=== PATIENT | male | born 1985 | race Caucasian/White ===

== ENCOUNTER 2021-10-01 23:19 | Observation (INO) | payer BC ==
--- OUTSIDE RECORDS SUMMARY | 2021-10-01 23:24 | XMS REPORT | Continuity of Care Document ---
:1985 Author Organization [facility] t Address [address] [place] [address] Care Team Providers Name Role Phone Addison HIDALGO Primary Care Physician Unavailable JUAN Attending Clinician Unavailable CARMEN Attending Clinician Unavailable CARMEN Attending Clinician Unavailable Vishnu CRUZ Attending Clinician THONY Attending Clinician Unavailable Aquilino SCHWARZ Attending Clinician Unavailable SHARONA SCHWARZ Attending Clinician Unavailable Carmen CRUZ Attending Clinician CARMEN Admitting Clinician Unavailable SHARONA SCHWARZ Admitting Clinician Unavailable Payers Payer Name Policy Type Policy Number Effective Date Expiration Date S mohit BCBSTX PPO AND OUT [id number] 2020 [facility] 00:00:00 BCBS PPO POS EPO [id number] 2014 2020 CHOICE 00:00:00 00:00:00 PPO/EPO - BCBS [id number] COPAY PATIENT [id number] ASSISTANCE PROGRAM Problems Condition Condition Condition Status Onset Resolution Last Treating Co mments Source Name Details Category Date Date Treatment Clinician Date Neck pain, Neck pain, Disease Active [facility] bilateral bilateral 4- [facility]al th 00:00: 00 Other Other Disease Active [facility] headache headache - Health syndrome syndrome 00:00: 00 741.00, Diagnosis Active 2014-12-12 Me jesus 780.4 11-13 07:16:00 l 741.00, 00:00: [place] 780.4 00 Active 11/13/2014 [facility] Malabsorpt Malabsorpt Disease Active [facility] ion ion 1-14 [facility] 00:00: of 00 Medicin e Iron Iron Disease Active [facility] deficiency deficiency 1-14 Co llege anemia anemia 00:00: of 00 Medicin e Perianal Perianal Disease Active 2009-06 [place] [facility] abscess abscess 1-09 [facility] 00:00: of 00 Medicin e Crohn's Crohn's Disease Active [facility] disease disease 8-17 College (HCCode) (HCCode) 00:00: of 00 Medicin e Epigastric Epigastric Disease Active [facility] pain pain 8-17 College 00:00: of 00 Medicin e Osteoporos Osteoporos Disease Active [facility] is is 4-20 College 00:00: of 00 Medicin e Allergies, Adverse Reactions, Alerts Allergy Allergy Status Severity Reaction(s) Onset Inactive Treating Comm ents Source Name Type Date Date Clinician MOLD Allergy Active Low Other [facility] 2-04 00:00: 00 TOMATO Allergy Active Low Other [facility] (SOLANUM 2-04 LYCOPERS 00:00: ICUM) 00 Molds & Allergy Active Other [facility] Smuts to 2-04 reaction( Health substanc 00:00: s): Other e 00 (See Comments) Sneezing, allergic rhinitis Tomato Allergy Active Mild [facility] to 4-17 allergy Health substanc 00:00: e 00 Mold Propensi Active [facility] Spores ty to 4-17 College adverse 00:00: of reaction 00 Medicin s to e substanc e Tomatoes Propensi Active Mild [facility] ty to 4-17 allergy College adverse 00:00: of reaction 00 Medicin s to e food Social History Social Habit Start Date Stop Date Quantity Comments Source Exposure to Not sure [facility] SARS-CoV-2 (event) Alcohol intake 2021-03-25 2021-03-25 Current [facility] Col lege 00:00:00 00:00:00 non-drinker of of Medicin e alcohol (finding) Sex Ass[birth year] At [birth year] [facility] 00:00:00 00:00:00 Smoking Status Start Date Stop Date Source Never smoked tobacco [facility] Tobacco smoking consumption unknown [facility] Medications Ordered Filled Start Stop Current Ordering Indication Dosage Frequency Signature Comments Components Source Medication Medication Date Date Medication? Clinician (SIG) Name Name DULoxetine 2022- Yes [id number] 20mg QD Take 1 [facility] (Cymbalta) 09-26 capsule [facility] [address] 00:00: 04:59 (20 mg capsule 00 :00 total) by mouth 1 (one) time each day. Do not crush or chew. gabapentin 2022- Yes [id number] 300mg Q.5D Take 1 [facility] (Neurontin) 09-26 capsule Heal th 300 MG 00:00: 04:59 (300 mg capsule 00 :00 total) by mouth 2 (two) times a day. Omeprazole Yes [id number] 20mg Take 20 mg [facility] 20 MG TBEC 3-09 by mouth Colle ge 00:00: every of 00 morning. Medicin e metoprolol 2020-06- No 25mg Take 25 mg [facility] (LOPRESSOR) 2-10 12-10 by mouth Col lege 25 MG 14:24: 00:00 two times of tablet 31 :00 daily. Medicin e fludrocorti 2020-06- No .1mg Take 0.1 [facility] sone 2-10 12-10 mg by [facility] ([facility]) 14:24: 00:00 mouth of 0.1 MG 13 :00 daily. Medicin tablet e loperamide 2020-06- No 2mg Take 2 mg [facility] (IMODIUM 2-10 12-10 by mouth 4 [place] [facility] A-D) 2 MG 14:23: 00:00 times of tablet 52 :00 daily as Medicin needed. e hyoscyamine 2020-[id number] [facility] (LEVSIN/SL) 2-10 Tablet Colleg e 0.125 MG SL 00:00: under the o f tablet 00 tongue Medicin every 4 e hours as needed. hyoscyamine 2020-[id number] [facility] (LEVSIN/SL) 2-10 Tablet Colleg e 0.125 MG SL 00:00: under the o f tablet 00 tongue Medicin every 4 e hours as needed. hyoscyamine 2020-[id number] [facility] (LEVSIN/SL) 2-10 Tablet Colleg e 0.125 MG SL 00:00: under the o f tablet 00 tongue Medicin every 4 e hours as needed. hyoscyamine 2020-[id number] [facility] (LEVSIN/SL) 2-10 Tablet Colleg e 0.125 MG SL 00:00: under the o f tablet 00 tongue Medicin every 4 e hours as needed. hyoscyamine 2020-[id number] 1 [facility] (LEVSIN/SL) 2-10 Tablet Colleg e 0.125 MG SL 00:00: under the o f tablet 00 tongue Medicin every 4 e hours as needed. Na 2020-06- No [SUPREP] [facility] Sulfate-K 1-18 12-10 Take as Colleg e Sulfate-Mg 00:00: 00:00 directed. o f Sulf 00 :00 Medicin (SUPREP e BOWEL PREP KIT) 17.5-3.13-1 .6 GM/177ML SOLN methylPREDN 2020-06 Yes [id number] Take 12 mg [facility] ISolone 1-10 po QD College (MEDROL) 4 00:00: of MG tablet 00 Medicin e methylPREDN 2020-06 Yes [id number] Take 12 mg [facility] ISolone 1-10 po QD College (MEDROL) 4 00:00: of MG tablet 00 Medicin e methylPREDN 2020-06 Yes [id number] Take 12 mg [facility] ISolone 1-10 po QD College (MEDROL) 4 00:00: of MG tablet 00 Medicin e methylPREDN 2020-06 Yes [id number] Take 12 mg [facility] ISolone 1-10 po QD College (MEDROL) 4 00:00: of MG tablet 00 Medicin e methylPREDN 2020-06 Yes [id number] Take 12 mg [facility] ISolone 1-10 po QD College (MEDROL) 4 00:00: of MG tablet 00 Medicin e methylPREDN 2020-06- No [id number] Take 12 mg [facility] ISolone 1-10 03-09 po QD [facility] (MEDROL) 4 00:00: 00:00 of MG tablet 00 :00 Medicin e Na Yes Dispense 1 [facility] Sulfate-K 9-22 kit; Take Colle ge Sulfate-Mg 00:00: as of Sulf 00 directed Medicin 17.5-3.13-1 e .6 GM/177ML SOLN Na Yes Dispense 1 [facility] Sulfate-K 9-22 kit; Take Colle [facility] Sulfate-Mg 00:00: as of Sulf 00 directed Medicin 17.5-3.13-1 e .6 GM/177ML SOLN Na Yes Dispense 1 [facility] Sulfate-K 9-22 kit; Take Colle ge Sulfate-Mg 00:00: as of Sulf 00 directed Medicin 17.5-3.13-1 e .6 GM/177ML SOLN Na Yes Dispense 1 [facility] Sulfate-K 9-22 kit; Take Colle ge Sulfate-Mg 00:00: as of Sulf 00 directed Medicin 17.5-3.13-1 e .6 GM/177ML SOLN Cholecalcif Yes 1{tbl} Take 1 Tab [facility] will 7-14 by mouth [facility] (VITAMIN D) 13:41: daily. of 2000 UNIT 57 Medicin TABS e Multiple Yes Take by [place] 7-14 mouth. Colleg e nerals 13:41: of (MULTIVITAM 57 Medicin IN & e MINERAL OR) loperamide Yes 2mg Take 2 mg [facility] (IMODIUM 7-14 by mouth 4 Colle ge A-D) 2 MG 13:41: times of tablet 57 daily as Medicin needed. e gabapentin Yes 300mg Take 300 [facility] (NEURONTIN) 7-14 mg by [place] 300 MG 13:41: mouth 3 of capsule 57 times Medicin daily. e acetaminoph Yes 650mg Take 650 [facility] en 7-14 mg by [place] (TYLENOL) 13:41: mouth of 325 mg 57 every 4 Medicin tablet hours as e needed for Pain. Cholecalcif Yes 1{tbl} Take 1 Tab [facility] will 7-14 by mouth [place] (VITAMIN D) 13:41: daily. of 1999 UNIT 57 Medicin TABS e Multiple Yes Take by [place] [facility] 7-14 mouth. Colleg e nerals 13:41: of (MULTIVITAM 57 Medicin IN & e MINERAL OR) loperamide Yes 2mg Take 2 mg [facility] (IMODIUM 7-14 by mouth 4 Colle ge A-D) 2 MG 13:41: times of tablet 57 daily as Medicin needed. e gabapentin 0 Yes 300mg Take 300 [facility] (NEURONTIN) 7-14 mg by [place] 300 MG 13:41: mouth 3 of capsule 57 times Medicin daily. e acetaminoph Yes 650mg Take 650 [facility] en 7-14 mg by [facility] (TYLENOL) 13:41: mouth of 325 mg 57 every 4 Medicin tablet hours as e needed for Pain. Cholecalcif Yes 1{tbl} Take 1 Tab [facility] will 7-14 by mouth [place] (VITAMIN D) 13:41: daily. of 1999 UNIT 57 Medicin TABS e Cholecalcif Yes 1{tbl} Take 1 Tab [facility] will 7-14 by mouth [place] (VITAMIN D) 13:41: daily. of 1999 UNIT 57 Medicin TABS e Multiple Yes Take by [place] [facility]-Mi 7-14 mouth. [facility] nerals 13:41: of (MULTIVITAM 57 Medicin IN & e MINERAL OR) loperamide Yes 2mg Take 2 mg [facility] (IMODIUM 7-14 by mouth 4 Colle ge A-D) 2 MG 13:41: times of tablet 57 daily as Medicin needed. e gabapentin 0 Yes 300mg Take 300 [facility] (NEURONTIN) 7-14 mg by [place] 300 MG 13:41: mouth 3 of capsule 57 times Medicin daily. e Multiple Yes Take by [place] [facility] 7-14 mouth. Colleg e nerals 13:41: of (MULTIVITAM 57 Medicin IN & e MINERAL OR) acetaminoph 0 Yes 650mg Take 650 [facility] 7-14 mg by [place] (TYLENOL) 13:41: mouth of 325 mg 57 every 4 Medicin tablet hours as e needed for Pain. loperamide 0 Yes 2mg Take 2 mg [facility] (IMODIUM 7-14 by mouth 4 Colle ge A-D) 2 MG 13:41: times of tablet 57 daily as Medicin needed. e gabapentin 0 Yes 300mg Take 300 [facility] (NEURONTIN) 7-14 mg by [place] 300 MG 13:41: mouth 3 of capsule 57 times Medicin daily. e Cholecalcif 0 Yes 1{tbl} Take 1 Tab [facility] will 7-14 by mouth [place] (VITAMIN D) 13:41: daily. of 1999 UNIT 57 Medicin TABS e Multiple 0 Yes Take by [facility] [facility] 7-14 mouth. Colleg e nerals 13:41: of (MULTIVITAM 57 Medicin IN & e MINERAL OR) loperamide 0 Yes 2mg Take 2 mg [facility] (IMODIUM 7-14 by mouth 4 Colle ge A-D) 2 MG 13:41: times of tablet 57 daily as Medicin needed. e gabapentin 0 Yes 300mg Take 300 [facility] (NEURONTIN) 7-14 mg by [place] 300 MG 13:41: mouth 3 of capsule 57 times Medicin daily. e acetaminoph 0 Yes 650mg Take 650 [facility] 7-14 mg by [place] (TYLENOL) 13:41: mouth of 325 mg 57 every 4 Medicin tablet hours as e needed for Pain. acetaminoph 0 Yes 650mg Take 650 [facility] en 7-14 mg by [place] (TYLENOL) 13:41: mouth of 325 mg 57 every 4 Medicin tablet hours as e needed for Pain. Cholecalcif 0 Yes 1{tbl} Take 1 Tab [facility] will 7-14 by mouth [place] (VITAMIN D) 13:41: daily. of 1999 UNIT 57 Medicin TABS e Multiple Yes Take by [facility] 7-14 mouth. Colleg e nerals 13:41: of (MULTIVITAM 57 Medicin IN & e MINERAL OR) loperamide 0 Yes 2mg Take 2 mg [facility] (IMODIUM 7-14 by mouth 4 Colle ge A-D) 2 MG 13:41: times of tablet 57 daily as Medicin needed. e gabapentin 0 Yes 300mg Take 300 [facility] (NEURONTIN) 7-14 mg by [place] 300 MG 13:41: mouth 3 of capsule 57 times Medicin daily. e acetaminoph 2020-0 Yes 650mg Take 650 [facility] 7-14 mg by [place] (TYLENOL) 13:41: mouth of 325 mg 57 every 4 Medicin tablet hours as e needed for Pain. Cholecalcif 2020-0 Yes 1{tbl} Take 1 Tab [facility] will 7-14 by mouth [place] (VITAMIN D) 13:41: daily. of 1999 UNIT 57 Medicin TABS e Multiple 0 Yes Take by [facility] Vitamins-Mi 7-14 mouth. Colleg e nerals 13:41: of (MULTIVITAM 57 Medicin IN & e MINERAL OR) loperamide 0 Yes 2mg Take 2 mg [facility] (IMODIUM 7-14 by mouth 4 [facility] ge A-D) 2 MG 13:41: times of tablet 57 daily as Medicin needed. e gabapentin 0 Yes 300mg Take 300 [facility] (NEURONTIN) 7-14 mg by [place] 300 MG 13:41: mouth 3 of capsule 57 times Medicin daily. e acetaminoph 2020-0 Yes 650mg Take 650 [facility] en 7-14 mg by [place] (TYLENOL) 13:41: mouth of 325 mg 57 every 4 Medicin tablet hours as e needed for Pain. Cholecalcif 2020-0 Yes 1{tbl} Take 1 Tab [facility] will 7-14 by mouth [place] (VITAMIN D) 13:41: daily. of 1999 UNIT 57 Medicin TABS e Multiple Yes Take by [facility] Vitamins-Mi 7-14 mouth. Colleg e nerals 13:41: of (MULTIVITAM 57 Medicin IN & e MINERAL OR) gabapentin 2020-0 Yes 300mg Take 300 [facility] (NEURONTIN) 7-14 mg by [place] 300 MG 13:41: mouth 3 of capsule 57 times Medicin daily. e acetaminoph 2020-0 Yes 650mg Take 650 [facility] en 7-14 mg by [place] (TYLENOL) 13:41: mouth of 325 mg 57 every 4 Medicin tablet hours as e needed for Pain. Cholecalcif 2020-0 Yes 1{tbl} Take 1 Tab [facility] will 7-14 by mouth [place] (VITAMIN D) 13:41: daily. of 1999 UNIT 57 Medicin TABS e Multiple Yes Take by [facility] Vitamins-Mi 7-14 mouth. Colleg e nerals 13:41: of (MULTIVITAM 57 Medicin IN & e MINERAL OR) gabapentin 2020-0 Yes 300mg Take 300 [facility] (NEURONTIN) 7-14 mg by [place] 300 MG 13:41: mouth 3 of capsule 57 times Medicin daily. e acetaminoph 2020-0 Yes 650mg Take 650 [facility] en 7-14 mg by [place] (TYLENOL) 13:41: mouth of 325 mg 57 every 4 Medicin tablet hours as e needed for Pain. Cholecalcif 0 Yes 1{tbl} Take 1 Tab [facility] will 7-14 by mouth [place] (VITAMIN D) 13:41: daily. of 1999 UNIT 57 Medicin TABS e Multiple 0 Yes Take by [facility] Vitamins-Mi 7-14 mouth. Colle e nerals 13:41: of (MULTIVITAM 57 Medicin IN & e MINERAL OR) gabapentin 2020-0 Yes 300mg Take 300 [facility] (NEURONTIN) 7-14 mg by [place] 300 MG 13:41: mouth 3 of capsule 57 times Medicin daily. e acetaminoph 2020-0 Yes 650mg Take 650 [facility] 7-14 mg by [place] (TYLENOL) 13:41: mouth of 325 mg 57 every 4 Medicin tablet hours as e needed for Pain. Cholecalcif 2020-0 Yes 1{tbl} Take 1 Tab [facility] will 7-14 by mouth [place] (VITAMIN D) 13:41: daily. of 1999 UNIT 57 Medicin TABS e Multiple Yes Take by [facility] Vitamins-Ga 7-14 mouth. Colleg e nerals 13:41: of (MULTIVITAM 57 Medicin IN & e MINERAL OR) gabapentin 2020-0 Yes 300mg Take 300 [facility] (NEURONTIN) 7-14 mg by [place] 300 MG 13:41: mouth 3 of capsule 57 times Medicin daily. e acetaminoph 202-0 Yes 650mg Take 650 [facility] en 7-14 mg by [place] (TYLENOL) 13:41: mouth of 325 mg 57 every 4 Medicin tablet hours as e needed for Pain. Cholecalcif 202-0 Yes 1{tbl} Take 1 Tab [facility] will 7-14 by mouth [place] (VITAMIN D) 13:41: daily. of 1999 UNIT 57 Medicin TABS e Multiple Yes Take by [facility] Vitamins-Mi 7-14 mouth. Colleg e nerals 13:41: of (MULTIVITAM 57 Medicin IN & e MINERAL OR) gabapentin Yes 300mg Take 300 [facility] (NEURONTIN) 7-14 mg by [facility] 300 MG 13:41: mouth 3 of capsule 57 times Medicin daily. e acetaminoph Yes 650mg Take 650 [facility] 7-14 mg by [place] (TYLENOL) 13:41: mouth of 325 mg 57 every 4 Medicin tablet hours as e needed for Pain. Cholecalcif Yes 1{tbl} Take 1 Tab [facility] will 7-14 by mouth [place] (VITAMIN D) 13:41: daily. of 1999 UNIT 57 Medicin TABS e Multiple Yes Take by [facility] Vitamins-Mi 7-14 mouth. Colleg e nerals 13:41: of (MULTIVITAM 57 Medicin IN & e MINERAL OR) loperamide Yes 2mg Take 2 mg [facility] (IMODIUM 7-14 by mouth 4 Colle ge A-D) 2 MG 13:41: times of tablet 57 daily as Medicin needed. e gabapentin Yes 300mg Take 300 [facility] (NEURONTIN) 7-14 mg by [place] 300 MG 13:41: mouth 3 of capsule 57 times Medicin daily. e acetaminoph Yes 650mg Take 650 [facility] en 7-14 mg by [place] (TYLENOL) 13:41: mouth of 325 mg 57 every 4 Medicin tablet hours as e needed for Pain. Cholecalcif Yes 1{tbl} Take 1 Tab [facility] will 7-14 by mouth [place] (VITAMIN D) 13:41: daily. of 1999 UNIT 57 Medicin TABS e Multiple Yes Take by [facility] Vitamins-Mi 7-14 mouth. Colleg e nerals 13:41: of (MULTIVITAM 57 Medicin IN & e MINERAL OR) loperamide Yes 2mg Take 2 mg [facility] (IMODIUM 7-14 by mouth 4 Colle ge A-D) 2 MG 13:41: times of tablet 57 daily as Medicin needed. e gabapentin Yes 300mg Take 300 [facility] (NEURONTIN) 7-14 mg by [place] 300 MG 13:41: mouth 3 of capsule 57 times Medicin daily. e acetaminoph Yes 650mg Take 650 [facility] 7-14 mg by [place] (TYLENOL) 13:41: mouth of 325 mg 57 every 4 Medicin tablet hours as e needed for Pain. tramadol Yes TAKE 1 [facility] (ULTRAM) 50 7-05 TABLET BY Col lege MG tablet 00:00: MOUTH of 00 EVERY 6 Medicin HOURS e NEEDED FOR PAIN tramadol Yes TAKE 1 [facility] (ULTRAM) 50 7-05 TABLET BY Col lege MG tablet 00:00: MOUTH of 00 EVERY 6 Medicin HOURS e NEEDED FOR PAIN tramadol Yes TAKE 1 [facility] (ULTRAM) 50 7-05 TABLET BY Col lege MG tablet 00:00: MOUTH of 00 EVERY 6 Medicin HOURS e NEEDED FOR PAIN tramadol Yes TAKE 1 [facility] (ULTRAM) 50 7-05 TABLET BY Col lege MG tablet 00:00: MOUTH of 00 EVERY 6 Medicin HOURS e NEEDED FOR PAIN tramadol Yes TAKE 1 [facility] (ULTRAM) 50 7-05 TABLET BY Col lege MG tablet 00:00: MOUTH of 00 EVERY 6 Medicin HOURS e NEEDED FOR PAIN tramadol Yes TAKE 1 [facility] (ULTRAM) 50 7-05 TABLET BY Col lege MG tablet 00:00: MOUTH of 00 EVERY 6 Medicin HOURS e NEEDED FOR PAIN tramadol Yes TAKE 1 [facility] (ULTRAM) 50 7-05 TABLET BY Col lege MG tablet 00:00: MOUTH of 00 EVERY 6 Medicin HOURS e NEEDED FOR PAIN tramadol Yes TAKE 1 [facility] (ULTRAM) 50 7-05 TABLET BY Col lege MG tablet 00:00: MOUTH of 00 EVERY 6 Medicin HOURS e NEEDED FOR PAIN tramadol Yes TAKE 1 [facility] (ULTRAM) 50 7-05 TABLET BY Col lege MG tablet 00:00: MOUTH of 00 EVERY 6 Medicin HOURS e NEEDED FOR PAIN tramadol 2020-0 2020- No TAKE 1 [facility] (ULTRAM) 50 7-05 12-10 TABLET BY Co llege MG tablet 00:00: 00:00 MOUTH of 00 :00 EVERY 6 Medicin HOURS e NEEDED FOR PAIN ondansetron 2020-0 Yes [id number] 4mg Take 1 [facility] (ZOFRAN 6-10 Tablet by [facility] ODT) 4 mg 00:00: mouth of disintegrat 00 every 8 Medic in ing tablet hours as e needed for Nausea. ondansetron 2020-0 Yes [id number] 4mg Take 1 [facility] (ZOFRAN 6-10 Tablet by [place] ODT) 4 mg 00:00: mouth of disintegrat 00 every 8 Medic in ing tablet hours as e needed for Nausea. ondansetron 2020-0 Yes [id number] 4mg Take 1 [facility] (ZOFRAN 6-10 Tablet by [facility] ODT) 4 mg 00:00: mouth of disintegrat 00 every 8 Medic in ing tablet hours as e needed for Nausea. ondansetron 2020-0 Yes [id number] 4mg Take 1 [facility] (ZOFRAN 6-10 Tablet by [place] ODT) 4 mg 00:00: mouth of disintegrat 00 every 8 Medic in ing tablet hours as e needed for Nausea. ondansetron 2020-0 Yes [id number] 4mg Take 1 [facility] (ZOFRAN 6-10 Tablet by [place] ODT) 4 mg 00:00: mouth of disintegrat 00 every 8 Medic in ing tablet hours as e needed for Nausea. ondansetron 2020-0 Yes [id number] 4mg Take 1 [facility] (ZOFRAN 6-10 Tablet by [facility] ODT) 4 mg 00:00: mouth of disintegrat 00 every 8 Medic in ing tablet hours as e needed for Nausea. ondansetron 2020-0 Yes [id number] 4mg Take 1 [facility] (ZOFRAN 6-10 Tablet by [facility] ODT) 4 mg 00:00: mouth of disintegrat 00 every 8 Medic in ing tablet hours as e needed for Nausea. ondansetron 2020-0 Yes [id number] 4mg Take 1 [facility] (ZOFRAN 6-10 Tablet by [facility] ODT) 4 mg 00:00: mouth of disintegrat 00 every 8 Medic in ing tablet hours as e needed for Nausea. ondansetron 0 Yes [id number] 4mg Take 1 [facility] (ZOFRAN 6-10 Tablet by [facility] ODT) 4 mg 00:00: mouth of disintegrat 00 every 8 Medic in ing tablet hours as e needed for Nausea. ondansetron 0 Yes [id number] 4mg Take 1 [facility] (ZOFRAN 6-10 Tablet by [facility] ODT) 4 mg 00:00: mouth of disintegrat 00 every 8 Medic in ing tablet hours as e needed for Nausea. ondansetron Yes [id number] 4mg Take 1 [facility] (ZOFRAN 6-10 Tablet by [facility] ODT) 4 mg 00:00: mouth of disintegrat 00 every 8 Medic in ing tablet hours as e needed for Nausea. ondansetron Yes [id number] 4mg Take 1 [facility] (ZOFRAN 6-10 Tablet by [facility] ODT) 4 mg 00:00: mouth of disintegrat 00 every 8 Medic in ing tablet hours as e needed for Nausea. ondansetron Yes [id number] 4mg Take 1 [facility] (ZOFRAN 6-10 Tablet by [facility] ODT) 4 mg 00:00: mouth of disintegrat 00 every 8 Medic in ing tablet hours as e needed for Nausea. ondansetron 2021- No [id number] 4mg Take 1 [facility] (ZOFRAN 6-10 03-09 Tablet by [facility] ODT) 4 mg 00:00: 00:00 mouth of disintegrat 00 :00 every 8 Medic in ing tablet hours as e needed for Nausea. loperamide Yes 2mg Take 2 mg [facility] (IMODIUM 11-14 by mouth 4 [facility] ge A-D) 2 MG 08:40: times of tablet 56 daily as Medicin needed. e metoprolol Yes 25mg Take 25 mg [facility] (LOPRESSOR) 6-09 by mouth [place] [facility] 25 MG 08:40: two times of tablet 56 daily. Medicin e fludrocorti 0 Yes .1mg Take 0.1 [facility] sone 6-09 mg by [place] (FLORINEF) 08:40: mouth of 0.1 MG 56 daily. Medicin tablet e metoprolol 2021-0 Yes 25mg Take 25 mg [facility] (LOPRESSOR) 6-09 by mouth [place] [facility] 25 MG 08:40: two times of tablet 56 daily. Medicin e fludrocorti 2021-0 Yes .1mg Take 0.1 [facility] sone 6-09 mg by [place] ([facility]) 08:40: mouth of 0.1 MG 56 daily. Medicin tablet e metoprolol 2021-0 Yes 25mg Take 25 mg [facility] (LOPRESSOR) 6-09 by mouth [place] [facility] 25 MG 08:40: two times of tablet 56 daily. Medicin e fludrocorti 2021-0 Yes .1mg Take 0.1 [facility] sone 6-09 mg by [place] ([facility]) 08:40: mouth of 0.1 MG 56 daily. Medicin tablet e metoprolol 2021-0 Yes 25mg Take 25 mg [facility] (LOPRESSOR) 6-09 by mouth [place] [facility] 25 MG 08:40: two times of tablet 56 daily. Medicin e fludrocorti 2021-0 Yes .1mg Take 0.1 [facility] sone 6-09 mg by [place] ([facility]) 08:40: mouth of 0.1 MG 56 daily. Medicin tablet e metoprolol 2021-0 Yes 25mg Take 25 mg [facility] (LOPRESSOR) 6-09 by mouth [place] [facility] 25 MG 08:40: two times of tablet 56 daily. Medicin e metoprolol 2021-0 Yes 25mg Take 25 mg [facility] (LOPRESSOR) 6-09 by mouth [place] [facility] 25 MG 08:40: two times of tablet 56 daily. Medicin e fludrocorti 2021-0 Yes .1mg Take 0.1 [facility] sone 6-09 mg by [place] ([facility]) 08:40: mouth of 0.1 MG 56 daily. Medicin tablet e fludrocorti 2021-0 Yes .1mg Take 0.1 [facility] sone 6-09 mg by [place] ([facility]) 08:40: mouth of 0.1 MG 56 daily. Medicin tablet e metoprolol 2021-0 Yes 25mg Take 25 mg [facility] (LOPRESSOR) 6-09 by mouth [place] [facility] 25 MG 08:40: two times of tablet 56 daily. Medicin e fludrocorti 2020-0 Yes .1mg Take 0.1 [facility] sone 6-09 mg by [place] ([facility]) 08:40: mouth of 0.1 MG 56 daily. Medicin tablet e metoprolol 2020-0 Yes 25mg Take 25 mg [facility] (LOPRESSOR) 6-09 by mouth [place] [facility] 25 MG 08:40: two times of tablet 56 daily. Medicin e fludrocorti 2021-0 Yes .1mg Take 0.1 [facility] sone 6-09 mg by [place] ([facility]) 08:40: mouth of 0.1 MG 56 daily. Medicin tablet e metoprolol 2020-0 Yes 25mg Take 25 mg [facility] (LOPRESSOR) 6-09 by mouth [place] [facility] 25 MG 08:40: two times of tablet 56 daily. Medicin e fludrocorti 2020-0 Yes .1mg Take 0.1 [facility] sone 6-09 mg by [place] ([facility]) 08:40: mouth of 0.1 MG 56 daily. Medicin tablet e metoprolol 2020-0 Yes 25mg Take 25 mg [facility] (LOPRESSOR) 6-09 by mouth [place] [facility] 25 MG 08:40: two times of tablet 56 daily. Medicin e fludrocorti 2020-0 Yes .1mg Take 0.1 [facility] sone 6-09 mg by [place] ([facility]) 08:40: mouth of 0.1 MG 56 daily. Medicin tablet e Cholecalcif 2020-0 Yes 1{tbl} Take 1 Tab [facility] will 6-09 by mouth [place] (VITAMIN D) 08:36: daily. of 2000 UNIT 54 Medicin TABS e Multiple 2020-0 Yes Take by [facility] 6-09 mouth. Colleg e nerals 08:36: of (MULTIVITAM 54 Medicin IN & e MINERAL OR) gabapentin 2020-0 Yes 300mg Take 300 [facility] (NEURONTIN) 6-09 mg by [facility] 300 MG 08:36: mouth 3 of capsule 54 times Medicin daily. e acetaminoph 2020-0 Yes 650mg Take 650 [facility] 6-09 mg by [facility] (TYLENOL) 08:36: mouth of 325 mg 54 every 4 Medicin tablet hours as e needed for Pain. Na 0 Yes [id number] [SUPREP] [facility] Sulfate-K 6-09 Take as College Sulfate-Mg 00:00: directed. of Sulf 00 Medicin (SUPREP e BOWEL PREP KIT) 17.5-3.13-1 .6 GM/177ML SOLN Na 2020-0 Yes [id number] [SUPREP] [facility] Sulfate-K 6-09 Take as [facility] Sulfate-Mg 00:00: directed. of Sulf 00 Medicin (SUPREP e BOWEL PREP KIT) 17.5-3.13-1 .6 GM/177ML SOLN Na 2020-0 Yes [id number] [SUPREP] [facility] Sulfate-K 6-09 Take as [facility] Sulfate-Mg 00:00: directed. of Sulf 00 Medicin (SUPREP e BOWEL PREP KIT) 17.5-3.13-1 .6 GM/177ML SOLN Na 2020-0 Yes [id number] [SUPREP] [facility] Sulfate-K 6-09 Take as [facility] Sulfate-Mg 00:00: directed. of Sulf 00 Medicin (SUPREP e BOWEL PREP KIT) 17.5-3.13-1 .6 GM/177ML SOLN Na 2020-0 Yes [id number] [SUPREP] [facility] Sulfate-K 6-09 Take as [facility] Sulfate-Mg 00:00: directed. of Sulf 00 Medicin (SUPREP e BOWEL PREP KIT) 17.5-3.13-1 .6 GM/177ML SOLN Na 2020-0 Yes [id number] [SUPREP] [facility] Sulfate-K 6-09 Take as [facility] Sulfate-Mg 00:00: directed. of Sulf 00 Medicin (SUPREP e BOWEL PREP KIT) 17.5-3.13-1 .6 GM/177ML SOLN Na 2020-0 Yes [id number] [SUPREP] [facility] Sulfate-K 6-09 Take as [facility] Sulfate-Mg 00:00: directed. of Sulf 00 Medicin (SUPREP e BOWEL PREP KIT) 17.5-3.13-1 .6 GM/177ML SOLN Na 2020-0 Yes [id number] [SUPREP] [facility] Sulfate-K 6-09 Take as [facility] Sulfate-Mg 00:00: directed. of Sulf 00 Medicin (SUPREP e BOWEL PREP KIT) 17.5-3.13-1 .6 GM/177ML SOLN Na Yes [id number] [SUPREP] [facility] Sulfate-K 11-14 Take as College Sulfate-Mg 00:00: directed. of Sulf 00 Medicin (SUPREP e BOWEL PREP KIT) 17.5-3.13-1 .6 GM/177ML SOLN Ustekinumab Yes [id number] INJECT 1 [facility] (STELARA) 3-17 [employer] [employer] 90 MG/ML 00:00: (90 MG) of injection 00 UNDER THE Medic in SKIN e (SUBCUTANE OUS INJECTION) EVERY 28 DAYS Ustekinumab Yes [id number] INJECT 1 [facility] (STELARA) 3-17 [employer] [employer] 90 MG/ML 00:00: (90 MG) of injection 00 UNDER THE Medic in SKIN e (SUBCUTANE OUS INJECTION) EVERY 28 DAYS Ustekinumab Yes [id number] INJECT 1 [facility] (STELARA) 3-17 [employer] [employer] 90 MG/ML 00:00: (90 MG) of injection 00 UNDER THE Medic in SKIN e (SUBCUTANE OUS INJECTION) EVERY 28 DAYS Ustekinumab Yes [id number] INJECT 1 [facility] (STELARA) 3-17 [employer] [employer] 90 MG/ML 00:00: (90 MG) of injection 00 UNDER THE Medic in SKIN e (SUBCUTANE OUS INJECTION) EVERY 28 DAYS Ustekinumab Yes [id number] INJECT 1 [facility] (STELARA) 3-17 [employer] [employer] 90 MG/ML 00:00: (90 MG) of injection 00 UNDER THE Medic in SKIN e (SUBCUTANE OUS INJECTION) EVERY 28 DAYS Ustekinumab Yes [id number] INJECT 1 [facility] (STELARA) 3-17 [employer] [employer] 90 MG/ML 00:00: (90 MG) of injection 00 UNDER THE Medic in SKIN e (SUBCUTANE OUS INJECTION) EVERY 28 DAYS Ustekinumab Yes [id number] INJECT 1 [facility] (STELARA) 3-17 [employer] [employer] 90 MG/ML 00:00: (90 MG) of injection 00 UNDER THE Medic in SKIN e (SUBCUTANE OUS INJECTION) EVERY 28 DAYS Ustekinumab Yes [id number] INJECT 1 [facility] (STELARA) 3-17 [employer] [employer] 90 MG/ML 00:00: (90 MG) of injection 00 UNDER THE Medic in SKIN e (SUBCUTANE OUS INJECTION) EVERY 28 DAYS Ustekinumab 0 Yes [id number] INJECT 1 [facility] (STELARA) 3-17 [employer] [employer] 90 MG/ML 00:00: (90 MG) of injection 00 UNDER THE Medic in SKIN e (SUBCUTANE OUS INJECTION) EVERY 28 DAYS Ustekinumab 0 Yes [id number] INJECT 1 [facility] (STELARA) 3-17 [employer] [employer] 90 MG/ML 00:00: (90 MG) of injection 00 UNDER THE Medic in SKIN e (SUBCUTANE OUS INJECTION) EVERY 28 DAYS Ustekinumab 0 2020- No [id number] INJECT 1 [facility] (STELARA) 3-17 12-10 [employer] [employer] 90 MG/ML 00:00: 00:00 (90 MG) of injection 00 :00 UNDER THE Medic in SKIN e (SUBCUTANE OUS INJECTION) EVERY 28 DAYS tramadol 2019-1 Yes TAKE 1 [facility] (ULTRAM) 50 2-29 TABLET BY Col lege MG tablet 00:00: MOUTH of 00 EVERY 6 Medicin HOURS e NEEDED FOR PAIN cholestyram 2020-0 Yes [id number] MIX AND [facility] ine 1-13 DRINK 1 [place] ([facility]) 00:00: PACKET BY of 4 g packet 00 MOUTH Medicin DAILY e cholestyram 2020-0 Yes [id number] MIX AND [facility] ine 1-13 DRINK 1 [place] [facility] 00:00: PACKET BY of 4 g packet 00 MOUTH Medicin DAILY e cholestyram 2020-0 Yes [id number] MIX AND [facility] ine 1-13 DRINK 1 [place] ([facility]) 00:00: PACKET BY of 4 g packet 00 MOUTH Medicin DAILY e cholestyram 2020-0 Yes [id number] MIX AND [facility] in[facility] 1-13 DRINK 1 [place] ([facility]) 00:00: PACKET BY of 4 g packet 00 MOUTH Medicin DAILY e cholestyram 2020-0 Yes [id number] MIX AND [facility] ine 1-13 DRINK 1 [place] ([facility]) 00:00: PACKET BY of 4 g packet 00 MOUTH Medicin DAILY e cholestyram 2020-0 Yes [id number] MIX AND [facility] in[facility] 1-13 DRINK 1 [place] ([facility]) 00:00: PACKET BY of 4 g packet 00 MOUTH Medicin DAILY e cholestyram 2020-0 Yes [id number] MIX AND [facility] ine 1-13 DRINK 1 [place] ([facility]) 00:00: PACKET BY of 4 g packet 00 MOUTH Medicin DAILY e cholestyram 2020-0 Yes [id number] MIX AND [facility] ine 1-13 DRINK 1 [place] ([facility]) 00:00: PACKET BY of 4 g packet 00 MOUTH Medicin DAILY e cholestyram 2020-0 Yes [id number] MIX AND [facility] in[facility] 1-13 DRINK 1 [place] ([facility]) 00:00: PACKET BY of 4 g packet 00 MOUTH Medicin DAILY e cholestyram 2020-0 Yes [id number] MIX AND [facility] in[facility] 1-13 DRINK 1 [place] ([facility]) 00:00: PACKET BY of 4 g packet 00 MOUTH Medicin DAILY e cholestyram 2020-0 Yes [id number] MIX AND [facility] in[facility] 1-13 DRINK 1 [place] ([facility]) 00:00: PACKET BY of 4 g packet 00 MOUTH Medicin DAILY e cholestyram 2020-0 Yes [id number] MIX AND [facility] ine 1-13 DRINK 1 [place] ([facility]) 00:00: PACKET BY of 4 g packet 00 MOUTH Medicin DAILY e cholestyram 2020-0 Yes [id number] MIX AND [facility] in[facility] 1-13 DRINK 1 [place] ([facility]) 00:00: PACKET BY of 4 g packet 00 MOUTH Medicin DAILY e cholestyram 2020-0 Yes [id number] MIX AND [facility] ine 1-13 DRINK 1 [place] ([facility]) 00:00: PACKET BY of 4 g packet 00 MOUTH Medicin DAILY e cholestyram 2020-0 2022- No [id number] MIX AND [facility] in[facility] 1-13 03-09 DRINK 1 [place] ([facility]) 00:00: 00:00 PACKET BY o f 4 g packet 00 :00 MOUTH Medicin DAILY e Sod 2019-0 Yes [PREPOPIK] [facility] Picosulfate 6-05 Take as Colle ge -Mag Ox-Cit 00:00: directed of Acd 00 Medicin (PREPOPIK) e 10-3.5-12 MG-GM-GM PACK Sod 2018-0 Yes [PREPOPIK] [facility] Picosulfate 6-05 Take as Colle ge -Mag Ox-Cit 00:00: directed of Acd 00 Medicin (PREPOPIK) e 10-3.5-12 MG-GM-GM PACK Sod Yes [PREPOPIK] [facility] Picosulfate 6-05 Take as Colle ge -Mag Ox-Cit 00:00: directed of Acd 00 Medicin (PREPOPIK) e 10-3.5-12 MG-GM-GM PACK Sod Yes [PREPOPIK] [facility] Picosulfate 6-05 Take as Colle ge -Mag Ox-Cit 00:00: directed of Acd 00 Medicin (PREPOPIK) e 10-3.5-12 MG-GM-GM PACK Sod Yes [PREPOPIK] [facility] Picosulfate 6-05 Take as Colle ge -Mag Ox-Cit 00:00: directed of Acd 00 Medicin (PREPOPIK) e 10-3.5-12 MG-GM-GM PACK Sod Yes [PREPOPIK] [facility] Picosulfate 6-05 Take as Colle ge -Mag Ox-Cit 00:00: directed of Acd 00 Medicin (PREPOPIK) e 10-3.5-12 MG-GM-GM PACK Sod Yes [PREPOPIK] [facility] Picosulfate 6-05 Take as Colle ge -Mag Ox-Cit 00:00: directed of Acd 00 Medicin (PREPOPIK) e 10-3.5-12 MG-GM-GM PACK Sod Yes [PREPOPIK] [facility] Picosulfate 6-05 Take as Colle ge -Mag Ox-Cit 00:00: directed of Acd 00 Medicin (PREPOPIK) e 10-3.5-12 MG-GM-GM PACK Sod Yes [PREPOPIK] [facility] Picosulfate 6-05 Take as Colle ge -Mag Ox-Cit 00:00: directed of Acd 00 Medicin (PREPOPIK) e 10-3.5-12 MG-GM-GM PACK midodrine 0 Yes TK 1/2 T [facility] (PROAMATINE 5-20 PO BID [facility] ) 5 MG 00:00: of tablet 00 Medicin e midodrine 2018-0 Yes TK 1/2 T [facility] (PROAMATINE 5-20 [facility] BID [facility] ) 5 MG 00:00: of tablet 00 Medicin e midodrine 2019-0 Yes TK 1/2 T [facility] (PROAMATINE 5-20 PO BID [facility] e ) 5 MG 00:00: of tablet 00 Medicin e midodrine 2019-0 Yes TK 1/2 T [facility] (PROAMATINE 5-20 PO BID [facility] ) 5 MG 00:00: of tablet 00 Medicin e midodrine 2019-0 Yes TK 1/2 T [facility] (PROAMATINE 5-20 PO BID [facility] e ) 5 MG 00:00: of tablet 00 Medicin e midodrine 2019-0 Yes TK 1/2 T [facility] (PROAMATINE 5-20 PO BID [facility] e ) 5 MG 00:00: of tablet 00 Medicin e midodrine 2019-0 Yes TK 1/2 T [facility] (PROAMATINE 5-20 PO BID [facility] ) 5 MG 00:00: of tablet 00 Medicin e midodrine 2019-0 Yes TK 1/2 T [facility] (PROAMATINE 5-20 PO BID [facility] ) 5 MG 00:00: of tablet 00 Medicin e midodrine 2019-0 Yes TK 1/2 T [facility] (PROAMATINE 5-20 PO BID [facility] ) 5 MG 00:00: of tablet 00 Medicin e midodrine 2019-0 Yes TK 1/2 T [facility] (PROAMATINE 5-20 PO BID [facility] e ) 5 MG 00:00: of tablet 00 Medicin e midodrine 2019-0 2021- No TK 1/2 T [place] [facility] (PROAMATINE 5-20 12-10 PO BID Colle ge ) 5 MG 00:00: 00:00 of tablet 00 :00 Medicin e folic acid [id number] Yes 1mg Take 1 Tab [facility] (FOLVITE) 1 5-31 by mouth [place] [facility] MG tablet 00:00: daily. of 00 Medicin e folic acid 2017- Yes 1mg Take 1 [facility] (FOLVITE) 1 5-31 by mouth [place] [facility] MG tablet 00:00: daily. of 00 Medicin e folic acid 2017- Yes 1mg Take 1 [facility] (FOLVITE) 1 5-31 by mouth [place] [facility] MG tablet 00:00: daily. of 00 Medicin e folic acid 2017-0 Yes 1mg Take 1 [facility] (FOLVITE) 1 5-31 by mouth [place] [facility] MG tablet 00:00: daily. of 00 Medicin e folic acid 2017-0 Yes 1mg Take 1 [facility] (FOLVITE) 1 5-31 by mouth [place] [facility] MG tablet 00:00: daily. of 00 Medicin e folic acid 2017-0 Yes 1mg Take 1 [facility] (FOLVITE) 1 5-31 by mouth [place] [facility] MG tablet 00:00: daily. of 00 Medicin e folic acid 2017-0 Yes 1mg Take 1 [facility] (FOLVITE) 1 5-31 by mouth [place] [facility] MG tablet 00:00: daily. of 00 Medicin e folic acid 2017-0 Yes 1mg Take 1 [facility] (FOLVITE) 1 5-31 by mouth [place] [facility] MG tablet 00:00: daily. of 00 Medicin e folic acid 2017-0 Yes 1mg Take 1 [facility] (FOLVITE) 1 5-31 by mouth [place] [facility] MG tablet 00:00: daily. of Medicin e folic acid 0 Yes 1mg Take 1 [facility] (FOLVITE) 1 5-31 by mouth [facility] MG tablet 00:00: daily. of Medicin e folic acid 2017-0 2021- No 1mg Take 1 Tab [facility] (FOLVITE) 1 5-31 12-10 by mouth [facility] MG tablet 00:00: 00:00 daily. of 00 :00 Medicin e ibandronate 2017-0 Yes [id number] 150mg Take 1 Tab [facility] (BONIVA) 1-06 by mouth [facility] 150 MG 00:00: every 30 of tablet 00 days. Medicin e ibandronate 2017-0 Yes [id number] 150mg Take 1 Tab [facility] (BONIVA) 1-06 by mouth [facility] 150 MG 00:00: every 30 of tablet 00 days. Medicin e ibandronate 2017-0 Yes [id number] 150mg Take 1 Tab [facility] (BONIVA) 1-06 by mouth [facility] 150 MG 00:00: every 30 of tablet 00 days. Medicin e ibandronate 2017-0 Yes [id number] 150mg Take 1 Tab [facility] (BONIVA) 1-06 by mouth [facility] 150 MG 00:00: every 30 of tablet 00 days. Medicin e ibandronate Yes [id number] 150mg Take 1 Tab [facility] ([facility]ONIVA) 1-06 by mouth [facility] 150 MG 00:00: every 30 of tablet 00 days. Medicin e ibandronate 2016- Yes [id number] 150mg Take 1 Tab [facility] (BONIVA) 1-06 by mouth [facility] 150 MG 00:00: every 30 of tablet 00 days. Medicin e ibandronate 2016- Yes [id number] 150mg Take 1 Tab [facility] (BONIVA) 1-06 by mouth [facility] 150 MG 00:00: every 30 of tablet 00 days. Medicin e ibandronate 2016- Yes [id number] 150mg Take 1 Tab [facility] (BONIVA) 1-06 by mouth [place] 150 MG 00:00: every 30 of tablet 00 days. Medicin e ibandronate 2016- Yes [id number] 150mg Take 1 Tab [facility] (BONIVA) 1-06 by mouth [facility] 150 MG 00:00: every 30 of tablet 00 days. Medicin e ibandronate Yes [id number] 150mg Take 1 Tab [facility] (BONIVA) 1-06 by mouth [facility] 150 MG 00:00: every 30 of tablet 00 days. Medicin e ibandronate 2016-2020- No [id number] 150mg Take 1 Tab [facility] (BONIVA) 1-06 12-10 by mouth Colleg e 150 MG 00:00: 00:00 every 30 of tablet 00 :00 days. Medicin e ondansetron 2014- Yes [id number] 4mg Take 1 Tab [facility] (ZOFRAN 1-13 by mouth [place] ODT) 4 mg 00:00: every 8 of disintegrat 00 hours as Medi richelle ing tablet needed for e Nausea. Immunizations Ordered Immunization Filled Immunization Date Status Commen ts Source Name Name Influenza Quad-PF 2021-04-05 Completed [facility] 00:00:00 of Medicine Influenza Quad-PF 2021-04-05 Completed [facility] 00:00:00 of Medicine Influenza Quad-PF 2021-04-05 Completed [facility] 00:00:00 of Medicine Influenza Quad-PF 2021-04-05 Completed [facility] 00:00:00 of Medicine Influenza Quad-PF 2021-04-05 Completed [facility] 00:00:00 of Medicine Influenza Quad-PF 2021-04-05 Completed [facility] 00:00:00 of Medicine Pfizer SARS-CoV-2 2021-03-22 Completed [facility] Vaccination 00:00:00 of Medicine Pfizer SARS-CoV-2 2021-03-22 Completed [facility] Vaccination 00:00:00 of Medicine Pfizer SARS-CoV-2 2021-03-22 Completed [facility] Vaccination 00:00:00 of Medicine Pfizer SARS-CoV-2 2021-03-22 Completed [facility] Vaccination 00:00:00 of Medicine Pfizer SARS-CoV-2 2021-03-22 Completed [facility] Vaccination 00:00:00 of Medicine Pfizer SARS-CoV-2 2021-03-22 Completed [facility] Vaccination 00:00:00 of Medicine Pfizer SARS-CoV-2 2021-03-22 Completed [facility] Vaccination 00:00:00 of Medicine Pfizer SARS-CoV-2 2021-03-22 Completed [facility] Vaccination 00:00:00 of Medicine PPD Test 2020-10-04 Completed [facility] 00:00:00 of Medicine PPD Test 2020-10-04 Completed [facility] 00:00:00 of Medicine PPD Test 2020-10-04 Completed [facility] 00:00:00 of Medicine PPD Test 2020-10-04 Completed [facility] 00:00:00 of Medicine PPD Test 2020-10-04 Completed [facility] 00:00:00 of Medicine PPD Test 2020-10-04 Completed [facility] 00:00:00 of Medicine PPD Test 2020-10-04 Completed [facility] 00:00:00 of Medicine PPD Test 2020-10-04 Completed [facility] 00:00:00 of Medicine PPD Test 2020-10-04 Completed [facility] 00:00:00 of Medicine PPD Test 2020-10-04 Completed [facility] 00:00:00 of Medicine PPD Test 2020-10-04 Completed [facility] 00:00:00 of Medicine PPD Test 2020-10-04 Completed [facility] 00:00:00 of Medicine PPD Test 2020-10-04 Completed [facility] 00:00:00 of Medicine PPD Test 2020-10-04 Completed [facility] 00:00:00 of Medicine PPD Test 2020-10-04 Completed [facility] 00:00:00 of Medicine Influenza Quad-PF 2019-05-20 Completed [facility] 00:00:00 of Medicine Influenza Quad-PF 2019-05-20 Completed [facility] 00:00:00 of Medicine Influenza Quad-PF 2019-05-20 Completed [facility] 00:00:00 of Medicine Influenza Quad-PF 2019-05-20 Completed [facility] 00:00:00 of Medicine Influenza Quad-PF 2019-05-20 Completed [facility] 00:00:00 of Medicine Influenza Quad-PF 2019-05-20 Completed [facility] 00:00:00 of Medicine Influenza Quad-PF 2019-05-20 Completed [facility] 00:00:00 of Medicine Influenza Quad-PF 2019-05-20 Completed [facility] 00:00:00 of Medicine Influenza Quad-PF 2019-05-20 Completed [facility] 00:00:00 of Medicine Influenza Quad-PF 2019-05-20 Completed [facility] 00:00:00 of Medicine Influenza Quad-PF 2019-05-20 Completed [facility] 00:00:00 of Medicine Influenza Quad-PF 2019-05-20 Completed [facility] 00:00:00 of Medicine Influenza Quad-PF 2019-05-20 Completed [facility] 00:00:00 of Medicine Influenza Quad-PF 2019-05-20 Completed [facility] 00:00:00 of Medicine Influenza Quad-PF 2019-05-20 Completed [facility] 00:00:00 of Medicine PPD Test 2018-09-22 Completed [facility] 00:00:00 of Medicine PPD Test 2018-09-22 Completed [facility] 00:00:00 of Medicine PPD Test 2018-09-22 Completed [facility] 00:00:00 of Medicine PPD Test 2018-09-22 Completed [facility] 00:00:00 of Medicine PPD Test 2018-09-22 Completed [facility] 00:00:00 of Medicine PPD Test 2018-09-22 Completed [facility] 00:00:00 of Medicine PPD Test 2018-09-22 Completed [facility] 00:00:00 of Medicine PPD Test 2018-09-22 Completed [facility] 00:00:00 of Medicine PPD Test 2018-09-22 Completed [facility] 00:00:00 of Medicine PPD Test 2018-09-22 Completed [facility] 00:00:00 of Medicine PPD Test 2018-09-22 Completed [facility] 00:00:00 of Medicine PPD Test 2018-09-22 Completed [facility] 00:00:00 of Medicine PPD Test 2018-09-22 Completed [facility] 00:00:00 of Medicine PPD Test 2018-09-22 Completed [facility] 00:00:00 of Medicine PPD Test 2018-09-22 Completed [facility] 00:00:00 of Medicine Influenza Quad-PF 2017-07-14 Completed [facility] 00:00:00 of Medicine Influenza Quad-PF 2017-07-14 Completed [facility] 00:00:00 of Medicine Influenza Quad-PF 2017-07-14 Completed [facility] 00:00:00 of Medicine Influenza Quad-PF 2017-07-14 Completed [facility] 00:00:00 of Medicine Influenza Quad-PF 2017-07-14 Completed [facility] 00:00:00 of Medicine Influenza Quad-PF 2017-07-14 Completed [facility] 00:00:00 of Medicine Influenza Quad-PF 2017-07-14 Completed [facility] 00:00:00 of Medicine Influenza Quad-PF 2017-07-14 Completed [facility] 00:00:00 of Medicine Influenza Quad-PF 2017-07-14 Completed [facility] 00:00:00 of Medicine Influenza Quad-PF 2017-07-14 Completed [facility] 00:00:00 of Medicine Influenza Quad-PF 2017-07-14 Completed [facility] 00:00:00 of Medicine Influenza Quad-PF 2017-07-14 Completed [facility] 00:00:00 of Medicine Influenza Quad-PF 2017-07-14 Completed [facility] 00:00:00 of Medicine Influenza Quad-PF 2017-07-14 Completed [facility] 00:00:00 of Medicine Influenza Quad-PF 2017-07-14 Completed [facility] 00:00:00 of Medicine Tetanus 2015-01-30 Completed [facility] 00:00:00 of Medicine Tetanus 2015-01-30 Completed [facility] 00:00:00 of Medicine Tetanus 2015-01-30 Completed [facility] 00:00:00 of Medicine Tetanus 2015-01-30 Completed [facility] 00:00:00 of Medicine Tetanus 2015-01-30 Completed [facility] 00:00:00 of Medicine Tetanus 2015-01-30 Completed [facility] 00:00:00 of Medicine Tetanus 2015-01-30 Completed [facility] 00:00:00 of Medicine Tetanus 2015-01-30 Completed [facility] 00:00:00 of Medicine Tetanus 2015-01-30 Completed [facility] 00:00:00 of Medicine Tetanus 2015-01-30 Completed [facility] 00:00:00 of Medicine Tetanus 2015-01-30 Completed [facility] 00:00:00 of Medicine Tetanus 2015-01-30 Completed [facility] 00:00:00 of Medicine Tetanus 2015-01-30 Completed [facility] 00:00:00 of Medicine Tetanus 2015-01-30 Completed [facility] 00:00:00 of Medicine Tetanus 2015-01-30 Completed [facility] 00:00:00 of Medicine Hep A/Hep B 2011-02-05 Completed [facility] 00:00:00 of Medicine Hep A/Hep B 2011-02-05 Completed [facility] 00:00:00 of Medicine Hep A/Hep B 2011-02-05 Completed [facility] 00:00:00 of Medicine Hep A/Hep B 2011-02-05 Completed [facility] 00:00:00 of Medicine Hep A/Hep B 2011-02-05 Completed [facility] 00:00:00 of Medicine Hep A/Hep B 2011-02-05 Completed [facility] 00:00:00 of Medicine Hep A/Hep B 2011-02-05 Completed [facility] 00:00:00 of Medicine Hep A/Hep B 2011-02-05 Completed [facility] 00:00:00 of Medicine Hep A/Hep B 2011-02-05 Completed [facility] 00:00:00 of Medicine Hep A/Hep B 2011-02-05 Completed [facility] 00:00:00 of Medicine Hep A/Hep B 2011-02-05 Completed [facility] 00:00:00 of Medicine Hep A/Hep B 2011-02-05 Completed [facility] 00:00:00 of Medicine Hep A/Hep B 2011-02-05 Completed [facility] 00:00:00 of Medicine Hep A/Hep B 2011-02-05 Completed [facility] 00:00:00 of Medicine Hep A/Hep B 2011-02-05 Completed [facility] 00:00:00 of Medicine Pneumococcal 2010-11-05 Completed [facility] Polysaccharide 00:00:00 of Medicin e Pneumococcal 2010-11-05 Completed [facility] Polysaccharide 00:00:00 of Medicin e Pneumococcal 2010-11-05 Completed [facility] ge Polysaccharide 00:00:00 of Medicin e Pneumococcal 2010-11-05 Completed [facility] Polysaccharide 00:00:00 of Medicin e Pneumococcal 2010-11-05 Completed [facility]le ge Polysaccharide 00:00:00 of Medicin e Pneumococcal 2010-11-05 Completed [facility] Polysaccharide 00:00:00 of Medicin e Pneumococcal 2010-11-05 Completed [facility] Polysaccharide 00:00:00 of Medicin e Pneumococcal 2010-11-05 Completed [facility] Polysaccharide 00:00:00 of Medicin e Pneumococcal 2010-11-05 Completed [facility] Polysaccharide 00:00:00 of Medicin e Pneumococcal 2010-11-05 Completed [facility] Polysaccharide 00:00:00 of Medicin e Pneumococcal 2010-11-05 Completed [facility] Polysaccharide 00:00:00 of Medicin e Pneumococcal 2010-11-05 Completed [facility]le ge Polysaccharide 00:00:00 of Medicin e Pneumococcal 2010-11-05 Completed [facility] Polysaccharide 00:00:00 of Medicin e Pneumococcal 2010-11-05 Completed [facility] Polysaccharide 00:00:00 of Medicin e Pneumococcal 2010-11-05 Completed [facility]le [facility] Polysaccharide 00:00:00 of Medicin e Vital Signs Vital Name Observation Time Observation Value Comments Source HEIGHT 2021-03-01 07:00:00 185.4 cm WEIGHT 2021-03-01 07:00:00 68.085 kg HEIGHT 2021-02-28 09:45:00 185.4 cm WEIGHT 2021-02-28 09:45:00 71.668 kg Systolic blood 2021-09-26 14:16:00 119 mm[Hg[facility] Diastolic blood 2021-09-26 14:16:00 77 mm[Hg[facility] Heart rate 2021-09-26 14:16:00 131 [facility] 2021-09-26 14:16:00 [facility]94 [facility] height 2021-09-26 14:16:00 [facility] 2021-09-26 14:16:00 [facility] BMI 2021-09-26 14:16:00 20.74 kg/m2 [facility] Oxygen saturation in 2021-09-26 14:16:00 100 /min [facility] Arterial blood by Pulse oximetry HEIGHT 2021-05-06 09:00:00 185.4 cm WEIGHT 2021-05-06 09:00:00 68.04 kg Systolic blood 2021-02-12 14:52:00 115 mm[Hg] [facility] Medicine Diastolic blood 2021-02-12 14:52:00 77 mm[Hg] [facility] Medicine Heart rate 2021-02-12 14:52:00 108 /min [facility] Respiratory rate 2021-02-12 14:52:00 14 /min [facility] Body height 2021-02-12 14:52:00 185.4 cm [facility] Body weight 2021-02-12 14:52:00 71.668 kg [facility] BMI 2021-02-12 14:52:00 20.85 kg/m2 [facility] Systolic blood 2020-11-14 13:35:00 110 mm[Hg] [facility] Medicine Diastolic blood 2020-11-14 13:35:00 76 mm[Hg] [facility] Medicine Heart rate 2020-11-14 13:35:00 109 /min [facility] Body temperature 2020-11-14 13:35:00 36.61 [facility] Body height 2020-11-14 13:35:00 185.4 cm [facility] Body weight 2020-11-14 13:35:00 72.122 kg [facility] BMI 2020-11-14 13:35:00 20.98 kg/m2 [facility] Weight 2014-12-12 12:25:00 [facility] Calculated 2014-12-12 12:25:00 Camren Christiansen Height 2014-12-12 12:25:00 185.42 cm [facility] Procedures Procedure Date / Time Performed Performing Clinician Lanny e TITOG RADIOLOGIC EXAM 2021-02-13 00:00:00 Provider, Historical [facility] of CHEST 2 VIEWS Medicine Plan of Care Planned Activity Planned Date Details Comments Source Future Scheduled 2021-08-14 [facility] 13:40:17 virus screening of Medicine (procedure) [code = 516479133] Future Scheduled 2021-08-14 TETANUS SHOT (ADULT) [place] [facility] Test 13:40:17 [code = TETANUS SHOT of Medi cine (ADULT)] Future Scheduled 2021-07-15 [facility] 13:50:38 virus screening of Medicine (procedure) [code = 577488840] Future Scheduled 2021-07-15 TETANUS SHOT (ADULT) [employer] Test 13:50:38 [code = TETANUS SHOT of Medi cine (ADULT)] Future Scheduled 2021-06-05 [facility] 12:11:12 virus screening of Medicine (procedure) [code = 814677270] Future Scheduled 2021-06-05 TETANUS SHOT (ADULT) [employer] Test 12:11:12 [code = TETANUS SHOT of Medi cine (ADULT)] Future Scheduled 2021-05-22 Human immunodeficiency [facility] Test 09:55:01 virus screening of Medicine (procedure) [code = 229990586] Future Scheduled 2021-05-22 TETANUS SHOT (ADULT) [facility] Test 09:55:01 [code = TETANUS SHOT of Medi cine (ADULT)] Future Scheduled 2021-05-17 Human immunodeficiency [facility] Test 12:55:55 virus screening of Medicine (procedure) [code = 711719135] Future Scheduled 2021-05-17 TETANUS SHOT (ADULT) [facility] Test 12:55:55 [code = TETANUS SHOT of Medi cine (ADULT)] Future Scheduled 2021-04-19 Human immunodeficiency [facility] Test 10:02:06 virus screening of Medicine (procedure) [code = 250967387] Future Scheduled 2021-04-19 TETANUS SHOT (ADULT) [facility] [employer] Test 10:02:06 [code = TETANUS SHOT of Medi cine (ADULT)] Future Scheduled 2021-04-05 Human immunodeficiency [facility] Test 13:20:07 virus screening of Medicine (procedure) [code = 167876790] Future Scheduled 2021-04-05 FLU VACCINE > 6 MONTHS [facility] [employer] Test 13:20:07 [code = FLU VACCINE > 6 of M edicine MONTHS] Future Scheduled 2021-04-05 TETANUS SHOT (ADULT) [facility] Test 13:20:07 [code = TETANUS SHOT of Medi cine (ADULT)] Future Scheduled 2021-03-22 Human immunodeficiency B [facility] Test 14:25:40 virus screening of Medicine (procedure) [code = 116825675] Future Scheduled 2021-03-22 FLU VACCINE > 6 MONTHS [facility] Test 14:25:40 [code = FLU VACCINE > 6 of M edicine MONTHS] Future Scheduled 2021-03-22 TETANUS SHOT (ADULT) [facility] Test 14:25:40 [code = TETANUS SHOT of Medi cine (ADULT)] Future Scheduled 2021-03-07 Human immunodeficiency [facility] Test 13:34:05 virus screening of Medicine (procedure) [code = 673168033] Future Scheduled 2021-03-07 FLU VACCINE > 6 MONTHS B [facility] Test 13:34:05 [code = FLU VACCINE > 6 of M edicine MONTHS] Future Scheduled 2021-03-07 TETANUS SHOT (ADULT) [facility] Test 13:34:05 [code = TETANUS SHOT of Medi cine (ADULT)] Future Scheduled 2021-03-07 Human immunodeficiency [facility] Test 13:34:05 virus screening of Medicine (procedure) [code = 250659516] Future Scheduled 2021-03-07 FLU VACCINE > 6 MONTHS B [facility] Test 13:34:05 [code = FLU VACCINE > 6 of M edicine MONTHS] Future Scheduled 2021-03-07 TETANUS SHOT (ADULT) [facility] Test 13:34:05 [code = TETANUS SHOT of Medi cine (ADULT)] Future Scheduled 2021-03-07 Human immunodeficiency B [facility] Test 13:34:05 virus screening of Medicine (procedure) [code = 233488829] Future Scheduled 2021-03-07 FLU VACCINE > 6 MONTHS B [facility] Test 13:34:05 [code = FLU VACCINE > 6 of M edicine MONTHS] Future Scheduled 2021-03-07 TETANUS SHOT (ADULT) [facility] Test 13:34:05 [code = TETANUS SHOT of Medi cine (ADULT)] Future Scheduled 2021-03-07 Human immunodeficiency B [facility] Test 13:34:05 virus screening of Medicine (procedure) [code = 869335348] Future Scheduled 2021-03-07 FLU VACCINE > 6 MONTHS B [facility] Test 13:34:05 [code = FLU VACCINE > 6 of M edicine MONTHS] Future Scheduled 2021-03-07 TETANUS SHOT (ADULT) [facility] Test 13:34:05 [code = TETANUS SHOT of Medi cine (ADULT)] Future Scheduled 2021-03-07 Human immunodeficiency B [facility] Test 10:58:16 virus screening of Medicine (procedure) [code = 762786889] Future Scheduled 2021-03-07 FLU VACCINE > 6 MONTHS [facility] 10:58:16 [code = FLU VACCINE > 6 of M edicine MONTHS] Future Scheduled 2021-03-07 TETANUS SHOT (ADULT) [facility] [employer] Test 10:58:16 [code = TETANUS SHOT of Medi cine (ADULT)] Future Scheduled 2021-03-07 Human immunodeficiency B [facility] Test 10:58:16 virus screening of Medicine (procedure) [code = 267790720] Future Scheduled 2021-03-07 FLU VACCINE > [address] [facility] [employer] Test 10:58:16 [code = FLU VACCINE > 6 of M edicine MONTHS] Future Scheduled 2021-03-07 TETANUS SHOT (ADULT) [facility] Test 10:58:16 [code = TETANUS SHOT of Medi cine (ADULT)] Future Scheduled 2021-02-12 XR CHEST PA AND LATERAL 1 Occurrences [facility] Test 10:46:27 [code = 15095-2] starting of Medicine 02/12/2021 until 02/12/2022 Future Scheduled 2021-02-12 XR CHEST PA AND LATERAL 1 Occurrences [facility] Test 10:46:27 [code = 86827-3] starting of Medicine 02/12/2021 until 02/12/2022 Future Scheduled 2020-11-14 CBC W/O DIFF W PLT Ordered: [facility] Test 09:16:48 [code = 6690-2] 11/14/2020 of Medicine Future Scheduled 2020-11-14 COMPREHENSIVE METABOLIC Ordered: [facility] Test 09:16:48 PANEL [code = 52899-9] 11/14/2020 of Me dicine Future Scheduled 2020-11-14 SEDIMENTATION RATE Ordered: [facility] Test 09:16:48 MODIFIED JANESSA 11/14/2020 of Medic ine [code = 4537-7] Future Scheduled 2020-11-14 C-REACTIVE PROTEIN Ordered: [facility] Test 09:16:48 [code = 1988-5] 11/14/2020 of Medicine Future Scheduled 2020-11-14 VITAMIN B12 [code = Ordered: [facility] or [facility] Test 09:16:48 2132-9] 11/14/2020 of Medicine Future Scheduled 2020-11-14 VITAMIN D 25 HYDROXY Ordered: [facility] [employer] Test 09:16:48 [code = 1989-3] 11/14/2020 of Medicine Future Scheduled 2020-11-14 ZINC [code = 5763-8] Ordered: [facility] [employer] Test 09:16:48 11/14/2020 of Medicine Future Scheduled 2020-11-14 FERRITIN [code = Ordered: [facility] [employer] Test 09:16:48 82228-2] 11/14/2020 of Medicine Future Scheduled 2020-11-14 FOLATE RBC [code = Ordered: [facility] Test 09:16:48 2283-0] 11/14/2020 of Medicine Future Scheduled 2020-11-14 CT ABDOMEN PELVIS W 1 Occurrences [facility] Test 09:16:16 CONTRAST [code = starting of Medicine 78826-5] 11/14/2020 until 11/14/2021 Future Scheduled 2020-11-14 COLONOSCOPY W MAC GI 1 Occurrences [employer] Test 09:16:16 DEPT [code = 43455] starting of Medic ine 11/14/2020 until 05/17/2021 Future Scheduled 2020-11-14 Human immunodeficiency B [facility] Test 08:35:33 virus screening of Medicine (procedure) [code = 960773658] Future Scheduled 2020-11-14 FLU VACCINE > [address] [facility] [employer] Test 08:35:33 [code = FLU VACCINE > 6 of M edicine MONTHS] Future Scheduled 2020-11-14 TETANUS SHOT (ADULT) [facility] Test 08:35:33 [code = TETANUS SHOT of Medi cine (ADULT)] Encounters Start End Encounter Admission Attending Care Care Encounter Source Date/Time Date/Time Type Type Clinicians Facility Department ID 2021-09-26 Outpatient [facility] [id number] [place] 08:56:26 CANDELARIA [id number] [facility] 2021-09-20 [facility] [id number] [place] 13:51:51 CANDELARIA [id number] [facility] 2021-09-19 [facility] [id number] [place] 09:33:27 CANDELARIA [id number] Health 2021-03-17 Outpatient CARMEN, SLEPérez Surgery [id number] [facility] 13:26:[address] 2021-09-27 2021-09-27 Outpatient MITALI MORALES Christi [id number] [facility] 10:50:00 13:03:[address] [facility] 2021-09-26 2021-09-26 Office MARYELLEN Wood 6410 1.2.840.114 [id number] [place] 09:30:00 09:56:27 Visit Candelaria KAPLAN 350.1.13.58 Health 9.2.7.2.686 [id number] 2021-08-14 2021-08-14 Office MITALI MORALES 1.2.840.114 [id number] [facility] 14:24:17 16:55:[address] AMBULATOR 350.1.13.21 College Y 0.2.7.2.686 of [id number] Medi richelle 325 e 2021-07-22 2021-07-22 Telephone MARYELLEN Mares 6410 1.2.840.114 [id number] [place] 00:00:00 00:00:[address] 350.1.13.58 Health 9.2.7.2.686 [id number] 2021-06-19 2021-06-19 Office MITALI MORALES 1.2.840.114 [id number] [facility] 12:53:41 15:00:[address] AMBULATOR 350.1.13.21 College Y 0.2.7.2.686 of [id number] Medi richelle 325 e 2021-06-05 2021-06-12 Office MITALI BHANDARI 1.2.840.114 [id number] [facility] 12:49:39 21:09:08 Visit SHAWN AMBULATOR 350.1.13.21 College Y 0.2.7.2.686 of [id number] Medi richelle 325 e 2021-05-22 2021-05-22 Office MITALI MORALES 1.2.840.114 [id number] [facility] 13:17:36 15:17:01 [address] AMBULATOR 350.1.13.21 College Y 0.2.7.2.686 of [id number] Medi richelle 325 e 2021-05-17 2021-05-17 Office MITALI MORALES 1.2.840.114 [id number] [facility] 12:53:37 14:34:32 [address] AMBULATOR 350.1.13.21 College Y 0.2.7.2.686 of [id number] Medi richelle 325 e 2021-05-06 2021-05-08 Outpatient CHONG [facility] [id number] [facility] 10:26:01 09:03:17 SUNE[facility] [employer] [facility] 2021-05-06 2021-05-06 Outpatient [facility] [id number] [facility] 08:27:00 23:59:00 [facility] [employer] [facility]in [facility] 2021-05-06 2021-05-06 Outpatient [facility] Surgery [id number] [facility] 08:27:00 11:06:00 SUNEAL 2021-04-19 2021-04-19 Office MORALES MIRIAMChristi 1.2.840.114 [id number] [facility] 13:22:19 16:02:[address] AMBULATOR 350.1.13.21 College Y 0.2.7.2.686 of [id number] Medi richelle 325 e 2021-04-05 2021-04-05 Office MORALESMITALI 1.2.840.114 [id number] [facility] 13:20:27 15:20:[address] AMBULATOR 350.1.13.21 College Y 0.2.7.2.686 of [id number] Medi richelle 325 e 2021-03-22 2021-03-22 Office MORALESMITALI 1.2.840.114 [id number] [facility] 13:08:43 17:15:[address] AMBULATOR 350.1.13.21 College Y 0.2.7.2.686 of [id number] Medi richelle 325 e 2021-03-22 2021-03-22 [facility] [id number] [facility] 14:21:38 16:22:10 [facility] Medicin e 2021-03-07 2021-03-07 Office MIRIAM MORALES 1.2.840.114 [id number] [facility] 11:45:10 14:53:[address] AMBULATOR 350.1.13.21 College Y 0.2.7.2.686 of [id number] Medi richelle 325 e 2021-03-01 2021-03-06 Outpatient CARMEN [facility] [id number] [facility] 16:45:31 12:10:[address] [facility] [employer] 2021-02-28 2021-02-28 [facility] [id number] 00:00:00 00:00:00 2021-02-28 2021-02-28 [facility] [id number] [facility] 00:00:00 00:00:00 2021-02-28 2021-02-28 Outpatient [facility] [id number] SLE 00:00:00 00:00:00 2021-02-18 2021-02-18 Outpatient CARMEN [facility] [id number] [facility] 09:31:35 13:59:[address] [facility] [employer] 2021-02-13 2021-02-13 Office Carmen [facility] 1.2.840.114 [id number] [facility] 08:39:36 14:23:31 Visit Manreet AMBULATOR 350.1.13.21 College Y 0.2.7.2.686 of [id number] Medi richelle 325 e 2021-02-12 2021-02-12 Office Carmen [facility] 1.2.840.114 [id number] [facility] 09:38:06 15:44:28 Visit Manreet AMBULATOR 350.1.13.21 College Y 0.2.7.2.686 of [id number] Medi richelle 325 e 2021-02-12 2021-02-12 Outpatient CARMEN [facility] [id number] [facility] 00:00:00 00:00:[address] 2020-12-19 2020-12-19 Outpatient MITALI MORALES [facility] [id number] [facility] 13:13:11 16:14:[address] [facility] [employer] 2020-12-13 2020-12-13 Outpatient MITALI MORALES [facility] [id number] [facility] 12:27:03 12:27:[address] [facility] [employer] 2020-11-30 2020-11-30 Outpatient TINO MORALES, [facility] [id number] [facility] 00:00:00 00:00:[address] 2020-11-14 2020-11-14 Office MITALI Morales 1.2.840.114 [id number] [facility] 08:18:58 08:48:58 Visit Manreet AMBULATOR 350.1.13.21 College Y 0.2.7.2.686 of [id number] [facility] richelle 325 e 2014-12-12 2014-12-13 Outpatient [facility] [id number] [facility] 12:16:00 04:59:[address] Results Test Description Test Time Test Comments Results Result Comments Source SARS-COV2/RT-PCR ([facility]) 2021-03-01 04:27:03 Test Item Value Reference Range Interpretation Comme nts SARS-COV2/RT-PCR (test code = 1577741) Negative Negative Negative result for this test determines that SARS-CoV-2 RNA was not present in the specimen above the Limit of Detection (LOD). However, Negative results do not preclude SARS-CoV-2 infection and should not be used as the sole basis for treatment or patient management decisions. Negative results must be combined with clinical observations, patient history, and epidemiological information. A false negative result may occur if a specimen is improperly collected, transported, or handled. A false negative result should be considered if patient's recent exposures or clinical presentation indicate that COVID-19 (SARS-CoV-2) is likely and diagnostic tests for other causes of illness are negative. Re-testing should be considered in cases of suspected false negatives.The limit of detection for this assay is 100 copies/mL.This SARS-CoV-2 test is a real-time RT_PCR test intended for the qualitative detection of nucleic acid from SARS-CoV-2 in a nasopharyngeal swab specimen collected from individuals suspected of COVID-19 by their healthcare provider.This test has not been Food and Drug Administration (FDA) cleared or approved. This is a modified version of an approved Emergency Use Authorization (EUA) and is in the process of review by the FDA. Once authorized by the FDA, the issued EUA will be e ffective until the declaration that circumstances exist justifying the authorization of the emergency use of in vitro diagnostic tests for detection and/or diagnosis of COVID-19 is terminated under Section 564(b)(2) of the Act or the EUA is revoked under Section 564(g) of the Act.Testing was performedusing the Fisher SARS-CoV-2 assay.Fact Sheet for Healthcare Providers:https://www.molecular.STinser/lopez/RT SARS-CoV-2 HCP Fact Sheet 51- 519682.pdfFact Sheet for Healthcare Patients:https://www.Academica.STinser/lopez/RT SARS-CoV-2 Patient Fact Sheet EN 51-653140R1.pdfRAD, CHEST, 2 [id number] 12:47:00Reason for Exam:->Clinical [facility] 1985 Sex: MFINAL REPORT EXAMINATION: PA and lateral views of the chest. COMPARIS ON: None CLINICAL HISTORY: Clinical trial participant DISCUSSION: Lines/tubes: None. Lungs: The lungs are well inflated and clear. No pneumonia or pulmonary edema. Pleura: No pleural effusion or pneumothorax. Heart and mediastinum: The cardiomediastinal silhouette is normal. Bones and soft tis sues: No acute bony abnormalities. IMPRESSION: No acute cardiopulmonary abnormalities. Signed: Marcelo Simeon [facility] Verified Date/Time: 02/12/2021 12:47:33 Reading Location: [facility] Reading Room [address] [place] [address] CT, ABDOMEN 2020-12-03 12:32:00Unlisted Reason for Exam - Click Yes and Enter Reason Below- >YesUnlisted Reason for Exam->k50.919Will this procedure require oral contrast?->Yes[facility] : 1985 Sex: MFINAL REPORT TECHNIQUE: CT of the abdomen and pelvis WITH intravenous contrast and WITHOUT oral contrast. Dose modulation, iterative reconstruction, and/or weight-based adjustment of the mA/kV was utilized to reduce the radiation dose to as low as reasonably achievable. INDICATION: Unlisted Reason for Examk50.919. COMPARISON: CT from 06/22/2015. FINDINGS: LOWER THORAX: U nremarkable. HEPATOBILIARY: Calcifications in the liver are unchanged and most consistent with calcified granulomas which measure up to 1.6 cm. Gallbladder is unremarkable. No biliary ductal dilatation.SPLEEN: No splenomegaly. Calcified granulomas measure up to 0.7 cm. PANCREAS: No focal masses or ductal dilatation. ADRENALS: No adrenal nodules.KIDNEYS/URETERS: No hydronephrosis, stones, or masses. Two right renal hypodensities measure up to 0.8 cm and are too small to further characterize. A left lower pole renal hypodensity measures 0.8 cm and is too small to further characterize. No routine follow-up imaging is recommended.PELVIC ORGANS/BLADDER: Unremarkable. PERITONEUM/RETROPERITONEUM: No freeair or fluid.LYMPH NODES: No lymphadenopathy.VESSELS: Unremarkable. GI TRACT: There is a short segment area of wall thickening and narrowing in the transverse colon which measures approximately 1.1 cm in length on coronal image 26. There is multifocal thickening of the small bowel with vascular engorgement, mucosal hyperenhancement, and an adjacent enlarged lymph nodes as follows:*An area of narrowing and wall thickening of the neoterminal ileum measures 5.4 cm in length on axial image 67. This areais mildly narrowed with some minimal proximal dilation.*An area of ileal thickening immediately proximal to this region measures 10.4 cm in length on axial images 62 through 66. This area is narrowed with some proximal dilation.*And areas of ileal wall thickening on coronal image 34 measures 10.6 cm in length on coronal image 34.*Ileal wall thickening proximal to the previously mentioned area measures 11.1 cm in length on coronal image 31.*There is mild distal jejunal/proximal ileal wall thickening which measures at least 35 cm in length. BONES AND SOFT TISSUES: Mild S-shaped curvature of the partially visualized spine. IMPRESSION: 1.There is multifocal acute small bowel inflammation which has increased in length compared to the prior examination. Some of these areas are narrowed with minimal proximal dilation, likely due to underlying fibrosis no studies. 2.There is a questionable area of narrowing in the transverse colon. This could be due to a focal contraction but is concerning for inflammation from Crohn's disease in the transverse colon. If a recent colonoscopy has not been performed, one should be considered to exclude a mass. Signed: Armand Christina MDReport Verified Date/Time: 12/03/2020 12:32:44 Reading Location: [facility] C013X Ortho Consult Reading Room TISSUE [id number] 14:29:00Surgical Pathology Report Case: [id number] Authorizing Provider: Bakari Morales MD Collected: 05/09/2019 0840 Ordering Location: [facility] Received: 05/09/2019 1230 SERVICES Pathologist: Sherine Calderon MD Specimens: A) - Biopsy, Terminal Ileum, Terminal ileum B) -Colon Biopsy, Random A. SMALL BOWEL, TERMINAL ILEUM, BIOPSIES: - CHRONIC ACTIVE ILEITISB. COLON, RANDOM BIOPSIES: - CHRONIC INACTIVE COLITIS, FOCAL Signing Pathologist Direct Phone Line: [phone] signed by Sherine Calderon MD on 05/10/2019 at 2:29 [id number] q0Hgjsa's disease with complication, unspecified gastr ointestinal tract location, osteopenia, unspecified location.A. Received in formalin labeled with the patient's name, accession number and "terminal ileum" are three camarillo-pink tissue fragments measuringup to 0.3 cm in greatest dimension, which are filtered and submitted in toto in A1.Part B. Received in formalin labeled with the patient's name, accession number and "random colon" are multiple camarillo-pink tissue fragment measuring up to 0.2 cm in greatest dimension, which are filtered and submitted in toto in B1. PA/ew A-B. No CMV, dysplasia or malignancy is identified.
[2021-10-01] MEDS ORDERED: ASPIRIN 81 MG CHEWABLE TABLET ONE (23:47)
[2021-10-01] MEDS ORDERED: NA CHLORIDE 0.9% 2,000 ML ONE (23:47)
[2021-10-02 00:21] LABS: Absolute Lymphocytes (CBC) 0.8 K/uL (0.7-4.9); RBC Red Blood Cell Count 5.31 M/uL (4.33-5.43)
[2021-10-02 00:22] LABS: Protime INR 1.16
[2021-10-02 00:36] LABS: ALT/SGPT 28 U/L (12-78); AST/SGOT 24 U/L (15-37); Albumin 3.3 g/dL (3.4-5.0); Alkaline Phosphatase 83 U/L (45-117); BUN Blood Urea Nitrogen 12 mg/dL (7-18); Bicarbonate 26 mmol/L (21-32); Bilirubin Direct 0.2 mg/dL (0-0.2); Bilirubin Total 0.8 mg/dL (0.2-1.0); Glucose Level 117 mg/dL (74-106); Lipase 269 U/L (73-393); Magnesium 2.1 mg/dL (1.8-2.4); NT PRO-BNP 15 pg/mL (<125); Potassium 3.2 mmol/L (3.5-5.1); Protein, Total 7.3 g/dL (6.4-8.2); Sodium Level 139 mmol/L (136-145)
[2021-10-02 00:38] LABS: Troponin High Sensitivity < 3.0 pg/mL (<58.9)
--- NOTE | 2021-10-02 01:14 | EDPHYS ---
Physician Documentation [facility] Name: David Mclaughlin Age: 35 yrs Sex: Male : 1985 Arrival Date: 10/01/2021 Time: 23:22 Bed 20 Private MD: Yen He C ED Physician Gasper Zapata HPI: 10/02 01:07 This 35 yrs old Male presents to ER via Ambulatory with complaints of Chest bhavesh Pain. 01:07 The patient or guardian reports chest pain that is located primarily in the anterior bhavesh chest wall, left. The pain radiates to the left arm. Associated signs and symptoms: Pertinent positives: abdominal pain, diarrhea. The chest pain is described as a pressure. Duration: The patient or guardian reports multiple episodes, that wax and wane. Modifying factors: The symptoms are alleviated by nothing. the symptoms are aggravated by nothing. Severity of pain: At its worst the pain was mild in the emergency department the pain has improved moderately. The patient has experienced similar episodes in the past, a few times. Historical: - Allergies: 10/01 23:37 No Known Allergies; lp1 - Home Meds: 23:37 gabapentin oral [Active]; lp1 - PMHx: 23:37 Crohn's disease; Chiari Malformation; POTS; lp1 - PSHx: 23:37 Posterior fossa decompression; Bowel resection; lp1 - Immunization history:: Adult Immunizations up to date. - Social history:: Smoking status: Patient denies any tobacco usage or history of. - Family history:: not pertinent. ROS: 10/02 01:07 Constitutional: Negative for fever, chills, and weight loss, Eyes: Negative for injury, bhavesh pain, redness, and discharge, ENT: Negative for injury, pain, and discharge, Neck: Negative for injury, pain, and swelling, Respiratory: Negative for shortness of breath, cough, wheezing, and pleuritic chest pain, Back: Negative for injury and pain, : Negative for injury, bleeding, discharge, and swelling, MS/Extremity: Negative for injury and deformity, Skin: Negative for injury, rash, and discoloration, Neuro: Negative for headache, weakness, numbness, tingling, and seizure, Psych: Negative for depression, anxiety, suicide ideation, homicidal ideation, and hallucinations, Allergy/Immunology: Negative for hives, rash, and allergies, Endocrine: Negative for neck swelling, polydipsia, polyuria, polyphagia, and marked weight changes, Hematologic/Lymphatic: Negative for swollen nodes, abnormal bleeding, and unusual bruising. Cardiovascular: Positive for chest pain, of the chest. Abdomen/GI: Positive for abdominal pain, diarrhea. Exam: :07 Constitutional: This is a well developed, well nourished patient who is awake, alert, bhavesh and in no acute distress. Head/Face: Normocephalic, atraumatic. Eyes: Pupils equal round and reactive to light, extra-ocular motions intact. Lids and lashes normal. Conjunctiva and sclera are non-icteric and not injected. Cornea within normal limits. Periorbital areas with no swelling, redness, or edema. ENT: Nares patent. No nasal discharge, no septal abnormalities noted. Tympanic membranes are normal and external auditory canals are clear. Oropharynx with no redness, swelling, or masses, exudates, or evidence of obstruction, uvula midline. Mucous membranes moist. Neck: Trachea midline, no thyromegaly or masses palpated, and no cervical lymphadenopathy. Supple, full range of motion without nuchal rigidity, or vertebral point tenderness. No Meningismus. Chest/axilla: Normal chest wall appearance and motion. Nontender with no deformity. No lesions are appreciated. Respiratory: Lungs have equal breath sounds bilaterally, clear to auscultation and percussion. No rales, rhonchi or wheezes noted. No increased work of breathing, no retractions or nasal flaring. Abdomen/GI: Soft, non-tender, with normal bowel sounds. No distension or tympany. No guarding or rebound. No evidence of tenderness throughout. Back: No spinal tenderness. No costovertebral tenderness. Full range of motion. Male : Normal genitalia with no discharge or lesions. Skin: Warm, dry with normal turgor. Normal color with no rashes, no lesions, and no evidence of cellulitis. MS/ Extremity: Pulses equal, no cyanosis. Neurovascular intact. Full, normal range of motion. Neuro: Awake and alert, GCS 15, oriented to person, place, time, and situation. Cranial nerves II-XII grossly intact. Motor strength 5/5 in all extremities. Sensory grossly intact. Cerebellar exam normal. Normal gait. Psych: Awake, alert, with orientation to person, place and time. Behavior, mood, and affect are within normal limits. 01:07 Cardiovascular: Rate: tachycardic, Rhythm: regular, Pulses: Pulses are 4+ in bilateral radial, brachial, femoral, popliteal, posterior tibial and and dorsalis pedis arteries.. Heart sounds: normal, Edema: is not appreciated, JVD: is not appreciated. 01:07 ECG was reviewed by the Attending Physician. Vital Signs: 10/01 23:35 BP 131 / 103; Pulse 123; Resp 18; Temp 98.8(O); Pulse Ox 100% on R/A; Weight 72.57 kg lp1 (R); Height 6 ft. 1 in. (185.42 cm); Pain 6/10; 10/02 00:10 BP 116 / 77; Pulse 92; Resp 16; Pulse Ox 100% on R/A; lg3 02:15 BP 112 / 67; Pulse 89; Resp 15; Pulse Ox 100% on R/A; lg3 10/01 23:35 Body Mass Index 21.11 (72.57 kg, 185.42 cm) lp1 MDM: 10/01 23:37 Patient medically screened. bhavesh 10/02 01:10 Differential diagnosis: abnormal EKG, acute myocardial infarction, acute pericarditis, bhavehs Cholelithiasis costochondritis, esophagitis, gastritis, hiatal hernia, pancreatitis, pleurisy, pneumonia, stable angina, unstable angina. HEART Score: History: Moderately Suspicious (1), ECG: Non specific repolarization disturbance / LBTB / PM (1), Age: < or = 45 years (0), Risk Factors: 1 or 2 risk factors (1), [+ Family HX] Troponin: < or = 1 x Normal Limit (0), Total Score = 2. The patient's deep vein thrombosis risk score was calculated as follows: Total Score: 0. This patient was found to be at low risk for a deep vein thrombosis by using the Well's assessment criteria. The patient's pulmonary embolism risk score was calculated as follows: the patients heart rate is greater than 100 beats per minute (1.5 Pts) Total Score: 0-2 points. This patient was found to be at low risk for a pulmonary embolism by using the Well's assessment criteria. LÁZARO Risk Score: TOTAL SCORE = 0. Data reviewed: vital signs, nurses notes, lab test result(s), EKG, radiologic studies, plain films. Data interpreted: front desk monitor: rate is 123 beats/min, rhythm is regular, Pulse oximetry: on room air is 100 %. Test interpretation: by ED physician or midlevel provider: ECG, plain radiologic studies. Counseling: I had a detailed discussion with the patient and/or guardian regarding: the historical points, exam findings, and any diagnostic results supporting the discharge/admit diagnosis, the presence of at least one elevated blood pressure reading (>120/80) during this emergency department visit, lab results, radiology results, the need for further work-up and treatment in the hospital. 10/01 23:39 Order name: Basic Metabolic Panel; Complete Time: 00:52 [facility] 10/01 23:39 Order name: CBC with Diff; Complete Time: 00:52 10/01 23:39 Order name: LFT's; Complete Time: 00:52 10/01 23:39 Order name: Magnesium; Complete Time: 00:52 10/01 23:39 Order name: NT PRO-BNP; Complete Time: 00:52 10/01 23:39 Order name: PT-INR; Complete Time: 00:52 10/01 23:39 Order name: Troponin HS; Complete Time: 00:52 [facility] 10/01 23:39 Order name: XRAY Chest (1 view) [facility] 10/01 23:39 Order name: Lipase; Complete Time: 00:52 bhavesh 10/01 23:39 Order name: SARS-COV-2 RT PCR (Document "Date of Onset" if Symptomatic) [facility] 10/01 23:39 Order name: UDS [facility] 10/02 02:07 Order name: Urine Dipstick-Ancillary [facility] 10/01 23:39 Order name: EKG; Complete Time: 23:40 10/01 23:39 Order name: Cardiac monitoring; Complete Time: 23:51 [facility] 10/01 23:39 Order name: EKG - Nurse/Tech; Complete Time: 23:41 [facility] 10/01 23:39 Order name: IV Saline Lock; Complete Time: 23:51 10/01 23:39 Order name: Labs collected and sent; Complete Time: 23:51 [facility] 10/01 23:39 Order name: O2 Per Protocol; Complete Time: 23:41 10/01 23:39 Order name: O2 Sat Monitoring; Complete Time: 23:41 [facility] 10/01 23:39 Order name: Urine Dipstick-Ancillary (obtain specimen); Complete Time: 02:07 [facility] 10/02 01:19 Order name: CONS Physician Consult EDMS 10/02 01:41 Order name: Bladder Scanner: AFTER 2ND LITER , GET PVR , IF GREATER THAN 100 , CATH; [facility] Complete Time: 02:07 EC:07 Rate is 117 beats/min. Rhythm is regular. QRS [place] is Normal. [place] interval is normal. bhavesh QRS interval is normal. QT interval is normal. No Q waves. T waves are Normal. No ST changes noted. Clinical impression: Sinus tachycardia and No evidence of ischemia. Interpreted by me. Reviewed by me. Administered Medications: 10/01 23:50 Drug: NS 0.9% 1000 ml Route: IV; Rate: 1 bolus; Site: right forearm; [facility] 10/02 01:52 Follow up: IV Status: Completed infusion; IV Intake: 1000ml [facility] 10/01 23:50 Drug: NS 0.9% 1000 ml Route: IV; Rate: 1 bolus; Site: right forearm; 3 10/02 03:05 Follow up: IV Status: Completed infusion; IV Intake: 1000ml [facility] 10/01 23:50 Drug: Aspirin Chewable Tablet 162 mg Route: PO; lg3 23:50 Follow up: Response: No adverse reaction [facility] 10/02 01:37 Drug: Potassium Effervescent Tablet 50 mEq Route: PO; lg3 01:37 Follow up: Response: No adverse reaction lg3 01:38 Drug: Lopressor (metoprolol TARTRATE) 50 mg Route: PO; lg3 01:38 Follow up: Response: No adverse reaction 3 02:54 Drug: NS 0.9% with KCl 20 mEq/L 1000 ml Route: IV; Rate: 125 ml/hr; Site: right wrist; lg3 03:05 Follow up: IV Status: Infusion continued upon admission lg3 Disposition Summary: 10/02/21 01:13 Hospitalization Ordered Hospitalization Status: Observation bhavesh Provider: Yen He cha Location: Telemetry/MedSurg (observation) bhavesh Condition: Fair bhavesh Problem: new bhavesh Symptoms: have improved bhavesh Bed/Room Type: Standard [facility] Room Assignment: 201(10/02/21 01:37) Diagnosis - Chest pain, unspecified bhavesh - Tachycardia, unspecified - POTS hbavesh - Crohn's disease, unspecified, without complications - HISTORY bhavesh Forms: - Medication Reconciliation Form bhavesh - SBAR form bhavesh Signatures: Dispatcher [employer] Evangelina Ayala RN RN Gasper Geller MD MD cha Pena, Laura, RN RN lp1 Radha Nascimento RN RN lg3 Corrections: (The following items were deleted from the chart) 01:37 01:13 bhavesh donald
--- NOTE | 2021-10-02 01:14 | ER ---
Nurse's Notes [facility] Name: David Mclaughlin Age: 35 yrs Sex: Male : 1985 Arrival Date: 10/01/2021 Time: 23:22 Bed 20 Private MD: Yen He C Diagnosis: Chest pain, unspecified;Tachycardia, unspecified-POTS;Crohn's disease, unspecified, without complications-HISTORY Presentation: 10/01 23:35 Chief complaint: Patient states: Chest pain that began about 2.5 hr ago, reported as lp1 left sided chest tightness with dizziness, shortness of breath; Currently in clinical trial for treatment for Crohn's. Coronavirus screen: At this time, the client does not indicate any symptoms associated with coronavirus-19. Ebola Screen: No symptoms or risks identified at this time. Initial Sepsis Screen: Does the patient meet any 2 criteria? No. Patient's initial sepsis screen is negative. Does the patient have a suspected source of infection? No. Patient's initial sepsis screen is negative. Risk Assessment: Do you want to hurt yourself or someone else? Patient reports no desire to harm self or others. Onset of symptoms was October 01, 2021. 23:35 Method Of Arrival: Ambulatory lp1 23:35 Acuity: REJI 3 lp1 Historical: - Allergies: 23:37 No Known Allergies; lp1 - Home Meds: 23:37 gabapentin oral [Active]; lp1 - PMHx: 23:37 Crohn's disease; Chiari Malformation; POTS; lp1 - PSHx: 23:37 Posterior fossa decompression; Bowel resection; lp1 - Immunization history:: Adult Immunizations up to date. - Social history:: Smoking status: Patient denies any tobacco usage or history of. - Family history:: not pertinent. Screenin/27 00:02 Abuse screen: Denies threats or abuse. Denies injuries from another. Nutritional lg3 screening: No deficits noted. Tuberculosis screening: No symptoms or risk factors identified. Fall Risk None identified. Assessment: 00:02 General: Appears in no apparent distress. comfortable, Behavior is calm, cooperative. lg3 Pain: Complains of pain in left chest Pain does not radiate. Pain began 2 hours ago. Neuro: No deficits noted. Level of Consciousness is awake, alert, obeys commands, Oriented to person, place, time, situation. Cardiovascular: Reports chest pain, lightheadedness, shortness of breath, Capillary refill < 3 seconds Clubbing of nail beds is absent JVD is absent Patient's skin is warm and dry. Rhythm is sinus tachycardia. Respiratory: No deficits noted. Airway is patent Trachea midline Respiratory effort is even, unlabored, Respiratory pattern is regular, symmetrical. GI: No deficits noted. No signs and/or symptoms were reported involving the gastrointestinal system. : No deficits noted. No signs and/or symptoms were reported regarding the genitourinary system. EENT: No deficits noted. No signs and/or symptoms were reported regarding the EENT system. Derm: No deficits noted. No signs and/or symptoms reported regarding the dermatologic system. Skin is intact, is healthy with good turgor, Skin is dry, Skin is pink, warm \\T\\ dry. Musculoskeletal: No deficits noted. No signs and/or symptoms reported regarding the musculoskeletal system. Circulation, motion, and sensation intact. Range of motion: intact in all extremities. 02:17 Reassessment: Patient appears in no apparent distress at this time. No changes from lg3 previously documented assessment. Patient and/or family updated on plan of care and expected duration. Pain level reassessed. Patient is alert, oriented x 3, equal unlabored respirations, skin warm/dry/pink. Patient states feeling better. Patient states symptoms have improved. 02:22 General: attempted to call report. nurse not available. . lg3 Vital Signs: 10/01 23:35 BP 131 / 103; Pulse 123; Resp 18; Temp 98.8(O); Pulse Ox 100% on R/A; Weight 72.57 kg lp1 (R); Height 6 ft. 1 in. (185.42 cm); Pain 6/10; 10/02 00:10 BP 116 / 77; Pulse 92; Resp 16; Pulse Ox 100% on R/A; lg3 02:15 BP 112 / 67; Pulse 89; Resp 15; Pulse Ox 100% on R/A; lg3 10/01 23:35 Body Mass Index 21.11 (72.57 kg, 185.42 cm) lp1 ED Course: 10/01 23:22 Patient arrived in ED. mr 23:22 Yen He MD is Private Physician. mr 23:30 Radha Nascimento, JOVANI is Primary Nurse. lg3 23:37 Triage completed. lp1 23:37 Gasper Zapata MD is Attending Physician. bhavesh 23:39 Patient has correct armband on for positive identification. Placed in gown. Cardiac lp1 monitor on. Pulse ox on. NIBP on. 23:50 Inserted saline lock: 20 gauge in right forearm, using aseptic technique. Blood oe collected. 23:51 Basic Metabolic Panel Sent. lg3 23:51 CBC with Diff Sent. lg3 23:51 LFT's Sent. lg3 23:51 Magnesium Sent. lg3 23:51 NT PRO-BNP Sent. lg3 23:51 PT-INR Sent. lg3 23:51 Troponin HS Sent. lg3 10/02 00:01 Lipase Sent. lg3 00:02 XRAY Chest (1 view) In Process Unspecified. EDMS 00:02 Patient maintains SpO2 saturation greater than 95% on room air. lg3 01:12 Yen He MD is Hospitalizing Provider. bhavesh 01:38 SARS-COV-2 RT PCR (Document "Date of Onset" if Symptomatic) Sent. lg3 02:07 UDS Sent. mw2 02:22 No provider procedures requiring assistance completed. Patient admitted, IV remains in lg3 place. intact, No redness/swelling at site. 02:23 Arm band placed on left wrist. lg3 Administered Medications: 10/01 23:50 Drug: NS 0.9% 1000 ml Route: IV; Rate: 1 bolus; Site: right forearm; lg3 10/02 01:52 Follow up: IV Status: Completed infusion; IV Intake: 1000ml 3 10/01 23:50 Drug: NS 0.9% 1000 ml Route: IV; Rate: 1 bolus; Site: right forearm; lg3 10/02 03:05 Follow up: IV Status: Completed infusion; IV Intake: 1000ml lg3 10/01 23:50 Drug: Aspirin Chewable Tablet 162 mg Route: PO; lg3 23:50 Follow up: Response: No adverse reaction lg3 10/02 01:37 Drug: Potassium Effervescent Tablet 50 mEq Route: PO; lg3 01:37 Follow up: Response: No adverse reaction lg3 01:38 Drug: Lopressor (metoprolol TARTRATE) 50 mg Route: PO; lg3 01:38 Follow up: Response: No adverse reaction lg3 02:54 Drug: NS 0.9% with KCl 20 mEq/L 1000 ml Route: IV; Rate: 125 ml/hr; Site: right wrist; lg3 03:05 Follow up: IV Status: Infusion continued upon admission lg3 Intake: 01:52 IV: 1000ml; Total: 1000ml. lg3 03:05 IV: 1000ml; Total: 2000ml. lg3 Outcome: 01:13 Decision to Hospitalize by Provider. bhavesh 02:23 Admitted to Med/surg accompanied by tech, via wheelchair, room 201, Report called to [address] 02:23 Condition: stable 02:23 Instructed on the need for admit. 03:10 Patient left the ED. 3 Signatures: Dispatcher [employer] EDGasper Parekh MD MD cha Rivera, Pratibha Hannah, RN RN lp1 Cecil Joseph MyKena mw2 Radha Nascimento, RN RN lg3
[2021-10-02] MEDS ORDERED: METOPROLOL TAR 50 MG TAB ONE (01:18)
[2021-10-02] MEDS ORDERED: POTASSIUM 25 MEQ EFFERV TAB ONE (01:18)
[2021-10-02] MEDS ORDERED: NS KCL 20MEQ 1,000 ML IV ONE (01:33)
[2021-10-02] MEDS ORDERED: NS KCL 20MEQ 20 MEQ/1,000 ML BAG IV SCH (02:00)
[2021-10-02 02:07] LABS: Urine Blood Negative (Negative); Urine Glucose Negative (Negative); Urine Protein Negative (Negative); Urine Specific Gravity 1.015 (1.005-1.030)
[2021-10-02 02:26] LABS: Barbiturates NEGATIVE (NEGATIVE); Benzodiazepines NEGATIVE (NEGATIVE); Cocaine NEGATIVE (NEGATIVE); METHAMPHETAM NEGATIVE (NEGATIVE); Methadone NEGATIVE (NEGATIVE); Opiates NEGATIVE (NEGATIVE); Phencyclidine NEGATIVE (NEGATIVE); THC Cannibis NEGATIVE (NEGATIVE)
[2021-10-02] MEDS ORDERED: ACETAMINOPHEN 325 MG TABLET PO PRN (03:10)
[2021-10-02] MEDS ORDERED: MORPHINE 4 MG/ML SYR IV PRN (03:10)
[2021-10-02] MEDS ORDERED: ONDANSETRON 4 MG/2 ML VIAL IV PRN (03:10)
[2021-10-02 03:22] VITALS: BMI 20.8
[2021-10-02] MEDS: SUCRALFATE 1 GM TABLET PO SCH ×2 (07:55→11:13)
[2021-10-02] MEDS: NS KCL 20MEQ 20 MEQ/1,000 ML BAG IV SCH ×2 (07:55→14:10)
[2021-10-02 08:18] LABS: BUN Blood Urea Nitrogen 7 mg/dL (7-18); Bicarbonate 22 mmol/L (21-32); Glucose Level 94 mg/dL (74-106); Magnesium 2.2 mg/dL (1.8-2.4); Sodium Level 139 mmol/L (136-145)
[2021-10-02 08:39] VITALS: O2SAT 97
[2021-10-02] MEDS ORDERED: CIPROFLOXACIN HCL 500 MG TAB PO SCH (09:00)
[2021-10-02] MEDS ORDERED: GABAPENTIN 300 MG CAP PO SCH (09:00)
[2021-10-02] MEDS ORDERED: ASPIRIN EC 81 MG TAB PO SCH (09:00)
[2021-10-02] MEDS ORDERED: FAMOTIDINE 20 MG/2 ML VIAL IV SCH (09:00)
[2021-10-02] MEDS ORDERED: metroNIDAZOLE 500 MG TABLET PO SCH (09:00)
[2021-10-02] MEDS ORDERED: METOPROLOL TAR 50 MG TAB PO SCH (09:00)
[2021-10-02 12:12] VITALS: BP 101/63; TEMP 97.6
[2021-10-02] MEDS ORDERED: ENSURE HIGH PROTEIN 237 ML CAN PO SCH (14:00)
--- NOTE | 2021-10-02 15:21 | RAD REPORT ---
EXAM DESCRIPTION: RAD - Chest Single View - 10/02/2021 12:00 am CLINICAL HISTORY: 5 years Male, CHEST PAIN COMPARISON: None FINDINGS: No focal lung consolidation. No pleural effusion. No pneumothorax. Cardiomediastinal silhouette is within normal limits. No acute osseous abnormality. IMPRESSION: No acute cardiopulmonary disease. Electronically signed by: Royer Degroot DO 10/02/2021 12:52 AM CDT Due to temporary technical issues with the PACS/Fluency reporting system, reports are being signed by the in house radiologists without review as a courtesy to insure prompt reporting. The interpreting radiologist is fully responsible for the content of the report.
--- NOTE | 2021-10-03 00:24 | CON ---
Date of Consultation: 10/02/2021 Reason For Consultation: Chest pain. History Of Present Illness: Mr. Mclaughlin is a 35-year-old male without any significant past cardiac hist ory. 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 He came in with chest pain, diffuse, anterior without any nausea, vomiting, diaphoresis, PND , orthopnea, pedal edema, palpitations, or syncope. Pain was nonexertional and has improved. He has ruled out for an SD already. Allergies: NONE. Past Medical History: As stated above. Review of Systems: Negative. Social History: Negative. Family History: Negative. Medications: Include Neurontin and Carafate. Physical Examination: Vital Signs: Stable, afebrile. HEENT: Negative. Neck: Supple with no bruit. Chest: Clear. Cardiac: Exam revealed a regular rhythm and rate. No murmurs, gallops, or rubs. Abdomen: Benign. Extremities: Revealed no clubbing, cyanosis, or edema. Data Reviewed: Diagnostic data normal. Impression And Plan: Atypical chest pain, most likely gastroesophageal in nature or intestinal. The patient has Crohn disease, which is autoimmune. Certainly could have issues with pericarditis, alth ough the EKG does not show it. Nevertheless, I feel comfortable with him going home and I will make an arrangement for him to have an outpatient echocardiogram and an MPI. Case was discussed with Dr. He. BULL/VIKTOR Voice ID: [id number] Report ID: [id number]
--- NOTE | 2021-10-03 04:01 | SS ---
Date of Admission: 10/02/2021 Date of Discharge: 10/02/2021 Chief Complaint: Chest pain. History Of Present Illness: This is a 35-year-old male patient, he was feeling fine and in his normal usual state of health until yesterday late evening while he was sitting, all of a sudden he had pain in the left precordial region associated with some pain in left arm, left shoulder. With this, he came into the emergency room. After he was evaluated, he was admitted to the hospital. His pain lasted for about 2 hours and then subsided. This morning when I saw him, he was asymptomatic. Denies any palpitations. Allergies: NO KNOWN ALLERGIES. Medications: List reviewed. Review of Systems: Cardiovascular: As mentioned above, all the systems reviewed and negative. Past Medical History: Significant for orthostatic hypotension, Crohn's disease, anxiety, depression. Past Surgical History: Negative. Family History: Father has history of SVT. Social History: Negative for smoking or alcohol use. Immunization History: Patient's first COVID-19 vaccine was August 19, 2020; second vaccine was September 10, 2020. Physical Examination: Vital Signs: This morning, temperature 98, pulse 84, respiratory rate 16, blood pressure 108/74, oxygen saturation 100% on room air, height 6 feet 1 inch, weight 158 pounds. General: Awake, alert, oriented, not in distress. HEENT: Head atraumatic, normocephalic. Conjunctivae nonerythematous. Sclerae white. Mouth, no thrush or edema noted. Ears/Nose, no mass, lesion, discharge noted. Neck: Supple. No JVD, lymph nodes, bruit, thyromegaly noted. Lungs: Bilateral good equal air entry. Clear to auscultation. No rhonchi. No rales. Heart: Normal heart sounds, no murmur or gallop. Abdomen: Soft, bowel sounds normal. No guarding, rigidity, tenderness, mass, hepatosplenomegaly, distention, or bruit noted. Extremities: No leg edema. No calf tenderness. Skin: No rash, ulcer, cellulitis. Lymphatics: No lymph node enlargement in neck, supraclavicular, infraclavicular region. Neuro: No focal neurological deficit. Chest: Unremarkable. External Genitalia: Deferred. Rectal: Deferred. Laboratory Data: EKG unremarkable. Chest x-ray was reported as no acute cardiopulmonary changes. White count 9.8, hemoglobin 13.9, platelets 435. Sodium 139, potassium 3.2, chloride 105, bicarb 26, BUN 12, creatinine 0.97, glucose 117. Liver function tests unremarkable. Cardiac enzymes, normal troponin x2. COVID-19 test negative. Urinalysis negative. Urine toxicology screen negative. Hospital Course: After the patient was evaluated in the ER, he was admitted to the hospital. NV was ruled out. Cardiology consultation was requested from Dr. Cross and details were discussed with Dr. Cross after he evaluated the patient and he has released patient to go home from his point of view and he will arrange for outpatient workup and medically he is stable for discharge. Discharge Medications And Instructions: 1. Continue all prior home medications. 2. Follow up at my office. Final Diagnoses: 1. Chest pain. 2. Crohn disease. 3. Orthostatic hypotension. 4. Hypokalemia. 5. Anxiety. 6. Depression. EVIN/MODL Voice ID: [id number] Report ID: [id number] MTDD
== END 2021-10-02 15:32 | disposition home or self-care (01) ==
LOC: ER 23:19 → ERHOLD 10-02 01:15 → 2ND 10-02 02:50
PROVIDERS: ADMIT Internal Medicine; ATTEND Internal Medicine
DX: R07.89 Other chest pain (principal); K50.90 Crohn's disease, unspecified, without complications; I95.1 Orthostatic hypotension; E87.6 Hypokalemia; F41.9 Anxiety disorder, unspecified; F32.A Depression, unspecified; I82.0 Budd-Chiari syndrome; R00.0 Tachycardia, unspecified; I49.8 Other specified cardiac arrhythmias; Z20.822 Contact with and (suspected) exposure to COVID-19
CPT/HCPCS: 96361; 93005; 85025; 80048 ×2; 36415; 83735 ×2; 85610; 80076; 81003; 84484 ×2; 83690; 83880; 80307; 71045; 96360; 99285; U0003; J7030; J3490; J3480 ×2; G0378 ×2

== ENCOUNTER 2021-11-03 14:40 | Emergency (ER) | payer BC ==
--- OUTSIDE RECORDS SUMMARY | 2021-11-03 14:45 | XMS REPORT | Continuity of Care Document ---
:1985 Author Organization [facility] t Address [address] [place] [address] Care Team Providers Name Role Phone Addison [...] Date S mohit BCBSTX PPO AND OUT [id number] 2020 [facility] 00:00:00 BC[employer] PPO POS EPO [id number] 2014 2020 CHOICE 00:00:00 00:00:00 PPO/EPO - BCBS [id number] COPAY PATIENT [id number] ASSISTANCE PROGRAM Problems Condition Condition Condition Status Onset Resolution Last Treating Co mments Source Name Details Category Date Date Treatment Clinician Date Neck pain, Neck pain, Disease Active [facility] bilateral bilateral 09-26 [facility] 00:00: 00 Other Other Disease Active [facility] headache headache - Health syndrome syndrome 00:00: 00 741.00, Diagnosis Active 2014-12-12 Me lee 780.4 11-13 07:16:00 l 741.00, 00:00: Giuseppe 780.4 00 Active 11/13/2014 [facility] Malabsorpt Malabsorpt Disease Active [facility] ion ion 1-14 College 00:00: of 00 Medicin e Iron Iron Disease Active [facility] deficiency deficiency 1-14 Co llege anemia anemia 00:00: of 00 Medicin e Perianal Perianal Disease Active 2009-06 [facility] abscess abscess 1-09 College 00:00: of 00 Medicin e Crohn's Crohn's Disease Active [facility] disease disease 8-17 College (HCCode) (HCCode) 00:00: of 00 Medicin e Epigastric Epigastric Disease Active [facility] pain pain 8-17 College 00:00: of 00 Medicin e Osteoporos Osteoporos Disease Active [facility] is is 4-20 College 00:00: of 00 Medicin e Allergies, Adverse Reactions, Alerts Allergy Allergy Status Severity Reaction(s) Onset Inactive Treating Comm ents Source Name Type Date Date Clinician Molds & Allergy Active Other [facility] Smuts to 2-04 reaction( Health substanc 00:00: s): Other e 00 (See Comments) Sneezing, allergic rhinitis MOLD Allergy Active Low Other [facility] 2-04 00:00: 00 TOMATO Allergy Active Low Other [facility] (SOLANUM 2-04 LYCOPERS 00:00: ICUM) 00 Tomato Allergy Active Mild [facility] to 4-17 allergy Health substanc 00:00: e 00 Mold Propensi Active [facility] Spores ty to 4-17 College adverse 00:00: of reaction 00 Medicin s to e substanc e Tomatoes Propensi Active Mild [facility] ty to 4-17 allergy College adverse 00:00: of reaction 00 Medicin s to e food Social History Social Habit Start Date Stop Date Quantity Comments Source Alcohol intake 2021-09-27 2021-09-27 Current [facility] Col lege 00:00:00 00:00:00 non-drinker of of Medicin e alcohol (finding) Exposure to 2021-09-16 2021-09-26 Not sure [facility] Colleg e SARS-CoV-2 00:00:00 12:12:00 of Medicine (event) Sex [facility]igned At [birth year] [facility] 00:00:00 00:00:00 Smoking Status Start Date Stop Date Source Never smoked tobacco [facility] ege of Medicine Tobacco smoking consumption unknown [facility] Medications Ordered Filled Start Stop Current Ordering Indication Dosage Frequency Signature Comments Components Source Medication Medication Date Date Medication? Clinician (SIG) Name Name CarrollN 2021- Yes [id number] Take 8 [facility] ISolone 5-10 07-06 Tablets by Rossy rodas (MEDROL) 4 00:00: 04:59 mouth of MG tablet 00 :00 daily for Medic in 7 days, e THEN 7 Tablets daily for 7 days, THEN 6 Tablets daily for 7 days, THEN 5 Tablets daily for 7 days, THEN 4 Tablets daily for 7 days, THEN 3 Tablets daily for 7 days, THEN 2 Tablets daily for 7 days, THEN 1 Tablet daily for 7 days. predniSONE Yes [id number] 40mg Take 4 [facility] (DELTASONE) 5-06 Tablets by Co llege 10 MG 00:00: mouth of tablet 00 daily. Medicin Taper e prednisone by 5 mg each week Cholecalcif Yes 1{tbl} Take 1 Tab [facility] will 4-22 by mouth [place] (VITAMIN D) 11:32: daily. of 1999 UNIT 18 Medicin TABS e Multiple Yes Take by [facility] Vitamins-Mi 4-22 mouth. [facility] nerals 11:32: of (MULTIVITAM 18 Medicin IN & e MINERAL OR) gabapentin Yes 300mg Take 300 [facility] (NEURONTIN) 4-22 mg by [place] 300 MG 11:32: mouth 3 of capsule 18 times Medicin daily. e acetaminoph Yes 650mg Take 650 [facility] en 4-22 mg by [place] (TYLENOL) 11:32: mouth of 325 mg 18 every 4 Medicin tablet hours as e needed for Pain. Cholecalcif Yes 1{tbl} Take 1 Tab [facility] will 4-22 by mouth [place] (VITAMIN D) 11:32: daily. of 1999 UNIT 18 Medicin TABS e Multiple Yes Take by [facility] Vitamins-Mi 4-22 mouth. [facility] nerals 11:32: of (MULTIVITAM 18 Medicin IN & e MINERAL OR) gabapentin 2022-0 Yes 300mg Take 300 [facility] (NEURONTIN) 4-22 mg by [place] 300 MG 11:32: mouth 3 of capsule 18 times Medicin daily. e acetaminoph Yes 650mg Take 650 [facility] en 4-22 mg by [place] (TYLENOL) 11:32: mouth of 325 mg 18 every 4 Medicin tablet hours as e needed for Pain. ciprofloxac Yes [id number] 500mg Take 1 [facility] in (CIPRO) 4-22 Tablet by [place] e[facility] 500 MG 00:00: mouth two of tablet 00 times Medicin daily. 1 e tablet by mouth twice a day metronidazo 0 Yes [id number] 500mg Take 1 [facility] le (FLAGYL) 4-22 Tablet by Col lege 500 MG 00:00: mouth two of tablet 00 times Medicin daily. 1 e tablet by mouth twice a day ciprofloxac 0 Yes [id number] 500mg Take 1 [facility] in (CIPRO) 4-22 Tablet by [place] e[facility] 500 MG 00:00: mouth two of tablet 00 times Medicin daily. 1 e tablet by mouth twice a day metronidazo 0 Yes [id number] 500mg Take 1 [facility] le (FLAGYL) 4-22 Tablet by Col lege 500 MG 00:00: mouth two of tablet 00 times Medicin daily. 1 e tablet by mouth twice a day DULoxetine 2022- Yes [id number] 20mg QD Take 1 [facility] (Cymbalta) 09-26 capsule Healt [facility] [address] 00:00: 04:59 (20 mg capsule 00 :00 total) by mouth 1 (one) time each day. Do not crush or chew. gabapentin 2022- Yes [id number] 300mg Q.5D Take 1 [facility] (Neurontin) 09-26- capsule Heal th 300 MG 00:00: 04:59 (300 mg capsule 00 :00 total) by mouth 2 (two) times a day. sucralfate 0 Yes 1g TAKE 1 [facility] (CARAFATE) 4-19 TABLET BY [place] e[facility] 1 g tablet 00:00: MOUTH FOUR o f 00 TIMES Medicin DAILY e sucralfate 0 Yes 1g TAKE 1 [facility] (CARAFATE) 4-19 TABLET BY [place] e[facility] 1 g tablet 00:00: MOUTH FOUR o f 00 TIMES Medicin DAILY e sucralfate 2021- No 1g Take 10 mL [facility] (CARAFATE) 09-09- by mouth [place] e[facility] 1 GM/10ML 00:00: 00:00 four times o f suspension 00 :00 daily. Medicin e Omeprazole Yes [id number] 20mg Take 20 mg [facility] 20 MG TBEC 3-09 by mouth Colle ge 00:00: every of 00 morning. Medicin e Omeprazole Yes [id number] 20mg Take 20 mg [facility] 20 MG TBEC 3-09 by mouth Colle ge 00:00: every of 00 morning. Medicin e Omeprazole Yes [id number] 20mg Take 20 mg [facility] 20 MG TBEC 3-09 by mouth Colle ge 00:00: every of 00 morning. Medicin e metoprolol 2020-06- No 25mg Take 25 mg [facility] (LOPRESSOR) 2-10 12-10 by mouth Col lege 25 MG 14:24: 00:00 two times of tablet 31 :00 daily. Medicin e fludrocorti 2020-06- No .1mg Take 0.1 [facility] sone 2-10 12-10 mg by [place] ([facility]) 14:24: 00:00 mouth of 0.1 MG 13 :00 daily. Medicin tablet e loperamide 2020-06- No 2mg Take 2 mg [facility] (IMODIUM 2-10 12-10 by mouth 4 [place] [facility] A-D) 2 MG 14:23: 00:00 times of tablet 52 :00 daily as Medicin needed. e hyoscyamine 2020-[id number] 1 [facility] (LEVSIN/SL) 2-10 Tablet Colleg e 0.125 MG SL 00:00: under the o f tablet 00 tongue Medicin every 4 e hours as needed. hyoscyamine 2020-[id number] 1 [facility] (LEVSIN/SL) 2-10 Tablet Colleg e 0.125 MG SL 00:00: under the o f tablet 00 tongue Medicin every 4 e hours as needed. hyoscyamine 2020-[id number] [facility] (LEVSIN/SL) 2-10 Tablet Colleg e 0.125 MG SL 00:00: under the o f tablet 00 tongue Medicin every 4 e hours as needed. hyoscyamine 2020-[id number] [facility] (LEVSIN/SL) 2-10 Tablet Colleg e 0.125 MG SL 00:00: under the o f tablet 00 tongue Medicin every 4 e hours as needed. hyoscyamine 2020-[id number] [facility] (LEVSIN/SL) 2-10 Tablet Colleg e 0.125 MG SL 00:00: under the o f tablet 00 tongue Medicin every 4 e hours as needed. hyoscyamine 2020-[id number] [facility] (LEVSIN/SL) 2-10 Tablet Colleg e 0.125 MG SL 00:00: under the o f tablet 00 tongue Medicin every 4 e hours as needed. hyoscyamine 2020-[id number] [facility] (LEVSIN/SL) 2-10 Tablet Colleg e 0.125 MG SL 00:00: under the o f tablet 00 tongue Medicin every 4 e hours as needed. Na 2020-06- No [SUPREP] [facility] Sulfate-K 1-18 12-10 Take as Colleg e Sulfate-Mg 00:00: 00:00 directed. o f Sulf 00 :00 Medicin (SUPREP e BOWEL PREP KIT) 17.5-3.13-1 .6 GM/177ML SOLN methylPREDN 2020-06 Yes [id number] Take 12 mg [facility] ISolone 1-10 po QD College (MEDROL) 4 00:00: of MG tablet 00 Medicin e methylPREDN 2020-06 Yes [id number] Take 12 mg [facility] ISolone 1-10 po QD College (MEDROL) 4 00:00: of MG tablet 00 Medicin e methylPREDN 2020-06 Yes [id number] Take 12 mg [facility] ISolone 1-10 po QD College (MEDROL) 4 00:00: of MG tablet 00 Medicin e methylPREDN 2020-06 Yes [id number] Take 12 mg [facility] ISolone 1-10 po QD College (MEDROL) 4 00:00: of MG tablet 00 Medicin e methylPREDN 2020-06 Yes [id number] Take 12 mg [facility] ISolone 1-10 po QD [place] (MEDROL) 4 00:00: of MG tablet 00 Medicin e methylPREDN 2020-06- No [id number] Take 12 mg [facility] ISolone 1-10 03-09 po QD [place] (MEDROL) 4 00:00: 00:00 of MG tablet [...] SOLN Cholecalcif Yes 1{tbl} Take 1 Tab [facility] will 7-14 by mouth [place] (VITAMIN D) 13:41: daily. of 2000 UNIT 57 Medicin TABS e Multiple Yes Take by [facility] r Vitamins-Mi 7-14 mouth. Colle e nerals 13:41: of (MULTIVITAM 57 Medicin IN & e MINERAL OR) loperamide Yes 2mg Take 2 mg [facility] (IMODIUM 7-14 by mouth 4 Colle ge A-D) 2 MG 13:41: times of tablet 57 daily as Medicin needed. e gabapentin Yes 300mg Take 300 [facility] (NEURONTIN) 7-14 mg by [place] 300 MG 13:41: mouth 3 of capsule 57 times Medicin daily. e acetaminoph Yes 650mg Take 650 [facility] en 7-14 mg by [place] (TYLENOL) 13:41: mouth of 325 mg 57 every 4 Medicin tablet hours as e needed for Pain. Cholecalcif 0 Yes 1{tbl} Take 1 Tab [facility] will 7-14 by mouth [place] (VITAMIN D) 13:41: daily. of 1999 UNIT 57 Medicin TABS e Multiple 0 Yes Take by [facility] Vitamins-Mi 7-14 mouth. Colleg e nerals 13:41: of (MULTIVITAM 57 Medicin IN & e MINERAL OR) loperamide 0 Yes 2mg Take 2 mg [facility] (IMODIUM 7-14 by mouth 4 Colle ge A-D) 2 MG 13:41: times of tablet 57 daily as Medicin needed. e gabapentin Yes 300mg Take 300 [facility] (NEURONTIN) 7-14 mg by [place] 300 MG 13:41: mouth 3 of capsule 57 times Medicin daily. e acetaminoph Yes 650mg Take 650 [facility] en 7-14 mg by [place] (TYLENOL) 13:41: mouth of 325 mg 57 every 4 Medicin tablet hours as e needed for Pain. Cholecalcif 0 Yes 1{tbl} Take 1 Tab [facility] will 7-14 by mouth [place] (VITAMIN D) 13:41: daily. of 1999 UNIT 57 Medicin TABS e Cholecalcif 0 Yes 1{tbl} Take 1 Tab [facility] will 7-14 by mouth [place] (VITAMIN D) 13:41: daily. of 1999 UNIT 57 Medicin TABS e Multiple Yes Take by [facility] Vitamins-Mi 7-14 mouth. Colleg e nerals 13:41: of (MULTIVITAM 57 Medicin IN & e MINERAL OR) loperamide 0 Yes 2mg Take 2 mg [facility] (IMODIUM 7-14 by mouth 4 Colle ge A-D) 2 MG 13:41: times of tablet 57 daily as Medicin needed. e gabapentin 0 Yes 300mg Take 300 [facility] (NEURONTIN) 7-14 mg by [place] 300 MG 13:41: mouth 3 of capsule 57 times Medicin daily. e Multiple Yes Take by [facility] Vitamins-Mi 7-14 mouth. Colleg e nerals 13:41: of (MULTIVITAM 57 Medicin IN & e MINERAL OR) acetaminoph 0 Yes 650mg Take 650 [facility] en 7-14 mg by [place] (TYLENOL) 13:41: mouth of 325 mg 57 every 4 Medicin tablet hours as e needed for Pain. loperamide 0 Yes 2mg Take 2 mg [facility] (IMODIUM 7-14 by mouth 4 Colle ge A-D) 2 MG 13:41: times of tablet 57 daily as Medicin needed. e gabapentin 2020-0 Yes 300mg Take 300 [facility] (NEURONTIN) 7-14 mg by [place] 300 MG 13:41: mouth 3 of capsule 57 times Medicin daily. e Cholecalcif 0 Yes 1{tbl} Take 1 Tab [facility] will 7-14 by mouth [place] (VITAMIN D) 13:41: daily. of 1999 UNIT 57 Medicin TABS e Multiple Yes Take by [facility] Vitamins-Mi 7-14 mouth. [facility] nerals 13:41: of (MULTIVITAM 57 Medicin IN & e MINERAL OR) loperamide 0 Yes 2mg Take 2 mg [facility] (IMODIUM 7-14 by mouth 4 Colle ge A-D) 2 MG 13:41: times of tablet 57 daily as Medicin needed. e gabapentin 0 Yes 300mg Take 300 [facility] (NEURONTIN) 7-14 mg by [place] 300 MG 13:41: mouth 3 of capsule 57 times Medicin daily. e acetaminoph 0 Yes 650mg Take 650 [facility] en 7-14 mg by [place] (TYLENOL) 13:41: mouth of 325 mg 57 every 4 Medicin tablet hours as e needed for Pain. acetaminoph 0 Yes 650mg Take 650 [facility] en 7-14 mg by [place] (TYLENOL) 13:41: mouth of 325 mg 57 every 4 Medicin tablet hours as e needed for Pain. Cholecalcif 0 Yes 1{tbl} Take 1 Tab [facility] will 7-14 by mouth [place] (VITAMIN D) 13:41: daily. of 1999 UNIT 57 Medicin TABS e Multiple Yes Take by [facility] Vitamins-Mi 7-14 mouth. [facility] e nerals 13:41: of (MULTIVITAM 57 Medicin IN & e MINERAL OR) loperamide 2020-0 Yes 2mg Take 2 mg [facility] (IMODIUM 7-14 by mouth 4 Colle ge A-D) 2 MG 13:41: times of tablet 57 daily as Medicin needed. e gabapentin 2020-0 Yes 300mg Take 300 [facility] (NEURONTIN) 7-14 mg by [place] 300 MG 13:41: mouth 3 of capsule 57 times Medicin daily. e acetaminoph 0 Yes 650mg Take 650 [facility] en 7-14 mg by [place] (TYLENOL) 13:41: mouth of 325 mg 57 every 4 Medicin tablet hours as e needed for Pain. Cholecalcif 0 Yes 1{tbl} Take 1 Tab [facility] will 7-14 by mouth [place] (VITAMIN D) 13:41: daily. of 1999 UNIT 57 Medicin TABS e Multiple 0 Yes Take by [facility] Vitamins-Mi 7-14 mouth. Colle e nerals 13:41: of (MULTIVITAM 57 Medicin IN & e MINERAL OR) loperamide 0 Yes 2mg Take 2 mg [facility] (IMODIUM 7-14 by mouth 4 Colle ge A-D) 2 MG 13:41: times of tablet 57 daily as Medicin needed. e gabapentin 0 Yes 300mg Take 300 [facility] (NEURONTIN) 7-14 mg by [place] 300 MG 13:41: mouth 3 of capsule 57 times Medicin daily. e acetaminoph 0 Yes 650mg Take 650 [facility] en 7-14 mg by [place] (TYLENOL) 13:41: mouth of 325 mg 57 every 4 Medicin tablet hours as e needed for Pain. Cholecalcif 2020-0 Yes 1{tbl} Take 1 Tab [facility] will 7-14 by mouth [place] (VITAMIN D) 13:41: daily. of 1999 UNIT 57 Medicin TABS e Multiple Yes Take by [facility] Vitamins-Mi 7-14 mouth. Colleg e nerals 13:41: of (MULTIVITAM 57 Medicin IN & e MINERAL OR) gabapentin 2020-0 Yes 300mg Take 300 [facility] (NEURONTIN) 7-14 mg by [place] 300 MG 13:41: mouth 3 of capsule 57 times Medicin daily. e acetaminoph 2021-0 Yes 650mg Take 650 [facility] en 7-14 mg by [place] (TYLENOL) 13:41: mouth of 325 mg 57 every 4 Medicin tablet hours as e needed for Pain. Cholecalcif 0 Yes 1{tbl} Take 1 Tab [facility] will 7-14 by mouth [place] (VITAMIN D) 13:41: daily. of 1999 UNIT 57 Medicin TABS e Multiple Yes Take by [facility] Vitamins-Mi 7-14 mouth. Colleg e nerals 13:41: of (MULTIVITAM 57 Medicin IN & e MINERAL OR) gabapentin 0 Yes 300mg Take 300 [facility] (NEURONTIN) 7-14 mg by [place] 300 MG 13:41: mouth 3 of capsule 57 times Medicin daily. e acetaminoph Yes 650mg Take 650 [facility] en 7-14 mg by [place] (TYLENOL) 13:41: mouth of 325 mg 57 every 4 Medicin tablet hours as e needed for Pain. Cholecalcif Yes 1{tbl} Take 1 Tab [facility] will 7-14 by mouth [place] (VITAMIN D) 13:41: daily. of 1999 UNIT 57 Medicin TABS e Multiple Yes Take by [facility] Vitamins-Mi 7-14 mouth. Colleg e nerals 13:41: of (MULTIVITAM 57 Medicin IN & e MINERAL OR) gabapentin 0 Yes 300mg Take 300 [facility] (NEURONTIN) 7-14 mg by [place] 300 MG 13:41: mouth 3 of capsule 57 times Medicin daily. e acetaminoph 0 Yes 650mg Take 650 [facility] en 7-14 mg by [place] (TYLENOL) 13:41: mouth of 325 mg 57 every 4 Medicin tablet hours as e needed for Pain. Cholecalcif 0 Yes 1{tbl} Take 1 Tab [facility] will 7-14 by mouth [place] (VITAMIN D) 13:41: daily. of 1999 UNIT 57 Medicin TABS e Multiple Yes Take by [facility] Vitamins-Mi 7-14 mouth. Colleg e nerals 13:41: of (MULTIVITAM 57 Medicin IN & e MINERAL OR) gabapentin 0 Yes 300mg Take 300 [facility] (NEURONTIN) 7-14 mg by [place] 300 MG 13:41: mouth 3 of capsule 57 times Medicin daily. e acetaminoph 0 Yes 650mg Take 650 [facility] en 7-14 mg by [place] (TYLENOL) 13:41: mouth of 325 mg 57 every 4 Medicin tablet hours as e needed for Pain. Cholecalcif 0 Yes 1{tbl} Take 1 Tab [facility] will 7-14 by mouth [place] (VITAMIN D) 13:41: daily. of 1999 UNIT 57 Medicin TABS e Multiple Yes Take by [facility] Vitamins-Mi 7-14 mouth. Colle e nerals 13:41: of (MULTIVITAM 57 Medicin IN & e MINERAL OR) gabapentin 0 Yes 300mg Take 300 [facility] (NEURONTIN) 7-14 mg by [place] 300 MG 13:41: mouth 3 of capsule 57 times Medicin daily. e acetaminoph 0 Yes 650mg Take 650 [facility] en 7-14 mg by [place] (TYLENOL) 13:41: mouth of 325 mg 57 every 4 Medicin tablet hours as e needed for Pain. Cholecalcif 0 Yes 1{tbl} Take 1 Tab [facility] will 7-14 by mouth [place] (VITAMIN D) 13:41: daily. of 1999 UNIT 57 Medicin TABS e Multiple Yes Take by [facility] Vitamins-Mi 7-14 mouth. [facility] e nerals 13:41: of (MULTIVITAM 57 Medicin IN & e MINERAL OR) loperamide Yes 2mg Take 2 mg [facility] (IMODIUM 7-14 by mouth 4 [facility] ge A-D) 2 MG 13:41: times of tablet 57 daily as Medicin needed. e gabapentin 0 Yes 300mg Take 300 [facility] (NEURONTIN) 7-14 mg by [place] 300 MG 13:41: mouth 3 of capsule 57 times Medicin daily. e acetaminoph 2020-0 Yes 650mg Take 650 [facility] en 7-14 mg by [place] (TYLENOL) 13:41: mouth of 325 mg 57 every 4 Medicin tablet hours as e needed for Pain. Cholecalcif 0 Yes 1{tbl} Take 1 Tab [facility] will 7-14 by mouth [place] (VITAMIN D) 13:41: daily. of 1999 UNIT [...] 300 [facility] (NEURONTIN) 7-14 mg by [place] 300 MG 13:41: mouth 3 of capsule 57 times Medicin daily. e acetaminoph Yes 650mg Take 650 [facility] en 7-14 mg by [place] (TYLENOL) 13:41: mouth of 325 mg 57 every 4 Medicin tablet hours as e needed for Pain. tramadol Yes TAKE 1 [facility] (ULTRAM) 50 7-05 TABLET BY Col lege MG tablet 00:00: MOUTH of 00 EVERY 6 Medicin HOURS e NEEDED FOR PAIN tramadol Yes TAKE 1 [facility] (ULTRAM) 50 7-05 TABLET BY Col lege MG tablet 00:00: MOUTH of 00 EVERY 6 Medicin HOURS e NEEDED FOR PAIN tramadol Yes TAKE 1 [facility] (ULTRAM) 50 7-05 TABLET BY Col lege MG tablet 00:00: MOUTH of 00 EVERY 6 Medicin HOURS e NEEDED FOR PAIN tramadol Yes TAKE 1 [facility] (ULTRAM) 50 7-05 TABLET BY Col lege MG tablet 00:00: MOUTH of 00 EVERY 6 Medicin HOURS e NEEDED FOR PAIN tramadol Yes TAKE 1 [facility] (ULTRAM) 50 7-05 TABLET BY Col lege MG tablet 00:00: MOUTH of 00 EVERY 6 Medicin HOURS e NEEDED FOR PAIN tramadol Yes TAKE 1 [facility] (ULTRAM) 50 7-05 TABLET BY Col lege MG tablet 00:00: MOUTH of 00 EVERY 6 Medicin HOURS e NEEDED FOR PAIN tramadol Yes TAKE 1 [facility] (ULTRAM) 50 7-05 TABLET BY Col lege [...] Medicin HOURS e NEEDED FOR PAIN tramadol 0 2020- No TAKE 1 [facility] (ULTRAM) 50 7-05 12-10 TABLET BY Co llege MG tablet 00:00: 00:00 MOUTH of 00 :00 EVERY 6 Medicin HOURS e NEEDED FOR PAIN ondansetron Yes [id number] 4mg Take 1 [facility] (ZOFRAN 6-10 Tablet by [place] ODT) 4 mg 00:00: mouth of disintegrat 00 every 8 Medic in ing tablet hours as e needed for Nausea. ondansetron Yes [id number] 4mg Take 1 [facility] (ZOFRAN 6-10 Tablet by [place] ODT) 4 mg 00:00: mouth of disintegrat 00 every 8 Medic in ing tablet hours as e needed for Nausea. ondansetron Yes [id number] 4mg Take 1 [facility] (ZOFRAN 6-10 Tablet by [place] ODT) 4 mg 00:00: mouth of disintegrat 00 every 8 Medic in ing tablet hours as e needed for Nausea. ondansetron Yes [id number] 4mg Take 1 [facility] (ZOFRAN 6-10 Tablet by [place] ODT) 4 mg 00:00: mouth of disintegrat 00 every 8 Medic in ing tablet hours as e needed for Nausea. ondansetron 0 Yes [id number] 4mg Take 1 [facility] (ZOFRAN 6-10 Tablet by [place] ODT) 4 mg 00:00: mouth of disintegrat 00 every 8 Medic in ing tablet hours as e needed for Nausea. ondansetron 0 Yes [id number] 4mg Take 1 [facility] (ZOFRAN 6-10 Tablet by [place] ODT) 4 mg 00:00: mouth of disintegrat 00 every 8 Medic in ing tablet hours as e needed for Nausea. ondansetron Yes [id number] 4mg Take 1 [facility] (ZOFRAN 6-10 Tablet by [place] ODT) 4 mg 00:00: mouth of disintegrat 00 every 8 Medic in ing tablet hours as e needed for Nausea. ondansetron 0 Yes [id number] 4mg Take 1 [facility] (ZOFRAN 6-10 Tablet by [place] ODT) 4 mg 00:00: mouth of disintegrat 00 every 8 Medic in ing tablet hours as e needed for Nausea. ondansetron 2020-0 Yes [id number] 4mg Take 1 [facility] (ZOFRAN 6-10 Tablet by [place] ODT) 4 mg 00:00: mouth of disintegrat 00 every 8 Medic in ing tablet hours as e needed for Nausea. ondansetron 0 Yes [id number] 4mg Take 1 [facility] (ZOFRAN 6-10 Tablet by [place] ODT) 4 mg 00:00: mouth of disintegrat 00 every 8 Medic in ing tablet hours as e needed for Nausea. ondansetron 0 Yes [id number] 4mg Take 1 [facility] (ZOFRAN 6-10 Tablet by [place] ODT) 4 mg 00:00: mouth of disintegrat 00 every 8 Medic in ing tablet hours as e needed for Nausea. ondansetron 0 Yes [id number] 4mg Take 1 [facility] (ZOFRAN 6-10 Tablet by [place] ODT) 4 mg 00:00: mouth of disintegrat 00 every 8 Medic in ing tablet hours as e needed for Nausea. ondansetron 0 Yes [id number] 4mg Take 1 [facility] (ZOFRAN 6-10 Tablet by [place] ODT) 4 mg 00:00: mouth of disintegrat 00 every 8 Medic in ing tablet hours as e needed for Nausea. ondansetron 0 2021- No [id number] 4mg Take 1 [facility] (ZOFRAN 6-10 03-09 [facility] mg 00:00: 00:00 mouth of disintegrat 00 :00 every 8 Medic in ing tablet hours as e needed for Nausea. loperamide 0 Yes 2mg Take 2 mg [facility] (IMODIUM 11-14 by mouth 4 Colle ge A-D) 2 MG 08:40: times of tablet 56 daily as Medicin needed. e metoprolol 0 Yes 25mg Take 25 mg [facility] (LOPRESSOR) - by mouth [place] [facility] 25 MG 08:40: two times of tablet 56 daily. Medicin e fludrocorti 2021-0 Yes .1mg Take 0.1 [facility] sone 6-09 mg by [place] ([facility]) 08:40: mouth of 0.1 MG 56 daily. Medicin tablet e metoprolol 2021-0 Yes 25mg Take 25 mg [facility] (LOPRESSOR) 6-09 by mouth [place] [facility] 25 MG 08:40: two times of tablet 56 daily. Medicin e fludrocorti 2021-0 Yes .1mg Take 0.1 [facility] sone 6-09 mg by [place] ([facility]) 08:40: mouth of 0.1 MG 56 daily. Medicin tablet e metoprolol 2021-0 Yes 25mg Take 25 mg [facility] (LOPRESSOR) 6-09 by mouth [facility] 25 MG 08:40: two times of tablet 56 daily. Medicin e fludrocorti 2021-0 Yes .1mg Take 0.1 [facility] sone 6-09 mg by [place] ([facility]) 08:40: mouth of 0.1 MG 56 daily. Medicin tablet e metoprolol 2021-0 Yes 25mg Take 25 mg [facility] (LOPRESSOR) 6-09 by mouth [facility] 25 MG 08:40: two times of tablet 56 daily. Medicin e fludrocorti 2021-0 Yes .1mg Take 0.1 [facility] sone 6-09 mg by [place] ([facility]) 08:40: mouth of 0.1 MG 56 daily. [...] 0.1 [facility] sone 6-09 mg by [place] ([facility]) 08:40: mouth of 0.1 MG 56 daily. Medicin tablet e fludrocorti 2021-0 Yes .1mg Take 0.1 [facility] sone 6-09 mg by [facility] ([facility]) 08:40: mouth of 0.1 MG 56 daily. Medicin tablet e metoprolol 1-0 Yes 25mg Take 25 mg [facility] (LOPRESSOR) 6-09 by mouth [facility] 25 MG 08:40: two times of tablet 56 daily. Medicin e fludrocorti 2021-0 Yes .1mg Take 0.1 [facility] sone 6-09 mg by [place] ([facility]) 08:40: mouth of 0.1 MG 56 daily. Medicin tablet e metoprolol 1-0 Yes 25mg Take 25 mg [facility] (LOPRESSOR) 6-09 by mouth [facility] 25 MG 08:40: two times of tablet 56 daily. Medicin e fludrocorti 2021-0 Yes .1mg Take 0.1 [facility] sone 6-09 mg by [place] ([facility]) 08:40: mouth of 0.1 MG 56 daily. Medicin tablet e metoprolol 2020-0 Yes 25mg Take 25 mg [facility] (LOPRESSOR) 6-09 by mouth [facility] 25 MG 08:40: two times of tablet 56 daily. Medicin e fludrocorti 1-0 Yes .1mg Take 0.1 [facility] sone 6-09 mg by [place] ([facility]) 08:40: mouth of 0.1 MG 56 daily. Medicin tablet e metoprolol 2020-0 Yes 25mg Take 25 mg [facility] (LOPRESSOR) 6-09 by mouth [facility] 25 MG 08:40: two times of tablet 56 daily. Medicin e fludrocorti 1-0 Yes .1mg Take 0.1 [facility] y[facility] sone 6-09 mg by [place] ([facility]) 08:40: mouth of 0.1 MG 56 daily. Medicin tablet e Cholecalcif 2020-0 Yes 1{tbl} Take 1 Tab [facility] [place] will 6-09 by mouth [place] (VITAMIN D) 08:36: daily. of 2000 [address] Medicin TABS e Multiple 2020-0 Yes Take by [facility] 6-09 mouth. [facility] 08:36: of (MULTIVITAM 54 Medicin IN & e MINERAL OR) gabapentin 2020-0 Yes 300mg Take 300 [facility] (NEURONTIN) 6-09 mg by [place] 300 MG 08:36: mouth 3 of capsule 54 times Medicin daily. e acetaminoph Yes 650mg Take 650 [facility] en 6-09 mg by [place] (TYLENOL) 08:36: mouth of 325 mg 54 every 4 Medicin tablet hours as e needed for Pain. Na Yes [id number] [SUPREP] [facility] S[facility]ate-K 6-09 Take as College Sulfate-Mg 00:00: directed. of Sulf 00 Medicin (SUPREP e BOWEL PREP KIT) 17.5-3.13-1 .6 GM/177ML SOLN Na 0 Yes [id number] [SUPREP] [facility] Sulfate-K 6-09 Take as College Sulfate-Mg 00:00: directed. of Sulf 00 Medicin (SUPREP e BOWEL PREP KIT) 17.5-3.13-1 .6 GM/177ML SOLN Na Yes [id number] [SUPREP] [facility] Sulfate-K 6-09 Take as College Sulfate-Mg 00:00: directed. of Sulf 00 Medicin (SUPREP e BOWEL PREP KIT) 17.5-3.13-1 .6 GM/177ML SOLN Na Yes [id number] [SUPREP] [facility] Sulfate-K 6-09 Take as College Sulfate-Mg 00:00: directed. of Sulf 00 Medicin (SUPREP e BOWEL PREP KIT) 17.5-3.13-1 .6 GM/177ML SOLN Na 2020-0 Yes [id number] [SUPREP] [facility] Sulfate-K 6-09 Take as College Sulfate-Mg 00:00: directed. of Sulf 00 Medicin (SUPREP e BOWEL PREP KIT) 17.5-3.13-1 .6 GM/177ML SOLN Na 2020- Yes [id number] [SUPREP] [facility] Sulfate-K 6-09 Take as College Sulfate-Mg 00:00: directed. of Sulf 00 Medicin (SUPREP e BOWEL PREP KIT) 17.5-3.13-1 .6 GM/177ML SOLN Na 2020-0 Yes [id number] [SUPREP] [facility] Sulfate-K 6-09 Take as College Sulfate-Mg 00:00: directed. of Sulf 00 Medicin (SUPREP e BOWEL PREP KIT) 17.5-3.13-1 .6 GM/177ML SOLN Na Yes [id number] [SUPREP] [facility] Sulfate-K 6-09 Take as College Sulfate-Mg 00:00: directed. of Sulf 00 Medicin (SUPREP e BOWEL PREP KIT) 17.5-3.13-1 .6 GM/177ML SOLN Na Yes [id number] [SUPREP] [facility] Sulfate-K 6-09 Take as College Sulfate-Mg 00:00: directed. of Sulf 00 Medicin (SUPREP e BOWEL PREP KIT) 17.5-3.13-1 .6 GM/177ML SOLN Ustekinumab Yes [id number] INJECT 1 [facility] (STELARA) 3-17 [facility] 90 MG/ML 00:00: (90 MG) of injection 00 UNDER THE Medic in SKIN e (SUBCUTANE OUS INJECTION) EVERY 28 DAYS Ustekinumab Yes [id number] INJECT 1 [facility] (STELARA) 3-17 [facility] 90 MG/ML 00:00: (90 MG) of injection 00 UNDER THE Medic in SKIN e (SUBCUTANE OUS INJECTION) EVERY 28 DAYS Ustekinumab Yes [id number] INJECT 1 [facility] (STELARA) 3-17 [facility] [employer] 90 MG/ML 00:00: (90 MG) of injection 00 UNDER THE Medic in SKIN e (SUBCUTANE OUS INJECTION) EVERY 28 DAYS Ustekinumab Yes [id number] INJECT 1 [facility] [place] (STELARA) 3-17 [facility] 90 MG/ML 00:00: (90 MG) of injection 00 UNDER THE Medic in SKIN e (SUBCUTANE OUS INJECTION) EVERY 28 DAYS Ustekinumab Yes [id number] INJECT 1 [facility] (STELARA) 3-17 [facility] 90 MG/ML 00:00: (90 MG) of injection 00 UNDER THE Medic in SKIN e (SUBCUTANE OUS INJECTION) EVERY 28 DAYS Ustekinumab Yes [id number] INJECT 1 [facility] [place] (STELARA) 3-17 [facility] 90 MG/ML 00:00: (90 MG) of injection 00 UNDER THE Medic in SKIN e (SUBCUTANE OUS INJECTION) EVERY 28 DAYS Ustekinumab Yes [id number] INJECT 1 [facility] [place] (STELARA) 3-17 [facility] 90 MG/ML 00:00: (90 MG) of injection 00 UNDER THE Medic in SKIN e (SUBCUTANE OUS INJECTION) EVERY 28 DAYS Ustekinumab 0 Yes [id number] INJECT 1 [facility] (STELARA) 3-17 [facility] 90 MG/ML 00:00: (90 MG) of injection 00 UNDER THE Medic in SKIN e (SUBCUTANE OUS INJECTION) EVERY 28 DAYS Ustekinumab Yes [id number] INJECT 1 [facility] (STELARA) 3-17 [facility] 90 MG/ML 00:00: (90 MG) of injection 00 UNDER THE Medic in SKIN e (SUBCUTANE OUS INJECTION) EVERY 28 DAYS Ustekinumab Yes [id number] INJECT 1 [facility] (STELARA) 3-17 [facility] 90 MG/ML 00:00: (90 MG) of injection 00 UNDER THE Medic in SKIN e (SUBCUTANE OUS INJECTION) EVERY 28 DAYS Ustekinumab 2020- No [id number] INJECT 1 [facility] [place] (STELARA) 3-17 12-10 [facility] 90 MG/ML 00:00: 00:00 (90 MG) of injection 00 :00 UNDER THE Medic in SKIN e (SUBCUTANE OUS INJECTION) EVERY 28 DAYS tramadol 2019-1 Yes TAKE 1 [facility] (ULTRAM) 50 2-29 TABLET BY Col lege MG tablet 00:00: MOUTH of 00 EVERY 6 Medicin HOURS e NEEDED FOR PAIN cholestyram 2020-0 Yes [id number] MIX AND [facility] [place] ine 1-13 DRINK 1 [place] (QUESTRAN) 00:00: PACKET BY of 4 g packet 00 MOUTH Medicin DAILY e cholestyram 2020-0 Yes [id number] MIX AND [facility] [place] ine 1-13 DRINK 1 [place] (QUESTRAN) 00:00: PACKET BY of 4 g packet 00 MOUTH Medicin DAILY e cholestyram 2020-0 Yes [id number] MIX AND [facility] 1-13 DRINK 1 [place] (QUESTRAN) 00:00: PACKET BY of 4 g packet 00 MOUTH Medicin DAILY e cholestyram 2020-0 Yes [id number] MIX AND [facility] [place] ine 1-13 DRINK 1 [place] (QUESTRAN) 00:00: PACKET BY of 4 g packet 00 MOUTH Medicin DAILY e cholestyram 2020-0 Yes [id number] MIX AND [facility] 1-13 DRINK 1 [place] ([facility] 00:00: PACKET BY of 4 g packet 00 MOUTH Medicin DAILY e cholestyram 2020-0 Yes [id number] MIX AND [facility] 1-13 DRINK 1 [place] ([facility]) 00:00: PACKET BY of 4 g packet 00 MOUTH Medicin DAILY e cholestyram 2020-0 Yes [id number] MIX AND [facility] 1-13 DRINK 1 [place] ([facility]) 00:00: PACKET BY of 4 g packet 00 MOUTH Medicin DAILY e cholestyram 2020-0 Yes [id number] MIX AND [facility] [place] ine 1-13 DRINK 1 [place] ([facility]) 00:00: PACKET BY of 4 g packet 00 MOUTH Medicin DAILY e cholestyram 2020-0 Yes [id number] MIX AND [facility] 1-13 DRINK 1 [place] ([facility]) 00:00: PACKET BY of 4 g packet 00 MOUTH Medicin DAILY e cholestyram 2020-0 Yes [id number] MIX AND [facility] 1-13 DRINK 1 [place] ([facility]) 00:00: PACKET BY of 4 g packet 00 MOUTH Medicin DAILY e cholestyram 2020-0 Yes [id number] MIX AND [facility] 1-13 DRINK 1 [place] ([facility]) 00:00: PACKET BY of 4 g packet 00 MOUTH Medicin DAILY e cholestyram 2020-0 Yes [id number] MIX AND [facility] 1-13 DRINK 1 [place] ([facility]) 00:00: PACKET BY of 4 g packet 00 MOUTH Medicin DAILY e cholestyram 2020-0 Yes [id number] MIX AND [facility] [place] ine 1-13 DRINK 1 [place] ([facility]) 00:00: PACKET BY of 4 g packet 00 MOUTH Medicin DAILY e cholestyram 2020-0 Yes [id number] MIX AND [facility] 1-13 DRINK 1 [place] ([facility]) 00:00: PACKET BY of 4 g packet 00 MOUTH Medicin DAILY e cholestyram 2020-0 2022- No [id number] MIX AND [facility] [place] ine 1-13 03-09 DRINK 1 [place] ([facility]) 00:00: 00:00 PACKET BY o f 4 g packet 00 :00 MOUTH Medicin DAILY e Sod 2019-0 Yes [PREPOPIK] [facility] [place] Picosulfate 6-05 Take as Colle ge -Mag Ox-Cit 00:00: directed of Acd 00 Medicin (PREPOPIK) e 10-3.5-12 MG-GM-GM PACK Sod [id number] Yes [PREPOPIK] [facility] Picosulfate 6-05 Take as Colle ge -Mag Ox-Cit 00:00: directed of Acd 00 Medicin (PREPOPIK) e 10-3.5-12 MG-GM-GM PACK Sod [id number] Yes [PREPOPIK] [facility] Picosulfate 6-05 Take as Colle ge -Mag Ox-Cit 00:00: directed of Acd 00 Medicin (PREPOPIK) e 10-3.5-12 MG-GM-GM PACK Sod 0 Yes [PREPOPIK] [facility] [place] Picosulfate 6-05 Take as Colle ge -Mag Ox-Cit 00:00: directed of Acd 00 Medicin (PREPOPIK) e 10-3.5-12 MG-GM-GM PACK Sod Yes [PREPOPIK] [facility] [place] Picosulfate 6-05 Take as Colle ge -Mag Ox-Cit 00:00: directed of Acd 00 Medicin (PREPOPIK) e 10-3.5-12 MG-GM-GM PACK Sod Yes [PREPOPIK] [facility] Picosulfate 6-05 Take as Colle ge -Mag Ox-Cit 00:00: directed of Acd 00 Medicin (PREPOPIK) e 10-3.5-12 MG-GM-GM PACK Sod 2019 Yes [PREPOPIK] [facility] Picosulfate 6-05 Take as Colle ge -Mag Ox-Cit 00:00: directed of Acd 00 Medicin (PREPOPIK) e 10-3.5-12 MG-GM-GM PACK Sod Yes [PREPOPIK] [facility] [place] Picosulfate 6-05 Take as Colle ge -Mag Ox-Cit 00:00: directed of Acd 00 Medicin (PREPOPIK) e 10-3.5-12 MG-GM-GM PACK Sod [id number] Yes [PREPOPIK] [facility] Picosulfate 6-05 Take as [...] midodrine 2019-0 2021- No TK 1/2 T [facility] mickey (PROAMATINE 5-20 12-10 PO BID Colle ge ) 5 MG 00:00: 00:00 of tablet 00 :00 Medicin e folic acid Yes 1mg Take 1 Tab [facility] (FOLVITE) 1 5-31 by mouth [place] [facility] MG tablet 00:00: daily. of 00 Medicin e folic acid Yes 1mg Take 1 Tab [facility] (FOLVITE) 1 5-31 by mouth [place] [facility] MG tablet 00:00: daily. of 00 Medicin e folic acid Yes 1mg Take 1 Tab [facility] (FOLVITE) 1 5-31 by mouth [place] [facility] MG tablet 00:00: daily. of 00 Medicin e folic acid Yes 1mg Take 1 Tab [facility] (FOLVITE) 1 5-31 by mouth [place] [facility] MG tablet 00:00: daily. of 00 Medicin e folic acid Yes 1mg Take 1 Tab [facility] (FOLVITE) 1 5-31 by mouth [place] [facility] MG tablet 00:00: daily. of 00 Medicin e folic acid Yes 1mg Take 1 Tab [facility] (FOLVITE) 1 5-31 by mouth [place] [facility] MG tablet 00:00: daily. of 00 Medicin e folic acid Yes 1mg Take 1 Tab [facility] (FOLVITE) 1 5-31 by mouth [place] [facility] MG tablet 00:00: daily. of Medicin e folic acid Yes 1mg Take 1 Tab [facility] (FOLVITE) 1 5-31 by mouth [place] [facility] MG tablet 00:00: daily. of 00 Medicin e folic acid Yes 1mg Take 1 Tab [facility] (FOLVITE) 1 5-31 by mouth [place] [facility] MG tablet 00:00: daily. of 00 Medicin e folic acid Yes 1mg Take 1 Tab [facility] (FOLVITE) 1 5-31 by mouth [place] [facility] MG tablet 00:00: daily. of Medicin e folic acid 2021- No 1mg Take 1 Tab [facility] [place] (FOLVITE) 1 5-31 12-10 by mouth [facility] MG tablet 00:00: 00:00 daily. of 00 :00 Medicin e ibandronate 2017- Yes [id number] 150mg Take 1 Tab [facility] [place] (BONIVA) 1-06 by mouth College 150 MG 00:00: every 30 of tablet 00 days. Medicin e ibandronate 2017-0 Yes [id number] 150mg Take 1 Tab [facility] (BONIVA) 1-06 by mouth [facility] 150 MG 00:00: every 30 of tablet 00 days. Medicin e ibandronate 2017-0 Yes [id number] 150mg Take 1 Tab [facility] (BONIVA) 1-06 by mouth [facility] 150 MG 00:00: every 30 of tablet 00 days. Medicin e ibandronate 2017- Yes [id number] 150mg Take 1 Tab [facility] (BONIVA) 1-06 by mouth [facility] 150 MG 00:00: every 30 of tablet 00 days. Medicin e ibandronate 2016- Yes [id number] 150mg Take 1 Tab [facility] [place] (BONIVA) 1-06 by mouth [facility] 150 MG 00:00: every 30 of tablet 00 days. Medicin e ibandronate 2016- Yes [id number] 150mg Take 1 Tab [facility] [place] (BONIVA) 1-06 by mouth College 150 MG 00:00: every 30 of tablet 00 days. Medicin e ibandronate 2016- Yes [id number] 150mg Take 1 Tab [facility] [place] (BONIVA) 1-06 by mouth College 150 MG 00:00: every 30 of tablet 00 days. Medicin e ibandronate 2016- Yes [id number] 150mg Take 1 Tab [facility] (BONIVA) 1-06 by mouth [place] 150 MG 00:00: every 30 of tablet 00 days. Medicin e ibandronate 2016- Yes [id number] 150mg Take 1 Tab [facility] (BONIVA) 1-06 by mouth College 150 MG 00:00: every 30 of tablet 00 days. Medicin e ibandronate 2016- Yes [id number] 150mg Take 1 Tab [facility] (BONIVA) 1-06 by mouth [facility] 150 MG 00:00: every 30 of tablet 00 days. Medicin e ibandronate 2016-2020- No [id number] 150mg Take 1 Tab [facility] (BONIVA) 1-06 12-10 by mouth Colleg e 150 MG 00:00: 00:00 every 30 of tablet 00 :00 days. Medicin e ondansetron 2014- Yes [id number] 4mg Take 1 Tab [facility] (ZOFRAN 1-13 by mouth [place] ODT) 4 mg 00:00: every 8 of disintegrat 00 hours as Medi richelle ing tablet needed for e Nausea. Immunizations Ordered Immunization Filled Immunization Date Status Commen ts Source Name Name Influenza Quad-PF 2021-04-05 Completed [facility] 00:00:00 of Medicine Influenza Quad-PF 2021-04-05 Completed [facility] 00:00:00 of Medicine Influenza Quad-PF 2021-04-05 Completed [facility] 00:00:00 of Medicine Influenza Quad-PF 2021-04-05 Completed [facility] 00:00:00 of Medicine Influenza Quad-PF 2021-04-05 Completed [facility] 00:00:00 of Medicine Influenza Quad-PF 2021-04-05 Completed [facility] 00:00:00 of Medicine Influenza Quad-PF 2021-04-05 Completed [facility] 00:00:00 of Medicine Influenza Quad-PF 2021-04-05 Completed [facility] 00:00:00 of Medicine Pfizer SARS-CoV-2 2021-03-22 Completed [facility] Vaccination 00:00:00 of Medicine Pfizer SARS-CoV-2 2021-03-22 Completed [facility] Vaccination 00:00:00 of Medicine Pfizer SARS-CoV-2 2021-03-22 Completed [facility] Vaccination 00:00:00 of Medicine Pfizer SARS-CoV-2 2021-03-22 Completed [facility] Vaccination 00:00:00 of Medicine Pfizer SARS-CoV-2 2021-03-22 Completed [facility] Vaccination 00:00:00 of Medicine Pfizer SARS-CoV-2 2021-03-22 Completed [facility] Vaccination 00:00:00 of Medicine Pfizer SARS-CoV-2 2021-03-22 Completed [facility] Vaccination 00:00:00 of Medicine Pfizer SARS-CoV-2 2021-03-22 Completed [facility] Vaccination 00:00:00 of Medicine Pfizer SARS-CoV-2 2021-03-22 Completed [facility] Vaccination 00:00:00 of Medicine Pfizer SARS-CoV-2 2021-03-22 Completed [facility] Vaccination 00:00:00 of Medicine PPD Test 2020-10-04 Completed [facility] 00:00:00 of Medicine PPD Test 2020-10-04 Completed [facility] 00:00:00 of Medicine PPD Test 2020-10-04 Completed [facility] 00:00:00 of Medicine PPD Test 2020-10-04 Completed [facility] 00:00:00 of Medicine PPD Test 2020-10-04 Completed [facility] 00:00:00 of Medicine PPD Test 2020-10-04 Completed [facility] 00:00:00 of Medicine PPD Test 2020-10-04 Completed [facility] 00:00:00 of Medicine PPD Test 2020-10-04 Completed [facility] 00:00:00 of Medicine PPD Test 2020-10-04 Completed [facility] 00:00:00 of Medicine PPD Test 2020-10-04 Completed [facility] 00:00:00 of Medicine PPD Test 2020-10-04 Completed [facility] 00:00:00 of Medicine PPD Test 2020-10-04 Completed [facility] 00:00:00 of Medicine PPD Test 2020-10-04 Completed [facility] 00:00:00 of Medicine PPD Test 2020-10-04 Completed [facility] 00:00:00 of Medicine PPD Test 2020-10-04 Completed [facility] 00:00:00 of Medicine PPD Test 2020-10-04 Completed [facility] 00:00:00 of Medicine PPD Test 2020-10-04 Completed [facility] 00:00:00 of Medicine Influenza Quad-PF 2019-05-20 Completed [facility] 00:00:00 of Medicine Influenza Quad-PF 2019-05-20 Completed [facility] 00:00:00 of Medicine Influenza Quad-PF 2019-05-20 Completed [facility] 00:00:00 of Medicine Influenza Quad-PF 2019-05-20 Completed [facility] 00:00:00 of Medicine Influenza Quad-PF 2019-05-20 Completed [facility] 00:00:00 of Medicine Influenza Quad-PF 2019-05-20 Completed [facility] 00:00:00 of Medicine Influenza Quad-PF 2019-05-20 Completed [facility] 00:00:00 of Medicine Influenza Quad-PF 2019-05-20 Completed [facility] 00:00:00 of Medicine Influenza Quad-PF 2019-05-20 Completed [facility] 00:00:00 of Medicine Influenza Quad-PF 2019-05-20 Completed [facility] 00:00:00 of Medicine Influenza Quad-PF 2019-05-20 Completed [facility] 00:00:00 of Medicine Influenza Quad-PF 2019-05-20 Completed [facility] 00:00:00 of Medicine Influenza Quad-PF 2019-05-20 Completed [facility] 00:00:00 of Medicine Influenza Quad-PF 2019-05-20 Completed [facility] 00:00:00 of Medicine Influenza Quad-PF 2019-05-20 Completed [facility] 00:00:00 of Medicine Influenza Quad-PF 2019-05-20 Completed [facility] 00:00:00 of Medicine Influenza Quad-PF 2019-05-20 Completed [facility] 00:00:00 of Medicine PPD Test 2018-09-22 Completed [facility] 00:00:00 of Medicine PPD Test 2018-09-22 Completed [facility] 00:00:00 of Medicine PPD Test 2018-09-22 Completed [facility] 00:00:00 of Medicine PPD Test 2018-09-22 Completed [facility] 00:00:00 of Medicine PPD Test 2018-09-22 Completed [facility] 00:00:00 of Medicine PPD Test 2018-09-22 Completed [facility] 00:00:00 of Medicine PPD Test 2018-09-22 Completed [facility] 00:00:00 of Medicine PPD Test 2018-09-22 Completed [facility] 00:00:00 of Medicine PPD Test 2018-09-22 Completed [facility] 00:00:00 of Medicine PPD Test 2018-09-22 Completed [facility] 00:00:00 of Medicine PPD Test 2018-09-22 Completed [facility] 00:00:00 of Medicine PPD Test 2018-09-22 Completed [facility] 00:00:00 of Medicine PPD Test 2018-09-22 Completed [facility] 00:00:00 of Medicine PPD Test 2018-09-22 Completed [facility] 00:00:00 of Medicine PPD Test 2018-09-22 Completed [facility] 00:00:00 of Medicine PPD Test 2018-09-22 Completed [facility] 00:00:00 of Medicine PPD Test 2018-09-22 Completed [facility] 00:00:00 of Medicine Influenza Quad-PF 2017-07-14 Completed [facility] 00:00:00 of Medicine Influenza Quad-PF 2017-07-14 Completed [facility] 00:00:00 of Medicine Influenza Quad-PF 2017-07-14 Completed [facility] 00:00:00 of Medicine Influenza Quad-PF 2017-07-14 Completed [facility] 00:00:00 of Medicine Influenza Quad-PF 2017-07-14 Completed [facility] 00:00:00 of Medicine Influenza Quad-PF 2017-07-14 Completed [facility] 00:00:00 of Medicine Influenza Quad-PF 2017-07-14 Completed [facility] 00:00:00 of Medicine Influenza Quad-PF 2017-07-14 Completed [facility] 00:00:00 of Medicine Influenza Quad-PF 2017-07-14 Completed [facility] 00:00:00 of Medicine Influenza Quad-PF 2017-07-14 Completed [facility] 00:00:00 of Medicine Influenza Quad-PF 2017-07-14 Completed [facility] 00:00:00 of Medicine Influenza Quad-PF 2017-07-14 Completed [facility] 00:00:00 of Medicine Influenza Quad-PF 2017-07-14 Completed [facility] 00:00:00 of Medicine Influenza Quad-PF 2017-07-14 Completed [facility] 00:00:00 of Medicine Influenza Quad-PF 2017-07-14 Completed [facility] 00:00:00 of Medicine Influenza Quad-PF 2017-07-14 Completed [facility] 00:00:00 of Medicine Influenza Quad-PF 2017-07-14 Completed [facility] 00:00:00 of Medicine Tetanus 2015-01-30 Completed [facility] 00:00:00 of Medicine Tetanus 2015-01-30 Completed [facility] 00:00:00 of Medicine Tetanus 2015-01-30 Completed [facility] 00:00:00 of Medicine Tetanus 2015-01-30 Completed [facility] 00:00:00 of Medicine Tetanus 2015-01-30 Completed [facility] 00:00:00 of Medicine Tetanus 2015-01-30 Completed [facility] 00:00:00 of Medicine Tetanus 2015-01-30 Completed [facility] 00:00:00 of Medicine Tetanus 2015-01-30 Completed [facility] 00:00:00 of Medicine Tetanus 2015-01-30 Completed [facility] 00:00:00 of Medicine Tetanus 2015-01-30 Completed [facility] 00:00:00 of Medicine Tetanus 2015-01-30 Completed [facility] 00:00:00 of Medicine Tetanus 2015-01-30 Completed [facility] 00:00:00 of Medicine Tetanus 2015-01-30 Completed [facility] 00:00:00 of Medicine Tetanus 2015-01-30 Completed [facility] 00:00:00 of Medicine Tetanus 2015-01-30 Completed [facility] 00:00:00 of Medicine Tetanus 2015-01-30 Completed [facility] 00:00:00 of Medicine Tetanus 2015-01-30 Completed [facility] 00:00:00 of Medicine Hep A/Hep B 2011-02-05 Completed [facility] [place] [employer] 00:00:00 of Medicine Hep A/Hep B 2011-02-05 Completed [facility] 00:00:00 of Medicine Hep A/Hep B 2011-02-05 Completed [facility] [place] [facility] 00:00:00 of Medicine Hep A/Hep [...] of Medicine Hep A/Hep B 2011-02-05 Completed [facility] [place] [facility] 00:00:00 of Medicine Hep A/Hep B 2011-02-05 Completed [facility] 00:00:00 of Medicine Hep A/Hep B 2011-02-05 Completed [facility] 00:00:00 of Medicine Hep A/Hep B 2011-02-05 Completed [facility] [place] [facility] 00:00:00 of Medicine Hep A/Hep B 2011-02-05 Completed [facility] [place] [facility] 00:00:00 of Medicine Hep A/Hep B 2011-02-05 Completed [facility] [place] [facility] 00:00:00 of Medicine Hep A/Hep B 2011-02-05 Completed [facility] [place] [facility] 00:00:00 of Medicine Pneumococcal 2010-11-05 Completed [facility] [place] [facility] Polysaccharide 00:00:00 of Medicin e Pneumococcal 2010-11-05 Completed [facility] Polysaccharide 00:00:00 of Medicin e Pneumococcal 2010-11-05 Completed [facility] Polysaccharide 00:00:00 of Medicin e Pneumococcal 2010-11-05 Completed [facility] [place] [facility] Polysaccharide 00:00:00 of Medicin e Pneumococcal 2010-11-05 Completed [facility] Polysaccharide 00:00:00 of Medicin e Pneumococcal 2010-11-05 Completed [facility] [place] [facility] Polysaccharide 00:00:00 of Medicin e Pneumococcal 2010-11-05 Completed [facility] [place] [facility] Polysaccharide 00:00:00 of Medicin e Pneumococcal 2010-11-05 Completed [facility] [place] [facility] Polysaccharide 00:00:00 of Medicin e Pneumococcal 2010-11-05 Completed [facility] [place] [facility] Polysaccharide 00:00:00 of Medicin e Pneumococcal 2010-11-05 Completed [facility] [place] [facility] Polysaccharide 00:00:00 of Medicin e Pneumococcal 2010-11-05 Completed [facility] Polysaccharide 00:00:00 of Medicin e Pneumococcal 2010-11-05 Completed [facility] [place] [facility] Polysaccharide 00:00:00 of Medicin e Pneumococcal 2010-11-05 Completed [facility] [place] [facility] Polysaccharide 00:00:00 of Medicin e Pneumococcal 2010-11-05 Completed [facility] [place] [facility] Polysaccharide 00:00:00 of Medicin e Pneumococcal 2010-11-05 Completed [facility] [place] [facility] Polysaccharide 00:00:00 of Medicin e Pneumococcal 2010-11-05 Completed [facility] [place] [facility] Polysaccharide 00:00:00 of Medicin e Pneumococcal 2010-11-05 Completed [facility] [place] [facility] Polysaccharide 00:00:00 of Medicin e Vital Signs Vital Name Observation Time Observation Value Comments Source HEIGHT 2021-03-01 07:00:00 185.4 cm WEIGHT 2021-03-01 07:00:00 68.085 kg HEIGHT 2021-02-28 09:45:00 185.4 cm WEIGHT 2021-02-28 09:45:00 71.668 kg Systolic blood 2021-09-27 16:30:00 126 mm[Hg] [facility] of pressure Medicine Diastolic blood 2021-09-27 16:30:00 80 mm[Hg] [facility] Medicine Heart rate 2021-09-27 16:30:00 105 /min [facility] Body temperature 2021-09-27 16:30:00 36.28 [facility] Respiratory rate 2021-09-27 16:30:00 14 /min [facility] Body height 2021-09-27 16:30:00 185.4 cm [facility] Body weight 2021-09-27 16:30:00 71.124 kg [facility] BMI 2021-09-27 16:30:00 20.69 kg/m2 [facility] Systolic blood 2021-09-26 14:16:00 119 mm[facility]Hg[facility] Diastolic blood 2021-09-26 14:16:00 77 mm[facility]Hg[facility] Heart rate 2021-09-26 14:16:00 131 [facility] temperature 2021-09-26 14:16:00 36.94 [facility] height 2021-09-26 14:16:00 [facility] weight 2021-09-26 14:16:00 [facility] 2021-09-26 14:16:00 20.74 kg/m2 [facility] Oxygen saturation in 2021-09-26 14:16:00 100 /min [facility] Arterial blood by Pulse oximetry HEIGHT 2021-05-06 09:00:00 185.4 cm WEIGHT 2021-05-06 09:00:00 68.04 kg Systolic blood 2021-02-12 14:52:00 115 mm[Hg] [facility] Medicine Diastolic blood 2021-02-12 14:52:00 77 mm[Hg] [facility] Medicine Heart rate 2021-02-12 14:52:00 108 /min [facility] Respiratory rate 2021-02-12 14:52:00 14 /min [facility] Body height 2021-02-12 14:52:00 185.4 cm [facility] Body weight 2021-02-12 14:52:00 71.668 kg [facility] BMI 2021-02-12 14:52:00 20.85 kg/m2 [facility] Systolic blood 2020-11-14 13:35:00 110 mm[Hg] [facility] Medicine Diastolic blood 2020-11-14 13:35:00 76 mm[Hg] [facility] Medicine Heart rate 2020-11-14 13:35:00 109 /min [facility] Body temperature 2020-11-14 13:35:00 36.61 [facility] Body height 2020-11-14 13:35:00 185.4 cm [facility] Body weight 2020-11-14 13:35:00 72.122 kg [facility] BMI 2020-11-14 13:35:00 20.98 kg/m2 [facility] Weight 2014-12-12 12:25:00 [facility] BMI Calculated 2014-12-12 12:25:00 Carmen Batresann Height 2014-12-12 12:25:00 185.42 cm [facility] Procedures Procedure Date / Time Performed Performing Clinician Sourc e CHG RADIOLOGIC EXAM 2021-02-13 00:00:00 Provider, Historical [facility] CHEST 2 VIEWS Medicine Plan of Care Planned Activity Planned Date Details Comments Source Future Scheduled 2021-10-23 CT ABD/PELVIS 1 Occurrences [facility] [place] [facility] [employer] Test 14:55:11 ENTEROGRAPHY W [code = starting of Me dicine 44802-5] 10/23/2021 until 10/23/2022 Future Scheduled 2021-10-23 Human immunodeficiency B [facility] Test 13:38:41 virus screening of Medicine (procedure) [code = 580690636] Future Scheduled 2021-10-23 FLU VACCINE > 6 MONTHS B [facility] Test 13:38:41 [code = FLU VACCINE > 6 of M edicine MONTHS] Future Scheduled 2021-10-23 TETANUS SHOT (ADULT) [facility] Test 13:38:41 [code = TETANUS SHOT of Medi cine (ADULT)] Future Scheduled 2021-10-17 Human immunodeficiency B [facility] Test 08:51:26 virus screening of Medicine (procedure) [code = 030211002] Future Scheduled 2021-10-17 FLU VACCINE > 6 MONTHS B [facility] Test 08:51:26 [code = FLU VACCINE > 6 of M edicine MONTHS] Future Scheduled 2021-10-17 TETANUS SHOT (ADULT) [facility] Test 08:51:26 [code = TETANUS SHOT of Medi cine (ADULT)] Future Scheduled 2021-08-14 Human immunodeficiency B [facility] Test 13:40:17 virus screening of Medicine (procedure) [code = 161968616] Future Scheduled 2021-08-14 TETANUS SHOT (ADULT) [facility] Test 13:40:17 [code = TETANUS SHOT of Medi cine (ADULT)] Future Scheduled 2021-07-15 Human immunodeficiency B [facility] Test 13:50:38 virus screening of Medicine (procedure) [code = 979307618] Future Scheduled 2021-07-15 TETANUS SHOT (ADULT) [facility] Test 13:50:38 [code = TETANUS SHOT of Medi cine (ADULT)] Future Scheduled 2021-06-05 [facility] 12:11:12 virus screening of Medicine (procedure) [code = 332550355] Future Scheduled 2021-06-05 TETANUS SHOT (ADULT) [facility] Test 12:11:12 [code = TETANUS SHOT of Medi cine (ADULT)] Future Scheduled 2021-05-22 [facility] 09:55:01 virus screening of Medicine (procedure) [code = 905261761] Future Scheduled 2021-05-22 TETANUS SHOT (ADULT) [facility] Test 09:55:01 [code = TETANUS SHOT of Medi cine (ADULT)] Future [facility]uled 2021-05-17 [facility] screening of Medicine (procedure) [code = 888583671] Future Scheduled 2021-05-17 TETANUS SHOT (ADULT) [facility] Test 12:55:55 [code = TETANUS SHOT of Medi cine (ADULT)] Future Scheduled 2021-04-19 [facility] 10[facility]06 virus screening of Medicine (procedure) [code = 431729748] Future Scheduled 2021-04-19 TETANUS SHOT (ADULT) [facility] Test 10:02:06 [code = TETANUS SHOT of Medi cine (ADULT)] Future Scheduled 2021-04-05 Human immunodeficiency B [facility] Test 13:20:07 virus screening of Medicine (procedure) [code = 471457556] Future Scheduled 2021-04-05 FLU VACCINE > 6 MONTHS B [facility] Test 13:20:07 [code = FLU VACCINE > 6 of M edicine MONTHS] Future Scheduled 2021-04-05 TETANUS SHOT (ADULT) [facility] Test 13:20:07 [code = TETANUS SHOT of Medi cine (ADULT)] Future Scheduled 2021-03-22 Human immunodeficiency B [facility] Test 14:25:40 virus screening of Medicine (procedure) [code = 919400266] Future Scheduled 2021-03-22 FLU VACCINE > 6 MONTHS B [facility] Test 14:25:40 [code = FLU VACCINE > 6 of M edicine MONTHS] Future Scheduled 2021-03-22 TETANUS SHOT (ADULT) [facility] Test 14:25:40 [code = TETANUS SHOT of Medi cine (ADULT)] Future Scheduled 2021-03-07 Human immunodeficiency B [facility] Test 13:34:05 virus screening of Medicine (procedure) [code = 785143779] Future Scheduled 2021-03-07 FLU VACCINE > 6 MONTHS B [facility] Test 13:34:05 [code = FLU VACCINE > 6 of M edicine MONTHS] Future Scheduled 2021-03-07 TETANUS SHOT (ADULT) [facility] Test 13:34:05 [code = TETANUS SHOT of Medi cine (ADULT)] Future Scheduled 2021-03-07 Human immunodeficiency B [facility] Test 13:34:05 virus screening of Medicine (procedure) [code = 090380778] Future Scheduled 2021-03-07 FLU VACCINE > 6 MONTHS B [facility] Test 13:34:05 [code = FLU VACCINE > 6 of M edicine MONTHS] Future Scheduled 2021-03-07 TETANUS SHOT (ADULT) [facility] Test 13:34:05 [code = TETANUS SHOT of Medi cine (ADULT)] Future Scheduled 2021-03-07 Human immunodeficiency B [facility] Test 13:34:05 virus screening of Medicine (procedure) [code = 628686864] Future Scheduled 2021-03-07 FLU VACCINE > 6 MONTHS B [facility] Test 13:34:05 [code = FLU VACCINE > 6 of M edicine MONTHS] Future Scheduled 2021-03-07 TETANUS SHOT (ADULT) [facility] Test 13:34:05 [code = TETANUS SHOT of Medi cine (ADULT)] Future Scheduled 2021-03-07 Human immunodeficiency B [facility] Test 13:34:05 virus screening of Medicine (procedure) [code = 587702686] Future Scheduled 2021-03-07 FLU VACCINE > 6 MONTHS B [facility] Test 13:34:05 [code = FLU VACCINE > 6 of M edicine MONTHS] Future Scheduled 2021-03-07 TETANUS SHOT (ADULT) [facility] Test 13:34:05 [code = TETANUS SHOT of Medi cine (ADULT)] Future Scheduled 2021-03-07 Human immunodeficiency B [facility] Test 10:58:16 virus screening of Medicine (procedure) [code = 779723420] Future Scheduled 2021-03-07 FLU VACCINE > 6 MONTHS B [facility] Test 10:58:16 [code = FLU VACCINE > 6 of M edicine MONTHS] Future Scheduled 2021-03-07 TETANUS SHOT (ADULT) [facility] Test 10:58:16 [code = TETANUS SHOT of Medi cine (ADULT)] Future Scheduled 2021-03-07 Human immunodeficiency B [facility] Test 10:58:16 virus screening of Medicine (procedure) [code = 740015279] Future Scheduled 2021-03-07 FLU VACCINE > 6 MONTHS B [facility] Test 10:58:16 [code = FLU VACCINE > 6 of M edicine MONTHS] Future Scheduled 2021-03-07 TETANUS SHOT (ADULT) [facility] Test 10:58:16 [code = TETANUS SHOT of Medi cine (ADULT)] Future Scheduled 2021-02-12 XR CHEST PA AND LATERAL 1 Occurrences [facility] Test 10:46:27 [code = 00616-2] starting of Medicine 02/12/2021 until 02/12/2022 Future Scheduled 2021-02-12 XR CHEST PA AND LATERAL 1 Occurrences [facility] Test 10:46:27 [code = 26192-5] starting of Medicine 02/12/2021 until 02/12/2022 Future Scheduled 2020-11-14 CBC W/O DIFF W PLT Ordered: [facility] Test 09:16:48 [code = 6690-2] 11/14/2020 of Medicine Future Scheduled 2020-11-14 COMPREHENSIVE METABOLIC Ordered: [facility] Test 09:16:48 PANEL [code = 65678-7] 11/14/2020 of Me dicine Future Scheduled 2020-11-14 SEDIMENTATION RATE Ordered: [facility] Test 09:16:48 LEW RIDDLE 11/14/2020 of Medic ine [code = 4537-7] Future Scheduled 2020-11-14 C-REACTIVE PROTEIN Ordered: [facility] Test 09:16:48 [code = 1988-5] 11/14/2020 of Medicine Future Scheduled 2020-11-14 VITAMIN B12 [code = Ordered: [facility] Test 09:16:48 2132-9] 11/14/2020 of Medicine Future Scheduled 2020-11-14 VITAMIN D 25 HYDROXY Ordered: [facility] [employer] Test 09:16:48 [code = 1989-3] 11/14/2020 of Medicine Future Scheduled 2020-11-14 ZINC [code = 5763-8] Ordered: [facility] [employer] Test 09:16:48 11/14/2020 of Medicine Future Scheduled 2020-11-14 FERRITIN [code = Ordered: [facility] [place] [facility] Test 09:16:48 83685-8] 11/14/2020 of Medicine Future Scheduled 2020-11-14 FOLATE RBC [code = Ordered: [facility] Test 09:16:48 2283-0] 11/14/2020 of Medicine Future Scheduled 2020-11-14 CT ABDOMEN PELVIS W 1 Occurrences [facility] Test 09:16:16 CONTRAST [code = starting of Medicine 39751-7] 11/14/2020 until 11/14/2021 Future Scheduled 2020-11-14 COLONOSCOPY W MAC GI 1 Occurrences [facility] [employer] Test 09:16:16 DEPT [code = 73909] starting of Medic ine 11/14/2020 until 05/17/2021 Future Scheduled 2020-11-14 Human immunodeficiency B [facility] Test 08:35:33 virus screening of Medicine (procedure) [code = 324172854] Future Scheduled 2020-11-14 FLU VACCINE > 6 MONTHS B [facility] Test 08:35:33 [code = FLU VACCINE > 6 of M edicine MONTHS] Future Scheduled 2020-11-14 TETANUS SHOT (ADULT) [facility] Test 08:35:33 [code = TETANUS SHOT of Medi cine (ADULT)] Encounters Start End Encounter Admission Attending Care Care Encounter Source Date/Time Date/Time Type Type Clinicians Facility Department ID 2021-09-26 Outpatient [facility] [id number] [place] 08:56:26 CANDELARIA [id number] [facility] 2021-09-20 Outpatient [facility] [id number] [place] 13:51:51 CANDELARIA [id number] [facility] 2021-09-19 Outpatient [facility] [id number] [place] 09:33:27 CANDELARIA [id number] [facility] 2021-03-17 Outpatient CARMEN [facility] Surgery [id number] SLE 13:26:07 [facility] 2021-11-01 2021-11-01 Outpatient EL CARMEN [facility] [id number] [facility] 08:53:57 23:59:00 [facility] 2021-10-23 2021-10-23 Office MITALI MORALES 1.2.840.[id number] [place] [address] 14:06:05 16:07:33 Visit [facility] 350.1.13.21 College Y 0.2.7.2.686 of [id number] Medi richelle 325 e 2021-09-27 2021-09-27 Office MITALI MORALES 1.2.840.114 [id number] [facility] [place] 10:50:00 13:03:46 Visit [facility] 350.1.13.21 College Y 0.2.7.2.686 of [id number] Medi richelle 325 e 2021-09-26 2021-09-26 Office MARYELLEN Wood 6410 1.2.840.114 [id number] [place] 09:30:00 09:56:[address] 350.1.13.58 Health 9.2.7.2.686 [id number] 2021-08-14 2021-08-14 Office MITALI MOARLES 1.2.840.114 [id number] [facility] [place] 14:24:17 16:55:28 Visit [facility] 350.1.13.21 College Y 0.2.7.2.686 of [id number] Medi richelle 325 e 2021-07-22 2021-07-22 Telephone MARYELLEN Mares 6410 1.2.840.114 13 [id number] [place] 00:00:00 00:00:[address] 350.1.13.58 Health 9.2.7.2.686 [id number] 2021-06-19 2021-06-19 Office MITALI MORALES 1.2.840.114 [id number] [facility] [place] 12:53:41 15:00:56 Visit [facility] AM[facility] 350.1.13.21 College Y 0.2.7.2.686 of [id number] Medi richelle 325 e 2021-06-05 2021-06-12 Office MITALI BHANDARI 1.2.840.114 [id number] [facility] [place] 12:49:39 21:09:08 Visit SHAWN AMBULATOR 350.1.13.21 College Y 0.2.7.2.686 of [id number] Medi richelle 325 e 2021-05-22 2021-05-22 Office MITALI MORALES 1.2.840.114 [id number] [facility] [place] 13:17:36 15:17:01 Visit [facility] 350.1.13.21 College Y 0.2.7.2.686 of [id number] Medi richelle 325 e 2021-05-17 2021-05-17 Office MORALES MIRIAMChristi 1.2.840.114 [id number] [facility] [place] 12:53:37 14:34:32 Visit [facility] 350.1.13.21 College Y 0.2.7.2.686 of [id number] Medi richelle 325 e 2021-05-06 2021-05-08 Outpatient [facility] [id number] [facility] [place] 10:26:01 09:03:17 SUNE[facility] e of Medicin e 2021-05-06 2021-05-06 Outpatient [facility] [id number] [facility] [place] 08:27:00 23:59:00 Colleg e [facility] Medicin e 2021-05-06 2021-05-[address] [facility] [id number] [facility] 08:27:00 11:06:00 SUNEAL 2021-04-19 2021-04-19 Office MITALI MORALES 1.2.840.114 [id number] [facility] [place] 13:22:19 16:02:41 Visit [facility] 350.1.13.21 College Y 0.2.7.2.686 of [id number] Medi richelle 325 e 2021-04-05 2021-04-05 Office MORALES MIRIAMChristi 1.2.840.114 [id number] [facility] [place] 13:20:27 15:20:49 Visit [facility] 350.1.13.21 College Y 0.2.7.2.686 of [id number] Medi richelle 325 e 2021-03-22 2021-03-22 Office MORALES MIRIAMChristi 1.2.840.114 [id number] [facility] [place] 13:08:43 17:15:13 Visit [facility] 350.1.13.21 College Y 0.2.7.2.686 of [id number] Medi richelle 325 e 2021-03-22 2021-03-22 Outpatient [facility] [id number] [facility] [place] 14:21:38 16:22:10 Colleg [facility]in e 2021-03-07 2021-03-07 Office MORALESMIRIAM BENAVIDES 1.2.840.114 [id number] [facility] [place] 11:45:10 14:53:45 Visit [facility] 350.1.13.21 College Y 0.2.7.2.686 of [id number] Medi richelle 325 e 2021-03-01 2021-03-06 Outpatient CARMEN [facility] [id number] [facility] [place] 16:45:31 12:10:24 [facility] [employer] 2021-02-28 2021-02-28 Outpatient EL [facility] [id number] [facility] 00:00:00 00:00:00 2021-02-28 2021-02-28 Outpatient SLE [facility] [id number] [facility] 00:00:00 00:00:00 2021-02-28 2021-02-28 Outpatient EL [facility] [id number] [facility] 00:00:00 00:00:00 2021-02-18 2021-02-18 Outpatient CARMEN [facility] [id number] [facility] [place] 09:31:35 13:59:15 [facility] [employer] 2021-02-13 2021-02-13 Office Carmen [facility] 1.2.840.114 [id number] [facility] [place] 08:39:36 14:23:31 Visit Manreet AMBULATOR 350.1.13.21 College Y 0.2.7.2.686 of [id number] Medi richelle 325 e 2021-02-12 2021-02-12 Office Morales [facility] 1.2.840.114 [id number] [facility] [place] 09:38:06 15:44:28 Visit Manreet AMBULATOR 350.1.13.21 College Y 0.2.7.2.686 of [id number] Medi richelle 325 e 2021-02-12 2021-02-12 Outpatient CARMEN [facility] [id number] [facility] 00:00:00 00:00:[address] 2020-12-19 2020-12-19 Outpatient MITALI MORALES [facility] [id number] [facility] [place] 13:13:11 16:14:01 [address] [employer] 2020-12-13 2020-12-13 Outpatient MITALI MORALES [facility] [id number] [facility] [place] 12:27:03 12:27:03 [address] [employer] e 2020-11-30 2020-11-30 Outpatient CARMEN, SLE SLE [id number] [facility] 00:00:00 00:00:[address] 2020-11-14 2020-11-14 Office MITALI Morales 1.2.840.114 [id number] [facility] [place] 08:18:58 08:48:58 Visit Manreet AMBULATOR 350.1.13.21 College Y 0.2.7.2.[id number] 2014-12-12 2014-12-13 Outpatient [facility] [id number] [facility] 12:16:00 04:59:00 [facility] 02 [facility] Results Test Description Test Time Test Comments Results Result Comments Source SARS-COV2/RT-PCR ([facility]) 2021-03-01 04:27:03 Test Item Value Reference Range Interpretation Comme nts SARS-COV2/RT-PCR (test code = 0494677) Negative Negative Negative result for this test [...] the Fisher SARS-CoV-2 assay.Fact Sheet for Healthcare Providers:https://www.Facio.Vocalytics/lopez/RT SARS-CoV-2 HCP Fact Sheet 51- 778869.pdfFact Sheet for Healthcare Patients:https://www.Facio.Vocalytics/lopez/RT SARS-CoV-2 Patient Fact Sheet EN 51-481096B1.pdfRAD, CHEST, 2 [id number] 12:47:00Reason for Exam:->[facility] 1985 Sex: MFINAL REPORT [...] No acute cardiopulmonary abnormalities. Signed: Marcelo Simeon MDReport Verified Date/Time: 02/12/2021 12:47:33 Reading Location: [facility] Reading Room [address] [place] [address] CT, ABDOMEN 2020-12-03 12:32:00Unlisted Reason for Exam - Click Yes and Enter Reason Below- >YesUnlisted Reason for Exam->k50.919Will this procedure require oral contrast?->[facility] : 1985 Sex: MFINAL REPORT [...] MDReport Verified Date/Time: 12/03/2020 12:32:44 Reading Location: [facility] B1 C013X [facility] Consult Reading Room TISSUE [id number] 14:29:00Surgical Pathology Report Case: [id number] Authorizing Provider: Bakari Morales MD Collected: 05/09/2019 0840 Ordering Location: [facility] ENDOSCOPY Received: 05/09/2019 1230 SERVICES Pathologist: Sherine Calderon MD Specimens: A) - Biopsy, Terminal Ileum, Terminal ileum B) -Colon Biopsy, Random A. SMALL BOWEL, TERMINAL ILEUM, BIOPSIES: - CHRONIC ACTIVE ILEITISB. COLON, RANDOM BIOPSIES: - CHRONIC INACTIVE COLITIS, FOCAL Signing Pathologist Direct Phone Line: [phone] signed by Sherine Calderon MD on 05/10/2019 at 2:29 PMNZ/[id number] d2Nbjzt's disease with complication, unspecified gastr ointestinal tract [...]
[2021-11-03] MEDS ORDERED: NA CHLORIDE 0.9% 1,000 ML ONE (15:22)
[2021-11-03] MEDS ORDERED: ONDANSETRON 4 MG/2 ML VIAL ONE (15:22)
[2021-11-03] MEDS ORDERED: FAMOTIDINE 20 MG/2 ML VIAL IV ONE (15:22)
[2021-11-03 15:27] LABS: Absolute Lymphocytes (CBC) 0.3 K/uL (0.7-4.9); Hematocrit 41.2 % (39.6-49.0); Lymphocytes % 1.9 % (15.3-44.8); MPV 7.4 fL (7.6-11.3); RBC Red Blood Cell Count 5.52 M/uL (4.33-5.43)
[2021-11-03 15:37] LABS: Albumin 3.3 g/dL (3.4-5.0); Bilirubin Total 1.1 mg/dL (0.2-1.0); Potassium 3.8 mmol/L (3.5-5.1); Protein, Total 7.4 g/dL (6.4-8.2)
--- NOTE | 2021-11-03 16:23 | RAD REPORT ---
EXAM DESCRIPTION: CTAbdomen Pelvis W Contrast - 11/03/2021 4:12 pm CLINICAL HISTORY: Abdominal pain. Abdominal pain, acute, nonlocalized COMPARISON: <Comparisons> TECHNIQUE: Biphasic CT imaging of the abdomen and pelvis was performed with 100 ml non-ionic IV cont rast. All CT scans are performed using dose optimization technique as appropriate and may include automated exposure control or mA/KV adjustment according to patient size. FINDINGS: The lung bases are clear.The stomach is significantly distended. Calcifications are present the liver. No aggressive liver lesion or biliary dilatation. The spleen, p ancreas, adrenal glands kidneys are within normal limits. Multiple significantly dilated small bowel loops are present in the upper abdomen particularly in the left upper quadrant. Mild mesenteric fluid is seen. Postsurgical changes are present in the right l ower quadrant. Thickening and inflammation is seen involving several of the distal small bowel loops with trace pelvic free fluid. No free air is seen. No suspicious bony findings. IMPRESSION: Moderately severe mechanical small bowel obstruction.
[2021-11-03] MEDS ORDERED: FENTANYL CITR 100 MCG/2 ML ONE (16:43)
[2021-11-03 16:49] LABS: Urine Glucose Negative (Negative); Urine Specific Gravity 1.015 (1.005-1.030)
[2021-11-03 16:50] LABS: Urine Blood Negative (Negative); Urine Protein Negative (Negative); Urine pH 8.5 (5.0-7.0)
--- NOTE | 2021-11-03 16:52 | ER ---
Nurse's Notes [facility] Name: David Mclaughlin Age: 35 yrs Sex: Male : 1985 Arrival Date: 11/03/2021 Time: 14:46 Bed 20 Private MD: Diagnosis: Crohn's disease of both small and large intestine with intestinal obstruction Presentation: 11/03 15:00 Chief complaint: EMS states: PT WITH HX OF CROHNS STARTED HAVING NAUSEA AND ABD PAIN [facility] [employer]. Coronavirus screen: Vaccine status: Patient reports receiving the 2nd dose of the covid vaccine. Ebola Screen: Patient negative for fever greater than or equal to 101.5 degrees Fahrenheit, and additional compatible Ebola Virus Disease symptoms Patient denies exposure to infectious person. Patient denies travel to an Ebola-affected area in the 21 days before illness onset. Initial Sepsis Screen: Does the patient meet any 2 criteria? No. Patient's initial sepsis screen is negative. Does the patient have a suspected source of infection? No. Patient's initial sepsis screen is negative. Risk Assessment: Do you want to hurt yourself or someone else? Patient reports no desire to harm self or others. 15:00 Method Of Arrival: EMS: [facility] 15:00 Acuity: REJI 3 [facility] 15:00 Onset of symptoms was November 03, 2021. [facility] Triage Assessment: 15:00 General: Appears uncomfortable, slender, malnourished, Behavior is calm, cooperative. [facility] 15:00 Pain: Complains of pain in diaphragm Pain currently is 4 out of 10 on a pain scale. [facility] Quality of pain is described as aching, crampy, Pain began 4 hours ago. Is continuous, Aggravated by eating, drinking, Noted to be quiet/stoic, Also complains of nausea. GI: Abdomen is flat, Bowel sounds present X 4 quads. Abd is soft Abdomen is tender to palpation in epigastric area Reports nausea. Historical: - Allergies: 15:25 No Known Allergies; [facility] - Home Meds: 15:25 gabapentin Oral [Active]; [facility] - PMHx: 15:25 chiari malformation; Crohn's Disease; POTS; [facility] - PSHx: 15:25 bowel resection; Posterior fossa decompression; [facility] - Immunization history:: Adult Immunizations up to date. - Social history:: Smoking status: Patient denies any tobacco usage or history of. Screenin:10 Abuse screen: Denies threats or abuse. Nutritional screening: Had unintentional weight 6 loss of 10 pounds or more. Tuberculosis screening: No symptoms or risk factors identified. Fall Risk Assessment: 15:27 General: SEE TRIAGE NOTE. . jh6 16:30 Reassessment: Patient and/or family updated on plan of care and expected duration. Pain jh6 level reassessed. Patient is alert, oriented x 3, equal unlabored respirations, skin warm/dry/pink. Patient states feeling better. 16:30 Pain: Complains of pain in abdomen diffusely Pain currently is 3 out of 10 on a pain jh6 scale. Quality of pain is described as aching, crampy. 17:30 Reassessment: Patient and/or family updated on plan of care and expected duration. Pain jh6 level reassessed. Patient states feeling better. 17:45 Reassessment: Patient and/or family updated on plan of care and expected duration. Pain jh6 level reassessed. REPORTING THAT NAUSEA IS WORSE PROVIDER ADVISED. 18:28 General: SPOKE WITH CARMELA HAHN AT [facility] FOR [facility]POR[facility]. [facility] Vital Signs: 15:00 BP 105 / 65; Pulse 93; Resp 17; Temp 97.7(O); Pulse Ox 100% on R/A; Weight 67.59 kg; jh6 Height 6 ft. 1 in. (185.42 cm); Pain 3/10; 16:00 BP 108 / 72; Pulse 78; Resp 17; Pulse Ox 100% ; jh6 18:00 BP 111 / 66; Pulse 80; Resp 17; Pulse Ox 100% ; Pain 3/10; jh6 15:00 Body Mass Index 19.66 (67.59 kg, 185.42 cm) [facility] ED Course: 14:46 Patient arrived in ED. eb 14:46 Gasper Mendez PA is PHCP. cp 14:47 Bob Deal MD is Attending Physician. cp 15:00 Patient placed in the treatment room, on a stretcher, on awake overnight monitor, on pulse 6 oximetry. 15:00 Placed in gown. Bed in low position. Call light in reach. Side rails up X 1. Adult w/ 6 patient. 15:08 Divina Peterson, RN is Primary Nurse. [facility] 15:21 Inserted saline lock: 20 gauge in left forearm, using aseptic technique. dh3 15:25 Triage completed. 6 16:14 CT Abd/Pelvis - IV Contrast Only In Process Unspecified. EDMS 16:36 initiated a transfer with Olivia from the [facility] at the request of eb the patient and his family. 16:[address] Hobson the hospitalist nutrition instructor with [facility] with Gasper Zambrano for eb patient transfer consultation. 17:15 patient's father says that patient's GI Doctor Dr. Burnette is wanting us to transfer the eb patient to the [facility]/ He says Dr. Burnette is going to call the transfer center to see what they could do/. 17:27 administrative approval given by Olivia Guillermo/ patient has been accepted to [facility] [id number]/ Dr. Yadi Hobson has accepted the patient in transfer/ report to be called to [phone]. 17:35 informed patient and family that administrative approval has been given / informed them eb that the transfer center says they have not received any phone calls from Dr. Burnette/ that they will not have a bed anytime soon in the [facility], they have had to deny several transplant patients because they are at saturation./ patient and family agree to the transfer and hopefully once a bed opens in the [facility] they will send him there. Administered Medications: 15:20 Drug: NS 0.9% 1000 ml Route: IV; Rate: 1 bolus; Site: left antecubital; [facility] 15:21 Drug: Pepcid (famotidine) 20 mg Route: IVP; Site: left antecubital; [facility] 15:21 Drug: Zofran (Ondansetron) 4 mg Route: IVP; Site: left antecubital; [facility] 16:59 CANCELLED (Physician Discretion): NS 0.9% 1000 ml IV at 1 bolus Per protocol; 1000 mL cp bolus 17:03 Drug: fentaNYL (PF) 25 mcg Route: IVP; Site: left antecubital; [facility] 18:00 Drug: Phenergan (promethazine) 12.5 mg Route: IVP; Site: left forearm; [facility] 18:00 Drug: NS 0.9% (30 ml/kg) 30 ml/kg Route: IV; Rate: bolus; Site: left forearm; [facility] 18:00 Drug: metroNIDAZOLE 500 mg Volume: 100 ml; Route: IVPB; Infused Over: 30 mins; Site: [facility] left forearm; 18:40 Follow up: Response: No adverse reaction; IV Status: Completed infusion [facility] 18:40 Drug: Ciprofloxacin 400 mg Volume: 200 ml; Route: IVPB; Infused Over: 60 mins; Site: [facility] left antecubital; Outcome: 16:51 ER care complete, transfer ordered by . dalia 18:27 Transferred by ground EMS to other acute care facility: [facility]. [facility] 18:27 Condition: stable 18:27 Instructed on the need for transfer. 18:41 Patient left the ED. [facility] Signatures: Dispatcher [employer] EDMS Gasper Mendez PA PA cp Herrera, Deanna 3 Lucinda Menjivar Jennifer, RN RN 6 Corrections: (The following items were deleted from the chart) 17:08 16:36 initiated a transfer with Olivia from the [facility] shabbir shea
--- NOTE | 2021-11-03 16:52 | EDPHYS ---
Physician Documentation [facility] Name: David Mclaughlin Age: 35 yrs Sex: Male : 1985 Arrival Date: 11/03/2021 Time: 14:46 Bed 20 Private MD: ED Physician Bob Deal HPI: 11/03 15:10 This 35 yrs old Male presents to ER via EMS with unknown complaint. cp 15:10 The patient presents with abdominal pain mid abdomen. cp 15:10 Onset: The symptoms/episode began/occurred this morning. The symptoms do not radiate. cp Associated signs and symptoms: Pertinent positives: nausea and vomiting. The symptoms are described as constant. Severity of pain: in the emergency department the pain is unchanged despite home interventions. Historical: - Allergies: 15:25 No Known Allergies; [facility] - Home Meds: 15:25 gabapentin Oral [Active]; [facility] - PMHx: 15:25 chiari malformation; Crohn's Disease; POTS; [facility] - PSHx: 15:25 bowel resection; Posterior fossa decompression; [facility] - Immunization history:: Adult Immunizations up to date. - Social history:: Smoking status: Patient denies any tobacco usage or history of. ROS: 15:15 Constitutional: Negative for body aches, chills, fever, poor PO intake. cp 15:15 Eyes: Negative for injury, pain, redness, and discharge. cp 15:15 Cardiovascular: Negative for chest pain, edema, palpitations. 15:15 Respiratory: Negative for cough, shortness of breath, wheezing. 15:15 Abdomen/GI: Positive for abdominal pain, nausea, vomiting, Negative for diarrhea, constipation, hematemesis, black/tarry stool, rectal bleeding. 15:15 Back: Negative for pain at rest, pain with movement. 15:15 : Negative for urinary symptoms. cp 15:15 Neuro: Negative for altered mental status, headache, weakness. cp 15:15 All other systems are negative. Exam: 15:20 Constitutional: The patient appears in no acute distress, alert, awake, cp non-diaphoretic, non-toxic, well developed, well nourished, uncomfortable. 15:20 Head/Face: Normocephalic, atraumatic. cp 15:20 Eyes: Periorbital structures: appear normal, Conjunctiva: normal, no exudate, no injection, Sclera: no appreciated abnormality, Lids and lashes: appear normal, bilaterally. 15:20 ENT: External ear(s): are unremarkable, Nose: is normal, Mouth: Lips: moist, Oral mucosa: moist, Posterior pharynx: Airway: no evidence of obstruction, patent. 15:20 Chest/axilla: Inspection: normal, Palpation: is normal, no crepitus, no tenderness. 15:20 Cardiovascular: Rate: normal, Rhythm: regular. 15:20 Respiratory: the patient does not display signs of respiratory distress, Respirations: normal, no use of accessory muscles, no retractions, labored breathing, is not present, Breath sounds: are clear throughout, no decreased breath sounds, no stridor, no wheezing. 15:20 Abdomen/GI: Inspection: abdomen appears normal, Bowel sounds: active, all quadrants, Palpation: soft, in all quadrants, moderate abdominal tenderness, in the umbilical area, rebound tenderness, is not appreciated, voluntary guarding, is elicited in the umbilical area. 15:20 Back: pain, is absent, ROM is normal. 15:20 Skin: cellulitis, is not appreciated, no rash present. 15:20 Neuro: Orientation: to person, place \\T\\ time. Mentation: is normal, Motor: moves all fours, strength is normal. Vital Signs: 15:00 BP 105 / 65; Pulse 93; Resp 17; Temp 97.7(O); Pulse Ox 100% on R/A; Weight 67.59 kg; [facility] Height 6 ft. 1 in. (185.42 cm); Pain 3/10; 16:00 BP 108 / 72; Pulse 78; Resp 17; Pulse Ox 100% ; 6 18:00 BP 111 / 66; Pulse 80; Resp 17; Pulse Ox 100% ; Pain 3/10; 6 15:00 Body Mass Index 19.66 (67.59 kg, 185.42 cm) [facility] MDM: 14:59 Patient medically screened. cp 15:30 Differential diagnosis: appendicitis, bowel obstruction, cholecystitis, Cholelithiasis, cp diverticulitis, pancreatitis, Ureterolithiasis, urinary tract infection. 16:30 Data reviewed: vital signs, nurses notes, lab test result(s), radiologic studies, CT cp scan. 11/03 15:07 Order name: CBC with Diff; Complete Time: 16:05 11/03 16:05 Interpretation: Normal except: WBC 15.8; RBC 5.52; HGB 13.3; MCV 74.5; MCH 24.0; MPV cp 7.4; PIEDAD% 88.5; LYM% 1.9; NEUT A 14.0; LYMA 0.3; MNA 1.5. 11/03 15:07 Order name: CMP; Complete Time: 16:05 11/03 16:40 Interpretation: Normal except: NA 135; GLUC 115; ALT 106; BILIT 1.1; ALB 3.3; GLOB 4.1; cp A/G 0.8. 11/03 15:07 Order name: Lipase; Complete Time: 16:05 11/03 15:07 Order name: Urine Microscopic Only 11/03 16:35 Order name: SARS-COV-2 RT PCR (Document "Date of Onset" if Symptomatic) eb 11/03 16:50 Order name: Urine Dipstick-Ancillary; Complete Time: 16:56 EDMS 11/03 15:07 Order name: CT Abd/Pelvis - IV Contrast Only; Complete Time: 16:25 11/03 16:25 Interpretation: Report reviewed. 11/03 17:01 Order name: Blood Culture Adult (2) 11/03 17:01 Order name: Lactate 11/03 17:01 Order name: Procalcitonin 11/03 15:07 Order name: IV Saline Lock; Complete Time: 15:21 11/03 15:07 Order name: Labs collected and sent; Complete Time: 15:21 11/03 16:26 Order name: NPO 11/03 16:41 Order name: NG Tube cp Administered Medications: 15:20 Drug: NS 0.9% 1000 ml Route: IV; Rate: 1 bolus; Site: left antecubital; 6 15:21 Drug: Pepcid (famotidine) 20 mg Route: IVP; Site: left antecubital; jh6 15:21 Drug: Zofran (Ondansetron) 4 mg Route: IVP; Site: left antecubital; jh6 16:59 CANCELLED (Physician Discretion): NS 0.9% 1000 ml IV at 1 bolus Per protocol; 1000 mL cp bolus 17:03 Drug: fentaNYL (PF) 25 mcg Route: IVP; Site: left antecubital; [facility] 18:00 Drug: Phenergan (promethazine) 12.5 mg Route: IVP; Site: left forearm; [facility] 18:00 Drug: NS 0.9% (30 ml/kg) 30 ml/kg Route: IV; Rate: bolus; Site: left forearm; [facility] 18:00 Drug: metroNIDAZOLE 500 mg Volume: 100 ml; Route: IVPB; Infused Over: 30 mins; Site: [facility] left forearm; 18:40 Follow up: Response: No adverse reaction; IV Status: Completed infusion [facility] 18:40 Drug: Ciprofloxacin 400 mg Volume: 200 ml; Route: IVPB; Infused Over: 60 mins; Site: [facility] left antecubital; Disposition Summary: 11/03/21 16:51 Transfer Ordered Reason: Higher level of care cp Condition: Stable cp Problem: new cp Symptoms: have improved cp Transfer Location: Other Acute Care Facility(11/03/21 17:39) eb [facility] Diagnosis - Crohn's disease of both small and large intestine with intestinal obstruction cp Forms: - Medication Reconciliation Form cp - SBAR form cp Signatures: Dispatcher [employer] EDMS Gasper Mendez PA PA cp Botello, Elizabeth eb Hastedt, Jennifer RN RN 6 Corrections: (The following items were deleted from the chart) 16:59 16:59 NS 0.9% 1000 ml IV at 1 bolus Per protocol; 1000 mL bolus ordered. cp cp 17:21 16:51 Doctor cp cp 17:39 16:51 [facility] cp eb 17:39 17:21 DR Joce gómez eb 17:40 17:39 DR Hobson eb eb 18:41 17[facility]
[2021-11-03 17:17] LABS: Urine Amorphous Sediment 3+ /HPF (NONE SEEN); Urine Bacteria NONE SEEN /HPF (NONE SEEN); Urine RBC NONE SEEN /HPF (NONE SEEN)
[2021-11-03] MEDS ORDERED: NA CHLORIDE 0.9% 2,000 ML ONE (17:57)
[2021-11-03] MEDS ORDERED: PROMETHAZINE INJ 25 MG/ML AMP ONE (17:57)
[2021-11-03] MEDS ORDERED: METRONIDAZOLE 500mg IVPB 500 MG/100 ML BAG IV ONE (17:57)
[2021-11-03] MEDS ORDERED: Ciprofloxacin 200mg IV 200 MG/100 ML IV.SOLN. IV ONE (17:58)
[2021-11-03 18:56] VITALS: TEMP 97.7; O2SAT 100
[2021-11-03 18:59] VITALS: BP 111/66
== END 2021-11-03 18:41 ==
LOC: ER 14:40
DX: K50.812 Crohn's disease of both small and large intestine with intestinal obstruction (principal); Z20.822 Contact with and (suspected) exposure to COVID-19
CPT/HCPCS: 87040 ×2; 85025; 36415; 87205; 83605; 83690; 80053; 84145; 74177; 99285; U0003; Q9967; J2550; J3010; J0744; J7030 ×2; J3490 ×2; J2405; 81003; 81015

== ENCOUNTER 2021-11-11 00:23 | Emergency (ER) | payer BC ==
--- OUTSIDE RECORDS SUMMARY | 2021-11-11 00:32 | XMS REPORT | Continuity of Care Document ---
:1985 Author Organization [facility] t Address [address] [place] [address] Care Team Providers Name Role Phone Addison HIDALGO Primary Care Physician Unavailable JUAN Attending Clinician Unavailable CARMEN Attending Clinician Unavailable KARTHIKEYAN DAMON Attending Clinician Unavailable CINDA Attending Clinician Unavailable CARMEN Attending Clinician Unavailable Vishnu CRUZ Attending Clinician THONY Attending Clinician Unavailable Aquilino SCHWARZ Attending Clinician Unavailable SHARONA SCHWARZ Attending Clinician Unavailable Carmen CRUZ Attending Clinician CARMEN Admitting Clinician Unavailable SELINA MOSS Admitting Clinician Unavailable SHARONA SCHWARZ Admitting Clinician Unavailable Payers Payer Name Policy Type Policy Number Effective Date Expiration Date S mohit BCBSTX PPO AND OUT [id number] 2020 [facility] 00:00:00 BCBS PPO POS EPO [id number] 2014 2020 CHOICE 00:00:00 00:00:00 PPO/EPO - BCBS [id number] COPAY PATIENT [id number] ASSISTANCE PROGRAM Problems Condition Condition Condition Status Onset Resolution Last Treating Co mments Source Name Details Category Date Date Treatment Clinician Date Neck pain, Neck pain, Disease Active [facility] T bilateral bilateral 4-21 [facility]al th 00:00: 00 Other Other Disease Active [facility] headache headache 09-26 Health syndrome syndrome 00:00: 00 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, Diagnosis Active 2014-12-12 Me jesus 780.4 11-13 07:16:00 l 741.00, 00:00: Giuseppe 780.4 00 Active 11/13/2014 [facility] Malabsorpt Malabsorpt Disease Active [facility] ion ion 1-14 College 00:00: of 00 Medicin e Iron Iron Disease Active [facility] deficiency deficiency 1-14 Co llege anemia anemia 00:00: of 00 Medicin e Perianal Perianal Disease Active 2009-06 [place] [facility] abscess abscess 1-09 College 00:00: of 00 Medicin e Crohn's Crohn's Disease Active [facility] disease disease 817 College (HCCode) (HCCode) 00:00: of 00 Medicin e Epigastric Epigastric Disease Active [facility] pain pain 817 College 00:00: of 00 Medicin e Osteoporos Osteoporos Disease Active [facility] is is -20 College 00:00: of 00 Medicin e Allergies, Adverse Reactions, Alerts Allergy Allergy Status Severity Reaction(s) Onset Inactive Treating Comm ents Source Name Type Date Date Clinician Molds & Allergy Active Other [facility] Smuts to 2-04 reaction( Health substanc 00:00: s): Other e 00 (See Comments) Sneezing, allergic rhinitis MOLD Allergy Active Low Other [facility] 2-04 00:00: 00 TOMATO Allergy Active Low Other [facility] (SOLANUM 2-04 LYCOPERS 00:00: ICUM) 00 Mold Propensi Active [facility] Spores ty to 4-17 College adverse 00:00: of reaction 00 Medicin s to e substanc e Tomatoes Propensi Active Mild [facility] ty to 4-17 allergy College adverse 00:00: of reaction 00 Medicin s to e food Tomato Allergy Active Mild [facility] to 4-17 allergy Health substanc 00:00: e 00 Social History Social Habit Start Date Stop Date Quantity Comments Source Alcohol intake 2021-09-27 2021-09-27 Current [facility] Col lege 00:00:00 00:00:00 non-drinker of of Medicin e alcohol (finding) Exposure to 2021-09-16 2021-09-26 Not sure [facility] storey SARS-CoV-2 00:00:00 12:12:00 of Medicine (event) Sex Ass[birth year] [facility] 00:00:00 00:00:00 Smoking Status Start Date Stop Date Source Never smoked tobacco [facility] ege of Medicine Tobacco smoking consumption unknown [facility] Medications Ordered Filled Start Stop Current Ordering Indication Dosage Frequency Signature Comments Components Source Medication Medication Date Date Medication? Clinician (SIG) Name Name methylPREDN 2021- Yes [id number] Take 8 [facility] ISolone 5-10 07-06 Tablets by Rossy rodas [...] Tablet daily for 7 days. predniSONE Yes [id number] 40mg Take 4 [facility] (DELTASONE) 5-06 Tablets by Co llege 10 MG 00:00: mouth of tablet 00 daily. Medicin Taper e prednisone by 5 mg each week Cholecalcif Yes 1{tbl} Take 1 Tab [facility] will 4-22 by mouth [facility] (VITAMIN D) 11:32: daily. of 2000 UNIT 18 Medicin TABS e Multiple Yes Take by Penny velazquez Vitamins-Mi 4-22 mouth. Yin storey nerals 11:32: of (MULTIVITAM 18 Medicin IN & e MINERAL OR) gabapentin Yes 300mg Take 300 [facility] (NEURONTIN) 4-22 mg by [place] 300 MG 11:32: mouth 3 of capsule 18 times Medicin daily. e acetaminoph Yes 650mg Take 650 [facility] en 4-22 mg by [facility] (TYLENOL) 11:32: mouth of 325 mg 18 every 4 Medicin tablet hours as e needed for Pain. Cholecalcif Yes 1{tbl} Take 1 Tab [facility] will 4-22 by mouth [facility] (VITAMIN D) 11:32: daily. of 2000 UNIT 18 Medicin TABS e Multiple Yes Take by [place] [facility] Vit[facility]-Mi 4-22 mouth. Colleg e nerals 11:32: of (MULTIVITAM 18 Medicin IN & e MINERAL OR) gabapentin Yes 300mg Take 300 [facility] (NEURONTIN) 4-22 mg by [place] 300 MG 11:32: mouth 3 of capsule 18 times Medicin daily. e acetaminoph Yes 650mg Take 650 [facility] en 4-22 mg by [place] (TYLENOL) 11:32: mouth of 325 mg 18 every 4 Medicin tablet hours as e needed for Pain. ciprofloxac Yes [id number] 500mg Take 1 [facility] in (CIPRO) 4-22 Tablet by [place] ege 500 MG 00:00: mouth two of tablet 00 times Medicin daily. 1 e tablet by mouth twice a day metronidazo Yes [id number] 500mg Take 1 [facility] le (FLAGYL) 4-22 Tablet by Col lege 500 MG 00:00: mouth two of tablet 00 times Medicin daily. 1 e tablet by mouth twice a day ciprofloxac Yes [id number] 500mg Take 1 [facility] in (CIPRO) 4-22 Tablet by [place] e[facility] 500 MG 00:00: mouth two of tablet 00 times Medicin daily. 1 e tablet by mouth twice a day metronidazo Yes [id number] 500mg Take 1 [facility] le (FLAGYL) 4-22 Tablet by Col lege 500 MG 00:00: mouth two of tablet 00 times Medicin daily. 1 e tablet by mouth twice a day DULoxetine 0 2022- Yes [id number] 20mg QD Take 1 [facility] (Cymbalta) 09-26-22 capsule Healt [facility] [address] 00:00: 04:59 (20 mg capsule 00 :00 total) by mouth 1 (one) time each day. Do not crush or chew. gabapentin 0 2022- Yes [id number] 300mg Q.5D Take 1 [facility] (Neurontin) 09-26-22 capsule Heal th 300 MG 00:00: 04:59 (300 mg capsule 00 :00 total) by mouth 2 (two) times a day. sucralfate Yes 1g TAKE 1 [facility] (CARAFATE) 4-19 TABLET BY [place] e[facility] 1 g tablet 00:00: MOUTH FOUR o f 00 TIMES Medicin DAILY e sucralfate Yes 1g TAKE 1 [facility] (CARAFATE) 4-19 TABLET BY [place] e[facility] 1 g tablet 00:00: MOUTH FOUR o f 00 TIMES Medicin DAILY e sucralfate 2021- No 1g Take 10 mL [facility] (CARAFATE) -09 09-22 by mouth [place] e[facility] 1 GM/10ML 00:00: 00:00 four times o f suspension 00 :00 daily. Medicin e Omeprazole Yes [id number] 20mg Take 20 mg [facility] 20 MG TBEC 3-09 by mouth Colle ge 00:00: every of 00 morning. Medicin e Omeprazole Yes [id number] 20mg Take 20 mg [facility] 20 MG TBEC 3-09 by mouth Colle ge 00:00: every of 00 morning. Medicin e Omeprazole Yes [id number] 20mg Take 20 mg [facility] 20 MG TBEC 3-09 by mouth Colle ge 00:00: every of 00 morning. Medicin e metoprolol 2020-06- No 25mg Take 25 mg [facility] (LOPRESSOR) 2-10 12-10 by mouth Col lege 25 MG 14:24: 00:00 two times of tablet 31 :00 daily. Medicin e fludrocorti 2020-06- No .1mg Take 0.1 [facility] sone 2-10 12-10 mg by [facility] ([facility]) 14:24: 00:00 mouth of 0.1 MG 13 :00 daily. Medicin tablet e loperamide 2020-06- No 2mg Take 2 mg [facility] (IMODIUM 2-10 12-10 by mouth 4 [place] e[facility] A-D) 2 MG 14:23: 00:00 times of tablet 52 :00 daily as Medicin needed. e hyoscyamine 2020-[id number] 1 [facility] (LEVSIN/SL) 2-10 Tablet Colleg e 0.125 MG SL 00:00: under the o f tablet 00 tongue Medicin every 4 e hours as needed. hyoscyamine 2020-[id number] 1 [facility] (LEVSIN/SL) 2-10 Tablet Colleg e 0.125 MG SL 00:00: under the o f tablet 00 tongue Medicin every 4 e hours as needed. hyoscyamine 2020-[id number] [facility] (LEVSIN/SL) 2-10 Tablet Colleg e 0.125 MG SL 00:00: under the o f tablet 00 tongue Medicin every 4 e hours as needed. hyoscyamine 2020-[id number] [facility] (LEVSIN/SL) 2-10 Tablet Colleg e 0.125 MG SL 00:00: under the o f tablet 00 tongue Medicin every 4 e hours as needed. hyoscyamine 2020-[id number] [facility] (LEVSIN/SL) 2-10 Tablet Colleg e 0.125 MG SL 00:00: under the o f tablet 00 tongue Medicin every 4 e hours as needed. hyoscyamine 2020-[id number] [facility] (LEVSIN/SL) 2-10 Tablet Colleg e 0.125 MG SL 00:00: under the o f tablet 00 tongue Medicin every 4 e hours as needed. hyoscyamine 2020-[id number] 1 [facility] (LEVSIN/SL) 2-10 Tablet Colleg e 0.125 MG SL 00:00: under the o f tablet 00 tongue Medicin every 4 e hours as needed. Na 2020-06- No [SUPREP] [facility] Sulfate-K 1-18 12-10 Take as Colleg e Sulfate-Mg 00:00: 00:00 directed. o f Sulf 00 :00 Medicin (SUPREP e BOWEL PREP KIT) 17.5-3.13-1 .6 GM/177ML SOLN methylPREDN 2020-06 Yes [id number] Take 12 mg [facility] ISolone 1-10 po QD College (MEDROL) 4 00:00: of MG tablet 00 Medicin e methylPREDN 2020-06 Yes [id number] Take 12 mg [facility] ISolone 1-10 po QD College (MEDROL) 4 00:00: of MG tablet 00 Medicin e methylPREDN 2020-06 Yes [id number] Take 12 mg [facility] ISolone 1-10 po QD [facility] (MEDROL) 4 00:00: of MG tablet 00 Medicin e methylPREDN 2020-06 Yes [id number] Take 12 mg [facility] ISolone 1-10 po QD [facility] (MEDROL) 4 00:00: of MG tablet 00 Medicin e methylPREDN 2020-06 Yes [id number] Take 12 mg [facility] ISolone 1-10 po QD [facility] (MEDROL) 4 00:00: of MG tablet 00 Medicin e methylPREDN 2020-06- No [id number] Take 12 mg [facility] ISolone 1-10 03-09 po QD [facility] (MEDROL) 4 00:00: 00:00 of MG tablet 00 :00 Medicin e Na Yes Dispense 1 [facility] Sulfate-K 9-22 kit; Take Colle ge Sulfate-Mg 00:00: as of Sulf 00 directed Medicin 17.5-3.13-1 e .6 GM/177ML SOLN Na Yes Dispense 1 [facility] Sulfate-K 9-22 kit; Take Colle ge Sulfate-Mg 00:00: as of Sulf 00 directed Medicin 17.5-3.13-1 e .6 GM/177ML SOLN Na Yes Dispense 1 [facility] Sulfate-K 9-22 kit; Take Colle ge Sulfate-Mg 00:00: as of Sulf 00 directed Medicin 17.5-3.13-1 e .6 GM/177ML SOLN Na Yes Dispense 1 [facility] Sulfate-K 9-22 kit; Take Colle ge Sulfate-Mg 00:00: as of Sulf 00 directed Medicin 17.5-3.13-1 e .6 GM/177ML SOLN Cholecalcif Yes 1{tbl} Take 1 Tab [facility] will 7-14 by mouth [facility] (VITAMIN D) 13:41: daily. of 2000 UNIT [...] 300 [facility] (NEURONTIN) 7-14 mg by [place] 300 MG 13:41: mouth 3 of capsule 57 times Medicin daily. e acetaminoph 2020-0 Yes 650mg Take 650 [facility] en 7-14 mg by [place] (TYLENOL) 13:41: mouth of 325 mg 57 every 4 Medicin tablet hours as e needed for Pain. Cholecalcif 0 Yes 1{tbl} Take 1 Tab [facility] will 7-14 by mouth [facility] (VITAMIN D) 13:41: daily. of 1999 UNIT 57 Medicin TABS e Multiple Yes Take by [place] Vitamins-Mi 7-14 mouth. Colleg e nerals 13:41: of (MULTIVITAM 57 Medicin IN & e MINERAL OR) loperamide Yes 2mg Take 2 mg [facility] (IMODIUM 7-14 by mouth 4 Colle ge A-D) 2 MG 13:41: times of tablet 57 daily as Medicin needed. e gabapentin 0 Yes 300mg Take 300 [facility] (NEURONTIN) 7-14 mg by [place] 300 MG 13:41: mouth 3 of capsule 57 times Medicin daily. e acetaminoph 0 Yes 650mg Take 650 [facility] en 7-14 mg by [place] (TYLENOL) 13:41: mouth of 325 mg 57 every 4 Medicin tablet hours as e needed for Pain. Cholecalcif 0 Yes 1{tbl} Take 1 Tab [facility] will 7-14 by mouth [facility] (VITAMIN D) 13:41: daily. of 1999 UNIT 57 Medicin TABS e Cholecalcif 0 Yes 1{tbl} Take 1 Tab [facility] will 7-14 by mouth [facility] (VITAMIN D) 13:41: daily. of 1999 UNIT 57 Medicin TABS e Multiple Yes Take by [facility] Vitamins-Mi 7-14 mouth. Colleg e nerals 13:41: of (MULTIVITAM 57 Medicin IN & e MINERAL OR) loperamide 0 Yes 2mg Take 2 mg [facility] (IMODIUM 7-14 by mouth 4 Colle ge A-D) 2 MG 13:41: times of tablet 57 daily as Medicin needed. e gabapentin 2021-0 Yes 300mg Take 300 [facility] (NEURONTIN) 7-14 mg by [place] 300 MG 13:41: mouth 3 of capsule 57 times Medicin daily. e Multiple 0 Yes Take by [facility] Vitamins-Mi 7-14 mouth. [facility]lechristos e nerals 13:41: of (MULTIVITAM 57 Medicin IN & e MINERAL OR) acetaminoph 0 Yes 650mg Take 650 [facility] en 7-14 mg by [place] (TYLENOL) 13:41: mouth of 325 mg 57 every 4 Medicin tablet hours as e needed for Pain. loperamide 0 Yes 2mg Take 2 mg [facility] (IMODIUM 7-14 by mouth 4 Colle ge A-D) 2 MG 13:41: times of tablet 57 daily as Medicin needed. e gabapentin 0 Yes 300mg Take 300 [facility] (NEURONTIN) 7-14 mg by [place] 300 MG 13:41: mouth 3 of capsule 57 times Medicin daily. e Cholecalcif Yes 1{tbl} Take 1 Tab [facility] will 7-14 by mouth [facility] (VITAMIN D) 13:41: daily. of 2000 UNIT 57 Medicin TABS e Multiple Yes Take by [facility] Vitamins-Mi 7-14 mouth. Yin e nerals 13:41: of (MULTIVITAM 57 Medicin IN & e MINERAL OR) loperamide Yes 2mg Take 2 mg [facility] (IMODIUM 7-14 by mouth 4 Colle ge A-D) 2 MG 13:41: times of tablet 57 daily as Medicin needed. e gabapentin 0 Yes 300mg Take 300 [facility] (NEURONTIN) 7-14 mg by [place] 300 MG 13:41: mouth 3 of capsule 57 times Medicin daily. e acetaminoph 0 Yes 650mg Take 650 [facility] en 7-14 mg by [place] (TYLENOL) 13:41: mouth of 325 mg 57 every 4 Medicin tablet hours as e needed for Pain. acetaminoph 2020-0 Yes 650mg Take 650 [facility] en 7-14 mg by [place] (TYLENOL) 13:41: mouth of 325 mg 57 every 4 Medicin tablet hours as e needed for Pain. Cholecalcif 2020-0 Yes 1{tbl} Take 1 Tab [facility] will 7-14 by mouth [facility] (VITAMIN D) 13:41: daily. of 1999 UNIT 57 Medicin TABS e Multiple Yes Take by [facility] Vitamins-Mi 7-14 mouth. Colleg e nerals 13:41: of (MULTIVITAM 57 Medicin IN & e MINERAL OR) loperamide Yes 2mg Take 2 mg [facility] (IMODIUM 7-14 by mouth 4 Colle ge A-D) 2 MG 13:41: times of tablet 57 daily as Medicin needed. e gabapentin 0 Yes 300mg Take 300 [facility] (NEURONTIN) 7-14 mg by [place] 300 MG 13:41: mouth 3 of capsule 57 times Medicin daily. e acetaminoph Yes 650mg Take 650 [facility] en 7-14 mg by [facility] (TYLENOL) 13:41: mouth of 325 mg 57 every 4 Medicin tablet hours as e needed for Pain. Cholecalcif Yes 1{tbl} Take 1 Tab [facility] will 7-14 by mouth [facility] (VITAMIN D) 13:41: daily. of 1999 UNIT 57 Medicin TABS e Multiple Yes Take by [facility] Vitamins-Mi 7-14 mouth. Colleg e nerals 13:41: of (MULTIVITAM 57 Medicin IN & e MINERAL OR) loperamide Yes 2mg Take 2 mg [facility] (IMODIUM 7-14 by mouth 4 Colle ge A-D) 2 MG 13:41: times of tablet 57 daily as Medicin needed. e gabapentin 0 Yes 300mg Take 300 [facility] (NEURONTIN) 7-14 mg by [place] 300 MG 13:41: mouth 3 of capsule 57 times Medicin daily. e acetaminoph 0 Yes 650mg Take 650 [facility] en 7-14 mg by [place] (TYLENOL) 13:41: mouth of 325 mg 57 every 4 Medicin tablet hours as e needed for Pain. Cholecalcif 0 Yes 1{tbl} Take 1 Tab [facility] will 7-14 by mouth [facility] (VITAMIN D) 13:41: daily. of 1999 UNIT 57 Medicin TABS e Multiple Yes Take by [facility] Vitamins-Mi 7-14 mouth. Colleg e nerals 13:41: of (MULTIVITAM 57 Medicin IN & e MINERAL OR) gabapentin 2020-0 Yes 300mg Take 300 [facility] (NEURONTIN) 7-14 mg by College 300 MG 13:41: mouth 3 of capsule 57 times Medicin daily. e acetaminoph 2020-0 Yes 650mg Take 650 [facility] en 7-14 mg by [place] (TYLENOL) 13:41: mouth of 325 mg 57 every 4 Medicin tablet hours as e needed for Pain. Cholecalcif 2020-0 Yes 1{tbl} Take 1 Tab [facility] will 7-14 by mouth [facility] (VITAMIN D) 13:41: daily. of 1999 UNIT 57 Medicin TABS e Multiple Yes Take by [facility] Vitamins-Mi 7-14 mouth. [facility]lechristos e nerals 13:41: of (MULTIVITAM 57 Medicin IN & e MINERAL OR) gabapentin 0 Yes 300mg Take 300 [facility] (NEURONTIN) 7-14 mg by [place] 300 MG 13:41: mouth 3 of capsule 57 times Medicin daily. e acetaminoph 2020-0 Yes 650mg Take 650 [facility] en 7-14 mg by [place] (TYLENOL) 13:41: mouth of 325 mg 57 every 4 Medicin tablet hours as e needed for Pain. Cholecalcif 2020-0 Yes 1{tbl} Take 1 Tab [facility] will 7-14 by mouth [facility] (VITAMIN D) 13:41: daily. of 1999 UNIT 57 Medicin TABS e Multiple Yes Take by [facility] Vitamins-Mi 7-14 mouth. [facility]lechristos e nerals 13:41: of (MULTIVITAM 57 Medicin IN & e MINERAL OR) gabapentin 2020-0 Yes 300mg Take 300 [facility] (NEURONTIN) 7-14 mg by [place] 300 MG 13:41: mouth 3 of capsule 57 times Medicin daily. e acetaminoph 202-0 Yes 650mg Take 650 [facility] en 7-14 mg by [facility] (TYLENOL) 13:41: mouth of 325 mg 57 every 4 Medicin tablet hours as e needed for Pain. Cholecalcif 2020-0 Yes 1{tbl} Take 1 Tab [facility] will 7-14 by mouth [facility] (VITAMIN D) 13:41: daily. of 1999 UNIT 57 Medicin TABS e Multiple 2021-0 Yes Take by [facility] Vitamins-Nc 7-14 mouth. Colleg e nerals 13:41: of (MULTIVITAM 57 Medicin IN & e MINERAL OR) gabapentin 0 Yes 300mg Take 300 [facility] (NEURONTIN) 7-14 mg by [place] 300 MG 13:41: mouth 3 of capsule 57 times Medicin daily. e acetaminoph 0 Yes 650mg Take 650 [facility] en 7-14 mg by [place] (TYLENOL) 13:41: mouth of 325 mg 57 every 4 Medicin tablet hours as e needed for Pain. Cholecalcif 0 Yes 1{tbl} Take 1 Tab [facility] will 7-14 by mouth [facility] (VITAMIN D) 13:41: daily. of 1999 UNIT 57 Medicin TABS e Multiple Yes Take by [facility] Vitamins-Nc 7-14 mouth. Colle e nerals 13:41: of (MULTIVITAM 57 Medicin IN & e MINERAL OR) gabapentin 0 Yes 300mg Take 300 [facility] (NEURONTIN) 7-14 mg by [place] 300 MG 13:41: mouth 3 of capsule 57 times Medicin daily. e acetaminoph 0 Yes 650mg Take 650 [facility] en 7-14 mg by [place] (TYLENOL) 13:41: mouth of 325 mg 57 every 4 Medicin tablet hours as e needed for Pain. Cholecalcif 0 Yes 1{tbl} Take 1 Tab [facility] will 7-14 by mouth [facility] (VITAMIN D) 13:41: daily. of 1999 UNIT 57 Medicin TABS e Multiple Yes Take by [facility]. [facility] e nerals 13:41: of (MULTIVITAM 57 Medicin IN & e MINERAL OR) loperamide 0 Yes 2mg Take 2 mg [facility] (IMODIUM 7-14 by mouth 4 [facility] ge A-D) 2 MG 13:41: times of tablet 57 daily as Medicin needed. e gabapentin 0 Yes 300mg Take 300 [facility] (NEURONTIN) 7-14 mg by [place] 300 MG 13:41: mouth 3 of capsule 57 times Medicin daily. e acetaminoph 0 Yes 650mg Take 650 [facility] en 7-14 mg by [facility] (TYLENOL) 13:41: mouth of 325 mg 57 every 4 Medicin tablet hours as e needed for Pain. Cholecalcif Yes 1{tbl} Take 1 Tab [facility] will 7-14 by mouth [facility] (VITAMIN D) 13:41: daily. of 2000 UNIT 57 Medicin TABS e Multiple Yes Take by [facility]-Mi 7-14 mouth. Colleg e nerals 13:41: of (MULTIVITAM 57 Medicin IN & e MINERAL OR) loperamide Yes 2mg Take 2 mg [facility] (IMODIUM 7-14 by mouth 4 Colle ge A-D) 2 MG 13:41: times of tablet 57 daily as Medicin needed. e gabapentin Yes 300mg Take 300 [facility] (NEURONTIN) 7-14 mg by [facility] 300 MG 13:41: mouth 3 of capsule 57 times Medicin daily. e acetaminoph Yes 650mg Take 650 [facility] en 7-14 mg by [facility] (TYLENOL) 13:41: mouth of 325 mg 57 every 4 Medicin tablet hours as e needed for Pain. tramadol Yes TAKE 1 [facility] (ULTRAM) 50 7-05 TABLET BY Col lege MG tablet 00:00: MOUTH of 00 EVERY 6 Medicin HOURS e NEEDED FOR PAIN tramadol Yes TAKE 1 [facility] (ULTRAM) 50 7-05 TABLET BY Col lege MG tablet 00:00: MOUTH of 00 EVERY 6 Medicin HOURS e NEEDED FOR PAIN tramadol Yes TAKE 1 [facility] (ULTRAM) 50 7-05 TABLET BY Col lege MG tablet 00:00: MOUTH of 00 EVERY 6 Medicin HOURS e NEEDED FOR PAIN tramadol Yes TAKE 1 [facility] (ULTRAM) 50 7-05 TABLET BY Col lege MG tablet 00:00: MOUTH of 00 EVERY 6 Medicin HOURS e NEEDED FOR PAIN tramadol Yes TAKE 1 [facility] (ULTRAM) 50 7-05 TABLET BY Col lege MG tablet 00:00: MOUTH of 00 EVERY 6 Medicin HOURS e NEEDED FOR PAIN tramadol Yes TAKE 1 [facility] (ULTRAM) 50 7-05 TABLET BY Col lege MG tablet 00:00: MOUTH of 00 EVERY 6 Medicin HOURS e NEEDED FOR PAIN tramadol Yes TAKE 1 [facility] (ULTRAM) 50 7-05 TABLET BY Col lege MG tablet 00:00: MOUTH of 00 EVERY 6 Medicin HOURS e NEEDED FOR PAIN tramadol Yes TAKE 1 [facility] (ULTRAM) 50 7-05 TABLET BY Col lege MG tablet 00:00: MOUTH of 00 EVERY 6 Medicin HOURS e NEEDED FOR PAIN tramadol 0 Yes TAKE 1 [facility] (ULTRAM) 50 7-05 TABLET BY Col lege MG tablet 00:00: MOUTH of 00 EVERY 6 Medicin HOURS e NEEDED FOR PAIN tramadol 0 2020- No TAKE 1 [facility] (ULTRAM) 50 7-05 12-10 TABLET BY Co llege MG tablet 00:00: 00:00 MOUTH of 00 :00 EVERY 6 Medicin HOURS e NEEDED FOR PAIN ondansetron Yes [id number] 4mg Take 1 [facility] (ZOFRAN 6-10 Tablet by [facility] ODT) 4 mg 00:00: mouth of disintegrat 00 every 8 Medic in ing tablet hours as e needed for Nausea. ondansetron Yes [id number] 4mg Take 1 [facility] (ZOFRAN 6-10 Tablet by [facility] ODT) 4 mg 00:00: mouth of disintegrat 00 every 8 Medic in ing tablet hours as e needed for Nausea. ondansetron Yes [id number] 4mg Take 1 [facility] (ZOFRAN 6-10 Tablet by [facility] ODT) 4 mg 00:00: mouth of disintegrat 00 every 8 Medic in ing tablet hours as e needed for Nausea. ondansetron Yes [id number] 4mg Take 1 [facility] (ZOFRAN 6-10 Tablet by [facility] ODT) 4 mg 00:00: mouth of disintegrat 00 every 8 Medic in ing tablet hours as e needed for Nausea. ondansetron Yes [id number] 4mg Take 1 [facility] (ZOFRAN 6-10 Tablet by [facility] ODT) 4 mg 00:00: mouth of disintegrat 00 every 8 Medic in ing tablet hours as e needed for Nausea. ondansetron Yes [id number] 4mg Take 1 [facility] (ZOFRAN 6-10 Tablet by [facility] ODT) 4 mg 00:00: mouth of disintegrat 00 every 8 Medic in ing tablet hours as e needed for Nausea. ondansetron 2020-0 Yes [id number] 4mg Take 1 [facility] (ZOFRAN 6-10 Tablet by [facility] ODT) 4 mg 00:00: mouth of disintegrat 00 every 8 Medic in ing tablet hours as e needed for Nausea. ondansetron 2020-0 Yes [id number] 4mg Take 1 [facility] (ZOFRAN 6-10 Tablet by [facility] ODT) 4 mg 00:00: mouth of disintegrat 00 every 8 Medic in ing tablet hours as e needed for Nausea. ondansetron 2020-0 Yes [id number] 4mg Take 1 [facility] (ZOFRAN 6-10 Tablet by [facility] ODT) 4 mg 00:00: mouth of disintegrat 00 every 8 Medic in ing tablet hours as e needed for Nausea. ondansetron 0 Yes [id number] 4mg Take 1 [facility] (ZOFRAN 6-10 Tablet by [facility] ODT) 4 mg 00:00: mouth of disintegrat 00 every 8 Medic in ing tablet hours as e needed for Nausea. ondansetron 0 Yes [id number] 4mg Take 1 [facility] (ZOFRAN 6-10 Tablet by [facility] ODT) 4 mg 00:00: mouth of disintegrat 00 every 8 Medic in ing tablet hours as e needed for Nausea. ondansetron 0 Yes [id number] 4mg Take 1 [facility] (ZOFRAN 6-10 Tablet by [facility] ODT) 4 mg 00:00: mouth of disintegrat 00 every 8 Medic in ing tablet hours as e needed for Nausea. ondansetron 2020-0 Yes [id number] 4mg Take 1 [facility] (ZOFRAN 6-10 Tablet by [facility] ODT) 4 mg 00:00: mouth of disintegrat 00 every 8 Medic in ing tablet hours as e needed for Nausea. ondansetron 2020-0 2- No [id number] 4mg Take 1 [facility] (ZOFRAN 6-10 03-09 Tablet by [facility] ODT) 4 mg 00:00: 00:00 mouth of disintegrat 00 :00 every 8 Medic in ing tablet hours as e needed for Nausea. loperamide 0 Yes 2mg Take 2 mg [facility] (IMODIUM 6-09 by mouth 4 Colle ge A-D) 2 MG 08:40: times of tablet 56 daily as Medicin needed. e metoprolol 2021-0 Yes 25mg Take 25 mg [facility] (LOPRESSOR) 6-09 by mouth [place] [facility] 25 MG 08:40: two times of tablet 56 daily. Medicin e fludrocorti 2021-0 Yes .1mg Take 0.1 [facility] sone 6-09 mg by [facility] ([facility]) 08:40: mouth of 0.1 MG 56 daily. Medicin tablet e metoprolol 2021-0 Yes 25mg Take 25 mg [facility] (LOPRESSOR) 6-09 by mouth [facility] 25 MG 08:40: two times of tablet 56 daily. Medicin e fludrocorti 2021-0 Yes .1mg Take 0.1 [facility] 6-09 mg by [facility] ([facility]) 08:40: mouth of 0.1 MG 56 daily. Medicin tablet e metoprolol 2021-0 Yes 25mg Take 25 mg [facility] (LOPRESSOR) 6-09 by mouth [facility] 25 MG 08:40: two times of tablet 56 daily. Medicin e fludrocorti 2021-0 Yes .1mg Take 0.1 [facility] 6-09 mg by [facility] ([facility]) 08:40: mouth of 0.1 MG 56 daily. Medicin tablet e metoprolol 2021-0 Yes 25mg Take 25 mg [facility] (LOPRESSOR) 6-09 by mouth [facility] 25 MG 08:40: two times of tablet 56 daily. Medicin e fludrocorti 2021-0 Yes .1mg Take 0.1 [facility] sone 6-09 mg by [facility] ([facility]) 08:40: mouth of 0.1 MG 56 daily. [...] 0.1 [facility] sone 6-09 mg by [facility] ([facility]) 08:40: mouth of 0.1 MG 56 daily. Medicin tablet e fludrocorti 2021-0 Yes .1mg Take 0.1 [facility] sone 6-09 mg by [facility] ([facility]) 08:40: mouth of 0.1 MG 56 daily. Medicin tablet e metoprolol 2021-0 Yes 25mg Take 25 mg [facility] (LOPRESSOR) 6-09 by mouth [place] [facility] 25 MG 08:40: two times of tablet 56 daily. Medicin e fludrocorti 2021-0 Yes .1mg Take 0.1 [facility] sone 6-09 mg by [facility] ([facility]) 08:40: mouth of 0.1 MG 56 daily. Medicin tablet e metoprolol 2021-0 Yes 25mg Take 25 mg [facility] (LOPRESSOR) 6-09 by mouth [place] [facility] 25 MG 08:40: two times of tablet 56 daily. Medicin e fludrocorti 2021-0 Yes .1mg Take 0.1 [facility] sone 6-09 mg by [facility] ([facility]) 08:40: mouth of 0.1 MG 56 daily. Medicin tablet e metoprolol 2021-0 Yes 25mg Take 25 mg [facility] (LOPRESSOR) 6-09 by mouth [place] [facility] 25 MG 08:40: two times of tablet 56 daily. Medicin e fludrocorti 2021-0 Yes .1mg Take 0.1 [facility] sone 6-09 mg by [facility] ([facility]) 08:40: mouth of 0.1 MG 56 daily. Medicin tablet e metoprolol 2021-0 Yes 25mg Take 25 mg [facility] (LOPRESSOR) 6-09 by mouth [place] [facility] 25 MG 08:40: two times of tablet 56 daily. Medicin e fludrocorti 2021-0 Yes .1mg Take 0.1 [facility] sone 6-09 mg by [facility] ([facility]) 08:40: mouth of 0.1 MG 56 daily. Medicin tablet e Cholecalcif 2021-0 Yes 1{tbl} Take 1 Tab [facility] will 6-09 by mouth [facility] (VITAMIN D) 08:36: daily. of 2000 [address] 54 Medicin TABS e Multiple Yes Take by [facility] 6-09 mouth[facility] 08:36: of (MULTIVITAM 54 Medicin IN & e MINERAL OR) gabapentin Yes 300mg Take 300 [facility] (NEURONTIN) 6-09 mg by [facility] 300 MG 08:36: mouth 3 of capsule 54 times Medicin daily. e acetaminoph Yes 650mg Take 650 [facility] en 6-09 mg by [place] (TYLENOL) 08:36: mouth of 325 mg 54 every 4 Medicin tablet hours as e needed for Pain. Na Yes [id number] [SUPREP] [facility] Sulfate-[facility] 6-09 Take as College Sulfate-Mg 00:00: directed. of Sulf 00 Medicin (SUPREP e BOWEL PREP KIT) 17.5-3.13-1 .6 GM/177ML SOLN Na Yes [id number] [SUPREP] [facility] Sulfate-K 6-09 Take as [facility] Sulfate-Mg 00:00: directed. of Sulf 00 Medicin (SUPREP e BOWEL PREP KIT) 17.5-3.13-1 .6 GM/177ML SOLN Na Yes [id number] [SUPREP] [facility] Sulfate-K 6-09 Take as [facility] Sulfate-Mg 00:00: directed. of Sulf 00 Medicin (SUPREP e BOWEL PREP KIT) 17.5-3.13-1 .6 GM/177ML SOLN Na Yes [id number] [SUPREP] [facility] Sulfate-K 6-09 Take as [facility] Sulfate-Mg 00:00: directed. of Sulf 00 Medicin (SUPREP e BOWEL PREP KIT) 17.5-3.13-1 .6 GM/177ML SOLN Na Yes [id number] [SUPREP] [facility] Sulfate-K 6-09 Take as [facility] Sulfate-Mg 00:00: directed. of Sulf 00 Medicin (SUPREP e BOWEL PREP KIT) 17.5-3.13-1 .6 GM/177ML SOLN Na Yes [id number] [SUPREP] [facility] Sulfate-K 6-09 Take as [facility] Sulfate-Mg 00:00: directed. of Sulf 00 Medicin (SUPREP e BOWEL PREP KIT) 17.5-3.13-1 .6 GM/177ML SOLN Na Yes [id number] [SUPREP] [facility] Sulfate-K 6-09 Take as [facility] Sulfate-Mg 00:00: directed. of Sulf 00 Medicin (SUPREP e BOWEL PREP KIT) 17.5-3.13-1 .6 GM/177ML SOLN Na 0 Yes [id number] [SUPREP] [facility] Sulfate-K 6-09 Take as [facility] Sulfate-Mg 00:00: directed. of Sulf 00 Medicin (SUPREP e BOWEL PREP KIT) 17.5-3.13-1 .6 GM/177ML SOLN Na Yes [id number] [SUPREP] [facility] Sulfate-K 6-09 Take as [facility] Sulfate-Mg 00:00: directed. of Sulf 00 Medicin (SUPREP e BOWEL PREP KIT) 17.5-3.13-1 .6 GM/177ML SOLN Ustekinumab 0 Yes [id number] INJECT 1 [facility] (STELARA) 3-17 [facility] [employer] 90 MG/ML 00:00: (90 MG) of injection 00 UNDER THE Medic in SKIN e (SUBCUTANE OUS INJECTION) EVERY 28 DAYS Ustekinumab 0 Yes [id number] INJECT 1 [facility] (STELARA) 3-17 [employer] [employer] 90 MG/ML 00:00: (90 MG) of injection 00 UNDER THE Medic in SKIN e (SUBCUTANE OUS INJECTION) EVERY 28 DAYS Ustekinumab 0 Yes [id number] INJECT 1 [facility] (STELARA) 3-17 [facility] [employer] 90 MG/ML 00:00: (90 MG) of injection 00 UNDER THE Medic in SKIN e (SUBCUTANE OUS INJECTION) EVERY 28 DAYS Ustekinumab 0 Yes [id number] INJECT 1 [facility] (STELARA) 3-17 [facility] [employer] 90 MG/ML 00:00: (90 MG) of injection 00 UNDER THE Medic in SKIN e (SUBCUTANE OUS INJECTION) EVERY 28 DAYS Ustekinumab 0 Yes [id number] INJECT 1 [facility] (STELARA) 3-17 [facility] [employer] 90 MG/ML 00:00: (90 MG) of injection 00 UNDER THE Medic in SKIN e (SUBCUTANE OUS INJECTION) EVERY 28 DAYS Ustekinumab 2021-0 Yes [id number] INJECT 1 [facility] (STELARA) 3-17 [facility] [employer] 90 MG/ML 00:00: (90 MG) of injection 00 UNDER THE Medic in SKIN e (SUBCUTANE OUS INJECTION) EVERY 28 DAYS Ustekinumab Yes [id number] INJECT 1 [facility] (STELARA) 3-17 [facility] [employer] 90 MG/ML 00:00: (90 MG) of injection 00 UNDER THE Medic in SKIN e (SUBCUTANE OUS INJECTION) EVERY 28 DAYS Ustekinumab Yes [id number] INJECT 1 [facility] (STELARA) 3-17 [facility] [employer] 90 MG/ML 00:00: (90 MG) of injection 00 UNDER THE Medic in SKIN e (SUBCUTANE OUS INJECTION) EVERY 28 DAYS Ustekinumab Yes [id number] INJECT 1 [facility] (STELARA) 3-17 [employer] [employer] 90 MG/ML 00:00: (90 MG) of injection 00 UNDER THE Medic in SKIN e (SUBCUTANE OUS INJECTION) EVERY 28 DAYS Ustekinumab Yes [id number] INJECT 1 [facility] (STELARA) 3-17 [facility] [employer] 90 MG/ML 00:00: (90 MG) of injection 00 UNDER THE Medic in SKIN e (SUBCUTANE OUS INJECTION) EVERY 28 DAYS Ustekinumab 2020- No [id number] INJECT 1 [facility] (STELARA) 3-17 12-10 [facility] 90 MG/ML 00:00: 00:00 (90 MG) of injection 00 :00 UNDER THE Medic in SKIN e (SUBCUTANE OUS INJECTION) EVERY 28 DAYS tramadol 2019- Yes TAKE 1 [facility] (ULTRAM) 50 2-29 TABLET BY Col lege MG tablet 00:00: MOUTH of 00 EVERY 6 Medicin HOURS e NEEDED FOR PAIN cholestyram 2019-0 Yes [id number] MIX AND [facility] ine 1-13 DRINK 1 [facility] (QUESTRAN) 00:00: PACKET BY of 4 g packet 00 MOUTH Medicin DAILY e cholestyram 2020-0 Yes [id number] MIX AND [facility] ine 1-13 DRINK 1 [facility] (QUESTRAN) 00:00: PACKET BY of 4 g packet 00 MOUTH Medicin DAILY e cholestyram 2019-0 Yes [id number] MIX AND [facility] 1-13 DRINK 1 [facility] (QUESTRAN) 00:00: PACKET BY of 4 g packet 00 MOUTH Medicin DAILY e cholestyram 2020-0 Yes [id number] MIX AND [facility] ine 1-13 DRINK 1 [facility] (QUESTRAN) 00:00: PACKET BY of 4 g packet 00 MOUTH Medicin DAILY e cholestyram 2020-0 Yes [id number] MIX AND [facility] in[facility] 1-13 DRINK 1 [facility] (QUESTRAN) 00:00: PACKET BY of 4 g packet 00 MOUTH Medicin DAILY e cholestyram 2020-0 Yes [id number] MIX AND [facility] 1-13 DRINK 1 [facility] (QUE[facility]) 00:00: PACKET BY of 4 g packet 00 MOUTH Medicin DAILY e cholestyram 2020-0 Yes [id number] MIX AND [facility] 1-13 DRINK 1 [facility] ([facility]) 00:00: PACKET BY of 4 g packet 00 MOUTH Medicin DAILY e cholestyram 2020-0 Yes [id number] MIX AND [facility] ine 1-13 DRINK 1 [facility] ([facility]) 00:00: PACKET BY of 4 g packet 00 MOUTH Medicin DAILY e cholestyram 2020-0 Yes [id number] MIX AND [facility] ine 1-13 DRINK 1 [facility] (QUESTRAN) 00:00: PACKET BY of 4 g packet 00 MOUTH Medicin DAILY e cholestyram 2020-0 Yes [id number] MIX AND [facility] ine 1-13 DRINK 1 [facility] 00:00: PACKET BY of 4 g packet 00 MOUTH Medicin DAILY e cholestyram 2020-0 Yes [id number] MIX AND [facility] 1-13 DRINK 1 [facility] (QUESTRAN) 00:00: PACKET BY of 4 g packet 00 MOUTH Medicin DAILY e cholestyram 2020-0 Yes [id number] MIX AND [facility] 1-13 DRINK 1 [facility] (QUESTRAN) 00:00: PACKET BY of 4 g packet 00 MOUTH Medicin DAILY e cholestyram 2020-0 Yes [id number] MIX AND [facility] 1-13 DRINK 1 [facility] (QUESTRAN) 00:00: PACKET BY of 4 g packet 00 MOUTH Medicin DAILY e cholestyram 2020-0 Yes [id number] MIX AND [facility] in[facility] 1-13 DRINK 1 [facility] (QUESTRAN) 00:00: PACKET BY of 4 g packet 00 MOUTH Medicin DAILY e cholestyram 2020-0 2022- No [id number] MIX AND [facility] ine 1-13 03-09 DRINK 1 Manuel[facility] ([facility]) 00:00: 00:00 PACKET BY o f 4 g packet 00 :00 MOUTH Medicin DAILY e Sod 2019-0 Yes [PREPOPIK] [facility] Picosulfate 6-05 Take as Colle ge -Mag Ox-Cit 00:00: directed of Acd 00 Medicin (PREPOPIK) e 10-3.5-12 MG-GM-GM PACK Sod 2019-0 Yes [PREPOPIK] [facility] Picosulfate 6-05 Take as Colle ge -Mag Ox-Cit 00:00: directed of Acd 00 Medicin (PREPOPIK) e 10-3.5-12 MG-GM-GM PACK Sod 2019-0 Yes [PREPOPIK] [facility] Picosulfate 6-05 Take as Colle ge -Mag Ox-Cit 00:00: directed of Acd 00 Medicin (PREPOPIK) e 10-3.5-12 MG-GM-GM PACK Sod 2019-0 Yes [PREPOPIK] [facility] Picosulfate 6-05 Take as Colle ge -Mag Ox-Cit 00:00: directed of Acd 00 Medicin (PREPOPIK) e 10-3.5-12 MG-GM-GM PACK Sod 2019-0 Yes [PREPOPIK] [facility] Picosulfate 6-05 Take as Colle ge -Mag Ox-Cit 00:00: directed of Acd 00 Medicin (PREPOPIK) e 10-3.5-12 MG-GM-GM PACK Sod 2019-0 Yes [PREPOPIK] [facility] Picosulfate 6-05 Take as Colle ge -Mag Ox-Cit 00:00: directed of Acd 00 Medicin (PREPOPIK) e 10-3.5-12 MG-GM-GM PACK Sod 2019-0 Yes [PREPOPIK] [facility] Picosulfate 6-05 Take as Colle ge -Mag Ox-Cit 00:00: directed of Acd 00 Medicin (PREPOPIK) e 10-3.5-12 MG-GM-GM PACK Sod 2019-0 Yes [PREPOPIK] [facility] Picosulfate 6-05 Take as Colle ge -Mag Ox-Cit 00:00: directed of Acd 00 Medicin (PREPOPIK) e 10-3.5-12 MG-GM-GM PACK Sod 2019-0 Yes [PREPOPIK] [facility] Picosulfate 6-05 Take as Colle ge -Mag Ox-Cit 00:00: directed of Acd 00 Medicin (PREPOPIK) e 10-3.5-12 MG-GM-GM PACK midodrine Yes TK 1/2 T [facility] (PROAMATINE 5-20 PO BID [facility] ) 5 MG 00:00: of tablet 00 Medicin e midodrine Yes TK 1/2 T [facility] (PROAMATINE 5-20 [facility] BID [facility] ) 5 MG 00:00: of tablet 00 Medicin e midodrine Yes TK 1/2 T [facility] (PROAMATINE 5-20 [facility] BID [facility] ) 5 MG 00:00: of tablet 00 Medicin e midodrine Yes TK 1/2 T [facility] (PROAMATINE 5-[facility] BID [facility] ) 5 MG 00:00: of tablet 00 Medicin e midodrine Yes TK 1/2 T [facility] (PROAMATINE 5-[facility] BID [facility] ) 5 MG 00:00: of tablet 00 Medicin e midodrine Yes TK 1/2 T [facility] (PROAMATINE 5-[facility] BID [facility] ) 5 MG 00:00: of tablet 00 Medicin e midodrine 0 Yes TK 1/2 T [facility] (PROAMATINE 5-[facility] BID [facility] ) 5 MG 00:00: of tablet 00 Medicin e midodrine Yes TK 1/2 T [facility] ([facility]AMATINE 5-[facility] BID [facility] ) 5 MG 00:00: of tablet 00 Medicin e midodrine Yes TK 1/2 T [facility] (PROAMATINE 5-[facility] BID [facility] ) 5 MG 00:00: of tablet 00 Medicin e midodrine Yes TK 1/2 T [facility] (PROAMATINE 5-[facility] BID [facility] ) 5 MG 00:00: of tablet 00 Medicin e midodrine 2020- No TK 1/2 T [place] [facility] (PROAMATINE 5-20 12-10 PO BID Colle ge ) 5 MG 00:00: 00:00 of tablet 00 :00 Medicin e folic acid 2017-0 Yes 1mg Take 1 Tab [facility] (FOLVITE) 1 5-31 by mouth [place] [facility] MG tablet 00:00: daily. of 00 Medicin e folic acid 2017 Yes 1mg Take 1 Tab [facility] [...] daily. of 00 Medicin e folic acid 0 Yes 1mg Take 1 Tab [facility] (FOLVITE) 1 5-31 by mouth [facility] [facility] MG tablet 00:00: daily. of 00 Medicin e folic acid [id number] 2021- No 1mg Take 1 Tab [facility] (FOLVITE) 1 5-31 12-10 by mouth [facility] MG tablet 00:00: 00:00 daily. of 00 :00 Medicin e ibandronate 2017-0 Yes [id number] 150mg Take 1 Tab [facility] (BONIVA) 1-06 by mouth College 150 MG 00:00: every 30 of tablet 00 days. Medicin e ibandronate 2017-0 Yes [id number] 150mg Take 1 Tab [facility] (BONIVA) 1-06 by mouth [facility] 150 MG 00:00: every 30 of tablet 00 days. Medicin e ibandronate 2017-0 Yes [id number] 150mg Take 1 Tab [facility] (BONIVA) 1-06 by mouth [facility] 150 MG 00:00: every 30 of tablet 00 days. Medicin e ibandronate 2017-0 Yes [id number] 150mg Take 1 Tab [facility] (BONIVA) 1-06 by mouth [facility] 150 MG 00:00: every 30 of tablet 00 days. Medicin e ibandronate 2016-0 Yes [id number] 150mg Take 1 Tab [facility] (BONIVA) 1-06 by mouth [facility] 150 MG 00:00: every 30 of tablet 00 days. Medicin e ibandronate 2016-0 Yes [id number] 150mg Take 1 Tab [facility] (BONIVA) 1-06 by mouth [facility] 150 MG 00:00: every 30 of tablet 00 days. Medicin e ibandronate 2016-0 Yes [id number] 150mg Take 1 Tab [facility] (BONIVA) 1-06 by mouth [facility] 150 MG 00:00: every 30 of tablet 00 days. Medicin e ibandronate 2016-0 Yes [id number] 150mg Take 1 Tab [facility] (BONIVA) 1-06 by mouth [facility] 150 MG 00:00: every 30 of tablet 00 days. Medicin e ibandronate 2016-0 Yes [id number] 150mg Take 1 Tab [facility] (BONIVA) 1-06 by mouth [facility] 150 MG 00:00: every 30 of tablet 00 days. Medicin e ibandronate 2017-0 Yes [id number] 150mg Take 1 Tab [facility] (BONIVA) 1-06 by mouth [facility] 150 MG 00:00: every 30 of tablet 00 days. Medicin e ibandronate 2017-0 2020- No [id number] 150mg Take 1 Tab [facility] (BONIVA) 1-06 12-10 by mouth Colleg e 150 MG 00:00: 00:00 every 30 of tablet 00 :00 days. Medicin e ondansetron 2015- Yes [id number] 4mg Take 1 Tab [facility] (ZOFRAN 1-13 by mouth [facility] ODT) 4 mg 00:00: every 8 of disintegrat 00 hours as Medi richelle ing tablet needed for e Nausea. Immunizations Ordered Immunization Filled Immunization Date Status Commen ts Source Name Name Influenza Quad-PF 2021-04-05 Completed [facility] 00:00:00 of Medicine Influenza Quad-PF 2021-04-05 Completed [facility] 00:00:00 of Medicine Influenza Quad-PF 2021-04-05 Completed [facility] 00:00:00 of Medicine Influenza Quad-PF 2021-04-05 Completed [facility] 00:00:00 of Medicine Influenza Quad-PF 2021-04-05 Completed [facility] 00:00:00 of Medicine Influenza Quad-PF 2021-04-05 Completed [facility] 00:00:00 of Medicine Influenza Quad-PF 2021-04-05 Completed [facility] 00:00:00 of Medicine Influenza Quad-PF 2021-04-05 Completed [facility] 00:00:00 of Medicine Pfizer SARS-CoV-2 2021-03-22 Completed [facility] Vaccination 00:00:00 of Medicine Pfizer SARS-CoV-2 2021-03-22 Completed [facility] Vaccination 00:00:00 of Medicine Pfizer SARS-CoV-2 2021-03-22 Completed [facility] Vaccination 00:00:00 of Medicine Pfizer SARS-CoV-2 2021-03-22 Completed [facility] Vaccination 00:00:00 of Medicine Pfizer SARS-CoV-2 2021-03-22 Completed [facility] Vaccination 00:00:00 of Medicine Pfizer SARS-CoV-2 2021-03-22 Completed [facility] Vaccination 00:00:00 of Medicine Pfizer SARS-CoV-2 2021-03-22 Completed [facility] Vaccination 00:00:00 of Medicine Pfizer SARS-CoV-2 2021-03-22 Completed [facility] Vaccination 00:00:00 of Medicine Pfizer SARS-CoV-2 2021-03-22 Completed [facility] Vaccination 00:00:00 of Medicine Pfizer SARS-CoV-2 2021-03-22 Completed [facility] Vaccination 00:00:00 of Medicine PPD Test 2020-10-04 Completed [facility] 00:00:00 of Medicine PPD Test 2020-10-04 Completed [facility] 00:00:00 of Medicine PPD Test 2020-10-04 Completed [facility] 00:00:00 of Medicine PPD Test 2020-10-04 Completed [facility] 00:00:00 of Medicine PPD Test 2020-10-04 Completed [facility] 00:00:00 of Medicine PPD Test 2020-10-04 Completed [facility] 00:00:00 of Medicine PPD Test 2020-10-04 Completed [facility] 00:00:00 of Medicine PPD Test 2020-10-04 Completed [facility] 00:00:00 of Medicine PPD Test 2020-10-04 Completed [facility] 00:00:00 of Medicine PPD Test 2020-10-04 Completed [facility] 00:00:00 of Medicine PPD Test 2020-10-04 Completed [facility] 00:00:00 of Medicine PPD Test 2020-10-04 Completed [facility] 00:00:00 of Medicine PPD Test 2020-10-04 Completed [facility] 00:00:00 of Medicine PPD Test 2020-10-04 Completed [facility] 00:00:00 of Medicine PPD Test 2020-10-04 Completed [facility] 00:00:00 of Medicine PPD Test 2020-10-04 Completed [facility] 00:00:00 of Medicine PPD Test 2020-10-04 Completed [facility] 00:00:00 of Medicine Influenza Quad-PF 2019-05-20 Completed [facility] 00:00:00 of Medicine Influenza Quad-PF 2019-05-20 Completed [facility] 00:00:00 of Medicine Influenza Quad-PF 2019-05-20 Completed [facility] 00:00:00 of Medicine Influenza Quad-PF 2019-05-20 Completed [facility] 00:00:00 of Medicine Influenza Quad-PF 2019-05-20 Completed [facility] 00:00:00 of Medicine Influenza Quad-PF 2019-05-20 Completed [facility] 00:00:00 of Medicine Influenza Quad-PF 2019-05-20 Completed [facility] 00:00:00 of Medicine Influenza Quad-PF 2019-05-20 Completed [facility] 00:00:00 of Medicine Influenza Quad-PF 2019-05-20 Completed [facility] 00:00:00 of Medicine Influenza Quad-PF 2019-05-20 Completed [facility] 00:00:00 of Medicine Influenza Quad-PF 2019-05-20 Completed [facility] 00:00:00 of Medicine Influenza Quad-PF 2019-05-20 Completed [facility] 00:00:00 of Medicine Influenza Quad-PF 2019-05-20 Completed [facility] 00:00:00 of Medicine Influenza Quad-PF 2019-05-20 Completed [facility] 00:00:00 of Medicine Influenza Quad-PF 2019-05-20 Completed [facility] 00:00:00 of Medicine Influenza Quad-PF 2019-05-20 Completed [facility] 00:00:00 of Medicine Influenza Quad-PF 2019-05-20 Completed [facility] 00:00:00 of Medicine PPD Test 2018-09-22 Completed [facility] 00:00:00 of Medicine PPD Test 2018-09-22 Completed [facility] 00:00:00 of Medicine PPD Test 2018-09-22 Completed [facility] 00:00:00 of Medicine PPD Test 2018-09-22 Completed [facility] 00:00:00 of Medicine PPD Test 2018-09-22 Completed [facility] 00:00:00 of Medicine PPD Test 2018-09-22 Completed [facility] 00:00:00 of Medicine PPD Test 2018-09-22 Completed [facility] 00:00:00 of Medicine PPD Test 2018-09-22 Completed [facility] 00:00:00 of Medicine PPD Test 2018-09-22 Completed [facility] 00:00:00 of Medicine PPD Test 2018-09-22 Completed [facility] 00:00:00 of Medicine PPD Test 2018-09-22 Completed [facility] 00:00:00 of Medicine PPD Test 2018-09-22 Completed [facility] 00:00:00 of Medicine PPD Test 2018-09-22 Completed [facility] 00:00:00 of Medicine PPD Test 2018-09-22 Completed [facility] 00:00:00 of Medicine PPD Test 2018-09-22 Completed [facility] 00:00:00 of Medicine PPD Test 2018-09-22 Completed [facility] 00:00:00 of Medicine PPD Test 2018-09-22 Completed [facility] 00:00:00 of Medicine Influenza Quad-PF 2017-07-14 Completed [facility] 00:00:00 of Medicine Influenza Quad-PF 2017-07-14 Completed [facility] 00:00:00 of Medicine Influenza Quad-PF 2017-07-14 Completed [facility] 00:00:00 of Medicine Influenza Quad-PF 2017-07-14 Completed [facility] 00:00:00 of Medicine Influenza Quad-PF 2017-07-14 Completed [facility] 00:00:00 of Medicine Influenza Quad-PF 2017-07-14 Completed [facility] 00:00:00 of Medicine Influenza Quad-PF 2017-07-14 Completed [facility] 00:00:00 of Medicine Influenza Quad-PF 2017-07-14 Completed [facility] 00:00:00 of Medicine Influenza Quad-PF 2017-07-14 Completed [facility] 00:00:00 of Medicine Influenza Quad-PF 2017-07-14 Completed [facility] 00:00:00 of Medicine Influenza Quad-PF 2017-07-14 Completed [facility] 00:00:00 of Medicine Influenza Quad-PF 2017-07-14 Completed [facility] 00:00:00 of Medicine Influenza Quad-PF 2017-07-14 Completed [facility] 00:00:00 of Medicine Influenza Quad-PF 2017-07-14 Completed [facility] 00:00:00 of Medicine Influenza Quad-PF 2017-07-14 Completed [facility] 00:00:00 of Medicine Influenza Quad-PF 2017-07-14 Completed [facility] 00:00:00 of Medicine Influenza Quad-PF 2017-07-14 Completed [facility] 00:00:00 of Medicine Tetanus 2015-01-30 Completed [facility] 00:00:00 of Medicine Tetanus 2015-01-30 Completed [facility] 00:00:00 of Medicine Tetanus 2015-01-30 Completed [facility] 00:00:00 of Medicine Tetanus 2015-01-30 Completed [facility] 00:00:00 of Medicine Tetanus 2015-01-30 Completed [facility] 00:00:00 of Medicine Tetanus 2015-01-30 Completed [facility] 00:00:00 of Medicine Tetanus 2015-01-30 Completed [facility] 00:00:00 of Medicine Tetanus 2015-01-30 Completed [facility] 00:00:00 of Medicine Tetanus 2015-01-30 Completed [facility] 00:00:00 of Medicine Tetanus 2015-01-30 Completed [facility] 00:00:00 of Medicine Tetanus 2015-01-30 Completed [facility] 00:00:00 of Medicine Tetanus 2015-01-30 Completed [facility] 00:00:00 of Medicine Tetanus 2015-01-30 Completed [facility] 00:00:00 of Medicine Tetanus 2015-01-30 Completed [facility] 00:00:00 of Medicine Tetanus 2015-01-30 Completed [facility] 00:00:00 of Medicine Tetanus 2015-01-30 Completed [facility] 00:00:00 of Medicine Tetanus 2015-01-30 Completed [facility] 00:00:00 of Medicine Hep A/Hep B 2011-02-05 Completed [facility] 00:00:00 of Medicine Hep A/Hep B 2011-02-05 Completed [facility] 00:00:00 of Medicine Hep A/Hep B 2011-02-05 Completed [facility] 00:00:00 of Medicine Hep A/Hep B 2011-02-05 Completed [facility] 00:00:00 of Medicine Hep A/Hep B 2011-02-05 Completed [facility] 00:00:00 of Medicine Hep A/Hep B 2011-02-05 Completed [facility] 00:00:00 of Medicine Hep A/Hep B 2011-02-05 Completed [facility] 00:00:00 of Medicine Hep A/Hep B 2011-02-05 Completed [facility] 00:00:00 of Medicine Hep A/Hep B 2011-02-05 Completed [facility] 00:00:00 of Medicine Hep A/Hep B 2011-02-05 Completed [facility] 00:00:00 of Medicine Hep A/Hep B 2011-02-05 Completed [facility] 00:00:00 of Medicine Hep A/Hep B 2011-02-05 Completed [facility] 00:00:00 of Medicine Hep A/Hep B 2011-02-05 Completed [facility] 00:00:00 of Medicine Hep A/Hep B 2011-02-05 Completed [facility] 00:00:00 of Medicine Hep A/Hep B 2011-02-05 Completed [facility] 00:00:00 of Medicine Hep A/Hep B 2011-02-05 Completed [facility] 00:00:00 of Medicine Hep A/Hep B 2011-02-05 Completed [facility] 00:00:00 of Medicine Pneumococcal 2010-11-05 Completed [facility] Polysaccharide 00:00:00 of Medicin e Pneumococcal 2010-11-05 Completed [facility] Polysaccharide 00:00:00 of Medicin e Pneumococcal 2010-11-05 Completed [facility] ge Polysaccharide 00:00:00 of Medicin e Pneumococcal 2010-11-05 Completed [facility] Polysaccharide 00:00:00 of Medicin e Pneumococcal 2010-11-05 Completed [facility] Polysaccharide 00:00:00 of Medicin e Pneumococcal 2010-11-05 Completed [facility] ge Polysaccharide 00:00:00 of Medicin e Pneumococcal 2010-11-05 Completed [facility] Polysaccharide 00:00:00 of Medicin e Pneumococcal 2010-11-05 Completed [facility] ge Polysaccharide 00:00:00 of Medicin e Pneumococcal 2010-11-05 Completed [facility] Polysaccharide 00:00:00 of Medicin e Pneumococcal 2010-11-05 Completed [facility] Polysaccharide 00:00:00 of Medicin e Pneumococcal 2010-11-05 Completed [facility] ge Polysaccharide 00:00:00 of Medicin e [...] 00:00:00 of Medicin e Pneumococcal 2010-11-05 Completed [facility] Colle ge Polysaccharide 00:00:00 of Medicin e Vital Signs Vital Name Observation Time Observation Value Comments Source HEIGHT 2021-03-01 07:00:00 185.4 cm WEIGHT 2021-03-01 07:00:00 68.085 kg HEIGHT 2021-02-28 09:45:00 185.4 cm WEIGHT 2021-02-28 09:45:00 71.668 kg HEIGHT 2021-11-03 21:00:00 185.4 cm WEIGHT 2021-11-03 21:00:00 67.586 kg HEIGHT 2021-11-03 21:00:00 185.4 cm WEIGHT 2021-11-03 21:00:00 67.586 kg Systolic blood 2021-09-27 16:30:00 126 mm[Hg] [facility] pressure Medicine Diastolic blood 2021-09-27 16:30:00 80 mm[Hg] [facility] Medicine Heart rate 2021-09-27 16:30:00 105 /min [facility] Body temperature 2021-09-27 16:30:00 36.28 Kimberly [facility] Respiratory rate 2021-09-27 16:30:00 14 /min [facility] Body height 2021-09-27 16:30:00 185.4 cm [facility] Body weight 2021-09-27 16:30:00 71.124 kg [facility] BMI 2021-09-27 16:30:00 20.69 kg/m2 [facility] Systolic blood 2021-09-26 14:16:00 119 mm[facility]Hg[facility] Diastolic blood 2021-09-26 14:16:00 77 mm[facility]Hg[facility] Heart rate 2021-09-26 14:16:00 131 [facility] Body temperature 2021-09-26 14:16:00 36.94 [facility] Body height 2021-09-26 14:16:00 [facility] Body weight 2021-09-26 14:16:00 [facility]305 [facility] BMI 2021-09-26 14:16:00 20[facility]74 [facility] 2021-09-26 14:16:00 100 /min [facility] Arterial blood by Pulse oximetry HEIGHT 2021-05-06 09:00:00 185.4 cm WEIGHT 2021-05-06 09:00:00 68.04 kg Systolic blood 2021-02-12 14:52:00 115 mm[Hg] [facility] Medicine Diastolic blood 2021-02-12 14:52:00 77 mm[Hg] [facility] Medicine Heart rate 2021-02-12 14:52:00 108 /min [facility] Respiratory rate 2021-02-12 14:52:00 14 /min [facility] Body height 2021-02-12 14:52:00 185.4 cm [facility] Body weight 2021-02-12 14:52:00 71.668 kg [facility] BMI 2021-02-12 14:52:00 20.85 kg/m2 [facility] Systolic blood 2020-11-14 13:35:00 110 mm[Hg] [facility] pressure Medicine Diastolic blood 2020-11-14 13:35:00 76 mm[Hg] [facility] Medicine Heart rate 2020-11-14 13:35:00 109 /min [facility] Body temperature 2020-11-14 13:35:00 36.61 Kimberly [facility] Body height 2020-11-14 13:35:00 185.4 cm [facility] Body weight 2020-11-14 13:35:00 72.122 kg [facility] BMI 2020-11-14 13:35:00 20.98 kg/m2 [facility] Weight 2014-12-12 12:25:00 [facility] BMI Calculated 2014-12-12 12:25:00 Carmen del rio Giuseppe Height 2014-12-12 12:25:00 185.42 cm [facility] Procedures Procedure Date / Time Performed Performing Clinician [facility] e CHG RADIOLOGIC EXAM 2021-02-13 00:00:00 Provider, Historical [facility] CHEST 2 VIEWS Medicine Plan of Care Planned Activity Planned Date Details Comments Source Future Scheduled 2021-10-23 CT ABD/PELVIS 1 Occurrences [facility] Test 14:55:11 ENTEROGRAPHY W [code = starting of Nv dicine 93987-8] 10/23/2021 until 10/23/2022 Future Scheduled 2021-10-23 Human immunodeficiency B [facility] Test 13:38:41 virus screening of Medicine (procedure) [code = 146626649] Future Scheduled 2021-10-23 FLU VACCINE > 6 MONTHS B [facility] Test 13:38:41 [code = FLU VACCINE > 6 of M edicine MONTHS] Future Scheduled 2021-10-23 TETANUS SHOT (ADULT) [facility] Test 13:38:41 [code = TETANUS SHOT of Medi cine (ADULT)] Future Scheduled 2021-10-17 Human immunodeficiency B [facility] Test 08:51:26 virus screening of Medicine (procedure) [code = 983749558] Future Scheduled 2021-10-17 FLU VACCINE > 6 MONTHS B [facility] Test 08:51:26 [code = FLU VACCINE > 6 of M edicine MONTHS] Future Scheduled 2021-10-17 TETANUS SHOT (ADULT) [facility] Test 08:51:26 [code = TETANUS SHOT of Medi cine (ADULT)] Future Scheduled 2021-08-14 Human immunodeficiency B [facility] Test 13:40:17 virus screening of Medicine (procedure) [code = 526318231] Future Scheduled 2021-08-14 TETANUS SHOT (ADULT) [facility] Test 13:40:17 [code = TETANUS SHOT of Medi cine (ADULT)] Future Scheduled 2021-07-15 Human immunodeficiency B [facility] Test 13:50:38 virus screening of Medicine (procedure) [code = 793475071] Future Scheduled 2021-07-15 TETANUS SHOT (ADULT) [facility] Test 13:50:38 [code = TETANUS SHOT of Medi cine (ADULT)] Future Scheduled 2021-06-05 Human immunodeficiency B [facility] Test 12:11:12 virus screening of Medicine (procedure) [code = 979013252] Future Scheduled 2021-06-05 TETANUS SHOT (ADULT) [facility] Test 12:11:12 [code = TETANUS SHOT of Medi cine (ADULT)] Future Scheduled 2021-05-22 Human immunodeficiency B [facility] Test 09:55:01 virus screening of Medicine (procedure) [code = 215207237] Future Scheduled 2021-05-22 TETANUS SHOT (ADULT) [facility] Test 09:55:01 [code = TETANUS SHOT of Medi cine (ADULT)] Future Scheduled 2021-05-17 Human immunodeficiency B [facility] Test 12:55:55 virus screening of Medicine (procedure) [code = 469524141] Future Scheduled 2021-05-17 TETANUS SHOT (ADULT) [facility] Test 12:55:55 [code = TETANUS SHOT of Medi cine (ADULT)] Future Scheduled 2021-04-19 Human immunodeficiency B [facility] Test 10:02:06 virus screening of Medicine (procedure) [code = 464216891] Future Scheduled 2021-04-19 TETANUS SHOT (ADULT) [facility] Test 10:02:06 [code = TETANUS SHOT of Medi cine (ADULT)] Future Scheduled 2021-04-05 Human immunodeficiency B [facility] Test 13:20:07 virus screening of Medicine (procedure) [code = 222928865] Future Scheduled 2021-04-05 FLU VACCINE > 6 MONTHS B [facility] Test 13:20:07 [code = FLU VACCINE > 6 of M edicine MONTHS] Future Scheduled 2021-04-05 TETANUS SHOT (ADULT) [facility] Test 13:20:07 [code = TETANUS SHOT of Medi cine (ADULT)] Future Scheduled 2021-03-22 [facility] 14:25:40 virus screening of Medicine (procedure) [code = 863100720] Future Scheduled 2021-03-22 FLU VACCINE > 6 MONTHS B [facility] Test 14:25:40 [code = FLU VACCINE > 6 of M edicine MONTHS] Future Scheduled 2021-03-22 TETANUS SHOT (ADULT) [facility] Test 14:25:40 [code = TETANUS SHOT of Medi cine (ADULT)] Future Scheduled 2021-03-07 Human immunodeficiency B [facility] Test 13:34:05 virus screening of Medicine (procedure) [code = 050965247] Future Scheduled 2021-03-07 FLU VACCINE > 6 MONTHS B [facility] Test 13:34:05 [code = FLU VACCINE > 6 of M edicine MONTHS] Future Scheduled 2021-03-07 TETANUS SHOT (ADULT) [facility] Test 13:34:05 [code = TETANUS SHOT of Medi cine (ADULT)] Future Scheduled 2021-03-07 Human immunodeficiency B [facility] Test 13:34:05 virus screening of Medicine (procedure) [code = 356148755] Future Scheduled 2021-03-07 FLU VACCINE > 6 MONTHS B [facility] Test 13:34:05 [code = FLU VACCINE > 6 of M edicine MONTHS] Future Scheduled 2021-03-07 TETANUS SHOT (ADULT) [facility] Test 13:34:05 [code = TETANUS SHOT of Medi cine (ADULT)] Future Scheduled 2021-03-07 Human immunodeficiency B [facility] Test 13:34:05 virus screening of Medicine (procedure) [code = 358396881] Future Scheduled 2021-03-07 FLU VACCINE > 6 MONTHS B [facility] Test 13:34:05 [code = FLU VACCINE > 6 of M edicine MONTHS] Future Scheduled 2021-03-07 TETANUS SHOT (ADULT) [facility] Test 13:34:05 [code = TETANUS SHOT of Medi cine (ADULT)] Future Scheduled 2021-03-07 Human immunodeficiency B [facility] Test 13:34:05 virus screening of Medicine (procedure) [code = 030335486] Future Scheduled 2021-03-07 FLU VACCINE > 6 MONTHS [facility] Test 13:34:05 [code = FLU VACCINE > 6 of M edicine MONTHS] Future Scheduled 2021-03-07 TETANUS SHOT (ADULT) [facility] Test 13:34:05 [code = TETANUS SHOT of Medi cine (ADULT)] Future Scheduled 2021-03-07 Human immunodeficiency B [facility] Test 10:58:16 virus screening of Medicine (procedure) [code = 839683922] Future Scheduled 2021-03-07 FLU VACCINE > 6 MONTHS B [facility] Test 10:58:16 [code = FLU VACCINE > 6 of M edicine MONTHS] Future Scheduled 2021-03-07 TETANUS SHOT (ADULT) [facility] Test 10:58:16 [code = TETANUS SHOT of Medi cine (ADULT)] Future Scheduled 2021-03-07 Human immunodeficiency B [facility] Test 10:58:16 virus screening of Medicine (procedure) [code = 926775274] Future Scheduled 2021-03-07 FLU VACCINE > 6 MONTHS B [facility] Test 10:58:16 [code = FLU VACCINE > 6 of M edicine MONTHS] Future Scheduled 2021-03-07 TETANUS SHOT (ADULT) [facility] Test 10:58:16 [code = TETANUS SHOT of Medi cine (ADULT)] Future Scheduled 2021-02-12 XR CHEST PA AND LATERAL 1 Occurrences [facility] Test 10:46:27 [code = 93210-6] starting of Medicine 02/12/2021 until 02/12/2022 Future Scheduled 2021-02-12 XR CHEST PA AND LATERAL 1 Occurrences [facility] Test 10:46:27 [code = 78907-4] starting of Medicine 02/12/2021 until 02/12/2022 Future Scheduled 2020-11-14 CBC W/O DIFF W PLT Ordered: [facility] Test 09:16:48 [code = 6690-2] 11/14/2020 of Medicine Future Scheduled 2020-11-14 COMPREHENSIVE METABOLIC Ordered: [facility] Test 09:16:48 PANEL [code = 28429-1] 11/14/2020 of Me dicine Future Scheduled 2020-11-14 SEDIMENTATION RATE Ordered: [facility] Test 09:16:48 LEW RIDDLE 11/14/2020 of Medic ine [code = 4537-7] Future Scheduled 2020-11-14 C-REACTIVE PROTEIN Ordered: [employer] Test 09:16:48 [code = 1988-5] 11/14/2020 of Medicine Future Scheduled 2020-11-14 VITAMIN B12 [code = Ordered: [employer] Test 09:16:48 2-9] 11/14/2020 of Medicine Future Scheduled 2020-11-14 VITAMIN D 25 HYDROXY Ordered: [place] [facility] [employer] Test 09:16:48 [code = 1989-3] 11/14/2020 of Medicine Future Scheduled 2020-11-14 ZINC [code = 5763-8] Ordered: [employer] [facility] [employer] Test 09:16:48 11/14/2020 of Medicine Future Scheduled 2020-11-14 FERRITIN [code = Ordered: [facility] [employer] Test 09:16:48 69439-1] 11/14/2020 of Medicine Future Scheduled 2020-11-14 FOLATE RBC [code = Ordered: [employer] Test 09:16:48 2283-0] 11/14/2020 of Medicine Future Scheduled 2020-11-14 CT ABDOMEN PELVIS W 1 Occurrences [employer] [facility] [employer] Test 09:16:16 CONTRAST [code = starting of Medicine 85174-5] 11/14/2020 until 11/14/2021 Future Scheduled 2020-11-14 COLONOSCOPY W MAC GI 1 Occurrences [employer] [employer] Test 09:16:16 DEPT [code = 41530] starting of Medic ine 11/14/2020 until 05/17/2021 Future Scheduled 2020-11-14 Human immunodeficiency B [facility] Test 08:35:33 virus screening of Medicine (procedure) [code = 834768376] Future Scheduled 2020-11-14 FLU VACCINE > 6 MONTHS B [facility] Test 08:35:33 [code = FLU VACCINE > 6 of M edicine MONTHS] Future Scheduled 2020-11-14 TETANUS SHOT (ADULT) [facility] Test 08:35:33 [code = TETANUS SHOT of Medi cine (ADULT)] Encounters Start End Encounter Admission Attending Care Care Encounter Source Date/Time Date/Time Type Type Clinicians Facility Department ID 2021-09-26 Outpatient [facility] [id number] [place] 08:56:26 CANDELARIA [id number] [facility] 2021-09-20 Outpatient [facility] [id number] [place] 13:51:51 CANDELARIA [id number] [facility] 2021-09-19 Outpatient JUAN [facility] ER [id number] [place] 09:33:27 CANDELARIA [id number] [facility] 2021-03-17 Outpatient CARMEN [facility] Surgery [id number] SLE 13:26:07 [facility] 2021-11-03 2021-11-07 [id number] [facility] 20:00:00 11:10:00 [facility] 2021-11-01 2021-11-01 Outpatient TINO MORALES [facility] [id number] [facility] 08:53:57 23:59:00 [facility] 2021-10-23 2021-10-23 Office MITALI MORALES [id number] [place] [address] 14:06:05 16:07:33 Visit [facility] 350.1.13.21 College Y 0.2.7.2.686 of [id number] Medi richelle 325 e 2021-09-27 2021-09-27 Office MITALI MORLAES 1.2.840.[id number] [place] [address] 10:50:00 13:03:46 [address] [facility] 350.1.13.21 College Y 0.2.7.2.686 of [id number] Medi richelle 325 e 2021-09-26 2021-09-26 Office MARYELLEN Wood 6410 1.2.840.114 [id number] [place] 09:30:00 09:56:[address] 350.1.13.58 Health 9.2.7.2.686 [id number] 2021-08-14 2021-08-14 Office MITALI MORALES 1.2.840.114 [id number] [facility] 14:24:17 16:55:28 Visit [facility] 350.1.13.21 College Y 0.2.7.2.686 of [id number] Medi richelle 325 e 2021-07-22 2021-07-22 Telephone MARYELLEN Mares 6410 1.2.840.114 13 [id number] [place] 00:00:00 00:00:[address] 350.1.13.58 Health 9.2.7.2.686 [id number] 2021-06-19 2021-06-19 Office MIRIAM MORALES 1.2.840.114 [id number] [facility] 12:53:41 15:00:56 Visit [facility] AMB[facility]ATOR 350.1.13.21 College Y 0.2.7.2.686 of [id number] Medi richelle 325 e 2021-06-05 2021-06-12 Office MIRIAM BHANDARI 1.2.840.114 [id number] [facility] 12:49:39 21:09:08 Visit SHAWN AMBULATOR 350.1.13.21 College Y 0.2.7.2.686 of [id number] Medi richelle 325 e 2021-05-22 2021-05-22 Office MIRIAM MORALES 1.2.840.114 [id number] [facility] 13:17:36 15:17:01 Visit [facility] 350.1.13.21 College Y 0.2.7.2.686 of [id number] Medi richelle 325 e 2021-05-17 2021-05-17 Office MIRIAM MORALES 1.2.840.114 [id number] [facility] 12:53:37 14:34:32 Visit [facility] 350.1.13.21 College Y 0.2.7.2.686 of [id number] Medi richelle 325 e 2021-05-06 2021-05-08 Outpatient MITALI SCHWARZ [facility] [id number] [facility] 10:26:01 09:03:17 [facility] [employer] [facility] 2021-05-06 2021-05-06 Outpatient [facility] [id number] [facility] 08:27:00 23:59:00 [facility] 2021-05-06 2021-05-06 Outpatient CHONG [facility] Surgery [id number] [facility] 08:27:00 11:06:00 SUNEAL 2021-04-19 2021-04-19 Office MIRIAM MORALES 1.2.840.114 [id number] [facility] 13:22:19 16:02:41 Visit [facility] AMB[facility]ATOR 350.1.13.21 College Y 0.2.7.2.686 of [id number] Medi richelle 325 e 2021-04-05 2021-04-05 Office MITALI MORALES 1.2.840.114 [id number] [facility] 13:20:27 15:20:49 Visit [facility] AMB[facility]ATOR 350.1.13.21 College Y 0.2.7.2.686 of [id number] Medi richelle 325 e 2021-03-22 2021-03-22 Office MITALI MORALES 1.2.840.114 [id number] [facility] 13:08:43 17:15:13 Visit [facility] AMB[facility]ATOR 350.1.13.21 College Y 0.2.7.2.686 of [id number] Medi richelle 325 e 2021-03-22 2021-03-22 Outpatient [facility] [id number] [facility] 14:21:38 16:22:10 [facility] 2021-03-07 2021-03-07 Office MIRIAM MORALES 1.2.840.114 [id number] [facility] 11:45:10 14:53:45 Visit [facility] AMB[facility]ATOR 350.1.13.21 College Y 0.2.7.2.686 of [id number] Medi ric[facility]le 325 e 2021-03-01 2021-03-06 [id number] [facility] 16:45:31 12:10:24 [facility] [facility] [employer] [facility] 2021-02-28 2021-02-28 Outpatient EL [facility] [id number] SLE 00:00:00 00:00:00 2021-02-28 2021-02-28 Outpatient SLE SLE [id number] [facility] 00:00:00 00:00:00 2021-02-28 2021-02-28 Outpatient EL [facility] [id number] [facility] 00:00:00 00:00:00 2021-02-18 2021-02-18 [facility] [id number] [facility] 09:31:35 13:59:15 [facility] [facility] [employer] [facility] 2021-02-132021-02-13 Office MIRIAM Morales 1.2.840.114 [id number] [facility] 08:39:36 14:23:31 Visit [facility]reet AMBULATOR 350.1.13.21 College Y 0.2.7.2.686 of [id number] [facility] richelle 325 e 2021-02-12 2021-02-12 Office MITALI Morales 1.2.840.114 [id number] [facility] 09:38:06 15:44:28 Visit Manreet AMBULATOR 350.1.13.21 College Y 0.2.7.2.686 of [id number] [facility] richelle 325 e 2021-02-12 2021-02-12 Outpatient CARMEN [facility] [id number] [facility] 00:00:00 00:00:00 [facility] 2020-12-19 2020-12-19 Outpatient CARMEN [facility] [id number] [facility] 13:13:11 16:14:[address] [facility] [facility] [employer] 2020-12-13 2020-12-13 [facility] [id number] [facility] 12:27:03 12:27:[address] [facility] [employer] 2020-11-30 2020-11-30 Outpatient CARMEN [facility] [id number] [facility] 00:00:00 00:00:00 [facility] 2020-11-14 2020-11-14 Office MIRIAM Morales 1.2.840.114 [id number] [facility] 08:18:58 08:48:58 Visit [facility]reet AMBULATOR 350.1.13.21 College Y 0.2.7.2.686 of [id number] [facility] richelle 325 e 2014-12-12 2014-12-13 Outpatient [facility] [id number] [facility] 12:16:00 04:59:[address] Results Test Description Test Time Test Comments Results Result Comments Source POCT-GLUCOSE METER 2021-11-07 08:56:25 Test Item Value Reference Range Interpretation Comme nts POC-GLUCOSE METER (CHERYLE) 141 mg/dL 70-110 H : TESTED AT [address] (test code = 1538) PKWSILVIO Triana [facility] [address]: Payroll Auditor/Techni nicky ID = [id number] for Gasper Jaramillo [id number] 08:00:19 Test Item Value Reference Range Interpretation Comments MAGNESIUM (BEAKER) (test code = 2.2 mg/dL 1.5-3.0 627) Payroll Auditor ID - DSENSONOperator ID - DSENSONOperator ID - DSENSONOperator ID - DSENSONBASIC METABOLIC [id number] 05:58:58 Test Item Value Reference Range Interpretation Comments SODIUM (BEAKER) 140 meq/L 135-148 (test code = 381) POTASSIUM (BEAKER) 3.6 meq/L 3.6-5.5 (test code = 379) CHLORIDE (BEAKER) 108 meq/L 98-106 H (test code = 382) CO2 (BEAKER) (test 23 meq/L 20-29 code = 355) BLOOD UREA NITROGEN 17 mg/dL 10-26 (BEAKER) (test code = 354) CREATININE (BEAKER) 0.66 mg/dL 0.50-1.20 (test code = 358) GLUCOSE RANDOM 123 mg/dL 70-110 H (BEAKER) (test code = 652) CALCIUM (BEAKER) 8.2 mg/dL 8.5-10.5 L (test code = 697) EGFR (BEAKER) (test 137 mL/min/1.73 ESTIM ATED GFR IS code = 1092) sq m NOT ACCURATE CREATININE CLEARANCE IN PREDICTING GLOMERULAR FILTRATION RATE . ESTIMATED GFR I S NOT APPLICABLE FOR DIALYSIS PATIEN TS. Payroll Auditor ID - [id number] ID - [id number] ID - [id number] ID - [id number] ID - [id number] ID - BPEH02Nrsrqnsq ID - ZOXA84Gglvezyx ID - [id number] ID - [id number] ID - [id number] ID - XSTO09Ncnlkyek ID - [id number] W/PLT COUNT & AUTO [id number] 05:38:44 Test Item Value Reference Range Interpretation Comments WHITE BLOOD CELL COUNT (BEAKER) 22.9 K/ L 4.0-10.0 H (test code = 775) RED BLOOD CELL COUNT (BEAKER) 4.61 M/ L 4.20-5.80 (test code = 761) HEMOGLOBIN (BEAKER) (test code = 11.6 GM/DL 13.0-16.8 L 410) HEMATOCRIT (BEAKER) (test code = 34.9 % 36.0-50.0 L 411) MEAN CORPUSCULAR VOLUME (BEAKER) 75.7 fL 82.0-99.0 L (test code = 753) MEAN CORPUSCULAR HEMOGLOBIN 25.2 pg 27.0-33.0 L (BEAKER) (test code = 751) MEAN CORPUSCULAR HEMOGLOBIN CONC 33.2 GM/DL 32.0-36.0 (BEAKER) (test code = 752) RED CELL DISTRIBUTION WIDTH 14.0 % 12.0-15.0 (BEAKER) (test code = 412) PLATELET COUNT (BEAKER) (test 407 K/CU MM 150-430 code = 756) MEAN PLATELET VOLUME (BEAKER) 9.6 fL 6.0-11.5 (test code = 754) NUCLEATED RED BLOOD CELLS 0 /100 WBC 0-0 (BEAKER) (test code = 413) NEUTROPHILS RELATIVE PERCENT 94 % (BEAKER) (test code = 429) LYMPHOCYTES RELATIVE PERCENT 1 % (BEAKER) (test code = 430) MONOCYTES RELATIVE PERCENT 4 % (BEAKER) (test code = 431) EOSINOPHILS RELATIVE PERCENT 0 % (BEAKER) (test code = 432) BASOPHILS RELATIVE PERCENT 0 % (BEAKER) (test code = 437) NEUTROPHILS ABSOLUTE COUNT 21.57 K/ L 1.80-8.00 H (BEAKER) (test code = 670) LYMPHOCYTES ABSOLUTE COUNT 0.32 K/ L 1.48-4.50 L (BEAKER) (test code = 414) MONOCYTES ABSOLUTE COUNT (BEAKER) 0.81 K/ L 0.00-1.30 (test code = 415) EOSINOPHILS ABSOLUTE COUNT 0.00 K/ L 0.00-0.50 (BEAKER) (test code = 416) BASOPHILS ABSOLUTE COUNT (BEAKER) 0.03 K/ L 0.00-0.20 (test code = 417) IMMATURE GRANULOCYTES-RELATIVE 1 % 0-0 H PERCENT (BEAKER) (test code = 2801) POCT-GLUCOSE [id number] 10:52:02 Test Item Value Reference Range Interpretation Comments POC-GLUCOSE METER 139 mg/dL 70-110 H : TESTED A T [facility] [address] (BEAKER) (test code [address], = 1538) [facility] 77 478: Payroll Auditor/Techni nicky ID = [id number] for Josette Quiñones POCT-GLUCOSE [id number] 08:46:47 Test Item Value Reference Range Interpretation Comments POC-GLUCOSE METER 155 mg/dL 70-110 H : TESTED A T [facility] [address] (BEAKER) (test code [address], = 1538) [facility] 77 478: Payroll Auditor/Techni nicky ID = [id number] for Josette Quiñones BASIC METABOLIC [id number] 06:45:15 Test Item Value Reference Range Interpretation Comments SODIUM (BEAKER) 139 meq/L 135-148 (test code = 381) POTASSIUM (BEAKER) 4.2 meq/L 3.6-5.5 (test code = 379) CHLORIDE (BEAKER) 108 meq/L 98-106 H (test code = 382) CO2 (BEAKER) (test 25 meq/L 20-29 code = 355) BLOOD UREA NITROGEN 12 mg/dL 10-26 (BEAKER) (test code = 354) CREATININE (BEAKER) 0.69 mg/dL 0.50-1.20 (test code = 358) GLUCOSE RANDOM 126 mg/dL 70-110 H (BEAKER) (test code = 652) CALCIUM (BEAKER) 8.6 mg/dL 8.5-10.5 (test code = 697) EGFR (BEAKER) (test 130 mL/min/1.73 ESTIM ATED GFR IS code = 1092) sq m NOT ACCURATE CREATININE CLEARANCE IN PREDICTING GLOMERULAR FILTRATION RATE . ESTIMATED GFR I S NOT APPLICABLE FOR DIALYSIS PATIEN TS. Payroll Auditor ID - LITOOperator ID - LITOOperator ID - LITOOperator ID - LITOOperator ID - LITOOperator ID - LITOOperator ID - LITOOperator ID - LITOOperator ID - LITOOperator ID - LITOOperator ID - LITOOperator ID - LITOCBC W/PLT COUNT & AUTO [id number] 06:26:41 Test Item Value Reference Range Interpretation Comments WHITE BLOOD CELL COUNT (BEAKER) 17.9 K/ L 4.0-10.0 H (test code = 775) RED BLOOD CELL COUNT (BEAKER) 4.80 M/ L 4.20-5.80 (test code = 761) HEMOGLOBIN (BEAKER) (test code = 12.0 GM/DL 13.0-16.8 L 410) HEMATOCRIT (BEAKER) (test code = 36.3 % 36.0-50.0 411) MEAN CORPUSCULAR VOLUME (BEAKER) 75.6 fL 82.0-99.0 L (test code = 753) MEAN CORPUSCULAR HEMOGLOBIN 25.0 pg 27.0-33.0 L (BEAKER) (test code = 751) MEAN CORPUSCULAR HEMOGLOBIN CONC 33.1 GM/DL 32.0-36.0 (BEAKER) (test code = 752) RED CELL DISTRIBUTION WIDTH 13.7 % 12.0-15.0 (BEAKER) (test code = 412) PLATELET COUNT (BEAKER) (test 407 K/CU MM 150-430 code = 756) MEAN PLATELET VOLUME (BEAKER) 9.4 fL 6.0-11.5 (test code = 754) NUCLEATED RED BLOOD CELLS 0 /100 WBC 0-0 (BEAKER) (test code = 413) NEUTROPHILS RELATIVE PERCENT 95 % (BEAKER) (test code = 429) LYMPHOCYTES RELATIVE PERCENT 2 % (BEAKER) (test code = 430) MONOCYTES RELATIVE PERCENT 2 % (BEAKER) (test code = 431) EOSINOPHILS RELATIVE PERCENT 0 % (BEAKER) (test code = 432) BASOPHILS RELATIVE PERCENT 0 % (BEAKER) (test code = 437) NEUTROPHILS ABSOLUTE COUNT 17.03 K/ L 1.80-8.00 H (BEAKER) (test code = 670) LYMPHOCYTES ABSOLUTE COUNT 0.28 K/ L 1.48-4.50 L (BEAKER) (test code = 414) MONOCYTES ABSOLUTE COUNT (BEAKER) 0.43 K/ L 0.00-1.30 (test code = 415) EOSINOPHILS ABSOLUTE COUNT 0.00 K/ L 0.00-0.50 (BEAKER) (test code = 416) BASOPHILS ABSOLUTE COUNT (BEAKER) 0.00 K/ L 0.00-0.20 (test code = 417) IMMATURE GRANULOCYTES-RELATIVE 1 % 0-0 H PERCENT (BEAKER) (test code = 2801) POCT-GLUCOSE [id number] 21:58:10 Test Item Value Reference Range Interpretation Comments POC-GLUCOSE METER 145 mg/dL 70-110 H : TESTED A T SLSL 1317 (BEAKER) (test code [address], = 1538) [facility] 77 478: Payroll Auditor/Techni nicky ID = [id number] for Jany Colon HEPATIC FUNCTION [id number] 09:32:06 Test Item Value Reference Range Interpretation Comments TOTAL PROTEIN (BEAKER) 6.8 gm/dL 6.0-8.5 Speci men slightly (test code = 770) hemolyzed ALBUMIN (BEAKER) (test 3.5 g/dL 3.5-5.0 Speci men slightly code = 1145) hemolyzed BILIRUBIN TOTAL 1.2 mg/dL 0.1-1.2 Specimen sli ghtly (BEAKER) (test code = hemoly zed 377) BILIRUBIN DIRECT 0.5 mg/dL 0.0-0.4 H Specimen sl ightly (BEAKER) (test code = hemoly zed 706) ALKALINE PHOSPHATASE 75 U/L 30-115 (BEAKER) (test code = 346) AST (SGOT) (BEAKER) 46 U/L 5-40 H Specimen slightly (test code = 353) hemolyzed ALT (SGPT) (BEAKER) 123 U/L 5-50 H Specimen slightly (test code = 347) hemolyzed Payroll Auditor ID - DSENSONOperator ID - DSENSONOperator ID - DSENSONOperator ID - DSENSONOperator ID - DSENSONOperator ID - DSENSONOperator ID - DSENSONOperator ID - DSENSONOperator ID - DSENSONOperator ID - DSENSONBASIC METABOLIC PANEL 2021-11-05 09:30:29 Test Item Value Reference Range Interpretation Comments SODIUM (BEAKER) 135 meq/L 135-148 (test code = 381) POTASSIUM (BEAKER) 4.4 meq/L 3.6-5.5 Specimen slightly (test code = 379) hemolyzed CHLORIDE (BEAKER) 105 meq/L 98-106 (test code = 382) CO2 (BEAKER) (test 23 meq/L 20-29 code = 355) BLOOD UREA NITROGEN 15 mg/dL 10-26 (BEAKER) (test code = 354) CREATININE (BEAKER) 0.72 mg/dL 0.50-1.20 Specimen slightly (test code = 358) hemolyzed GLUCOSE RANDOM 120 mg/dL 70-110 H (BEAKER) (test code = 652) CALCIUM (BEAKER) 8.9 mg/dL 8.5-10.5 (test code = 697) EGFR (BEAKER) (test 124 mL/min/1.73 ESTIM ATED GFR IS code = 1092) sq m NOT ACCURATE CREATININE CLEARANCE IN PREDICTING GLOMERULAR FILTRATION RATE . ESTIMATED GFR I S NOT APPLICABLE FOR DIALYSIS PATIEN TS. Payroll Auditor ID - DSENSONOperator ID - DSENSONOperator ID - DSENSONOperator ID - DSENSONOperator ID - DSENSONOperator ID - DSENSONOperator ID - DSENSONOperator ID - DSENSONOperator ID - DSENSONCBC W/PLT COUNT & AUTO DIFFERENTIAL 2021-11-05 09:13:31 Test Item Value Reference Range Interpretation Comments WHITE BLOOD CELL COUNT (BEAKER) 8.9 K/ L 4.0-10.0 (test code = 775) RED BLOOD CELL COUNT (BEAKER) 5.43 M/ L 4.20-5.80 (test code = 761) HEMOGLOBIN (BEAKER) (test code = 13.5 GM/DL 13.0-16.8 410) HEMATOCRIT (BEAKER) (test code = 41.8 % 36.0-50.0 411) MEAN CORPUSCULAR VOLUME (BEAKER) 77.0 fL 82.0-99.0 L (test code = 753) MEAN CORPUSCULAR HEMOGLOBIN 24.9 pg 27.0-33.0 L (BEAKER) (test code = 751) MEAN CORPUSCULAR HEMOGLOBIN CONC 32.3 GM/DL 32.0-36.0 (BEAKER) (test code = 752) RED CELL DISTRIBUTION WIDTH 13.8 % 12.0-15.0 (BEAKER) (test code = 412) PLATELET COUNT (BEAKER) (test 398 K/CU MM 150-430 code = 756) MEAN PLATELET VOLUME (BEAKER) 9.1 fL 6.0-11.5 (test code = 754) NUCLEATED RED BLOOD CELLS 0 /100 WBC 0-0 (BEAKER) (test code = 413) NEUTROPHILS RELATIVE PERCENT 94 % (BEAKER) (test code = 429) LYMPHOCYTES RELATIVE PERCENT 3 % (BEAKER) (test code = 430) MONOCYTES RELATIVE PERCENT 3 % (BEAKER) (test code = 431) EOSINOPHILS RELATIVE PERCENT 0 % (BEAKER) (test code = 432) BASOPHILS RELATIVE PERCENT 0 % (BEAKER) (test code = 437) NEUTROPHILS ABSOLUTE COUNT 8.40 K/ L 1.80-8.00 H (BEAKER) (test code = 670) LYMPHOCYTES ABSOLUTE COUNT 0.22 K/ L 1.48-4.50 L (BEAKER) (test code = 414) MONOCYTES ABSOLUTE COUNT (BEAKER) 0.25 K/ L 0.00-1.30 (test code = 415) EOSINOPHILS ABSOLUTE COUNT 0.00 K/ L 0.00-0.50 (BEAKER) (test code = 416) BASOPHILS ABSOLUTE COUNT (BEAKER) 0.00 K/ L 0.00-0.20 (test code = 417) IMMATURE GRANULOCYTES-RELATIVE 0 % 0-0 PERCENT (BEAKER) (test code = 2801) PROTHROMBIN TIME/[id number] 06:24:51 Test Item Value Reference Range Interpretation Comments PROTIME (BEAKER) 11.4 seconds 9.3-12.0 Final Infor mation (test code = 759) (Auto Outp ut) INR (BEAKER) (test 1.04 See_Comment Final Inf ormation code = 370) (Auto Output) [Automated mess age] The system Link_[employer]_ [employer] generated this result transmitted ref erence range: <=5.90. The reference range was not used to int erpret this result as normal/abnormal . RECOMMENDED COUMADIN/WARFARIN INR THERAPY RANGESSTANDARD DOSE: 2.0 - 3.0 Includes: PROPHYLAXIS forvenous thrombosis, systemic embolization; TREATMENT for venous thrombosis and/or pulmonary embolus.HIGH RISK: Target INR is 2.5-3.5 for patients with mechanical heart valves.[id number] 06:21:30 Test Item Value Reference Range Interpretation Comments MAGNESIUM (BEAKER) (test code = 1.9 mg/dL 1.5-3.0 627) Payroll Auditor ID - LITOOperator ID - LITOOperator ID - LITOOperator ID - LITOBASIC METABOLIC [id number] 06:19:48 Test Item Value Reference Range Interpretation Comments SODIUM (BEAKER) 136 meq/L 135-148 (test code = 381) POTASSIUM (BEAKER) 4.1 meq/L 3.6-5.5 (test code = 379) CHLORIDE (BEAKER) 105 meq/L 98-106 (test code = 382) CO2 (BEAKER) (test 25 meq/L 20-29 code = 355) BLOOD UREA NITROGEN 10 mg/dL 10-26 (BEAKER) (test code = 354) CREATININE (BEAKER) 0.81 mg/dL 0.50-1.20 (test code = 358) GLUCOSE RANDOM 94 mg/dL 70-110 (BEAKER) (test code = 652) CALCIUM (BEAKER) 8.6 mg/dL 8.5-10.5 (test code = 697) EGFR (BEAKER) (test 108 mL/min/1.73 ESTIM ATED GFR IS code = 1092) sq m NOT ACCURATE CREATININE CLEARANCE IN PREDICTING GLOMERULAR FILTRATION RATE . ESTIMATED GFR I S NOT APPLICABLE FOR DIALYSIS PATIEN TS. Payroll Auditor ID - LITOOperator ID - LITOOperator ID - LITOOperator ID - LITOOperator ID - LITOOperator ID - LITOOperator ID - LITOOperator ID - LITOOperator ID - [id number] 06:18:26 Test Item Value Reference Range Interpretation Comments PHOSPHORUS (BEAKER) (test code = 2.7 mg/dL 2.5-4.5 604) Payroll Auditor ID - LITOCBC W/PLT COUNT & AUTO [id number] 06:07:54 Test Item Value Reference Range Interpretation Comments WHITE BLOOD CELL COUNT (BEAKER) 11.3 K/ L 4.0-10.0 H (test code = 775) RED BLOOD CELL COUNT (BEAKER) 4.68 M/ L 4.20-5.80 (test code = 761) HEMOGLOBIN (BEAKER) (test code = 11.8 GM/DL 13.0-16.8 L 410) HEMATOCRIT (BEAKER) (test code = 36.0 % 36.0-50.0 411) MEAN CORPUSCULAR VOLUME (BEAKER) 76.9 fL 82.0-99.0 L (test code = 753) MEAN CORPUSCULAR HEMOGLOBIN 25.2 pg 27.0-33.0 L (BEAKER) (test code = 751) MEAN CORPUSCULAR HEMOGLOBIN CONC 32.8 GM/DL 32.0-36.0 (BEAKER) (test code = 752) RED CELL DISTRIBUTION WIDTH 13.9 % 12.0-15.0 (BEAKER) (test code = 412) PLATELET COUNT (BEAKER) (test 365 K/CU MM 150-430 code = 756) MEAN PLATELET VOLUME (BEAKER) 9.4 fL 6.0-11.5 (test code = 754) NUCLEATED RED BLOOD CELLS 0 /100 WBC 0-0 (BEAKER) (test code = 413) NEUTROPHILS RELATIVE PERCENT 78 % (BEAKER) (test code = 429) LYMPHOCYTES RELATIVE PERCENT 4 % (BEAKER) (test code = 430) MONOCYTES RELATIVE PERCENT 17 % (BEAKER) (test code = 431) EOSINOPHILS RELATIVE PERCENT 0 % (BEAKER) (test code = 432) BASOPHILS RELATIVE PERCENT 0 % (BEAKER) (test code = 437) NEUTROPHILS ABSOLUTE COUNT 8.77 K/ L 1.80-8.00 H (BEAKER) (test code = 670) LYMPHOCYTES ABSOLUTE COUNT 0.50 K/ L 1.48-4.50 L (BEAKER) (test code = 414) MONOCYTES ABSOLUTE COUNT (BEAKER) 1.96 K/ L 0.00-1.30 H (test code = 415) EOSINOPHILS ABSOLUTE COUNT 0.02 K/ L 0.00-0.50 (BEAKER) (test code = 416) BASOPHILS ABSOLUTE COUNT (BEAKER) 0.02 K/ L 0.00-0.20 (test code = 417) IMMATURE GRANULOCYTES-RELATIVE 0 % 0-0 PERCENT (BEAKER) (test code = 2801) SARS-COV2/RT-PCR ([facility])2021-03-01 04:27:03 Test Item Value Reference Range Interpretation Comments SARS-COV2/RT-PCR (test code = Negative Negative [id number]) Negative result for this test determines that [...] the Fisher SARS-CoV-2 assay.Fact Sheet for Healthcare Providers:https://www.molecular.fisher/lopez/RT SARS-CoV-2 HCP Fact Sheet 51- 252394.pdfFact Sheet for Healthcare Patients:https://www.molecular.fisher/lopez/RT SARS-CoV-2 Patient Fact Sheet EN 51-783504M0.pdfRAD, CHEST, 2 [id number] 12:47:00Reason for Exam:->Clinical trial [facility] : 1985 Sex: MFINAL REPORT [...] IMPRESSION: No acute cardiopulmonary abnormalities. Signed: Marcelo Simeonort Verified Date/Time: 02/12/2021 12:47:33 Reading Location: [facility] Reading Room [address] [place] [address] CT, ABDOMEN 2020-12-03 12:32:00Unlisted Reason for Exam - Click Yes and Enter Reason Below- >YesUnlisted Reason for Exam->k50.919Will this procedure require oral contrast?->[facility] : 1985 Sex: MFINAL [...] MDReport Verified Date/Time: 12/03/2020 12:32:44 Reading Location: [address] Reading Room TISSUE [id number] 14:29:00Surgical Pathology Report Case: [id number] Authorizing Provider: Bakari Morales MD Collected: 05/09/2019 0840 Ordering Location: [facility] Received: 05/09/2019 1230 SERVICES Pathologist: Sherine Calderon MD Specimens: A) - Biopsy, Terminal Ileum, Terminal ileum B) -Colon Biopsy, Random A. SMALL BOWEL, TERMINAL ILEUM, BIOPSIES: - CHRONIC ACTIVE ILEITISB. COLON, RANDOM BIOPSIES: - CHRONIC INACTIVE COLITIS, FOCAL Signing Pathologist Direct Phone Line: [phone] signed by Sherine Calderon MD on 05/10/2019 at 2:29 [id number] c3Voton's disease with complication, unspecified gastr ointestinal tract [...]
[2021-11-11 01:08] LABS: Absolute Lymphocytes (CBC) 0.6 K/uL (0.7-4.9); Hematocrit 36.1 % (39.6-49.0); MPV 7.5 fL (7.6-11.3); RBC Red Blood Cell Count 4.78 M/uL (4.33-5.43)
[2021-11-11 01:25] LABS: Albumin 2.5 g/dL (3.4-5.0); Bilirubin Total 0.7 mg/dL (0.2-1.0); Potassium 3.7 mmol/L (3.5-5.1); Protein, Total 5.3 g/dL (6.4-8.2)
--- NOTE | 2021-11-11 01:35 | ER ---
Nurse's Notes [facility] Name: David Mclaughlin Age: 35 yrs Sex: Male : 1985 Arrival Date: 11/11/2021 Time: 00:33 Bed 18 Private MD: Diagnosis: Crohn's disease, unspecified, with rectal bleeding;Anemia, unspecified Presentation: 11/11 00:33 Chief complaint: Patient states: I have had about 12 BM's today, I have had about 5-6 jb4 that were obviously bloody. They were dark read, I passed out for a few minutes at home. Coronavirus screen: At this time, the client does not indicate any symptoms associated with coronavirus-19. Ebola Screen: No symptoms or risks identified at this time. Initial Sepsis Screen: Does the patient meet any 2 criteria? HR > 90 bpm. Yes Does the patient have a suspected source of infection? No. Patient's initial sepsis screen is negative. Risk Assessment: Do you want to hurt yourself or someone else? Patient reports no desire to harm self or others. Onset of symptoms was November 11, 2021. Transition of care: patient was not received from another setting of care. 00:33 Method Of Arrival: EMS: [facility] jb4 00:33 Acuity: REJI 2 jb4 Historical: - Allergies: 00:35 No Known Allergies; jb4 - PMHx: 00:35 chiari malformation; Crohn's Disease; POTS; jb4 - PSHx: 00:35 bowel resection; Posterior fossa decompression; jb4 - Immunization history:: Adult Immunizations up to date. - Social history:: Smoking status: Patient denies any tobacco usage or history of. Screenin:36 Abuse screen: Denies threats or abuse. Nutritional screening: No deficits noted. jb4 Tuberculosis screening: No symptoms or risk factors identified. Fall Risk None identified. Assessment: 00:36 General: Appears in no apparent distress. comfortable, Behavior is calm, cooperative, jb4 appropriate for age. Pain: Denies pain. Neuro: Level of Consciousness is awake, alert, obeys commands, Oriented to person, place, time, situation. Cardiovascular: Patient's skin is warm and dry. Respiratory: Airway is patent Respiratory effort is even, unlabored, Respiratory pattern is regular, symmetrical. GI: Abdomen is flat, Reports diarrhea, bloody stool. : No signs and/or symptoms were reported regarding the genitourinary system. EENT: No signs and/or symptoms were reported regarding the EENT system. Derm: Skin is intact, Skin is dry, Skin is pale, Skin temperature is warm. Musculoskeletal: Circulation, motion, and sensation intact. Range of motion: intact in all extremities. 01:30 Reassessment: Patient appears in no apparent distress at this time. Patient and/or jb4 family updated on plan of care and expected duration. Pain level reassessed. Patient is alert, oriented x 3, equal unlabored respirations, skin warm/dry/pink. 02:27 Reassessment: Patient appears in no apparent distress at this time. Patient and/or jb4 family updated on plan of care and expected duration. Pain level reassessed. Patient is alert, oriented x 3, equal unlabored respirations, skin warm/dry/pink. 03:19 Reassessment: Patient appears in no apparent distress at this time. Patient and/or jb4 family updated on plan of care and expected duration. Pain level reassessed. Patient is alert, oriented x 3, equal unlabored respirations, skin warm/dry/pink. Pt reports being unable to urinate, bladder scanner show 999+, attempted to cath, pt urinated 400 ml after attempted cath. Physician instructed this nurse to no longer cath pt. Provider made aware pt hr currently 140. 03:53 Reassessment: Called report to JOVANI matos. ll3 04:16 Reassessment: Patient and/or family updated on plan of care and expected duration. Pain ll3 level reassessed. Patient is alert, oriented x 3, equal unlabored respirations, skin warm/dry/pink. Vital Signs: 00:33 BP 139 / 85; Pulse 131; Resp 20; Temp 99.0(TE); Pulse Ox 100% ; Weight 65.77 kg; Height jb4 6 ft. 1 in. (185.42 cm); Pain 0/10; 01:30 BP 116 / 80; Pulse 135; Resp 20; Pulse Ox 100% on R/A; jb4 02:15 BP 128 / 80; Pulse 138; Resp 24; Pulse Ox 100% on R/A; jb4 03:19 BP 133 / 98; Pulse 144; Resp 17; Pulse Ox 98% on R/A; jb4 04:16 BP 124 / 89; Pulse 134; Resp 19; Pulse Ox 100% on R/A; ll3 00:33 Body Mass Index 19.13 (65.77 kg, 185.42 cm) jb4 ED Course: 00:33 Patient arrived in ED. jb4 00:35 Triage completed. jb4 00:35 Arm band placed on right wrist. jb4 00:36 Patient has correct armband on for positive identification. Bed in low position. Call jb4 light in reach. Side rails up X 1. Client placed on continuous cardiac and pulse oximetry monitoring. NIBP monitoring applied. 00:38 Omi Rajput DO is Attending Physician. ms3 01:13 Notified ED physician of a critical lab result(s). WBCs of 28.9. Dr Rajput notified. bb 01:18 Quoc Ha, RN is Primary Nurse. jb4 01:36 Initiated transfer to [facility] with Nell Ballard. wm 02:20 DrManuel to report started. wm 02:23 Dr. Jeremy Napoles accepted Pt. wm 02:57 Notified ED physician of a critical lab result(s). Lac 2.8. ll3 03:10 Report given to JOVANI Odonnell. jb4 03:12 CT Abd/Pelvis - IV Contrast Only In Process Unspecified. EDMS 03:19 No provider procedures requiring assistance completed. Patient transferred, IV remains jb4 in place. 03:32 Pt accepted for transfer, with current time, and RM# [id number]. wm 03:35 [place] agreed for transport, ETA 20mins. wm Administered Medications: 01:21 Drug: NS 0.9% 1000 ml Route: IV; Rate: 1000 ml; Site: left forearm; jb4 02:00 Follow up: Response: No adverse reaction; IV Status: Completed infusion; IV Intake: jb4 1000ml 02:02 Drug: Lactated Ringers Solution 1000 ml Route: IV; Rate: 4000 ml/hr; Site: right 4 forearm; 03:00 Follow up: Response: No adverse reaction; IV Status: Completed infusion; IV Intake: jb4 1000ml 02:42 Drug: morphine 4 mg Route: IVP; Infused Over: 4 mins; Site: right forearm; [facility] 03:22 Follow up: Response: No adverse reaction; Marked relief of symptoms jb4 03:34 Drug: Lactated Ringers Solution 1000 ml Route: IV; Rate: 1 bolus; Site: right forearm; jb4 04:14 Drug: Zosyn (piperacillin-tazobactam) 3.375 grams Route: IVPB; Infused Over: 60 mins; ll3 Site: left forearm; 04:21 Follow up: Response: No adverse reaction ll3 Medication: 00:36 VIS not applicable for this client. jb4 Intake: 02:00 IV: 1000ml; Total: 1000ml. jb4 03:00 IV: 1000ml; Total: 2000ml. jb4 Outcome: 01:34 ER care complete, transfer ordered by MD. ms3 04:17 Transferred by ground EMS to [facility], Transfer form completed. ll3 X-rays sent w/ patient. 04:17 Condition: stable 04:17 Discharge instructions given to EMS, Instructed on the need for transfer, Demonstrated understanding of instructions. 04:18 Patient left the ED. ll3 Signatures: Dispatcher [employer] EDMS Jessica Albright RN RN Quoc Joshi RN RN jb4 Omi Rajput DO DO ms3 Jennifer Ruvalcaba Belle Balbuena RN RN ll3 Corrections: (The following items were deleted from the chart) 05:09 03:32 Pt accepted for transfer by Dr. Stefan Napoles [facility]
--- NOTE | 2021-11-11 01:35 | EDPHYS ---
Physician Documentation [facility] Name: David Mclaughlin Age: 35 yrs Sex: Male : 1985 Arrival Date: 11/11/2021 Time: 00:33 Bed 18 Private MD: ED Physician Omi Rajput HPI: 11/11 01:42 This 35 yrs old Male presents to ER via EMS with complaints of rectal bleeding. ms3 02:49 The patient presents to the emergency department with bleeding from the rectum/anus, ms3 that is moderate. Onset: The symptoms/episode began/occurred acutely, today. Context: the patient Crohn's disease. Modifying factors: The symptoms are alleviated by nothing, The symptoms are aggravated by nothing. Associate signs and symptoms: Pertinent negatives: fever, vomiting. Patient recently discharged from [facility] for SBO.. Historical: - Allergies: 00:35 No Known Allergies; jb4 - PMHx: 00:35 chiari malformation; Crohn's Disease; POTS; jb4 - PSHx: 00:35 bowel resection; Posterior fossa decompression; jb4 - Immunization history:: Adult Immunizations up to date. - Social history:: Smoking status: Patient denies any tobacco usage or history of. ROS: 02:49 Constitutional: Negative for fever, and chills. Neck: Negative for injury, pain, and ms3 swelling, Cardiovascular: Negative for chest pain, and palpitations. Respiratory: Negative for shortness of breath, cough, wheezing, and pleuritic chest pain. 02:49 Skin: Negative for injury, rash, and discoloration, Psych: Negative for depression, anxiety, suicide ideation, homicidal ideation, and hallucinations. 02:49 Abdomen/GI: Positive for abdominal pain, rectal bleeding. 02:49 All other systems are negative. Exam: 02:08 Respiratory: Lungs have equal breath sounds bilaterally, clear to auscultation and ms3 percussion. No rales, rhonchi or wheezes noted. No increased work of breathing, no retractions or nasal flaring. 02:08 ECG was reviewed by the Attending Physician. 02:08 Abdomen/GI: Inspection: abdomen appears normal, Bowel sounds: normal, Palpation: soft, Rectal exam: 02:49 Constitutional: This is a well developed, well nourished patient who is awake, alert, ms3 and in no acute distress. Head/Face: Normocephalic, atraumatic. Neck: Trachea midline, no cervical lymphadenopathy. Supple, full range of motion without nuchal rigidity, or vertebral point tenderness. No Meningismus. Chest/axilla: Normal chest wall appearance and motion. Nontender with no deformity. 02:49 Cardiovascular: Rate: tachycardic, Rhythm: regular, Pulses: no pulse deficits are appreciated, Heart sounds: normal, normal S1and S2. Vital Signs: 00:33 BP 139 / 85; Pulse 131; Resp 20; Temp 99.0(TE); Pulse Ox 100% ; Weight 65.77 kg; Height jb4 6 ft. 1 in. (185.42 cm); Pain 0/10; 01:30 BP 116 / 80; Pulse 135; Resp 20; Pulse Ox 100% on R/A; jb4 02:15 BP 128 / 80; Pulse 138; Resp 24; Pulse Ox 100% on R/A; jb4 03:19 BP 133 / 98; Pulse 144; Resp 17; Pulse Ox 98% on R/A; jb4 04:16 BP 124 / 89; Pulse 134; Resp 19; Pulse Ox 100% on R/A; ll3 00:33 Body Mass Index 19.13 (65.77 kg, 185.42 cm) jb4 MDM: 00:38 Patient medically screened. ms3 11:10 Differential diagnosis: hemorrhoids, fissure. ms3 11:36 Data reviewed: vital signs, nurses notes, lab test result(s), radiologic studies, CT ms3 scan, and as a result, I will transfer patient. Counseling: I had a detailed discussion with the patient and/or guardian regarding: the historical points, exam findings, and any diagnostic results supporting the discharge/admit diagnosis, lab results, radiology results, the need to transfer to another facility. ED course: Case was discussed with Dr Napoles at [facility] and he accepted patient. All questions were answered. Patient remained in stable condition while in the Emergency Department.. 11/11 00:39 Order name: CBC with Diff; Complete Time: 02:21 ms3 11/11 00:39 Order name: CMP; Complete Time: 02:21 ms3 11/11 00:39 Order name: Lipase; Complete Time: 02:21 ms3 11/11 01:14 Order name: Blood Culture Adult (2) ms3 06 01:14 Order name: Lactate; Complete Time: 03:30 ms3 /06 01:14 Order name: Protime (+inr); Complete Time: 03:30 ms3 /06 01:14 Order name: Ptt, Activated; Complete Time: 03:30 ms3 /06 01:15 Order name: Manual Differential; Complete Time: 02:21 EDMS /06 01:39 Order name: COVID-19 SARS RT PCR (Document "Date of Onset" if Symptomatic); Complete ms3 Time: 03:30 06 02:18 Order name: Glucose, Ancillary Testing; Complete Time: 02:21 EDMS /06 02:29 Order name: CT Abd/Pelvis - IV Contrast Only ms3 /06 00:39 Order name: IV Saline Lock; Complete Time: 01:18 ms3 06 00:39 Order name: Labs collected and sent; Complete Time: 01:18 ms3 06 01:14 Order name: Accucheck; Complete Time: 02:26 ms3 06 01:14 Order name: Cardiac monitoring; Complete Time: 02:26 ms3 06 01:14 Order name: EKG - Nurse/Tech; Complete Time: 02:26 ms3 /06 01:14 Order name: IV Saline Lock - Large Bore; Complete Time: 02:02 ms3 /06 01:14 Order name: O2 Per Protocol; Complete Time: 01:21 ms3 /06 01:14 Order name: O2 Sat Monitoring; Complete Time: 01:18 ms3 EC:08 Rate is 123 beats/min. Rhythm is regular. QRS [place] is Normal. NE interval is normal. ms3 QRS interval is normal. Clinical impression: Sinus tachycardia. Interpreted by me. Administered Medications: 01:21 Drug: NS 0.9% 1000 ml Route: IV; Rate: 1000 ml; Site: left forearm; jb4 02:00 Follow up: Response: No adverse reaction; IV Status: Completed infusion; IV Intake: jb4 1000ml 02:02 Drug: Lactated Ringers Solution 1000 ml Route: IV; Rate: 4000 ml/hr; Site: right jb4 forearm; 03:00 Follow up: Response: No adverse reaction; IV Status: Completed infusion; IV Intake: jb4 1000ml 02:42 Drug: morphine 4 mg Route: IVP; Infused Over: 4 mins; Site: right forearm; jb4 03:22 Follow up: Response: No adverse reaction; Marked relief of symptoms jb4 03:34 Drug: Lactated Ringers Solution 1000 ml Route: IV; Rate: 1 bolus; Site: right forearm; jb4 04:14 Drug: Zosyn (piperacillin-tazobactam) 3.375 grams Route: IVPB; Infused Over: 60 mins; ll3 Site: left forearm; 04:21 Follow up: Response: No adverse reaction ll3 Disposition Summary: 11/11/21 01:34 Transfer Ordered Transfer Location: Other Acute Care Facility ms3 Reason: Higher level of care ms3 Condition: Stable ms3 Problem: an acute exacerbation ms3 Symptoms: have worsened ms3 Accepting Physician: Yesika(11/11/21 04:18) ll3 Diagnosis - Crohn's disease, unspecified, with rectal bleeding ms3 - Anemia, unspecified ms3 Forms: - Medication Reconciliation Form ms3 - SBAR form ms3 Signatures: Dispatcher [employer] Quoc Quintana, RN RN jb4 Omi Rajput DO DO ms3 Belle Balbuena RN RN ll3 Corrections: (The following items were deleted from the chart) 04:18 01:34 Yesika ms3 ll3
[2021-11-11 01:51] LABS: Platelet Estimate INCR
[2021-11-11 01:52] LABS: Blood Morphology Comment NOT SEEN (NOT SEEN)
[2021-11-11] MEDS ORDERED: Ringers Lactate 1,000 ML IV ONE ×2 (01:56→03:37)
[2021-11-11] MEDS ORDERED: MORPHINE 4 MG/ML SYR ONE (02:45)
[2021-11-11 02:50] LABS: Protime INR 1.13
[2021-11-11] MEDS ORDERED: NA CHLORIDE 0.9% 100 ML ONE (04:07)
[2021-11-11] MEDS ORDERED: PIPERACIL/TAZO 3.375 GM VIAL IV ONE (04:07)
[2021-11-11 04:23] VITALS: TEMP 99
[2021-11-11 04:29] VITALS: BP 124/89; O2SAT 100
--- NOTE | 2021-11-11 13:19 | EKG ---
Test Date: 2021-11-11 Test Time: 02:08:31 Chain Builder: ANSELMO MEASUREMENT RESULTS: Intervals: Rate: 123 HI: 120 QRSD: 80 QT: 292 QTc: 418 [place]: P: 72 HI: 120 QRS: 67 T: 76 INTERPRETIVE STATEMENTS: Sinus tachycardia Otherwise normal ECG Compared to ECG 10/01/2021 23:30:32 No significant changes Electronically Signed On 11-11-21 13:18:45 CDT by Jose Luis Mitchell
--- NOTE | 2021-11-12 11:08 | RAD REPORT ---
EXAM DESCRIPTION: CT Abdomen and Pelvis With Intravenous Contrast CLINICAL HISTORY: The patient is 35 years old and is Male; Abdominal pain, acute, nonlocalized TECHNIQUE: Axial computed tomography images of the abdomen and pelvis with intravenous contrast. S agittal and coronal reformatted images were created and reviewed. This CT exam was performed using one or more of the following dose reduction techniques: automated exposure control, adjustment of t he mA and/or kV according to patient size, and/or use of iterative reconstruction technique. COMPARISON: November 03, 2021 FINDINGS: Lung bases: Unremarkable. No mass. No consolidation. ABDOMEN: Liver: Scattered calcifications in the liver, similar to prior. Gallbladder and bile ducts: Unremarkable. No calcified stones. No ductal dilation. Pancreas: Unremarkable. No mass. No ductal dilation. Spleen: Scattered calcifications in the spleen. Adrenals: Unremarkable. No mass. Kidneys and ureters: Simple cysts in the right kidney. ACR White Paper guidelines (Racheal, et al. JACR 2018; 15(2):264-273) suggest no follow-up is necessary. No hydronephrosis. Stomach and bowel: Mucosal thickening within some segments of the small bowel which can be seen w ith enteritis. Scattered segments of mildly dilated small bowel which can be seen with ileus and partial obs truction. Fluid in the colon suggestive of diarrhea. Postsurgical changes in the bowel. PELVIS: Appendix: No findings to suggest acute appendicitis. Bladder: Bladder is distended. Reproductive: Coarse calcifications in the prostate. ABDOMEN and PELVIS: Intraperitoneal space: Unremarkable. No free air. No significant fluid collection. Bones/joints: No acute fracture. No dislocation. Soft tissues: Unremarkable. Vasculature: Unremarkable. No abdominal aortic aneurysm. Lymph nodes: Unremarkable. No enlarged lymph nodes. IMPRESSION: 1. Mucosal thickening within some segments of the small bowel which can be seen with e nteritis. 2. Scattered segments of mildly dilated small bowel which can be seen with ileus and partial obstru ction. 3. Fluid in the colon suggestive of diarrhea. Electronically signed by: Shaheed Echols MD 11/11/2021 3:34 AM CDT Due to temporary technical issues with the PACS/Fluency reporting system, reports are being signed by the in house radiologists without review as a courtesy to insure prompt reporting. The interpreting radiologist is fully responsible for the content of the report.
== END 2021-11-11 04:18 ==
LOC: ER 00:23
DX: K50.911 Crohn's disease, unspecified, with rectal bleeding (principal); D64.9 Anemia, unspecified; Z20.822 Contact with and (suspected) exposure to COVID-19
CPT/HCPCS: 93005; 87040 ×2; 85025; 36415; 85610; 82947; 83605; 85730; 83690; 80053; 74177; 99285; U0003; Q9967; J2543; J7120 ×2

== ENCOUNTER 2022-03-17 21:18 | Inpatient (IN) | payer BC ==
--- OUTSIDE RECORDS SUMMARY | 2022-03-17 21:31 | XMS REPORT | Continuity of Care Document ---
:1985 Author Organization [facility] t Address [address] [place] [address] Care Team Providers Name Role Phone KATRIN HIDALGO Primary Care Physician Unavailable CANDELARIA WOOD Attending Clinician Unavailable FRANCISCO MORALES Attending Clinician Unavailable DIANA BRENNER Attending Clinician Unavailable FRANCISCO MORALES Attending Clinician Unavailable QUYEN AYALA Attending Clinician Unavailable REG GRIFFIN Attending Clinician Unavailable AMNA LUTZ Attending Clinician Unavailable YAN FAM Attending Clinician Unavailable CARLOS LOO Attending Clinician Unavailable CRISTIANO DAMON Attending Clinician Unavailable Dav Mares MD Attending Clinician SHAWN BHANDARI Attending Clinician Unavailable LB SCHWARZ Attending Clinician Unavailable LB SCHWARZ Attending Clinician Unavailable Francisco Morales MD Attending Clinician Dav Mares Attending Clinician FRANCISCO MORALES Admitting Clinician Unavailable DAWIT SHERMAN Admitting Clinician Unavailable YAN FAM Admitting Clinician Unavailable CHETNA MOSS Admitting Clinician Unavailable LB SCHWARZ Admitting Clinician Unavailable Payers Payer Name Policy Type Policy Number Effective Date Expiration Date S ource BCBSTX PPO AND OUT [id number] 2020 [facility] 00:00:00 BCBS PPO POS EPO [id number] 2014 2020 CHOICE 00:00:00 00:00:00 PPO/EPO - BCBS [id number] COPAY PATIENT [id number] ASSISTANCE PROGRAM Problems Condition Condition Condition Status Onset Resolution Last Treating Co mments Source Name Details Category Date Date Treatment Clinician Date Neck pain, Neck pain, Disease Active U [facility] bilateral bilateral 09-26 [facility]al th 00:00: 00 Other Other Disease Active [facility] headache headache 09-26 Health syndrome syndrome 00:00: 00 741.00, 741.00, Diagnosis Active 2014-12-12 Memoria 780.4 780.4 11-13 07:16:00 l Active 00:00: [place] 11/13/2014 00 [facility] Malabsorpt Malabsorpt Disease Active [facility] ion ion 1-14 College 00:00: of 00 Medicin e Iron Iron Disease Active [facility] deficiency deficiency 1-14 Co llege anemia anemia 00:00: of 00 Medicin e Perianal Perianal Disease Active 2009-06 [facility] abscess abscess 1-09 College 00:00: of 00 Medicin e Crohn's Crohn's Disease Active [facility] disease disease 8-17 College (HCCode) (HCCode) 00:00: of 00 Medicin e Epigastric Epigastric Disease Active [facility] pain pain 8-17 College 00:00: of 00 Medicin e Osteoporos Osteoporos Disease Active [facility] is is 4-20 College 00:00: of 00 Medicin e Allergies, Adverse Reactions, Alerts Allergy Allergy Status Severity Reaction(s) Onset Inactive Treating Comm ents Source Name Type Date Date Clinician BLACK Allergy Active Diarrhea [facility] PEPPER 11-11 00:00: 00 Molds & Allergy Active Other [facility] Smuts to 2-04 reaction( Health substanc 00:00: s): Other e 00 (See Comments) Sneezing, allergic rhinitis MOLD Allergy Active Low Other [facility] 2-04 00:00: 00 TOMATO Allergy Active Low Other [facility] (SOLANUM 2-04 LYCOPERS 00:00: ICUM) 00 Tomato Allergy Active Mild [facility] to 4-17 allergy Health substanc 00:00: e 00 Mold Propensi Active [facility] Spores ty to 4-17 College adverse 00:00: of reaction 00 Medicin s to e substanc e Tomatoes Propensi Active Mild [facility] ty to 4-17 allergy College adverse 00:00: of reaction 00 Medicin s to e food Social History Social Habit Start Date Stop Date Quantity Comments Source History [facility] Alcohol Frequency of Medi cine History [facility] ge Alcohol Std Drinks of Med icine History [facility] Alcohol Binge of Medicine Exposure to 2022-02-08 2022-02-18 Not sure [facility] e SARS-CoV-2 (event) 00:00:00 08:43:00 of Med icine Alcohol intake 2022-02-18 2022-02-18 Ex-drinker [facility] Col lege 00:00:00 00:00:00 (finding) of Medicine Alcohol Comment 2022-02-18 2022-02-18 None [facility] Co llege 00:00:00 00:00:00 of Medicine History [facility] 2022-02-17 2022-02-17 1 [facility] Physical Activity 00:00:00 00:00:00 of Medi cine DPW History [facility] 2022-02-17 2022-02-17 6 [facility] Physical Activity 00:00:00 00:00:00 of Medi cine MPS Tobacco use and 2021-11-20 2021-11-20 Smokeless tobacco Ba [facility] exposure 00:00:00 00:00:00 non-user of Medicine Sex Assigned At [birth year] [facility] 00:00:00 00:00:00 Smoking Status Start Date Stop Date Source Tobacco smoking consumption unknown [facility] Never smoked tobacco [facility] e[facility] of Medicine Medications Ordered Filled Start Stop Current Ordering Indication Dosage Frequency Signature Comments Components Source Medication Medication Date Date Medication? Clinician (SIG) Name Name Cholecalcif Yes 1{tbl} Take 1 Tab [facility] will 9-13 by mouth College (VITAMIN D) 09:05: daily. of 2000 UNIT 45 Medicin TABS e Multiple Yes Take by [facility] Vitamins-Mi 9- mouth. Colleg e nerals 09:05: of (MULTIVITAM 45 Medicin IN & e MINERAL OR) gabapentin 2021-0 Yes 300mg Take 300 [facility] (NEURONTIN) 9-13 mg by [place] 300 MG 09:05: mouth 3 of capsule 45 times Medicin daily. e acetaminoph 2021-0 Yes 650mg Take 650 [facility] en 9-13 mg by [place] (TYLENOL) 09:05: mouth of 325 mg 45 every 4 Medicin tablet hours as e needed for Pain. inFLIXimab 2021-0 Yes Inject [facility] (REMICADE 9-13 into the Colleg e IV) 09:05: vein. of 45 Medicin e hydrocodone 2021-0 202- No 1{tbl} Take 1 [facility] -acetaminop 9- 09- Tablet by [facility]y [facility] [employer]) 14:15: 00:00 mouth two of 5-325 mg 23 :00 times Medicin tablet daily. e hydrocodone 2021-0 2021- No 1{tbl} Take 1 [facility] -acetaminop 9-12 14- Tablet by [facility] y[facility] ([employer]) 14:15: 00:00 mouth two of 5-325 mg 23 :00 times Medicin tablet daily. e Cholecalcif 2021-0 Yes 1{tbl} Take 1 Tab [facility] will 9-07 by mouth [place] (VITAMIN D) 13:56: daily. of 2000 UNIT 13 Medicin TABS e Multiple 0 Yes Take by [facility] Vitamins-Mi 9-07 mouth. Colleg e nerals 13:56: of (MULTIVITAM 13 Medicin IN & e MINERAL OR) gabapentin 2021-0 Yes 300mg Take 300 [facility] (NEURONTIN) 9-07 mg by [place] 300 MG 13:56: mouth 3 of capsule 13 times Medicin daily. e acetaminoph 2021-0 Yes 650mg Take 650 [facility] en 9-07 mg by [place] (TYLENOL) 13:56: mouth of 325 mg 13 every 4 Medicin tablet hours as e needed for Pain. inFLIXimab 2021-0 Yes Inject [facility] (REMICADE 9-07 into the Colleg e IV) 13:56: vein. of 13 Medicin e Cholecalcif 2021-0 Yes 1{tbl} Take 1 Tab [facility] will 9-07 by mouth [place] (VITAMIN D) 13:56: daily. of 2000 UNIT 13 Medicin TABS e Multiple 0 Yes Take by [facility] Vitamins-Mi 9-07 mouth. [facility] e nerals 13:56: of (MULTIVITAM 13 Medicin IN & e MINERAL OR) gabapentin 0 Yes 300mg Take 300 [facility] (NEURONTIN) 9-07 mg by [place] 300 MG 13:56: mouth 3 of capsule 13 times Medicin daily. e acetaminoph 0 Yes 650mg Take 650 [facility] en 9-07 mg by [place] (TYLENOL) 13:56: mouth of 325 mg 13 every 4 Medicin tablet hours as e needed for Pain. inFLIXimab 0 Yes Inject [facility] (REMICADE -07 into the [facility] IV) 13:56: vein. of 13 Medicin e methylPREDN 2021-0 Yes [id number] 20mg Take 5 [facility] ISolone 9-02 Tablets by [facility] e (MEDROL) 4 00:00: mouth of MG tablet 00 daily. Medicin e methylPREDN 2021-0 Yes [id number] 20mg Take 5 [facility] ISolone 9-02 Tablets by [facility] e (MEDROL) 4 00:00: mouth of MG tablet 00 daily. Medicin e methylPREDN 2021-0 202- No [id number] 32mg Take 8 [facility] ISolone 7-18 09-02 Tablets by [facility] (MEDROL) 4 00:00: 00:00 mouth of MG tablet 00 :00 daily. Medicin e Cholecalcif 0 Yes 1{tbl} Take 1 Tab [facility] will 6-23 by mouth [place] (VITAMIN D) 12:39: daily. of 1999 UNIT 24 Medicin TABS e Multiple 0 Yes Take by [facility] Vitamins-Mi 6-23 [facility] 12:39: of (MULTIVITAM 24 Medicin IN & e MINERAL OR) gabapentin 0 Yes 300mg Take 300 [facility] (NEURONTIN) 6-23 mg by [place] 300 MG 12:39: mouth 3 of capsule 24 times Medicin daily. e acetaminoph 2021-0 Yes 650mg Take 650 [facility] en 6-23 mg by [place] (TYLENOL) 12:39: mouth of 325 mg 24 every 4 Medicin tablet hours as e needed for Pain. hydrocodone 0 Yes 1{tbl} Take 1 [facility] -acetaminop 6-23 Tablet by Col lege hen ([employer]) 12:39: mouth two o f 5-325 mg 24 times Medicin tablet daily. e Cholecalcif 0 Yes 1{tbl} Take 1 Tab [facility] will 6-23 by mouth [place] (VITAMIN D) 12:39: daily. of 2000 UNIT 24 Medicin TABS e Multiple Yes Take by [facility] Vitamins-Mi 6-23 mouth. Colleg e nerals 12:39: of (MULTIVITAM 24 Medicin IN & e MINERAL OR) gabapentin Yes 300mg Take 300 [facility] (NEURONTIN) 6-23 mg by [place] 300 MG 12:39: mouth 3 of capsule 24 times Medicin daily. e acetaminoph Yes 650mg Take 650 [facility] en 6-23 mg by [place] (TYLENOL) 12:39: mouth of 325 mg 24 every 4 Medicin tablet hours as e needed for Pain. hydrocodone Yes 1{tbl} Take 1 [facility] -acetaminop 6-23 Tablet by Col lege hen ([employer]) 12:39: mouth two o f 5-325 mg 24 times Medicin tablet daily. e pantoprazol 0 Yes 40mg Take 1 [facility] e 6-15 Tablet by [place] (PROTONIX) 00:00: mouth of 40 MG 00 daily. Medicin tablet e hyoscyamine [address] 1 [facility] (LEVSIN/SL) 6-15 Tablet [facility] e 0.125 MG SL 00:00: under the o f tablet 00 tongue Medicin every 4 e hours as needed. pantoprazol 0 Yes 40mg Take 1 [facility] e 6-15 Tablet by [place] (PROTONIX) 00:00: mouth of 40 MG 00 daily. Medicin tablet e hyoscyamine 2021-[address] 1 [facility] (LEVSIN/SL) 6-15 Tablet [facility] e 0.125 MG SL 00:00: under the o f tablet 00 tongue Medicin every 4 e hours as needed. pantoprazol 2021-0 Yes 40mg Take 1 [facility] e 6-15 Tablet by [place] (PROTONIX) 00:00: mouth of 40 MG 00 daily. Medicin tablet e hyoscyamine 2022-[address] 1 [facility] (LEVSIN/SL) 6-15 Tablet Colleg e 0.125 MG SL 00:00: under the o f tablet 00 tongue Medicin every 4 e hours as needed. pantoprazol 2022-0 Yes 40mg Take 1 [facility] e 6-15 Tablet by [place] (PROTONIX) 00:00: mouth of 40 MG 00 daily. Medicin tablet e hyoscyamine 2022-[address] 1 [facility] (LEVSIN/SL) 6-15 Tablet Colleg e 0.125 MG SL 00:00: under the o f tablet 00 tongue Medicin every 4 e hours as needed. pantoprazol 2022-0 Yes 40mg Take 1 [facility] e 6-15 Tablet by [place] (PROTONIX) 00:00: mouth of 40 MG 00 daily. Medicin tablet e hyoscyamine 2022-[address] 1 [facility] (LEVSIN/SL) 6-15 Tablet Colleg e 0.125 MG SL 00:00: under the o f tablet 00 tongue Medicin every 4 e hours as needed. methylPREDN 2021-0 2021- No [id number] 32mg Take 8 [facility] ISolone 6-15 06-23 Tablets by [facility] [employer] (MEDROL) 4 00:00: 04:59 mouth of MG tablet 00 :00 daily for Medic in 7 days. e methylPREDN 2021-0 2021- No [id number] Take 8 [facility] ISolone 5-10 07-06 Tablets by [facility] (MEDROL) 4 00:00: 04:59 mouth of MG [...] THEN 1 Tablet daily for 7 days. methylPREDN 2021-0 2021- No [id number] Take 8 [facility] ISolone 5-10 06-15 Tablets by [employer] (MEDROL) 4 00:00: 00:00 mouth of MG tablet 00 :00 daily for Medic in 7 days, e THEN 7 Tablets daily for 7 days, THEN 6 Tablets daily for 7 days, THEN 5 Tablets daily for 7 days, THEN 4 Tablets daily for 7 days, THEN 3 Tablets daily for 7 days, THEN 2 Tablets daily for 7 days, THEN 1 Tablet daily for 7 days. predniSONE 0 Yes [id number] 40mg Take 4 [facility] (DELTASONE) 5-06 Tablets by Radha reyes 10 MG 00:00: mouth of tablet 00 daily. Medicin Taper e prednisone by 5 mg each week predniSONE 2021-0 2021- No [id number] 40mg Take 4 [facility] (DELTASONE) 5-06 06-15 Tablets by [facility] man 10 MG 00:00: 00:00 mouth of tablet 00 :00 daily. Medicin Taper e prednisone by 5 mg each week Cholecalcif 0 Yes 1{tbl} Take 1 Tab [facility] will 4-22 by mouth [place] (VITAMIN D) 11:32: daily. of 1999 UNIT 18 Medicin TABS e Multiple 0 Yes Take by [facility] 4-22 mouth. Colle e nerals 11:32: of (MULTIVITAM 18 Medicin IN & e MINERAL OR) gabapentin 2021-0 Yes 300mg Take 300 [facility] (NEURONTIN) 4-22 mg by [place] 300 MG 11:32: mouth 3 of capsule 18 times Medicin daily. e acetaminoph 0 Yes 650mg Take 650 [facility] en 4-22 mg by [place] (TYLENOL) 11:32: mouth of 325 mg 18 every 4 Medicin tablet hours as e needed for Pain. Cholecalcif 2021-0 Yes 1{tbl} Take 1 Tab [facility] will 4-22 by mouth [place] (VITAMIN D) 11:32: daily. of 1999 UNIT 18 Medicin TABS e Multiple 0 Yes Take by [facility] VitaminsMi 4-22 mouth. Colleg e nerals 11:32: of (MULTIVITAM 18 Medicin IN & e MINERAL OR) gabapentin 2021-0 Yes 300mg Take 300 [facility] (NEURONTIN) 4-22 mg by [place] 300 MG 11:32: mouth 3 of capsule 18 times Medicin daily. e acetaminoph 2021-0 Yes 650mg Take 650 [facility] en 4-22 mg by [place] (TYLENOL) 11:32: mouth of 325 mg 18 every 4 Medicin tablet hours as e needed for Pain. ciprofloxac 2021-0 Yes [id number] 500mg Take 1 [facility] in (CIPRO) 4-22 Tablet by [place] e[facility] 500 MG 00:00: mouth two of tablet 00 times Medicin daily. 1 e tablet by mouth twice a day metronidazo 2021-0 Yes [id number] 500mg Take 1 [facility] le (FLAGYL) 4-22 Tablet by Col lege 500 MG 00:00: mouth two of tablet 00 times Medicin daily. 1 e tablet by mouth twice a day ciprofloxac 2021-0 Yes [id number] 500mg Take 1 [facility] in (CIPRO) 4-22 Tablet by [place] e[facility] 500 MG 00:00: mouth two of tablet 00 times Medicin daily. 1 e tablet by mouth twice a day metronidazo 2021-0 Yes [id number] 500mg Take 1 [facility] le (FLAGYL) 4-22 Tablet by Col lege 500 MG 00:00: mouth two of tablet 00 times Medicin daily. 1 e tablet by mouth twice a day ciprofloxac 2021-0 Yes [id number] 500mg Take 1 [facility] in (CIPRO) 4-22 Tablet by [place] [facility] 500 MG 00:00: mouth two of tablet 00 times Medicin daily. 1 e tablet by mouth twice a day metronidazo 2021-0 Yes [id number] 500mg Take 1 [facility] le (FLAGYL) 4-22 Tablet by Col lege 500 MG 00:00: mouth two of tablet 00 times Medicin daily. 1 e tablet by mouth twice a day ciprofloxac 2021-0 Yes [id number] 500mg Take 1 [facility] in (CIPRO) 4-22 Tablet by [place] e[facility] 500 MG 00:00: mouth two of tablet 00 times Medicin daily. 1 e tablet by mouth twice a day metronidazo 2021-0 Yes [id number] 500mg Take 1 [facility] le (FLAGYL) 4-22 Tablet by Col lege 500 MG 00:00: mouth two of tablet 00 times Medicin daily. 1 e tablet by mouth twice a day ciprofloxac 2021-0 2021- No [id number] 500mg Take 1 [facility] in (CIPRO) 4-22 09-07 Tablet by Col lege 500 MG 00:00: 00:00 mouth two of tablet 00 :00 times Medicin daily. 1 e tablet by mouth twice a day metronidazo 2021- No [id number] 500mg Take 1 [facility] le (FLAGYL) 09-27 Tablet by Co llege 500 MG 00:00: 00:00 mouth two of tablet 00 :00 times Medicin daily. 1 e tablet by mouth twice a day ciprofloxac 2021- No [id number] 500mg Take 1 [facility] in (CIPRO) 09-27 Tablet by Col lege 500 MG 00:00: 00:00 mouth two of tablet 00 :00 times Medicin daily. 1 e tablet by mouth twice a day metronidazo 2021- No [id number] 500mg Take 1 [facility] le (FLAGYL) 09-27 Tablet by Co llege 500 MG 00:00: 00:00 mouth two of tablet 00 :00 times Medicin daily. 1 e tablet by mouth twice a day DULoxetine 2022- No [id number] 20mg QD Take 1 [facility] (Cymbalta) 09-26 capsule [facility] [address] 00:00: 04:59 (20 mg capsule 00 :00 total) by mouth 1 (one) time each day. Do not crush or chew. gabapentin 2022- No [id number] 300mg Q.5D Take 1 [facility] (Neurontin) 09-26 [...] Medicin DAILY e sucralfate 2021- No 1g TAKE 1 [facility] (CARAFATE) 4- 06-15 TABLET BY Col lege 1 g tablet 00:00: 00:00 MOUTH FOUR of 00 :00 TIMES Medicin DAILY e sucralfate 2021- No 1g Take 10 mL [facility] (CARAFATE) 4-04 04-22 by mouth [place] e[place] 1 GM/10ML 00:00: 00:00 four times o f suspension 00 :00 daily. Medicin e Omeprazole 2021-0 Yes [id number] 20mg Take 20 mg [facility] 20 MG TBEC 3-09 by mouth Colle ge 00:00: every of 00 morning. Medicin e Omeprazole 2021-0 Yes [id number] 20mg Take 20 mg [facility] 20 MG TBEC 3-09 by mouth Colle ge 00:00: every of 00 morning. Medicin e Omeprazole 2021-0 Yes [id number] 20mg Take 20 mg [facility] 20 MG TBEC 3-09 by mouth Colle ge 00:00: every of 00 morning. Medicin e Omeprazole 2021-0 2021- No [id number] 20mg Take 20 mg [facility] 20 MG TBEC - 06-15 by mouth [place] e[place] 00:00: 00:00 every of 00 :00 morning. Medicin e metoprolol 2020-06- No 25mg Take 25 mg [facility] (LOPRESSOR) 2-10 12-10 by mouth Col lege 25 MG 14:24: 00:00 two times of tablet 31 :00 daily. Medicin e fludrocorti 2020-06- No .1mg Take 0.1 [facility] sone 2-10 12-10 mg by [place] ([facility]) 14:24: 00:00 mouth of 0.1 MG 13 :00 daily. Medicin tablet e loperamide 2020-06- No 2mg Take 2 mg [facility] (IMODIUM 2-10 12-10 by mouth 4 [place] e[facility] A-D) 2 MG 14:23: 00:00 times of tablet 52 :00 daily as Medicin needed. e hyoscyamine 2020-[id number] [facility] (LEVSIN/SL) 2-10 Tablet Colleg e 0.125 MG SL 00:00: under the o f tablet 00 tongue Medicin every 4 e hours as needed. hyoscyamine 2020-[id number] 1 [facility] (LEVSIN/SL) 2-10 Tablet Colleg e 0.125 MG SL 00:00: under the o f tablet 00 tongue Medicin every 4 e hours as needed. hyoscyamine 2020-[id number] 1 [facility] (LEVSIN/SL) 2-10 Tablet Colleg e 0.125 MG SL 00:00: under the o f tablet 00 tongue Medicin every 4 e hours as needed. hyoscyamine 2020-[id number] [facility] (LEVSIN/SL) 2-10 Tablet Colleg e 0.125 MG SL 00:00: under the o f tablet 00 tongue Medicin every 4 e hours as needed. hyoscyamine 2020-[id number] 1 [facility] (LEVSIN/SL) 2-10 Tablet Colleg e 0.125 MG SL 00:00: under the o f tablet 00 tongue Medicin every 4 e hours as needed. hyoscyamine 2020-[id number] [facility] (LEVSIN/SL) 2-10 Tablet Colleg e 0.125 MG SL 00:00: under the o f tablet 00 tongue Medicin every 4 e hours as needed. hyoscyamine 2020-[id number] 1 [facility] (LEVSIN/SL) 2-10 Tablet Colleg e 0.125 MG SL 00:00: under the o f tablet 00 tongue Medicin every 4 e hours as needed. hyoscyamine 2020-[id number] 1 [facility] (LEVSIN/SL) 2-10 Tablet Colleg e 0.125 MG SL 00:00: under the o f tablet 00 tongue Medicin every 4 e hours as needed. hyoscyamine 2020-[id number] 1 [facility] (LEVSIN/SL) 2-10 Tablet Colleg e 0.125 MG SL 00:00: under the o f tablet 00 tongue Medicin every 4 e hours as needed. hyoscyamine 2020-[id number] [facility] (LEVSIN/SL) 2-10 Tablet Colleg e 0.125 MG SL 00:00: under the o f tablet 00 tongue Medicin every 4 e hours as needed. hyoscyamine 2020-[id number] [facility] (LEVSIN/SL) 2-10 Tablet Colleg e 0.125 MG SL 00:00: under the o f tablet 00 tongue Medicin every 4 e hours as needed. hyoscyamine 2020-06- No [id number] 125[address] 1 [facility] (LEVSIN/SL) 214 Tablet Colle ge 0.125 MG SL 00:00: 00:00 under the of tablet 00 :00 tongue Medicin every 4 e hours as needed. Na 2020-06- No [SUPREP] [facility] Sulfate-K 1-18 12-10 Take as Colleg e Sulfate-Mg 00:00: 00:00 directed. o f Sulf 00 :00 Medicin (SUPREP e BOWEL PREP KIT) 17.5-3.13-1 .6 GM/177ML SOLN methylPREDN 2020-06 Yes [id number] Take 12 mg [facility] ISolone 1-10 po QD College (MEDROL) 4 00:00: of MG tablet 00 Medicin e methylPREDN 2020-06 Yes [id number] Take 12 mg [facility] ISolone 1-10 po QD College (MEDROL) 4 00:00: of MG tablet 00 Medicin e methylPREDN 2020-06 Yes [id number] Take 12 mg [facility] ISolone 1-10 po QD College (MEDROL) 4 00:00: of MG tablet 00 Medicin e methylPREDN 2020-06 Yes [id number] Take 12 mg [facility] ISolone 1-10 po QD College (MEDROL) 4 00:00: of MG tablet 00 Medicin e methylPREDN 2020-06 Yes [id number] Take 12 mg [facility] ISolone 1-10 po QD College (MEDROL) 4 00:00: of MG tablet 00 Medicin e methylPREDN 2020-06- No [id number] Take 12 mg [facility] ISolone 1-10 03-09 po QD College (MEDROL) 4 00:00: 00:00 of MG tablet 00 :00 Medicin e Na 0 Yes Dispense 1 [facility] Sulfate-K 9-22 kit; Take Colle ge Sulfate-Mg 00:00: as of Sulf 00 directed Medicin 17.5-3.13-1 e .6 GM/177ML SOLN Na Yes Dispense 1 [facility] Sulfate-K 9-22 kit; Take Colle ge Sulfate-Mg 00:00: as of Sulf 00 directed Medicin 17.5-3.13-1 e .6 GM/177ML SOLN Na Yes Dispense 1 [facility] Sulfate-K 9-22 kit; Take Colle ge Sulfate-Mg 00:00: as of Sulf 00 directed Medicin 17.5-3.13-1 e .6 GM/177ML SOLN Na Yes Dispense 1 [facility] Sulfate-K 9-22 kit; Take Colle ge Sulfate-Mg 00:00: as of Sulf 00 directed Medicin 17.5-3.13-1 e .6 GM/177ML SOLN Cholecalcif Yes 1{tbl} Take 1 Tab [facility] will 7-14 by mouth [place] (VITAMIN D) 13:41: daily. of 1999 UNIT 57 Medicin TABS e Multiple Yes Take by [facility] Vitamins-Mi 7-14 mouth. Colleg e nerals 13:41: of (MULTIVITAM 57 Medicin IN & e MINERAL OR) loperamide Yes 2mg Take 2 mg [facility] (IMODIUM 7-14 by mouth 4 Colle ge A-D) 2 MG 13:41: times of tablet 57 daily as Medicin needed. e gabapentin Yes 300mg Take 300 [facility] (NEURONTIN) 7-14 mg by [place] 300 MG 13:41: mouth 3 of capsule 57 times Medicin daily. e acetaminoph Yes 650mg Take 650 [facility] en 7-14 mg by [place] (TYLENOL) 13:41: mouth of 325 mg 57 every 4 Medicin tablet hours as e needed for Pain. Cholecalcif Yes 1{tbl} Take 1 Tab [facility] will 7-14 by mouth [place] (VITAMIN D) 13:41: daily. of 1999 UNIT 57 Medicin TABS e Multiple Yes Take by [facility] Vitamins-Mi 7-14 mouth. Colleg e nerals 13:41: of (MULTIVITAM 57 Medicin IN & e MINERAL OR) loperamide Yes 2mg Take 2 mg [facility] (IMODIUM 7-14 by mouth 4 Colle ge A-D) 2 MG 13:41: times of tablet 57 daily as Medicin needed. e gabapentin Yes 300mg Take 300 [facility] (NEURONTIN) 7-14 mg by [place] 300 MG 13:41: mouth 3 of capsule 57 times Medicin daily. e acetaminoph Yes 650mg Take 650 [facility] en 7-14 mg by [place] (TYLENOL) 13:41: mouth of 325 mg 57 every 4 Medicin tablet hours as e needed for Pain. Cholecalcif 0 Yes 1{tbl} Take 1 Tab [facility] will 7-14 by mouth [place] (VITAMIN D) 13:41: daily. of 1999 UNIT 57 Medicin TABS e Cholecalcif 0 Yes 1{tbl} Take 1 Tab [facility] will 7-14 by mouth [place] (VITAMIN D) 13:41: daily. of 1999 UNIT 57 Medicin TABS e Multiple Yes Take by [facility] VitaminsMi 7-14 mouth. Yin niño 13:41: of (MULTIVITAM 57 Medicin IN & e MINERAL OR) loperamide Yes 2mg Take 2 mg [facility] (IMODIUM 7-14 by mouth 4 Colle ge A-D) 2 MG 13:41: times of tablet 57 daily as Medicin needed. e gabapentin Yes 300mg Take 300 [facility] (NEURONTIN) 7-14 mg by [place] 300 MG 13:41: mouth 3 of capsule 57 times Medicin daily. e Multiple Yes Take by [facility] 7-14 mouth. Yin e nerals 13:41: of (MULTIVITAM 57 Medicin IN & e MINERAL OR) acetaminoph Yes 650mg Take 650 [facility] en 7-14 mg by [place] (TYLENOL) 13:41: mouth of 325 mg 57 every 4 Medicin tablet hours as e needed for Pain. loperamide 0 Yes 2mg Take 2 mg [facility] (IMODIUM 7-14 by mouth 4 [facility] ge A-D) 2 MG 13:41: times of tablet 57 daily as Medicin needed. e gabapentin 0 Yes 300mg Take 300 [facility] (NEURONTIN) 7-14 mg by [place] 300 MG 13:41: mouth 3 of capsule 57 times Medicin daily. e Cholecalcif 0 Yes 1{tbl} Take 1 Tab [facility] will 7-14 by mouth [place] (VITAMIN D) 13:41: daily. of 1999 UNIT 57 Medicin TABS e Multiple 2021-0 Yes Take by [facility] Vitamins-Mi 7-14 mouth. [facility] e nerals 13:41: of (MULTIVITAM 57 Medicin IN & e MINERAL OR) loperamide 0 Yes 2mg Take 2 mg [facility] (IMODIUM 7-14 by mouth 4 Colle ge A-D) 2 MG 13:41: times of tablet 57 daily as Medicin needed. e gabapentin 0 Yes 300mg Take 300 [facility] (NEURONTIN) 7-14 mg by [place] 300 MG 13:41: mouth 3 of capsule 57 times Medicin daily. e acetaminoph 0 Yes 650mg Take 650 [facility] en 7-14 mg by [place] (TYLENOL) 13:41: mouth of 325 mg 57 every 4 Medicin tablet hours as e needed for Pain. acetaminoph 0 Yes 650mg Take 650 [facility] en 7-14 mg by [place] (TYLENOL) 13:41: mouth of 325 mg 57 every 4 Medicin tablet hours as e needed for Pain. Cholecalcif Yes 1{tbl} Take 1 Tab [facility] will 7-14 by mouth [place] (VITAMIN D) 13:41: daily. of 1999 UNIT 57 Medicin TABS e Multiple Yes Take by [facility] VitaminsMi 7-14 mouth. Yin storey nerals 13:41: of (MULTIVITAM 57 Medicin IN & e MINERAL OR) loperamide Yes 2mg Take 2 mg [facility] (IMODIUM 7-14 by mouth 4 Colle ge A-D) 2 MG 13:41: times of tablet 57 daily as Medicin needed. e gabapentin 0 Yes 300mg Take 300 [facility] (NEURONTIN) 7-14 mg by [place] 300 MG 13:41: mouth 3 of capsule 57 times Medicin daily. e acetaminoph 0 Yes 650mg Take 650 [facility] en 7-14 mg by [place] (TYLENOL) 13:41: mouth of 325 mg 57 every 4 Medicin tablet hours as e needed for Pain. Cholecalcif 0 Yes 1{tbl} Take 1 Tab [facility] will 7-14 by mouth [place] (VITAMIN D) 13:41: daily. of 1999 UNIT 57 Medicin TABS e Multiple 0 Yes Take by [facility] VitaminsMi 7-14 mouth. Collechristos e nerals 13:41: of (MULTIVITAM 57 Medicin IN & e MINERAL OR) loperamide 2020-0 Yes 2mg Take 2 mg [facility] (IMODIUM 7-14 by mouth 4 [facility] ge A-D) 2 MG 13:41: times of tablet 57 daily as Medicin needed. e gabapentin 2020-0 Yes 300mg Take 300 [facility] (NEURONTIN) 7-14 mg by [place] 300 MG 13:41: mouth 3 of capsule 57 times Medicin daily. e acetaminoph 2020-0 Yes 650mg Take 650 [facility] en 7-14 mg by [place] (TYLENOL) 13:41: mouth of 325 mg 57 every 4 Medicin tablet hours as e needed for Pain. Cholecalcif 2020-0 Yes 1{tbl} Take 1 Tab [facility] will 7-14 by mouth [place] (VITAMIN D) 13:41: daily. of 1999 UNIT 57 Medicin TABS e Multiple 0 Yes Take by [facility] Vitamins-Mi 7-14 mouth. Yin e nerals 13:41: of (MULTIVITAM 57 Medicin IN & e MINERAL OR) gabapentin 2020-0 Yes 300mg Take 300 [facility] (NEURONTIN) 7-14 mg by [place] 300 MG 13:41: mouth 3 of capsule 57 times Medicin daily. e acetaminoph 2020-0 Yes 650mg Take 650 [facility] en 7-14 mg by [place] (TYLENOL) 13:41: mouth of 325 mg 57 every 4 Medicin tablet hours as e needed for Pain. Cholecalcif 2020-0 Yes 1{tbl} Take 1 Tab [facility] will 7-14 by mouth [place] (VITAMIN D) 13:41: daily. of 1999 UNIT 57 Medicin TABS e Multiple 0 Yes Take by [facility] Vitamins-Mi 7-14 mouth. [facility]lechristos e nerals 13:41: of (MULTIVITAM 57 Medicin IN & e MINERAL OR) gabapentin 2020-0 Yes 300mg Take 300 [facility] (NEURONTIN) 7-14 mg by [place] 300 MG 13:41: mouth 3 of capsule 57 times Medicin daily. e acetaminoph 2020-0 Yes 650mg Take 650 [facility] en 7-14 mg by [place] (TYLENOL) 13:41: mouth of 325 mg 57 every 4 Medicin tablet hours as e needed for Pain. Cholecalcif 0 Yes 1{tbl} Take 1 Tab [facility] will 7-14 by mouth [place] (VITAMIN D) 13:41: daily. of 1999 UNIT 57 Medicin TABS e Multiple Yes Take by [facility]. [facility] e n[facility] 13:41: of (MULTIVITAM 57 Medicin IN & e MINERAL OR) gabapentin 0 Yes 300mg Take 300 [facility] (NEURONTIN) 7-14 mg by [place] 300 MG 13:41: mouth 3 of capsule 57 times Medicin daily. e acetaminoph 0 Yes 650mg Take 650 [facility] en 7-14 mg by [place] (TYLENOL) 13:41: mouth of 325 mg 57 every 4 Medicin tablet hours as e needed for Pain. Cholecalcif Yes 1{tbl} Take 1 Tab [facility] will 7-14 by mouth [place] (VITAMIN D) 13:41: daily. of 1999 UNIT 57 Medicin TABS e Multiple Yes Take by [facility] 7-14 mouth. Colleg e nerals 13:41: of (MULTIVITAM 57 Medicin IN & e MINERAL OR) gabapentin 0 Yes 300mg Take 300 [facility] (NEURONTIN) 7-14 mg by [place] 300 MG 13:41: mouth 3 of capsule 57 times Medicin daily. e acetaminoph 0 Yes 650mg Take 650 [facility] en 7-14 mg by [place] (TYLENOL) 13:41: mouth of 325 mg 57 every 4 Medicin tablet hours as e needed for Pain. Cholecalcif 0 Yes 1{tbl} Take 1 Tab [facility] will 7-14 by mouth [place] (VITAMIN D) 13:41: daily. of 1999 UNIT 57 Medicin TABS e Multiple Yes Take by [facility] mouth. [facility] e n[facility] 13:41: of (MULTIVITAM 57 Medicin IN & e MINERAL OR) gabapentin 0 Yes 300mg Take 300 [facility] (NEURONTIN) 7-14 mg by [place] 300 MG 13:41: mouth 3 of capsule 57 times Medicin daily. e acetaminoph 2020-0 Yes 650mg Take 650 [facility] en 7-14 mg by [place] (TYLENOL) 13:41: mouth of 325 mg 57 every 4 Medicin tablet hours as e needed for Pain. Cholecalcif Yes 1{tbl} Take 1 Tab [facility] will 7-14 by mouth [place] (VITAMIN D) 13:41: daily. of 1999 UNIT 57 Medicin TABS e Multiple Yes Take by [facility] Vitamins-Mi 7-14 mouth. Colle e nerals 13:41: of (MULTIVITAM 57 Medicin IN & e MINERAL OR) loperamide Yes 2mg Take 2 mg [facility] (IMODIUM 7-14 by mouth 4 Colle ge A-D) 2 MG 13:41: times of tablet 57 daily as Medicin needed. e gabapentin Yes 300mg Take 300 [facility] (NEURONTIN) 7-14 mg by [place] 300 MG 13:41: mouth 3 of capsule 57 times Medicin daily. e acetaminoph Yes 650mg Take 650 [facility] en 7-14 mg by [place] (TYLENOL) 13:41: mouth of 325 mg 57 every 4 Medicin tablet hours as e needed for Pain. Cholecalcif Yes 1{tbl} Take 1 Tab [facility] will 7-14 by mouth [place] (VITAMIN D) 13:41: daily. of 1999 UNIT 57 Medicin TABS e Multiple Yes Take by [facility] VitaminsMi 7-14 mouth. [facility] e nerals 13:41: of (MULTIVITAM 57 Medicin IN & e MINERAL OR) loperamide Yes 2mg Take 2 mg [facility] (IMODIUM 7-14 by mouth 4 Colle ge A-D) 2 MG 13:41: times of tablet 57 daily as Medicin needed. e gabapentin 0 Yes 300mg Take 300 [facility] (NEURONTIN) 7-14 mg by [place] 300 MG 13:41: mouth 3 of capsule 57 times Medicin daily. e acetaminoph 0 Yes 650mg Take 650 [facility] 7-14 mg by [place] (TYLENOL) 13:41: mouth of 325 mg 57 every 4 Medicin tablet hours as e needed for Pain. tramadol Yes TAKE 1 [facility] (ULTRAM) 50 7-05 TABLET BY [facility] lege MG tablet 00:00: MOUTH of 00 EVERY 6 Medicin HOURS e NEEDED FOR PAIN tramadol Yes TAKE 1 [facility] (ULTRAM) 50 7-05 TABLET BY Col lege MG tablet 00:00: MOUTH of 00 EVERY 6 Medicin HOURS e NEEDED FOR PAIN tramadol Yes TAKE 1 [facility] (ULTRAM) 50 7-05 TABLET BY Col lege MG tablet 00:00: MOUTH of 00 EVERY 6 Medicin HOURS e NEEDED FOR PAIN tramadol Yes TAKE 1 [facility] (ULTRAM) 50 7-05 TABLET BY Col lege MG tablet 00:00: MOUTH of 00 EVERY 6 Medicin HOURS e NEEDED FOR PAIN tramadol Yes TAKE 1 [facility] (ULTRAM) 50 7-05 TABLET BY Col lege [...] NEEDED FOR PAIN tramadol Yes TAKE 1 [facility] (ULTRAM) 50 7-05 TABLET BY Col lege MG tablet 00:00: MOUTH of 00 EVERY 6 Medicin HOURS e NEEDED FOR PAIN tramadol Yes TAKE 1 [facility] (ULTRAM) 50 7-05 TABLET BY Col lege MG tablet 00:00: MOUTH of 00 EVERY 6 Medicin HOURS e NEEDED FOR PAIN tramadol 2020- No TAKE 1 [facility] (ULTRAM) 50 7-05 12-10 TABLET BY Co llege MG tablet 00:00: 00:00 MOUTH of 00 :00 EVERY 6 Medicin HOURS e NEEDED FOR PAIN ondansetron Yes [id number] 4mg Take 1 [facility] (ZOFRAN 6-10 Tablet by [place] ODT) 4 mg 00:00: mouth of disintegrat 00 every 8 Medic in ing tablet hours as e needed for Nausea. ondansetron Yes [id number] 4mg Take 1 [facility] (ZOFRAN 6-10 Tablet by [place] ODT) 4 mg 00:00: mouth of disintegrat 00 every 8 Medic in ing tablet hours as e needed for Nausea. ondansetron 2020-0 Yes [id number] 4mg Take 1 [facility] (ZOFRAN 6-10 Tablet by [place] ODT) 4 mg 00:00: mouth of disintegrat 00 every 8 Medic in ing tablet hours as e needed for Nausea. ondansetron 2020-0 Yes [id number] 4mg Take 1 [facility] (ZOFRAN 6-10 Tablet by [place] ODT) 4 mg 00:00: mouth of disintegrat 00 every 8 Medic in ing tablet hours as e needed for Nausea. ondansetron 2020-0 Yes [id number] 4mg Take 1 [facility] (ZOFRAN 6-10 Tablet by [place] ODT) 4 mg 00:00: mouth of disintegrat 00 every 8 Medic in ing tablet hours as e needed for Nausea. ondansetron 2020-0 Yes [id number] 4mg Take 1 [facility] (ZOFRAN 6-10 Tablet by [place] ODT) 4 mg 00:00: mouth of disintegrat 00 every 8 Medic in ing tablet hours as e needed for Nausea. ondansetron 2020-0 Yes [id number] 4mg Take 1 [facility] (ZOFRAN 6-10 Tablet by [place] ODT) 4 mg 00:00: mouth of disintegrat 00 every 8 Medic in ing tablet hours as e needed for Nausea. ondansetron 2020-0 Yes [id number] 4mg Take 1 [facility] (ZOFRAN 6-10 Tablet by [place] ODT) 4 mg 00:00: mouth of disintegrat 00 every 8 Medic in ing tablet hours as e needed for Nausea. ondansetron 2020-0 Yes [id number] 4mg Take 1 [facility] (ZOFRAN 6-10 Tablet by [place] ODT) 4 mg 00:00: mouth of disintegrat 00 every 8 Medic in ing tablet hours as e needed for Nausea. ondansetron 2020-0 Yes [id number] 4mg Take 1 [facility] (ZOFRAN 6-10 Tablet by [place] ODT) 4 mg 00:00: mouth of disintegrat 00 every 8 Medic in ing tablet hours as e needed for Nausea. ondansetron 2020-0 Yes [id number] 4mg Take 1 [facility] (ZOFRAN 6-10 Tablet by [place] ODT) 4 mg 00:00: mouth of disintegrat 00 every 8 Medic in ing tablet hours as e needed for Nausea. ondansetron 2021-0 Yes [id number] 4mg Take 1 [facility] (ZOFRAN 6-10 Tablet by [place] ODT) 4 mg 00:00: mouth of disintegrat 00 every 8 Medic in ing tablet hours as e needed for Nausea. ondansetron 2021-0 Yes [id number] 4mg Take 1 [facility] (ZOFRAN 6-10 Tablet by [place] ODT) 4 mg 00:00: mouth of disintegrat 00 every 8 Medic in ing tablet hours as e needed for Nausea. ondansetron 2020-0 2022- No [id number] 4mg Take 1 [facility] (ZOFRAN 6-10 03-09 Tablet by [facility] ODT) 4 mg 00:00: 00:00 mouth of disintegrat 00 :00 every 8 Medic in ing tablet hours as e needed for Nausea. loperamide 2020-0 Yes 2mg Take 2 mg [facility] (IMODIUM -09 by mouth 4 [facility] ge A-D) 2 MG 08:40: times of tablet 56 daily as Medicin needed. e metoprolol 2021-0 Yes 25mg Take 25 mg [facility] (LOPRESSOR) 6-09 by mouth [place] ege 25 MG 08:40: two times of tablet 56 daily. Medicin e fludrocorti 2021-0 Yes .1mg Take 0.1 [facility] sone 6-09 mg by [facility]) 08:40: mouth of 0.1 MG 56 daily. Medicin tablet e metoprolol 2021-0 Yes 25mg Take 25 mg [facility] (LOPRESSOR) 6-09 by mouth [place] e[place] 25 MG 08:40: two times of tablet 56 daily. Medicin e fludrocorti 2021-0 Yes .1mg Take 0.1 [facility] sone 6-09 mg by [place] ([facility]) 08:40: mouth of 0.1 MG 56 daily. Medicin tablet e metoprolol 2021-0 Yes 25mg Take 25 mg [facility] (LOPRESSOR) 6-09 by mouth [place] [facility] 25 MG 08:40: two times of tablet 56 daily. Medicin e fludrocorti 2021-0 Yes .1mg Take 0.1 [facility] sone 6-09 mg by [place] ([facility]) 08:40: mouth of 0.1 MG 56 daily. Medicin tablet e metoprolol 2021-0 Yes 25mg Take 25 mg [facility] (LOPRESSOR) 6-09 by mouth [place] e[place] 25 MG 08:40: two times of tablet 56 daily. Medicin e fludrocorti 2021-0 Yes .1mg Take 0.1 [facility] sone 6-09 mg by [place] ([facility]) 08:40: mouth of 0.1 MG 56 daily. [...] 0.1 [facility] sone 6-09 mg by [place] ([facility]) 08:40: mouth of 0.1 MG 56 daily. Medicin tablet e fludrocorti 2021-0 Yes .1mg Take 0.1 [facility] sone 6-09 mg by [place] ([facility]) 08:40: mouth of 0.1 MG 56 daily. Medicin tablet e metoprolol 2021-0 Yes 25mg Take 25 mg [facility] (LOPRESSOR) 6-09 by mouth [place] e[place] 25 MG 08:40: two times of tablet 56 daily. Medicin e fludrocorti 2021-0 Yes .1mg Take 0.1 [facility] sone 6-09 mg by [place] ([facility]) 08:40: mouth of 0.1 MG 56 daily. Medicin tablet e metoprolol 2021-0 Yes 25mg Take 25 mg [facility] (LOPRESSOR) 6-09 by mouth [place] e[place] 25 MG 08:40: two times of tablet 56 daily. Medicin e fludrocorti 2021-0 Yes .1mg Take 0.1 [facility] sone 6-09 mg by [place] ([facility]) 08:40: mouth of 0.1 MG 56 daily. Medicin tablet e metoprolol 2021-0 Yes 25mg Take 25 mg [facility] (LOPRESSOR) 6-09 by mouth [place] [facility] 25 MG 08:40: two times of tablet 56 daily. Medicin e fludrocorti Yes .1mg Take 0.1 [facility] sone 6-09 mg by [place] ([facility]) 08:40: mouth of 0.1 MG 56 daily. Medicin tablet e metoprolol Yes 25mg Take 25 mg [facility] (LOPRESSOR) 6-09 by mouth [place] [facility] 25 MG 08:40: two times of tablet 56 daily. Medicin e fludrocorti Yes .1mg Take 0.1 [facility] sone 6-09 mg by [place] ([facility]) 08:40: mouth of 0.1 MG 56 daily. Medicin tablet e Cholecalcif Yes 1{tbl} Take 1 Tab [facility] will 6-09 by mouth [place] (VITAMIN D) 08:36: daily. of 2000 UNIT 54 Medicin TABS e Multiple Yes Take by [facility] Vitamins-Mi 6-09 mouth. Colleg e nerals 08:36: of (MULTIVITAM 54 Medicin IN & e MINERAL OR) gabapentin Yes 300mg Take 300 [facility] (NEURONTIN) 6-09 mg by [place] 300 MG 08:36: mouth 3 of capsule 54 times Medicin daily. e acetaminoph Yes 650mg Take 650 [facility] en 6-09 mg by [place] (TYLENOL) 08:36: mouth of 325 mg 54 every 4 Medicin tablet hours as e needed for Pain. Na Yes [id number] [SUPREP] [facility] Sulfate-K 6-09 Take as College Sulfate-Mg 00:00: directed. of Sulf 00 Medicin (SUPREP e BOWEL PREP KIT) 17.5-3.13-1 .6 GM/177ML SOLN Na Yes [id number] [SUPREP] [facility] Sulfate-K 6-09 Take as [place] Sulfate-Mg 00:00: directed. of Sulf 00 Medicin (SUPREP e BOWEL PREP KIT) 17.5-3.13-1 .6 GM/177ML SOLN Na Yes [id number] [SUPREP] [facility] Sulfate-K 6-09 Take as [facility] Sulfate-Mg 00:00: directed. of Sulf 00 Medicin (SUPREP e BOWEL PREP KIT) 17.5-3.13-1 .6 GM/177ML SOLN Na 2020-0 Yes [id number] [SUPREP] [facility] Sulfate-K 6-09 Take as [facility] Sulfate-Mg 00:00: directed. of Sulf 00 Medicin (SUPREP e BOWEL PREP KIT) 17.5-3.13-1 .6 GM/177ML SOLN Na 2020-0 Yes [id number] [SUPREP] [facility] Sulfate-K 6-09 Take as [facility] Sulfate-Mg 00:00: directed. of Sulf 00 Medicin (SUPREP e BOWEL PREP KIT) 17.5-3.13-1 .6 GM/177ML SOLN Na 2020-0 Yes [id number] [SUPREP] [facility] Sulfate-K 6-09 Take as [facility] Sulfate-Mg 00:00: directed. of Sulf 00 Medicin (SUPREP e BOWEL PREP KIT) 17.5-3.13-1 .6 GM/177ML SOLN Na 2020-0 Yes [id number] [SUPREP] [facility] Sulfate-K 6-09 Take as [facility] Sulfate-Mg 00:00: directed. of Sulf 00 Medicin (SUPREP e BOWEL PREP KIT) 17.5-3.13-1 .6 GM/177ML SOLN Na 2020-0 Yes [id number] [SUPREP] [facility] Sulfate-K 6-09 Take as [facility] Sulfate-Mg 00:00: directed. of Sulf 00 Medicin (SUPREP e BOWEL PREP KIT) 17.5-3.13-1 .6 GM/177ML SOLN Na 2020-0 Yes [id number] [SUPREP] [facility] Sulfate-K 6-09 Take as [facility] Sulfate-Mg 00:00: directed. of Sulf 00 Medicin (SUPREP e BOWEL PREP KIT) 17.5-3.13-1 .6 GM/177ML SOLN Ustekinumab 2020-0 Yes [id number] INJECT 1 [facility] (STELARA) 3-17 [employer] [employer] 90 MG/ML 00:00: (90 MG) of injection 00 UNDER THE Medic in SKIN e (SUBCUTANE OUS INJECTION) EVERY 28 DAYS Ustekinumab 2020-0 Yes [id number] INJECT 1 [facility] (STELARA) 3-17 [employer] 90 MG/ML 00:00: (90 MG) of injection 00 UNDER THE Medic in SKIN e (SUBCUTANE OUS INJECTION) EVERY 28 DAYS Ustekinumab Yes [id number] INJECT 1 [facility] (STELARA) 3-17 [facility] [employer] 90 MG/ML 00:00: (90 MG) of injection 00 UNDER THE Medic in SKIN e (SUBCUTANE OUS INJECTION) EVERY 28 DAYS Ustekinumab Yes [id number] INJECT 1 [facility] (STELARA) 3-17 [employer] [employer] 90 MG/ML 00:00: (90 MG) of injection 00 UNDER THE Medic in SKIN e (SUBCUTANE OUS INJECTION) EVERY 28 DAYS Ustekinumab Yes [id number] INJECT 1 [facility] (STELARA) 3-17 [employer] [employer] 90 MG/ML 00:00: (90 MG) of injection 00 UNDER THE Medic in SKIN e (SUBCUTANE OUS INJECTION) EVERY 28 DAYS Ustekinumab Yes [id number] INJECT 1 [facility] (STELARA) 3-17 [employer] [employer] 90 MG/ML 00:00: (90 MG) of injection 00 UNDER THE Medic in SKIN e (SUBCUTANE OUS INJECTION) EVERY 28 DAYS Ustekinumab Yes [id number] INJECT 1 [facility] (STELARA) 3-17 [employer] [employer] 90 MG/ML 00:00: (90 MG) of injection 00 UNDER THE Medic in SKIN e (SUBCUTANE OUS INJECTION) EVERY 28 DAYS Ustekinumab Yes [id number] INJECT 1 [facility] (STELARA) 3-17 [employer] 90 MG/ML 00:00: (90 MG) of injection 00 UNDER THE Medic in SKIN e (SUBCUTANE OUS INJECTION) EVERY 28 DAYS Ustekinumab Yes [id number] INJECT 1 [facility] (STELARA) 3-17 [employer] [employer] 90 MG/ML 00:00: (90 MG) of injection 00 UNDER THE Medic in SKIN e (SUBCUTANE OUS INJECTION) EVERY 28 DAYS Ustekinumab Yes [id number] INJECT 1 [facility] (STELARA) 3-17 [employer] [employer] 90 MG/ML 00:00: (90 MG) of injection 00 UNDER THE Medic in SKIN e (SUBCUTANE OUS INJECTION) EVERY 28 DAYS Ustekinumab 2021-0 2021- No [id number] INJECT 1 [facility] (STELARA) 3-17 12-10 [place] [employer] e 90 MG/ML 00:00: 00:00 (90 MG) of injection 00 :00 UNDER THE Medic in SKIN e (SUBCUTANE OUS INJECTION) EVERY 28 DAYS tramadol 2020-1 Yes TAKE 1 [facility] (ULTRAM) 50 2-29 TABLET BY Col lege MG tablet 00:00: MOUTH of 00 EVERY 6 Medicin HOURS e NEEDED FOR PAIN cholestyram 2020-0 Yes [id number] MIX AND [facility] ine 1-13 DRINK 1 [place] ([facility]) 00:00: PACKET BY of 4 g packet 00 MOUTH Medicin DAILY e cholestyram 2020-0 Yes [id number] MIX AND [facility] ine 1-13 DRINK 1 [place] ([facility]) 00:00: PACKET BY of 4 g packet 00 MOUTH Medicin DAILY e cholestyram 2020-0 Yes [id number] MIX AND [facility] ine 1-13 DRINK 1 [place] ([facility]) 00:00: PACKET BY of 4 g packet 00 MOUTH Medicin DAILY e cholestyram 2020-0 Yes [id number] MIX AND [facility] ine 1-13 DRINK 1 [place] [facility] 00:00: PACKET BY of 4 g packet 00 MOUTH Medicin DAILY e cholestyram 2020-0 Yes [id number] MIX AND [facility] ine 1-13 DRINK 1 [place] ([facility]) 00:00: PACKET BY of 4 g packet 00 MOUTH Medicin DAILY e cholestyram 2020-0 Yes [id number] MIX AND [facility] ine 1-13 DRINK 1 [place] [facility] 00:00: PACKET BY of 4 g packet 00 MOUTH Medicin DAILY e cholestyram 2020-0 Yes [id number] MIX AND [facility] ine 1-13 DRINK 1 [place] [facility] 00:00: PACKET BY of 4 g packet 00 MOUTH Medicin DAILY e cholestyram 2020-0 Yes [id number] MIX AND [facility] ine 1-13 DRINK 1 [place] [facility] 00:00: PACKET BY of 4 g packet 00 MOUTH Medicin DAILY e cholestyram 2020-0 Yes [id number] MIX AND [facility] ine 1-13 DRINK 1 [place] [facility] 00:00: PACKET BY of 4 g packet 00 MOUTH Medicin DAILY e cholestyram 2020-0 Yes [id number] MIX AND [facility] ine 1-13 DRINK 1 [facility] (QUESTRAN) 00:00: PACKET BY of 4 g packet 00 MOUTH Medicin DAILY e cholestyram 2020-0 Yes [id number] MIX AND [facility] ine 1-13 DRINK 1 [place] [facility] 00:00: PACKET BY of 4 g packet 00 MOUTH Medicin DAILY e cholestyram 2020-0 Yes [id number] MIX AND [facility] ine 1-13 DRINK 1 [place] ([facility]) 00:00: PACKET BY of 4 g packet 00 MOUTH Medicin DAILY e cholestyram 2020-0 Yes [id number] MIX AND [facility] ine 1-13 DRINK 1 [place] (QUESTRAN) 00:00: PACKET BY of 4 g packet 00 MOUTH Medicin DAILY e cholestyram 2020-0 Yes [id number] MIX AND [facility] ine 1-13 DRINK 1 [place] [facility] 00:00: PACKET BY of 4 g packet 00 MOUTH Medicin DAILY e cholestyram 2020-0 2022- No [id number] MIX AND [facility] ine 1-13 03-09 DRINK 1 [place] (QUESTRAN) 00:00: 00:00 PACKET BY o f 4 g packet 00 :00 MOUTH Medicin DAILY e Sod 2019-0 Yes [PREPOPIK] [facility] Picosulfate 6-05 Take as Colle ge -Mag Ox-Cit 00:00: directed of Acd 00 Medicin (PREPOPIK) e 10-3.5-12 MG-GM-GM PACK Sod 2019-0 Yes [PREPOPIK] [facility] Picosulfate 6-05 Take as Colle ge -Mag Ox-Cit 00:00: directed of Acd 00 Medicin (PREPOPIK) e 10-3.5-12 MG-GM-GM PACK Sod 2019-0 Yes [PREPOPIK] [facility] Picosulfate 6-05 Take as Colle ge -Mag Ox-Cit 00:00: directed of Acd 00 Medicin (PREPOPIK) e 10-3.5-12 MG-GM-GM PACK Sod 2019-0 Yes [PREPOPIK] [facility] Picosulfate 6-05 Take as Colle ge -Mag Ox-Cit 00:00: directed of Acd 00 Medicin (PREPOPIK) e 10-3.5-12 MG-GM-GM PACK Sod 2019-0 Yes [PREPOPIK] [facility] Picosulfate 6-05 Take as Colle ge -Mag Ox-Cit 00:00: directed of Acd 00 Medicin (PREPOPIK) e 10-3.5-12 MG-GM-GM PACK Sod Yes [PREPOPIK] [facility] Picosulfate 6-05 Take as Colle ge -Mag [...] Medicin (PREPOPIK) e 10-3.5-12 MG-GM-GM PACK midodrine 2018-0 Yes TK 1/2 T [facility] [...] of tablet 00 Medicin e midodrine 2019-0 2020- No TK 1/2 T [place] [facility] (PROAMATINE 5-20 12-10 PO BID Colle [...] 00:00: daily. of Medicin e folic acid 2016-0 Yes 1mg Take 1 Tab [facility] (FOLVITE) 1 5-31 by mouth [place] e[facility] MG tablet 00:00: daily. of Medicin e folic acid 0 Yes 1mg Take 1 Tab [facility] (FOLVITE) 1 5-31 by mouth [place] e[facility] MG tablet 00:00: daily. of Medicin e folic acid 2017-0 1- No 1mg Take 1 Tab [facility] (FOLVITE) 1 5-31 12-10 by mouth Col lege MG tablet 00:00: 00:00 daily. of 00 :00 Medicin e ibandronate 2017-0 Yes [id number] 150mg Take 1 Tab [facility] (BONIVA) 1-06 by mouth [facility] 150 MG 00:00: every 30 of tablet 00 days. Medicin e ibandronate 2017-0 Yes [id number] 150mg Take 1 Tab [facility] ([facility]) 1-06 by mouth [employer] 150 MG 00:00: every 30 of tablet 00 days. Medicin e ibandronate 2017-0 Yes [id number] 150mg Take 1 Tab [facility] ([facility]ONIVA) 1-06 by mouth [employer] 150 MG 00:00: every 30 of tablet 00 days. Medicin e ibandronate 2017-0 Yes [id number] 150mg Take 1 Tab [facility] ([facility]ONIVA) 1-06 by mouth [employer] 150 MG 00:00: every 30 of tablet 00 days. Medicin e ibandronate 2017-0 Yes [id number] 150mg Take 1 Tab [facility] [facility] 1-06 by mouth [facility] 150 MG 00:00: every 30 of tablet 00 days. Medicin e ibandronate 2017-0 Yes [id number] 150mg Take 1 Tab [facility] ([facility]) 1-06 by mouth [facility] 150 MG 00:00: every 30 of tablet 00 days. Medicin e ibandronate 2017-0 Yes [id number] 150mg Take 1 Tab [facility] (BONIVA) 1-06 by mouth [facility] 150 MG 00:00: every 30 of tablet 00 days. Medicin e ibandronate 2017-0 Yes [id number] 150mg Take 1 Tab [facility] ([facility]ONIVA) 1-06 by mouth [facility] 150 MG 00:00: every 30 of tablet 00 days. Medicin e ibandronate Yes [id number] 150mg Take 1 Tab [facility] ([facility]ONIV[facility]) 1-06 by mouth [facility] 150 MG 00:00: every 30 of tablet 00 days. Medicin e ibandronate Yes [id number] 150mg Take 1 Tab [facility] ([facility]) 1-06 by mouth [facility] 150 MG 00:00: every 30 of tablet 00 days. Medicin e ibandronate 2020- No [id number] 150mg Take 1 Tab [facility] ([facility]IV[facility]) [facility]00 every 30 of tablet 00 :00 days. Medicin e ondansetron 2014-06 Yes [id number] 4mg Take 1 Tab [facility] (ZOFRAN 1-13 by mouth [place] ODT) 4 mg 00:00: every 8 of disintegrat 00 hours as Medi richelle ing tablet needed for e Nausea. Immunizations Ordered Immunization Filled Immunization Date Status Commen ts Source Name Name Influenza Quad-PF 2021-04-05 Completed [facility] 00:00:00 of Medicine Influenza Quad-PF 2021-04-05 Completed [facility] 00:00:00 of Medicine Influenza Quad-PF 2021-04-05 Completed [facility] 00:00:00 of Medicine Influenza Quad-PF 2021-04-05 Completed [facility] 00:00:00 of Medicine Influenza Quad-PF 2021-04-05 Completed [facility] 00:00:00 of Medicine Influenza Quad-PF 2021-04-05 Completed [facility] 00:00:00 of Medicine Influenza Quad-PF 2021-04-05 Completed [facility] 00:00:00 of Medicine Influenza Quad-PF 2021-04-05 Completed [facility] 00:00:00 of Medicine Influenza Quad-PF 2021-04-05 Completed [facility] 00:00:00 of Medicine Influenza Quad-PF 2021-04-05 Completed [facility] 00:00:00 of Medicine Influenza Quad-PF 2021-04-05 Completed [facility] 00:00:00 of Medicine Influenza Quad-PF 2021-04-05 Completed [facility] 00:00:00 of Medicine Influenza Quad-PF 2021-04-05 Completed [facility] 00:00:00 of Medicine Pfizer SARS-CoV-2 2021-03-22 [facility] Pfizer SARS-CoV-2 2021-03-22 Completed [facility] Vaccination 00:00:00 of Medicine Pfizer SARS-CoV-2 2021-03-22 [facility] Pfizer SARS-CoV-2 2021-03-22 [facility] Medicine Pfizer SARS-CoV-2 2021-03-22 [facility] of Medicine Pfizer SARS-CoV-2 2021-03-22 [facility]00 of Medicine Pfizer SARS-CoV-2 2021-03-22 Completed [facility] Vaccination 00:00:00 of Medicine Pfizer SARS-CoV-2 2021-03-22 [facility]:00 of Medicine Pfizer SARS-CoV-2 2021-03-22 Completed [facility] Vaccination 00:00:00 of Medicine Pfizer SARS-CoV-2 2021-03-22 Completed [facility] Vaccination 00:00:00 of Medicine Pfizer SARS-CoV-2 2021-03-22 Completed [facility] Vaccination 00:00:00 of Medicine Pfizer SARS-CoV-2 2021-03-22 Completed [facility] Vaccination 00:00:00 of Medicine Pfizer SARS-CoV-2 2021-03-22 [facility] Pfizer SARS-CoV-2 2021-03-22 Completed [facility] Vaccination 00:00:00 of Medicine Pfizer SARS-CoV-2 2021-03-22 Completed [facility] Vaccination 00:00:00 of Medicine PPD Test 2020-10-04 Completed [facility] 00:00:00 of Medicine PPD Test 2020-10-04 Completed [facility] 00:00:00 of Medicine PPD Test 2020-10-04 Completed [facility] [employer] 00:00:00 of Medicine PPD Test 2020-10-04 Completed [facility] [employer] 00:00:00 of Medicine PPD Test 2020-10-04 Completed [facility] [employer] 00:00:00 of Medicine PPD Test 2020-10-04 Completed [facility] 00:00:00 of Medicine PPD Test 2020-10-04 Completed [facility] 00:00:00 of Medicine PPD Test 2020-10-04 Completed [facility] 00:00:00 of Medicine PPD Test 2020-10-04 Completed [facility] 00:00:00 of Medicine PPD Test 2020-10-04 Completed [facility] 00:00:00 of Medicine PPD Test 2020-10-04 Completed [facility] 00:00:00 of Medicine PPD Test 2020-10-04 Completed [facility] 00:00:00 of Medicine PPD Test 2020-10-04 Completed [facility] 00:00:00 of Medicine PPD Test 2020-10-04 Completed [facility] 00:00:00 of Medicine PPD Test 2020-10-04 Completed [facility] 00:00:00 of Medicine PPD Test 2020-10-04 Completed [facility] 00:00:00 of Medicine PPD Test 2020-10-04 Completed [facility] 00:00:00 of Medicine PPD Test 2020-10-04 Completed [facility] 00:00:00 of Medicine PPD Test 2020-10-04 Completed [facility] 00:00:00 of Medicine PPD Test 2020-10-04 Completed [facility] 00:00:00 of Medicine PPD Test 2020-10-04 Completed [facility] 00:00:00 of Medicine PPD Test 2020-10-04 Completed [facility] 00:00:00 of Medicine Influenza Quad-PF 2019-05-20 Completed [facility] 00:00:00 of Medicine Influenza Quad-PF 2019-05-20 Completed [facility] 00:00:00 of Medicine Influenza Quad-PF 2019-05-20 Completed [facility] 00:00:00 of Medicine Influenza Quad-PF 2019-05-20 Completed [facility] 00:00:00 of Medicine Influenza Quad-PF 2019-05-20 Completed [facility] 00:00:00 of Medicine Influenza Quad-PF 2019-05-20 Completed [facility] 00:00:00 of Medicine Influenza Quad-PF 2019-05-20 Completed [facility] 00:00:00 of Medicine Influenza Quad-PF 2019-05-20 Completed [facility] 00:00:00 of Medicine Influenza Quad-PF 2019-05-20 Completed [facility] 00:00:00 of Medicine Influenza Quad-PF 2019-05-20 Completed [facility] 00:00:00 of Medicine Influenza Quad-PF 2019-05-20 Completed [facility] 00:00:00 of Medicine Influenza Quad-PF 2019-05-20 Completed [facility] 00:00:00 of Medicine Influenza Quad-PF 2019-05-20 Completed [facility] 00:00:00 of Medicine Influenza Quad-PF 2019-05-20 Completed [facility] 00:00:00 of Medicine Influenza Quad-PF 2019-05-20 Completed [facility] 00:00:00 of Medicine Influenza Quad-PF 2019-05-20 Completed [facility] 00:00:00 of Medicine Influenza Quad-PF 2019-05-20 Completed [facility] 00:00:00 of Medicine Influenza Quad-PF 2019-05-20 Completed [facility] 00:00:00 of Medicine Influenza Quad-PF 2019-05-20 Completed [facility] 00:00:00 of Medicine Influenza Quad-PF 2019-05-20 Completed [facility] 00:00:00 of Medicine Influenza Quad-PF 2019-05-20 Completed [facility] 00:00:00 of Medicine Influenza Quad-PF 2019-05-20 Completed [facility] 00:00:00 of Medicine PPD Test 2018-09-22 Completed [facility] 00:00:00 of Medicine PPD Test 2018-09-22 Completed [facility] 00:00:00 of Medicine PPD Test 2018-09-22 Completed [facility] 00:00:00 of Medicine PPD Test 2018-09-22 Completed [facility] 00:00:00 of Medicine PPD Test 2018-09-22 Completed [facility] 00:00:00 of Medicine PPD Test 2018-09-22 Completed [facility] 00:00:00 of Medicine PPD Test 2018-09-22 Completed [facility] 00:00:00 of Medicine PPD Test 2018-09-22 Completed [facility] 00:00:00 of Medicine PPD Test 2018-09-22 Completed [facility] 00:00:00 of Medicine PPD Test 2018-09-22 Completed [facility] 00:00:00 of Medicine PPD Test 2018-09-22 Completed [facility] 00:00:00 of Medicine PPD Test 2018-09-22 Completed [facility] 00:00:00 of Medicine PPD Test 2018-09-22 Completed [facility] 00:00:00 of Medicine PPD Test 2018-09-22 Completed [facility] 00:00:00 of Medicine PPD Test 2018-09-22 Completed [facility] 00:00:00 of Medicine PPD Test 2018-09-22 Completed [facility] 00:00:00 of Medicine PPD Test 2018-09-22 Completed [facility] 00:00:00 of Medicine PPD Test 2018-09-22 Completed [facility] 00:00:00 of Medicine PPD Test 2018-09-22 Completed [facility] 00:00:00 of Medicine PPD Test 2018-09-22 Completed [facility] 00:00:00 of Medicine PPD Test 2018-09-22 Completed [facility] 00:00:00 of Medicine PPD Test 2018-09-22 Completed [facility] 00:00:00 of Medicine Influenza Quad-PF 2017-07-14 Completed [facility] 00:00:00 of Medicine Influenza Quad-PF 2017-07-14 Completed [facility] 00:00:00 of Medicine Influenza Quad-PF 2017-07-14 Completed [facility] 00:00:00 of Medicine Influenza Quad-PF 2017-07-14 Completed [facility] 00:00:00 of Medicine Influenza Quad-PF 2017-07-14 Completed [facility] 00:00:00 of Medicine Influenza Quad-PF 2017-07-14 Completed [facility] 00:00:00 of Medicine Influenza Quad-PF 2017-07-14 Completed [facility] 00:00:00 of Medicine Influenza Quad-PF 2017-07-14 Completed [facility] 00:00:00 of Medicine Influenza Quad-PF 2017-07-14 Completed [facility] 00:00:00 of Medicine Influenza Quad-PF 2017-07-14 Completed [facility] 00:00:00 of Medicine Influenza Quad-PF 2017-07-14 Completed [facility] 00:00:00 of Medicine Influenza Quad-PF 2017-07-14 Completed [facility] 00:00:00 of Medicine Influenza Quad-PF 2017-07-14 Completed [facility] 00:00:00 of Medicine Influenza Quad-PF 2017-07-14 Completed [facility] 00:00:00 of Medicine Influenza Quad-PF 2017-07-14 Completed [facility] 00:00:00 of Medicine Influenza Quad-PF 2017-07-14 Completed [facility] 00:00:00 of Medicine Influenza Quad-PF 2017-07-14 Completed [facility] 00:00:00 of Medicine Influenza Quad-PF 2017-07-14 Completed [facility] 00:00:00 of Medicine Influenza Quad-PF 2017-07-14 Completed [facility] 00:00:00 of Medicine Influenza Quad-PF 2017-07-14 Completed [facility] 00:00:00 of Medicine Influenza Quad-PF 2017-07-14 Completed [facility] 00:00:00 of Medicine Influenza Quad-PF 2017-07-14 Completed [facility] 00:00:00 of Medicine Tetanus 2015-01-30 Completed [facility] 00:00:00 of Medicine Tetanus 2015-01-30 Completed [facility] 00:00:00 of Medicine Tetanus 2015-01-30 Completed [facility] 00:00:00 of Medicine Tetanus 2015-01-30 Completed [facility] 00:00:00 of Medicine Tetanus 2015-01-30 Completed [facility] 00:00:00 of Medicine Tetanus 2015-01-30 Completed [facility] 00:00:00 of Medicine Tetanus 2015-01-30 Completed [facility] 00:00:00 of Medicine Tetanus 2015-01-30 Completed [facility] 00:00:00 of Medicine Tetanus 2015-01-30 Completed [facility] 00:00:00 of Medicine Tetanus 2015-01-30 Completed [facility] 00:00:00 of Medicine Tetanus 2015-01-30 Completed [facility] 00:00:00 of Medicine Tetanus 2015-01-30 Completed [facility] 00:00:00 of Medicine Tetanus 2015-01-30 Completed [facility] 00:00:00 of Medicine Tetanus 2015-01-30 Completed [facility] 00:00:00 of Medicine Tetanus 2015-01-30 Completed [facility] 00:00:00 of Medicine Tetanus 2015-01-30 Completed [facility] 00:00:00 of Medicine Tetanus 2015-01-30 Completed [facility] 00:00:00 of Medicine Tetanus 2015-01-30 Completed [facility] 00:00:00 of Medicine Tetanus 2015-01-30 Completed [facility] 00:00:00 of Medicine Tetanus 2015-01-30 Completed [facility] 00:00:00 of Medicine Tetanus 2015-01-30 Completed [facility] 00:00:00 of Medicine Tetanus 2015-01-30 Completed [facility] 00:00:00 of Medicine Hep A/Hep B 2011-02-05 Completed [facility] 00:00:00 of Medicine Hep A/Hep B 2011-02-05 Completed [facility] 00:00:00 of Medicine Hep A/Hep B 2011-02-05 Completed [facility] [employer] [facility] 00:00:00 of Medicine Hep A/Hep B 2011-02-05 Completed [facility] 00:00:00 of Medicine Hep A/Hep B 2011-02-05 Completed [facility] [employer] [facility] 00:00:00 of Medicine Hep A/Hep B 2011-02-05 Completed [facility] 00:00:00 of Medicine Hep A/Hep [...] of Medicine Hep A/Hep B 2011-02-05 Completed [facility] 00:00:00 of Medicine Hep A/Hep B 2011-02-05 Completed [facility] 00:00:00 of Medicine Hep A/Hep B 2011-02-05 Completed [facility] 00:00:00 of Medicine Hep A/Hep B 2011-02-05 Completed [facility] 00:00:00 of Medicine Hep A/Hep [...] of Medicine Hep A/Hep B 2011-02-05 Completed [facility] 00:00:00 of Medicine Pneumococcal 2010-11-05 Completed [facility] Polysaccharide 00:00:00 of Medicin e Pneumococcal 2010-11-05 Completed [facility] Polysaccharide 00:00:00 of Medicin e Pneumococcal 2010-11-05 Completed [facility] Polysaccharide 00:00:00 of Medicin e Pneumococcal 2010-11-05 Completed [facility] Polysaccharide 00:00:00 of Medicin e Pneumococcal 2010-11-05 Completed [facility] Polysaccharide 00:00:00 of Medicin e Pneumococcal 2010-11-05 Completed [facility] Polysaccharide 00:00:00 of Medicin e Pneumococcal 2010-11-05 Completed [facility] Polysaccharide 00:00:00 of Medicin e Pneumococcal 2010-11-05 Completed [facility] Polysaccharide 00:00:00 of Medicin e Pneumococcal 2010-11-05 Completed [facility] Polysaccharide 00:00:00 of Medicin e Pneumococcal 2010-11-05 Completed [facility] Polysaccharide 00:00:00 of Medicin e Pneumococcal 2010-11-05 Completed [facility] Polysaccharide 00:00:00 of Medicin e Pneumococcal 2010-11-05 Completed [facility] Polysaccharide 00:00:00 of Medicin e Pneumococcal 2010-11-05 Completed [facility] Polysaccharide 00:00:00 of Medicin e Pneumococcal 2010-11-05 Completed [facility] Polysaccharide 00:00:00 of Medicin e Pneumococcal 2010-11-05 Completed [facility] Polysaccharide 00:00:00 of Medicin e Pneumococcal 2010-11-05 Completed [facility] Polysaccharide 00:00:00 of Medicin e Pneumococcal 2010-11-05 Completed [facility] Polysaccharide 00:00:00 of Medicin e Pneumococcal 2010-11-05 Completed [facility] Polysaccharide 00:00:00 of Medicin e Pneumococcal 2010-11-05 Completed [facility] Polysaccharide 00:00:00 of Medicin e Pneumococcal 2010-11-05 Completed [facility] Polysaccharide 00:00:00 of Medicin e Pneumococcal 2010-11-05 Completed [facility] Polysaccharide 00:00:00 of Medicin e Pneumococcal 2010-11-05 Completed [facility] Polysaccharide 00:00:00 of Medicin e Vital Signs Vital Name Observation Time Observation Value Comments Source HEIGHT 2021-03-01 07:00:00 185.4 cm WEIGHT 2021-03-01 07:00:00 68.085 kg HEIGHT 2021-02-28 09:45:00 185.4 cm WEIGHT 2021-02-28 09:45:00 71.668 kg HEIGHT 2022-02-22 11:19:00 185.4 cm WEIGHT 2022-02-22 11:19:00 65.772 kg HEIGHT 2022-02-22 11:19:00 185.4 cm WEIGHT 2022-02-22 11:19:00 65.772 kg Systolic blood 2022-02-18 14:03:00 121 mm[Hg] [facility] pressure Medicine Diastolic blood 2022-02-18 14:03:00 72 mm[Hg] [facility] Medicine Heart rate 2022-02-18 14:03:00 124 /min [facility]2 100 [facility] Body temperature 2022-02-18 14:03:00 36.89 [facility] Body height 2022-02-18 14:03:00 185.4 cm [facility] Body weight 2022-02-18 14:03:00 65.681 kg [facility] BMI 2022-02-18 14:03:00 19.10 kg/m2 [facility] Systolic blood 2022-02-12 18:55:00 117 mm[Hg] [facility] pressure Medicine Diastolic blood 2022-02-12 18:55:00 71 mm[Hg] [facility] Medicine Heart rate 2022-02-12 18:55:00 125 /min [facility] Body temperature 2022-02-12 18:55:00 36 [facility] Respiratory rate 2022-02-12 18:55:00 14 /min [facility] Body height 2022-02-12 18:55:00 185.4 cm [facility] Body weight 2022-02-12 18:55:00 64.683 kg [facility] BMI 2022-02-12 18:55:00 18.81 kg/m2 [facility] Systolic blood 2022-01-15 20:52:00 123 mm[Hg] [facility] pressure Medicine Diastolic blood 2022-01-15 20:52:00 81 mm[Hg] [facility] pressure Medicine Heart rate 2022-01-15 20:52:00 121 /min [facility] Body temperature 2022-01-15 20:52:00 36.33 [facility] Body height 2022-01-15 20:52:00 185.4 cm [facility] Body weight 2022-01-15 20:52:00 64.411 kg [facility] BMI 2022-01-15 20:52:00 18.73 kg/m2 [facility] Systolic blood 2021-11-28 17:36:00 123 mm[Hg] [facility] pressure Medicine Diastolic blood 2021-11-28 17:36:00 75 mm[Hg] [facility] Medicine Heart rate 2021-11-28 17:36:00 135 /min [facility] Body temperature 2021-11-28 17:36:00 36.28 [facility] Respiratory rate 2021-11-28 17:36:00 16 /min [facility] Body height 2021-11-28 17:36:00 185.4 cm [facility] Body weight 2021-11-28 17:36:00 63.685 kg [facility] BMI 2021-11-28 17:36:00 18.52 kg/m2 [facility] Systolic blood 2021-11-20 17:24:00 98 mm[Hg] [facility] Medicine Diastolic blood 2021-11-20 17:24:00 67 mm[Hg] [facility] Medicine Heart rate 2021-11-20 17:24:00 156 /min [facility] Body temperature 2021-11-20 17:24:00 37 [facility] Body height 2021-11-20 17:24:00 185.4 cm [facility] Body weight 2021-11-20 17:24:00 61.236 kg [facility] BMI 2021-11-20 17:24:00 17.81 kg/m2 [facility] HEIGHT 2021-11-11 05:50:00 185.4 cm WEIGHT 2021-11-11 05:50:00 57.561 kg HEIGHT 2021-11-11 05:50:00 185.4 cm WEIGHT 2021-11-11 05:50:00 57.561 kg HEIGHT 2021-11-03 21:00:00 185.4 cm WEIGHT 2021-11-03 21:00:00 67.586 kg HEIGHT 2021-11-03 21:00:00 185.4 cm WEIGHT 2021-11-03 21:00:00 67.586 kg Systolic blood 2021-09-27 16:30:00 126 mm[Hg] [facility] Medicine Diastolic blood 2021-09-27 16:30:00 80 mm[Hg] [facility] Medicine Heart rate 2021-09-27 16:30:00 105 /min [facility] Body temperature 2021-09-27 16:30:00 36.28 [facility] Respiratory rate 2021-09-27 16:30:00 14 /min [facility] Body height 2021-09-27 16:30:00 185.4 cm [facility] Body weight 2021-09-27 16:30:00 71.124 kg [facility] BMI 2021-09-27 16:30:00 20.69 kg/m2 [facility] Systolic blood 2021-09-26 14:16:00 119 [...] h BMI 2021-09-26 14:16:00 20.74 [facility] 2021-09-26 14:16:00 100 /min [facility] Arterial blood by Pulse oximetry HEIGHT 2021-05-06 09:00:00 185.4 cm WEIGHT 2021-05-06 09:00:00 68.04 kg Systolic blood 2021-02-12 14:52:00 115 mm[Hg] [facility] Diastolic blood 2021-02-12 14:52:00 77 mm[Hg] [facility] Heart rate 2021-02-12 14:52:00 108 /min [facility] 2021-02-12 14:52:00 14 /min [facility] Body height 2021-02-12 14:52:00 185.4 cm [facility] Body weight 2021-02-12 14:52:00 71.668 kg [facility] BMI 2021-02-12 14:52:00 20.85 kg/m2 [facility] Systolic blood 2020-11-14 13:35:00 110 mm[Hg] [facility] Diastolic blood 2020-11-14 13:35:00 76 mm[Hg] [facility] [facility] Heart rate 2020-11-14 13:35:00 109 /min [facility] Body temperature 2020-11-14 13:35:00 36.61 [facility] Body height 2020-11-14 13:35:00 185.4 cm [facility] Body weight 2020-11-14 13:35:00 72.122 kg [facility] BMI 2020-11-14 13:35:00 20.98 kg/m2 [facility] Weight 2014-12-12 12:25:00 [facility] BMI Calculated 2014-12-12 12:25:00 Isaacori al Giuseppe Height 2014-12-12 12:25:00 185.42 cm [facility] Procedures Procedure Date / Time Performing Clinician Source Performed TREATMENT CONDITIONS 2022-03-12 14:42:35 [facility] AMB REF TO COLORECTAL 2022-02-12 14:38:37 [facility] CBC W/O DIFF W PLT 2022-02-12 14:38:17 [facility] COMPREHENSIVE METABOLIC 2022-02-12 14:38:17 [facility] SEDIMENTATION RATE 2022-02-12 14:38:17 [facility] C-REACTIVE PROTEIN 2022-02-12 14:38:17 [facility] IRON+TIBC+%SAT 2022-02-12 14:38:17 [facility] FERRITIN 2022-02-12 14:38:17 [facility] TREATMENT CONDITIONS 2022-01-16 10:02:12 [facility] COMPREHENSIVE METABOLIC 2022-01-15 21:25:00 Mandy [facility] C-REACTIVE PROTEIN 2022-01-15 21:25:00 [facility] llege of Medicine CBC W/O DIFF W PLT 2022-01-15 21:25:00 [facility] SEDIMENTATION RATE 2022-01-15 21:25:00 [facility] llege of [facility]IFIED [facility] CBC W/O DIFF W PLT 2022-01-15 16:25:00 [facility] COMPREHENSIVE METABOLIC 2022-01-15 16:25:00 [facility] SEDIMENTATION RATE 2022-01-15 16:25:00 [facility] llege of MODIFIED [facility] C-REACTIVE PROTEIN 2022-01-15 16:25:00 [facility] TREATMENT CONDITIONS 2021-12-31 09:17:00 [facility] CBC W/O DIFF W PLT 2021-11-20 13:09:12 [facility] COMPREHENSIVE METABOLIC 2021-11-20 13:09:12 [facility] SEDIMENTATION RATE 2021-11-20 13:09:12 [facility] C-REACTIVE PROTEIN 2021-11-20 13:09:12 [facility] IRON 2021-11-20 13:09:12 [facility] FERRITIN 2021-11-20 13:09:12 [facility] CHG RADIOLOGIC EXAM CHEST 2021-02-13 00:00:00 Provider, Jayant del rio [address] Medicine Plan of Care Planned Activity Planned Date Details Comments Source Future Scheduled 2022-02-25 Human immunodeficiency [facility] Test 15:07:43 virus screening of Medicine (procedure) [code = 564083432] Future Scheduled 2022-02-25 FLU VACCINE > 6 MONTHS B [facility] Test 15:07:43 [code = FLU VACCINE > 6 of M edicine MONTHS] Future Scheduled 2022-02-25 TETANUS SHOT (ADULT) [place] [facility] Test 15:07:43 [code = TETANUS SHOT of Medi cine (ADULT)] Future Scheduled 2022-02-18 MRI ENTEROGRAPHY (SMALL 1 Occurrences [facility] Test 10:14:14 BOWEL EVALUATION) [code starting of M edicine = 05995] 02/18/2022 until 02/18/2023 Future Scheduled 2022-02-17 Human immunodeficiency [facility] Test 08:25:52 virus screening of Medicine (procedure) [code = 171011258] Future Scheduled 2022-02-17 FLU VACCINE > 6 MONTHS B [facility] Test 08:25:52 [code = FLU VACCINE > 6 of M edicine MONTHS] Future Scheduled 2022-02-17 TETANUS SHOT (ADULT) [facility] Test 08:25:52 [code = TETANUS SHOT of Medi cine (ADULT)] Future Scheduled 2022-02-12 CBC W/O DIFF W PLT Ordered: [facility] Test 14:38:17 [code = 6690-2] 02/12/2022 of Medicine Future Scheduled 2022-02-12 COMPREHENSIVE METABOLIC Ordered: [facility] Test 14:38:17 PANEL [code = 03276-5] 02/12/2022 of Me dicine Future Scheduled 2022-02-12 SEDIMENTATION RATE Ordered: [facility] Test 14:38:17 MODIFIED JANESSA 02/12/2022 of Medic ine [code = 4537-7] Future Scheduled 2022-02-12 C-REACTIVE PROTEIN Ordered: [facility] Test 14:38:17 [code = 1988-5] 02/12/2022 of Medicine Future Scheduled 2022-02-12 IRON+TIBC+%SAT [code = Ordered: [facility] Test 14:38:17 NOCPT] 02/12/2022 of Medicine Future Scheduled 2022-02-12 FERRITIN [code = Ordered: [facility] Test 14:38:17 92124-1] 02/12/2022 of Medicine Future Scheduled 2022-02-12 Human immunodeficiency [facility] [employer] Test 14:15:10 virus screening of Medicine (procedure) [code = 047052902] Future Scheduled 2022-02-12 FLU VACCINE > 6 MONTHS B [facility] Test 14:15:10 [code = FLU VACCINE > 6 of M edicine MONTHS] Future Scheduled 2022-02-12 TETANUS SHOT (ADULT) [facility] Test 14:15:10 [code = TETANUS SHOT of Medi cine (ADULT)] Future Scheduled 2021-12-23 Human immunodeficiency [facility] Test 05:29:51 virus screening of Medicine (procedure) [code = 903325557] Future Scheduled 2021-12-23 FLU VACCINE > 6 MONTHS B [facility] Test 05:29:51 [code = FLU VACCINE > 6 of M edicine MONTHS] Future Scheduled 2021-12-23 TETANUS SHOT (ADULT) [facility] Test 05:29:51 [code = TETANUS SHOT of Medi cine (ADULT)] Future Scheduled 2021-12-15 Human immunodeficiency [facility] Test 22:15:50 virus screening of Medicine (procedure) [code = 736504732] Future Scheduled 2021-12-15 FLU VACCINE > 6 MONTHS B [facility] Test 22:15:50 [code = FLU VACCINE > 6 of M edicine MONTHS] Future Scheduled 2021-12-15 TETANUS SHOT (ADULT) [facility] Test 22:15:50 [code = TETANUS SHOT of Medi cine (ADULT)] Future Scheduled 2021-11-20 CBC W/O DIFF W PLT Ordered: [facility] Test 13:09:12 [code = 6690-2] 11/20/2021 of Medicine Future Scheduled 2021-11-20 COMPREHENSIVE METABOLIC Ordered: [facility] Test 13:09:12 PANEL [code = 42799-1] 11/20/2021 of Me dicine Future Scheduled 2021-11-20 SEDIMENTATION RATE Ordered: [facility] Test 13:09:12 MODIFIED JANESSA 11/20/2021 of Medic ine [code = 4537-7] Future Scheduled 2021-11-20 C-REACTIVE PROTEIN Ordered: [facility] Test 13:09:12 [code = 1988-5] 11/20/2021 of Medicine Future Scheduled 2021-11-20 IRON [code = 2498-4] Ordered: [facility] Test 13:09:12 11/20/2021 of Medicine Future Scheduled 2021-11-20 FERRITIN [code = Ordered: [facility] Test 13:09:12 88441-8] 11/20/2021 of Medicine Future Scheduled 2021-10-23 CT ABD/PELVIS 1 Occurrences [facility] Test 14:55:11 ENTEROGRAPHY W [code = starting of Me dicine 96398-6] 10/23/2021 until 10/23/2022 Future Scheduled 2021-10-23 Human immunodeficiency [facility] Test 13:38:41 virus screening of Medicine (procedure) [code = 383831548] Future Scheduled 2021-10-23 FLU VACCINE > 6 MONTHS B [facility] Test 13:38:41 [code = FLU VACCINE > 6 of M edicine MONTHS] Future Scheduled 2021-10-23 TETANUS SHOT (ADULT) [facility] Test 13:38:41 [code = TETANUS SHOT of Medi cine (ADULT)] Future Scheduled 2021-10-17 Human immunodeficiency [facility] Test 08:51:26 virus screening of Medicine (procedure) [code = 030344919] Future Scheduled 2021-10-17 FLU VACCINE > 6 MONTHS B [facility] Test 08:51:26 [code = FLU VACCINE > 6 of M edicine MONTHS] Future Scheduled 2021-10-17 TETANUS SHOT (ADULT) [facility] Test 08:51:26 [code = TETANUS SHOT of Medi cine (ADULT)] Future Scheduled 2021-08-14 Human immunodeficiency [facility] Test 13:40:17 virus screening of Medicine (procedure) [code = 142025809] Future Scheduled 2021-08-14 TETANUS SHOT (ADULT) [facility] Test 13:40:17 [code = TETANUS SHOT of Medi cine (ADULT)] Future Scheduled 2021-07-15 Human immunodeficiency [facility] Test 13:50:38 virus screening of Medicine (procedure) [code = 916817510] Future Scheduled 2021-07-15 TETANUS SHOT (ADULT) [facility] Test 13:50:38 [code = TETANUS SHOT of Medi cine (ADULT)] Future Scheduled 2021-06-05 Human immunodeficiency [facility] Test 12:11:12 virus screening of Medicine (procedure) [code = 263300837] Future Scheduled 2021-06-05 TETANUS SHOT (ADULT) [facility] Test 12:11:12 [code = TETANUS SHOT of Medi cine (ADULT)] Future Scheduled 2021-05-22 [facility] 09:[facility]:01 virus screening of Medicine (procedure) [code = 896688015] Future Scheduled 2021-05-22 TETANUS SHOT (ADULT) [place] Test 09:55:01 [code = TETANUS SHOT of Medi cine (ADULT)] Future Scheduled 2021-05-17 [facility] 12:55:55 virus screening of Medicine (procedure) [code = 284252673] Future Scheduled 2021-05-17 TETANUS SHOT (ADULT) [place] [facility] Test 12:55:55 [code = TETANUS SHOT of Medi cine (ADULT)] Future Scheduled 2021-04-19 [facility] 10:02:06 virus screening of Medicine (procedure) [code = 961451033] Future Scheduled 2021-04-19 TETANUS SHOT (ADULT) [facility] Test 10:02:06 [code = TETANUS SHOT of Medi cine (ADULT)] Future Scheduled 2021-04-05 Human immunodeficiency [facility] Test 13:20:07 virus screening of Medicine (procedure) [code = 552326773] Future Scheduled 2021-04-05 FLU VACCINE > 6 MONTHS B [facility] Test 13:20:07 [code = FLU VACCINE > 6 of M edicine MONTHS] Future Scheduled 2021-04-05 TETANUS SHOT (ADULT) [facility] Test 13:20:07 [code = TETANUS SHOT of Medi cine (ADULT)] Future Scheduled 2021-03-22 Human immunodeficiency [facility] Test 14:25:40 virus screening of Medicine (procedure) [code = 134410734] Future Scheduled 2021-03-22 FLU VACCINE > 6 MONTHS B [facility] Test 14:25:40 [code = FLU VACCINE > 6 of M edicine MONTHS] Future Scheduled 2021-03-22 TETANUS SHOT (ADULT) [facility] Test 14:25:40 [code = TETANUS SHOT of Medi cine (ADULT)] Future Scheduled 2021-03-07 [facility] 13:34:05 virus screening of Medicine (procedure) [code = 585229475] Future Scheduled 2021-03-07 FLU VACCINE > 6 MONTHS B [facility] Test 13:34:05 [code = FLU VACCINE > 6 of M edicine MONTHS] Future Scheduled 2021-03-07 TETANUS SHOT (ADULT) [facility] Test 13:34:05 [code = TETANUS SHOT of Medi cine (ADULT)] Future Scheduled 2021-03-07 Human immunodeficiency [facility] Test 13:34:05 virus screening of Medicine (procedure) [code = 954122594] Future Scheduled 2021-03-07 FLU VACCINE > 6 MONTHS B [facility] Test 13:34:05 [code = FLU VACCINE > 6 of M edicine MONTHS] Future Scheduled 2021-03-07 TETANUS SHOT (ADULT) [facility] Test 13:34:05 [code = TETANUS SHOT of Medi cine (ADULT)] Future Scheduled 2021-03-07 Human immunodeficiency [facility] Test 13:34:05 virus screening of Medicine (procedure) [code = 687212438] Future Scheduled 2021-03-07 FLU VACCINE > 6 MONTHS B [facility] Test 13:34:05 [code = FLU VACCINE > 6 of M edicine MONTHS] Future Scheduled 2021-03-07 TETANUS SHOT (ADULT) [facility] Test 13:34:05 [code = TETANUS SHOT of Medi cine (ADULT)] Future Scheduled 2021-03-07 Human immunodeficiency [facility] Test 13:34:05 virus screening of Medicine (procedure) [code = 980072443] Future Scheduled 2021-03-07 FLU VACCINE > 6 MONTHS B [facility] Test 13:34:05 [code = FLU VACCINE > 6 of M edicine MONTHS] Future Scheduled 2021-03-07 TETANUS SHOT (ADULT) [facility] Test 13:34:05 [code = TETANUS SHOT of Medi cine (ADULT)] Future Scheduled 2021-03-07 Human immunodeficiency [facility] Test 10:58:16 virus screening of Medicine (procedure) [code = 326479948] Future Scheduled 2021-03-07 FLU VACCINE > 6 MONTHS B [facility] Test 10:58:16 [code = FLU VACCINE > 6 of M edicine MONTHS] Future Scheduled 2021-03-07 TETANUS SHOT (ADULT) [facility] Test 10:58:16 [code = TETANUS SHOT of Medi cine (ADULT)] Future Scheduled 2021-03-07 Human immunodeficiency [facility] Test 10:58:16 virus screening of Medicine (procedure) [code = 181926602] Future Scheduled 2021-03-07 FLU VACCINE > 6 MONTHS B [facility] Test 10:58:16 [code = FLU VACCINE > 6 of M edicine MONTHS] Future Scheduled 2021-03-07 TETANUS SHOT (ADULT) [facility] Test 10:58:16 [code = TETANUS SHOT of Medi cine (ADULT)] Future Scheduled 2021-02-12 XR CHEST PA AND LATERAL 1 Occurrences [facility] Test 10:46:27 [code = 40432-0] starting of Medicine 02/12/2021 until 02/12/2022 Future Scheduled 2021-02-12 XR CHEST PA AND LATERAL 1 Occurrences [facility] Test 10:46:27 [code = 68271-7] starting of Medicine 02/12/2021 until 02/12/2022 Future Scheduled 2020-11-14 CBC W/O DIFF W PLT Ordered: [facility] r [facility] Test 09:16:48 [code = 6690-2] 11/14/2020 of Medicine Future Scheduled 2020-11-14 COMPREHENSIVE METABOLIC Ordered: [facility] Test 09:16:48 PANEL [code = 64485-2] 11/14/2020 of Me dicine Future Scheduled 2020-11-14 SEDIMENTATION RATE Ordered: [facility] Test 09:16:48 [facility] 11/14/2020 of Medic ine [code = 4537-7] Future Scheduled 2020-11-14 C-REACTIVE PROTEIN Ordered: [facility] Test 09:16:48 [code = 1988-5] 11/14/2020 of Medicine Future Scheduled 2020-11-14 VITAMIN B12 [code = Ordered: [facility] Test 09:16:48 2132-9] 11/14/2020 of Medicine Future Scheduled 2020-11-14 VITAMIN D 25 HYDROXY Ordered: [facility] Test 09:16:48 [code = 1989-3] 11/14/2020 of Medicine Future Scheduled 2020-11-14 ZINC [code = 5763-8] Ordered: [facility] Test 09:16:48 11/14/2020 of Medicine Future Scheduled 2020-11-14 FERRITIN [code = Ordered: [facility] Test 09:16:48 45813-0] 11/14/2020 of Medicine Future Scheduled 2020-11-14 FOLATE RBC [code = Ordered: [facility] Test 09:16:48 2283-0] 11/14/2020 of Medicine Future Scheduled 2020-11-14 CT ABDOMEN PELVIS W 1 Occurrences [place] [facility] Test 09:16:16 CONTRAST [code = starting of Medicine 66502-5] 11/14/2020 until 11/14/2021 Future Scheduled 2020-11-14 COLONOSCOPY W MAC GI 1 Occurrences [facility] Test 09:16:16 DEPT [code = 13137] starting of Medic ine 11/14/2020 until 05/17/2021 Future Scheduled 2020-11-14 Human immunodeficiency [facility] Test 08:35:33 virus screening of Medicine (procedure) [code = 439512245] Future Scheduled 2020-11-14 FLU VACCINE > 6 MONTHS B [facility] Test 08:35:33 [code = FLU VACCINE > 6 of M edicine MONTHS] Future Scheduled 2020-11-14 TETANUS SHOT (ADULT) [facility] Test 08:35:33 [code = TETANUS SHOT of Medi cine (ADULT)] Encounters Start End Encounter Admission Attending Care Care Encounter Source Date/Time Date/Time Type Type Clinicians Facility Department ID 2021-09-26 Outpatient [facility] [id number] [place] 08:56:26 CANDELARIA [id number] [facility] 2021-09-20 Outpatient [facility] [id number] [place] 13:51:51 CANDELARIA [id number] [facility] 2021-09-19 Outpatient [facility] [id number] [place] 09:33:27 CANDELARIA [id number] [facility] 2021-03-17 Outpatient MARIAM MORALES Surgery [id number] [facility] 13:26:07 [facility] 2022-03-27 2022-03-27 Outpatient [facility] [id number] [place] 13:30:00 13:30:00 [facility] 2022-03-19 2022-03-19 Outpatient [facility] [id number] [facility] 00:00:00 00:00:00 [place] 2022-03-19 2022-03-19 Outpatient T[facility] [id number] [facility] 00:00:00 00:00:00 [place] 2022-03-12 2022-03-12 Outpatient [facility] [id number] [facility] 14:39:00 23:59:00 [facility] 2022-03-12 2022-03-12 Outpatient MANDY [facility] [id number] [facility] 13:08:51 16:06:[address] [place] [facility] 2022-03-05 2022-03-05 Outpatient LUCY [facility] [id number] [facility] 09:53:52 10:58:11 [facility] 2022-02-22 2022-02-26 Inpatient ER ELIAS, [facility] Emergency [id number] [facility] 11:07:00 18:43:00 REG 2022-02-22 2022-02-22 Outpatient [facility] [id number] [facility] 00:00:00 23:59:00 [facility] 2022-02-19 2022-02-19 Outpatient [facility] [id number] [facility] 10:24:02 23:59:00 [facility] 2022-02-18 2022-02-18 [facility] 1.2.840.114 [id number] [facility] 08:44:04 10:57:29 Visit Matthew 350.1.13.21 Co llege 0.2.7.2.686 of [id number] Medi ricehlle 510 e 2022-02-12 2022-02-12 Office MANDY [facility] 1.2.840.114 [id number] [facility] 13:17:07 16:02:47 Visit [place] AMBULATOR 350.1.13.21 College Y 0.2.7.2.686 of [id number] Medi richelle 325 e 2022-01-16 2022-01-16 Outpatient [facility] [id number] [facility] 09:11:48 23:59:00 [facility] 2022-01-15 2022-01-15 Office MIRIAM MORALES 1.2.840.114 [id number] [facility] 15:47:49 17:39:51 Visit [facility] AMBULATOR 350.1.13.21 College Y 0.2.7.2.686 of [id number] Medi richelle 325 e 2021-12-31 2021-12-31 Outpatient [facility] [id number] [facility] 08:43:20 23:59:00 [facility] 2021-11-28 2021-11-28 Office MITALI MORALES 1.2.840.114 [id number] [facility] 12:05:13 15:54:11 Visit [facility] AMB[facility]ATOR 350.1.13.21 College Y 0.2.7.2.686 of [id number] Medi richelle 325 e 2021-11-20 2021-11-20 Office MITALI MORALES 1.2.840.114 [id number] [facility] 11:32:50 13:59:00 Visit [facility] AMB[facility]ATOR 350.1.13.21 College Y 0.2.7.2.686 of [id number] Medi richelle 325 e 2021-11-11 2021-11-15 Inpatient ER [facility] [id number] [facility] 06:02:00 12:04:00 CARLOS 2021-11-03 2021-11-07 Inpatient ER [facility] [id number] [facility] 20:00:00 11:10:00 [facility] 2021-11-01 2021-11-01 [id number] [facility] 08:53:57 23:59:[address] 2021-10-23 2021-10-23 Office MITALI MORALES 1.2.840.114 [id number] [facility] 14:06:05 16:07:33 Visit [facility] AMBULATOR 350.1.13.21 College Y 0.2.7.2.686 of [id number] Medi richelle 325 e 2021-09-27 2021-09-27 Office MITALI MORALES 1.2.840.114 [id number] [facility] 10:50:00 13:03:46 [address] [facility] AMBULATOR 350.1.13.21 College Y 0.2.7.2.686 of [id number] Medi richelle 325 e 2021-09-26 2021-09-26 Office MARYELLEN Wood 6410 1.2.840.114 [id number] ID 09:30:00 09:56:27 Visit Candelaria KAPLAN 350.1.13.58 Health 9.2.7.2.686 [id number] 2021-08-14 2021-08-14 Office MANDY MITALI 1.2.840.114 [id number] [facility] 14:24:17 16:55:28 Visit [facility] AMBULATOR 350.1.13.21 College Y 0.2.7.2.686 of [id number] Medi richelle 325 e 2021-07-22 2021-07-22 Telephone MARYELLEN Mares [id number] 1.2.840.114 [id number] ID 00:00:00 00:00:[address] 350.1.13.58 Health 9.2.7.2.686 [id number] 2021-06-19 2021-06-19 Office MITALI MORALES 1.2.840.114 [id number] [facility] 12:53:41 15:00:56 Visit [facility] AMBULATOR 350.1.13.21 College Y 0.2.7.2.686 of [id number] Medi richelle 325 e 2021-06-05 2021-06-12 Office MITALI BHANDARI 1.2.840.114 [id number] [facility] 12:49:39 21:09:08 Visit [place]AW[place] AMBULATOR 350.1.13.21 College Y 0.2.7.2.686 of [id number] Medi richelle 325 e 2021-05-22 2021-05-22 Office MITALI MORALES 1.2.840.114 [id number] [facility] 13:17:36 15:17:01 Visit [facility] AMBULATOR 350.1.13.21 College Y 0.2.7.2.686 of [id number] Medi richelle 325 e 2021-05-17 2021-05-17 Office MITALI MORALES 1.2.840.114 [id number] [facility] 12:53:37 14:34:32 [address] [facility] AMBULATOR 350.1.13.21 College Y 0.2.7.2.686 of [id number] Medi richelle 325 e 2021-05-06 2021-05-08 Outpatient MITALI [facility] [id number] [facility] 10:26:01 09:03:17 [place] [facility] [employer] 2021-05-06 2021-05-06 Outpatient [facility] [id number] [facility] 08:27:00 23:59:00 [facility] 2021-05-06 2021-05-06 [facility] [id number] [facility] 08:27:00 11:06:00 SUNE[place] 2021-04-19 2021-04-19 Office MIRIAM MORALES 1.2.840.114 [id number] [facility] 13:22:19 16:02:41 [address] [facility] AMBULATOR 350.1.13.21 College Y 0.2.7.2.686 of [id number] Medi richelle 325 e 2021-04-05 2021-04-05 Office MIRIAM MORALES 1.2.840.114 [id number] [facility] 13:20:27 15:20:49 Visit [facility] AMBULATOR 350.1.13.21 College Y 0.2.7.2.686 of [id number] Medi richelle 325 e 2021-03-22 2021-03-22 Office MANDY [facility] 1.2.840.114 [id number] [facility] 13:08:43 17:15:13 [address] [facility] AMBULATOR 350.1.13.21 College Y 0.2.7.2.686 of [id number] Medi richelle 325 e 2021-03-22 2021-03-22 Outpatient [facility] [id number] [facility] 14:21:38 16:22:10 [facility] 2021-03-07 2021-03-07 Office MORALES MIRIAM 1.2.840.114 [id number] [facility] 11:45:10 14:53:45 Visit [facility] AMBULATOR 350.1.13.21 College Y 0.2.7.2.686 of [id number] Medi richelle 325 e 2021-03-01 2021-03-06 [facility] [id number] [facility] 16:45:31 12:10:[address] [facility] [employer] 2021-02-28 2021-02-28 Outpatient EL [facility] [id number] [facility] 00:00:00 00:00:00 2021-02-28 2021-02-28 Outpatient [facility] [id number] [facility] 00:00:00 00:00:00 2021-02-28 2021-02-28 Outpatient EL [facility] [id number] [facility] 00:00:00 00:00:00 2021-02-18 2021-02-18 Outpatient MANDY [facility] [id number] [facility] 09:31:35 13:59:15 [place] [employer] 2021-02-13 2021-02-13 Office Mandy [facility] 1.2.840.114 [id number] [facility] 08:39:36 14:23:31 Visit [place] AMBULATOR 350.1.13.21 College Y 0.2.7.2.686 of [id number] Medi richelle 325 e 2021-02-12 2021-02-12 Office Mandy [facility] 1.2.840.114 [id number] [facility] 09:38:06 15:44:28 Visit [place] AMBULATOR 350.1.13.21 College Y 0.2.7.2.686 of [id number] Medi richelle 325 e 2021-02-12 2021-02-12 Outpatient MANDY [facility] [id number] [facility] 00:00:00 00:00:[address] 2020-12-19 2020-12-19 Outpatient MANDY [facility] [id number] [facility] 13:13:11 16:14:[address] [facility] [employer] 2020-12-13 2020-12-13 Outpatient MANDY [facility] [id number] [facility] 12:27:03 12:27:03 [place] [employer] 2020-11-30 2020-11-30 Outpatient [facility]INO [facility] [id number] [address] 00:00:00 00:00:[address] 2020-11-14 2020-11-14 Office [facility] [id number] [facility] 08:18:58 08:48:58 Visit Valentinreet AMBULATOR [id number] College Y [id number] [facility] richelle 325 e 2014-12-12 2014-12-13 Outpatient [facility] [id number] [facility] 12:16:00 04:59:[address] 2014-12-12 2014-12-13 Outpatient [facility] [id number] [facility] 12:16:00 04:59:[address] 2014-12-12 2014-12-12 Outpatient Vishnu, [id number] 07:16:00 23:59:00 Raja [id number] 01 Results Test Description Test Time Test Comments Results Result [facility] Comments TISSUE EXAM 2022-02-07 Surgical Pathology Report 1 Case: [id number] 18:28:25 Authorizing Provider: Robert Grayson, Collected: 02/24/2022 01:39 PM Ordering Location: [address] Received: 02/24/2022 04:11 PM Service Pathologist: Shantanu Barros MD Specimens: A) - Ileum B) - Small Bowel, NOS, Anastomisis area Bx C) - Large Intestine, Colon - Right/Ascending D) - Large Intestine, Colon - Left/Descending The addendum is being issued to report the results of immunohistochemical stain for CMV on block B. The final diagnosis is unchanged.CMV- Negative The control slide is adequate. The immunohistochemistry test was developed and its performance characteristics determined by [facility], Pathology Laboratory. It has not been cleared or approved by the U.S. Food and Drug Administration. The FDA has determined that such clearance or approval is not necessary. The test is used for clinical purposes. It should not be regarded as investigational or for research. This laboratory is certified under the Clinical Laboratory Improvement Amendments of 1988 (CLIA-88) as qualified to perform high complexity clinical laboratory testing. Additional CPT codes: 43831 Addendum electronically signed by Shantanu Barros MD on 02/26/2022 at 6:28 PMA. ILEUM BIOPSY:- ACUTE ILEITIS, MILD- NO ULCERATION, DYSPLASIA, GRANULOMAS OR MALIGNANCY SEENB. SMALL BOWEL, NOS, ANASTOMOSIS, BIOPSY:- CHRONIC ACTIVE ILEITIS, MILD- MODERATE- SMALL FRAGMENT OF GRANULATION TISSUE SUGGESTIVE OF ULCERATION (SEE COMMENT)- NO GRANULOMAS SEEN- NEGATIVE FOR DYSPLASIA OR MALIGNANCYC. COLON, RIGHT/ASCENDING, RANDOM BIOPSY- NO DIAGNOSTIC ALTERATION- NO ACTIVE COLITIS, GRANULOMAS OR SIGNIFICANT ARCHITECTURAL DISTORTION SEEN- NEGATIVE FOR DYSPLASIA OR MALIGNANCYD. COLON, LEFT/DESCENDING, RANDOM BIOPSY- NO DIAGNOSTIC ALTERATION- NO ACTIVE COLITIS, GRANULOMAS OR SIGNIFICANT ARCHITECTURAL DISTORTION SEEN- NEGATIVE FOR DYSPLASIA OR MALIGNANCY Signing Pathologist Direct Phone Line: [phone] y signed by Shantanu Barros MD on 02/25/2022 at 4:50 PMB. A CMV immunohistochemical stain is pending and will be reported in an addendum.INTRADEPARTMENTA L CONSULTATION: - Tiffany Marley MD has seen specimen A & B and agrees with the diagnosis. [id number] x 4Ryan Scotty Mclaughlin is a 36 y.o. male with ileocolonic Crohn's disease c/b ileal obstruction s/p terminal ileum and ascending colon partial resection in 2016, Ileum, colonA. Ileum.Received in formalin labeled with the patient's name, medical record number and "ileum biopsy" is multiple camarillo-white pieces of tissue, 0.5 x 0.5 x 0.2 cm in aggregate. Specimen is submitted in toto in cassette A1.B. Small Bowel, NOS.Received in formalin labeled with the patient's information and "small bowel, anastomosis area biopsy" is multiple camarillo-white pieces of tissue, 0.4 x 0.4 x 0.2 cm in aggregate. Specimen is submitted in toto in cassette B1.C. Large Intestine, Colon - Right/Ascending.Received in formalin labeled with the patient's name, medical record number and "large intestine, colon, right/ascending" is multiple camarillo-white pieces of tissue, 0.2 x 0.2 x 0.2 cm in aggregate. Specimen is submitted in toto in cassette C1.D. Large Intestine, Colon - Left/Descending.Received in formalin labeled with the patient's name, medical record number and "large intestine, colon, left/descending" is multiple camarillo-white pieces of tissue, 0.4 x 0.4 x 0.2 cm in aggregate. Specimen is submitted in toto in cassette D1.Performed.The interpretation of this case included the use of immunohistochemistry or special stains.Control Slides Examined: In-house known positive controls were evaluated along with the test tissue. These control slides run alongside of the patients sample show appropriate staining. Internal positive and negative controls when available are evaluated Immunohistochemistry technical testing was performed at [facility], Pathology Laboratory where it was developed and its performance characteristics were determined. It has not been cleared or approved by the U.S. Food and Drug Administration. The FDA has determined that such clearance or approval is not necessary. The test is used for clinical purposes. It should not be regarded as investigational or for research. This laboratory is certified under the Clinical Laboratory Improvement Amendments of 1988 (CLIA-88) as qualified to perform high complexity clinical laboratory testing.[facility], Department of Pathology, [address] [place] [address], [facility], [address] [place] [address], [facility] of [facility], [address] [place] [address], [place], ABDOMEN 2022-02-07 Unlisted 1 Reason for 02:41:00 Exam - Click [facility] - Yes and Enter MEDICAL CENTERName: VIDYA, Any KUNZ : Below->YesUnli 1985 Sex: sted Reason M for Exam->Crohn's, FINAL REPORT known small CT bowel disease, ABDOMEN AND PELVIS WITH flareIs this CONTRAST 02/26/2022 2:38 for AM History: Crohn's enterography?- disease with acute flare. >YesPlease Comparison: CT abdomen specify:->Ente and pelvis 11/01/2021 rographyWill Technique: Helically this procedure acquired images were require oral obtained through the contrast?->Yes abdomen and pelvis following the administration of contrast. Coronal reformats are provided. Post marginal radiation reduction technique was used. Findings: There are mildly distended and fluid-filled loops of distal small bowel related to enteric contrast. No significant bowel wall thickening or inflammatory change in the mesentery surrounding the bowel. No colonic wall thickening. Distal small bowel wall thickening seen on the previous CT has resolved. Normal enhancement of the liver, spleen, adrenals, pancreas, kidneys, gallbladder. Mild enlargement of the prostate gland with calcifications. No acute osseous abnormalities. No significant SI joint arthritis or ankylosis. IMPRESSION: Resolution of inflammatory change in the terminal ileum no clear evidence of significant acute flare. Signed: Yan Rocha [facility] Verified Date/Time: 02/26/2022 02:41:59 -GLUCOSE METER 2022-02-25 12:37:06 Test Item Value Reference Range Interpretation Comme nts POC-GLUCOSE METER (BEAKER) 147 mg/dL 70-110 H : TESTED AT [facility] [address] (test code = 1538) [facility] [address]: Professor Criminal Justice/Techni nicky ID = [id number] for Kenyatta Vicente BASIC METABOLIC [id number] 10:19:53 Test Item Value Reference Range Interpretation Comments SODIUM (BEAKER) 142 meq/L 136-145 (test code = 381) POTASSIUM 3.8 meq/L 3.5-5.1 (BEAKER) (test code = 379) CHLORIDE (BEAKER) 105 meq/L 98-107 (test code = 382) CO2 (BEAKER) 28 meq/L 22-29 (test code = 355) BLOOD UREA 19 mg/dL 7-21 NITROGEN (BEAKER) (test code = 354) CREATININE 0.72 mg/dL 0.57-1.25 (BEAKER) (test code = 358) GLUCOSE RANDOM 108 mg/dL 70-105 H (BEAKER) (test code = 652) CALCIUM (BEAKER) 9.3 mg/dL 8.4-10.2 (test code = 697) EGFR (BEAKER) 121 Interpretatio n of eGFR (test code = mL/min/1.73 values Stage De scription 1092) sq m Result G1 Jaimee l or high >=90 G2 Mildly decreased 60-89 G3a Mildl y to moderately 45-5 9 G3b Moderately to s everely 30-44 G4 Severl y decreased 15-29 G5 Kidney failure <15Reported eGF R is based on the CKD-EPI 2020 equation that d oes not use a race coefficientEsti mated GFR is not as accur ate as Creatinine Nani joe in predicting glom erular filtration rate . Estimated GFR is not appl icable for dialysis patien ts Professor Criminal Justice ID - PIAYA LSpecimen slightly ictericCBC W/PLT COUNT & AUTO [id number] 09:55:19 Test Item Value Reference Range Interpretation Comments WHITE BLOOD CELL COUNT (BEAKER) 14.0 K/ L 3.5-10.5 H (test code = 775) RED BLOOD CELL COUNT (BEAKER) 3.85 M/ L 4.63-6.08 L (test code = 761) HEMOGLOBIN (BEAKER) (test code = 8.8 GM/DL 13.7-17.5 L 410) HEMATOCRIT (BEAKER) (test code = 28.2 % 40.1-51.0 L 411) MEAN CORPUSCULAR VOLUME (BEAKER) 73.2 fL 79.0-92.2 L (test code = 753) MEAN CORPUSCULAR HEMOGLOBIN 22.9 pg 25.7-32.2 L (BEAKER) (test code = 751) MEAN CORPUSCULAR HEMOGLOBIN CONC 31.2 GM/DL 32.3-36.5 L (BEAKER) (test code = 752) RED CELL DISTRIBUTION WIDTH 24.9 % 11.6-14.4 H (BEAKER) (test code = 412) PLATELET COUNT (BEAKER) (test 413 K/CU MM 150-450 code = 756) MEAN PLATELET VOLUME (BEAKER) 9.0 fL 9.4-12.4 L (test code = 754) NUCLEATED RED BLOOD CELLS 0 /100 WBC 0-0 (BEAKER) (test code = 413) NEUTROPHILS RELATIVE PERCENT 93 % (BEAKER) (test code = 429) LYMPHOCYTES RELATIVE PERCENT 2 % (BEAKER) (test code = 430) MONOCYTES RELATIVE PERCENT 5 % (BEAKER) (test code = 431) EOSINOPHILS RELATIVE PERCENT 0 % (BEAKER) (test code = 432) BASOPHILS RELATIVE PERCENT 0 % (BEAKER) (test code = 437) NEUTROPHILS ABSOLUTE COUNT 13.00 K/ L 1.78-5.38 H (BEAKER) (test code = 670) LYMPHOCYTES ABSOLUTE COUNT 0.21 K/ L 1.32-3.57 L (BEAKER) (test code = 414) MONOCYTES ABSOLUTE COUNT (BEAKER) 0.74 K/ L 0.30-0.82 (test code = 415) EOSINOPHILS ABSOLUTE COUNT 0.00 K/ L 0.04-0.54 L (BEAKER) (test code = 416) BASOPHILS ABSOLUTE COUNT (BEAKER) 0.01 K/ L 0.01-0.08 (test code = 417) IMMATURE GRANULOCYTES-RELATIVE 1 % 0-1 PERCENT (BEAKER) (test code = 2801) GI PATHOGEN PROFILE BY [id number] 22:48:01 Test Item Value Reference Range Interpretation Comments CAMPYLOBACTER (PCR) Not detected Not detected (test code = 4479244) PLESIOMONAS SHIGELLOIDES Not detected Not detected (PCR) (test code = 7423308) SALMONELLA (PCR) (test Not detected Not detected code = 5157954) YERSINIA ENTEROCOLITICA Not detected Not detected (PCR) (test code = 20160107) VIBRIO CHOLERAE (PCR) Not detected Not detected (test code = 20160108) ENTEROAGGREGATIVE E. Not detected Not detected COLI (EAEC) BY PCR (test code = 5612571) ENTEROPATHOGENIC E. COLI Detected Not detected A Ant i-microbial (EPEC) BY PCR (test code osbaldo atment is NOT = 20160110) recommended ENTEROTOXIGENIC E. COLI Not detected Not detected (ETEC) LT/ST BY PCR (test code = 4893528) SHIGA-LIKE Not detected Not detected TOXIN-PRODUCING E. COLI (STEC) STX1/STX2 (test code = 0793107) E. COLI O157 (PCR) (test code = 5124295) SHIGELLA/ENTEROINVASIVE Not detected Not detected E. COLI (EIEC) BY PCR (test code = 9555926) CRYPTOSPORIDIUM (PCR) Not detected Not detected (test code = 6353151) CYCLOSPORA CAYETANENSIS Not detected Not detected (PCR) (test code = 7197481) ENTAMOEBA HISTOLYTICA Not detected Not detected (PCR) (test code = 4123225) GIARDIA LAMBLIA (PCR) Not detected Not detected (test code = 7863356) ADENOVIRUS F 40/41 (PCR) Not detected Not detected (test code = 8628637) ASTROVIRUS (PCR) (test Not detected Not detected code = 7878685) NOROVIRUS GI/GII (PCR) (test code = 1595180) ROTAVIRUS A (PCR) (test Not detected Not detected code = 2393022) SAPOVIRUS (I, II, IV, V) Not detected Not detected BY PCR (test code = 5719836) VIBRIO Not detected Not detected (PARAHAEMOLYTICUS, VULNIFICUS) (test code = 1739841) Other viruses, parasites and bacteria not targeted by this PCR panel cannot be excluded; therefore clinical correlation and follow up of serology, culture results, and other molecular studies is required. The results are not intended to be used as the sole means for clinical diagnosis or patient management decisions. This sample was tested at the [facility] Molecular Diagnostics Laboratory using the [employer] Gastrointestinal Panel. It is FDA cleared and has been verified and approved by the [facility] Molecular Diagnostics Laboratory for clinical use. This laboratory is CLIA-certified and College ofAmerican Pathologists (CAP)-accredited to perform high complexity testing.IRON, TIBC, % SAT. (WITHOUT FERRITIN)2022-02-23 09:54:02 Test Item Value Reference Range Interpretation Comments IRON (BEAKER) (test code = 547) 11.0 ug/dL 40.0-160.0 L TOTAL IRON BINDING CAPACITY 335 ug/dL 250-450 (BEAKER) (test code = 769) IRON % SATURATION (2) (BEAKER) 3 % 20-55 L (test code = 2590) Professor Criminal Justice ID - PIAYA [id number] 09:04:19 Test Item Value Reference Range Interpretation Comments FERRITIN (BEAKER) (test code = 10.57 ng/mL 5.00-275.00 361) Professor Criminal Justice ID - PIAYA LC-REACTIVE [id number] 07:44:46 Test Item Value Reference Range Interpretation Comments C-REACTIVE PROTEIN (BEAKER) (test 0.03 mg/dL 0.00-0.50 code = 676) Professor Criminal Justice CRISTIAN WILLETT LCBC W/PLT COUNT & AUTO [id number] 07:37:29 Test Item Value Reference Range Interpretation Comments WHITE BLOOD CELL COUNT (BEAKER) 14.0 K/ L 3.5-10.5 H (test code = 775) RED BLOOD CELL COUNT (BEAKER) 3.63 M/ L 4.63-6.08 L (test code = 761) HEMOGLOBIN (BEAKER) (test code = 8.4 GM/DL 13.7-17.5 L B# [id number]) HEMATOCRIT (BEAKER) (test code = 26.6 % 40.1-51.0 L 411) MEAN CORPUSCULAR VOLUME (BEAKER) 73.3 fL 79.0-92.2 L (test code = 753) MEAN CORPUSCULAR HEMOGLOBIN 23.1 pg 25.7-32.2 L (BEAKER) (test code = 751) MEAN CORPUSCULAR HEMOGLOBIN CONC 31.6 GM/DL 32.3-36.5 L (BEAKER) (test code = 752) RED CELL DISTRIBUTION WIDTH 24.1 % 11.6-14.4 H (BEAKER) (test code = 412) PLATELET COUNT (BEAKER) (test 357 K/CU MM 150-450 code = 756) MEAN PLATELET VOLUME (BEAKER) 9.5 fL 9.4-12.4 (test code = 754) NUCLEATED RED BLOOD CELLS 0 /100 WBC 0-0 (BEAKER) (test code = 413) NEUTROPHILS RELATIVE PERCENT 96 % (BEAKER) (test code = 429) LYMPHOCYTES RELATIVE PERCENT 2 % (BEAKER) (test code = 430) MONOCYTES RELATIVE PERCENT 2 % (BEAKER) (test code = 431) EOSINOPHILS RELATIVE PERCENT 0 % (BEAKER) (test code = 432) BASOPHILS RELATIVE PERCENT 0 % (BEAKER) (test code = 437) NEUTROPHILS ABSOLUTE COUNT 13.40 K/ L 1.78-5.38 H (BEAKER) (test code = 670) LYMPHOCYTES ABSOLUTE COUNT 0.23 K/ L 1.32-3.57 L (BEAKER) (test code = 414) MONOCYTES ABSOLUTE COUNT 0.32 K/ L 0.30-0.82 (BEAKER) (test code = 415) EOSINOPHILS ABSOLUTE COUNT 0.00 K/ L 0.04-0.54 L (BEAKER) (test code = 416) BASOPHILS ABSOLUTE COUNT 0.01 K/ L 0.01-0.08 (BEAKER) (test code = 417) IMMATURE GRANULOCYTES-RELATIVE 0 % 0-1 PERCENT (BEAKER) (test code = 2801) RETICULOCYTE [id number] 19:44:08 Test Item Value Reference Range Interpretation Comments RETICULOCYTE COUNT PCT (BEAKER) (test 1.5 % 0.5-1.8 code = 575) Professor Criminal Justice ID - [id number]-COV2/RT-PCR ([facility])2022-02-22 13:08:31 Test Item Value Reference Range Interpretation Comments SARS-COV2/RT-PCR Negative Negative The SARS-Co V-2 target (test code = nucleic acids a re not 3626789) detected in thi s specimen. Negative result s do not preclude SARS-C oV-2 infection and s hould not be used as the jaclyn e basis for patient managem ent decisions. Nega tive results must be combine d with clinical observ ations, patient history , and epidemiological information. A false negativ e result may occur if a spec imen is improperly lorena ected, transported or handled. This SARS CoV-2 test is a rapid, real-time RT-PC R test intended for th e qualitative detection of nu cleic acid from SARS-CoV-2 in a nasopharyngeal swab specimen collected from individuals suspected of CO VID-19 by their healthcar e provider. This test has been authorized by FDA under an EUA for use by authorized laboratories. This test is only authorized for the duration of the declaration that circumstances exist justifying the authorization of emergency use of in vitro diagnostic tests for detection and/or diagnosis of COVID-19 under Section 564(b)(1) of the Federal Food, Drug and Cosmetic Act, 21 U.S.C. 360bbb-3(b)(1), unless the authorization is terminated or revoked sooner. Fact Sheet for Healthcare Providers: https://www.cepheid.co m/Documents/Xpert%20Xpress%20SARS%20CoV-2/Fact%20Sheets/3023802%80BFZZ-CPJ-8%20 HEALTHCARE%20PROVIDERS%20FACT%20SHEET.pdf Fact Sheet for Healthcare Patients: https://www.[employer].Wonderswamp/Documents/Xpert%20Xp ress%20SARS%20CoV-2/Fact%20Sheets/302-3801%75ETDD-TKB-7%20PATIENT%20FACT%20SHEET .pdf(CELL[employer]ISION MANUAL DIFF)2022-02-22 12:30:09 Test Item Value Reference Range Interpretation Comments NEUTROPHILS - REL 97 % (CELLAVISION)(BEAKER) (test code = 2816) MONOCYTES - REL 3 % (CELLAVISION)(BEAKER) (test code = 2818) NEUTROPHILS - ABS 20.66 K/ul 1.78-5.38 H (CELLAVISION)(BEAKER) (test code = 2830) MONOCYTES - ABS 0.64 K/uL 0.30-0.82 (CELLAVISION)(BEAKER) (test code = 2832) TOTAL COUNTED (BEAKER) (test code 100 = 1351) WBC MORPHOLOGY (BEAKER) (test Normal code = 487) CLUMPED PLATELETS (BEAKER) (test Present code = 436) GIANT PLATELETS (BEAKER) (test Present code = 313) POLYCHROMATOPHILLIC RBCS(BEAKER) 1+ few (test code = 478) HYPOCHROMIA (BEAKER) (test code = 2+ moderate 963) ANISOCYTOSIS (BEAKER) (test code 3+ many = 961) MICROCYTES (BEAKER) (test code = 3+ many 965) POIKILOCYTES (BEAKER) (test code 2+ moderate = 966) SPHEROCYTES (BEAKER) (test code = 1+ few 768) ELLIPTOCYTES (BEAKER) (test code 1+ few = 962) ARTIFACT (CELLAVISION)(BEAKER) Present (test code = 3432) PLATELET CONCENTRATION Adequate (CELLAVISION)(BEAKER) (test code = 3438) Professor Criminal Justice ID - [id number] ID - radha Buchanan comments: Slide comments:CBC W/PLT COUNT & AUTO [id number] 12:30:08 Test Item Value Reference Range Interpretation Comments WHITE BLOOD CELL COUNT (BEAKER) 21.3 K/ L 3.5-10.5 H (test code = 775) RED BLOOD CELL COUNT (BEAKER) 2.65 M/ L 4.63-6.08 L (test code = 761) HEMOGLOBIN (BEAKER) (test code = 5.2 GM/DL 13.7-17.5 LL 410) HEMATOCRIT (BEAKER) (test code = 19.0 % 40.1-51.0 L 411) MEAN CORPUSCULAR VOLUME (BEAKER) 71.7 fL 79.0-92.2 L (test code = 753) MEAN CORPUSCULAR HEMOGLOBIN 19.6 pg 25.7-32.2 L (BEAKER) (test code = 751) MEAN CORPUSCULAR HEMOGLOBIN CONC 27.4 GM/DL 32.3-36.5 L (BEAKER) (test code = 752) RED CELL DISTRIBUTION WIDTH 23.3 % 11.6-14.4 H (BEAKER) (test code = 412) PLATELET COUNT (BEAKER) (test 375 K/CU MM 150-450 code = 756) MEAN PLATELET VOLUME (BEAKER) 9.4 fL 9.4-12.4 (test code = 754) NUCLEATED RED BLOOD CELLS 0 /100 WBC 0-0 (BEAKER) (test code = 413) COMPREHENSIVE METABOLIC [id number] 12:23:11 Test Item Value Reference Range Interpretation Comments TOTAL PROTEIN 5.6 gm/dL 6.0-8.3 L (BEAKER) (test code = 770) ALBUMIN (BEAKER) 3.5 g/dL 3.5-5.0 (test code = 1145) ALKALINE 39 U/L 40-150 L PHOSPHATASE (BEAKER) (test code = 346) BILIRUBIN TOTAL 0.8 mg/dL 0.2-1.2 (BEAKER) (test code = 377) SODIUM (BEAKER) 135 meq/L 136-145 L (test code = 381) POTASSIUM (BEAKER) 4.0 meq/L 3.5-5.1 (test code = 379) CHLORIDE (BEAKER) 104 meq/L 98-107 (test code = 382) CO2 (BEAKER) (test 22 meq/L 22-29 code = 355) BLOOD UREA 19 mg/dL 7-21 NITROGEN (BEAKER) (test code = 354) CREATININE 0.68 mg/dL 0.57-1.25 (BEAKER) (test code = 358) GLUCOSE RANDOM 126 mg/dL 70-105 H (BEAKER) (test code = 652) CALCIUM (BEAKER) 8.5 mg/dL 8.4-10.2 (test code = 697) AST (SGOT) 12 U/L 5-34 (BEAKER) (test code = 353) ALT (SGPT) 24 U/L 6-55 (BEAKER) (test code = 347) EGFR (BEAKER) 123 Interpretatio n of eGFR (test code = 1092) mL/min/1.[address] age Description sq m Result G1 Jaimee l or high >=90 G2 Mildly decreased 60-89 G3a Mildl y to moderately 45-5 9 G3b Moderately to s everely 30-44 G4 Severl y decreased 15-29 G5 Kidney failure <15Reported eGF R is based on the CKD-EPI 2020 equation that d oes not use a race coefficientEsti mated GFR is not as accur ate as Creatinine Nani joe in predicting glom erular filtration rate . Estimated GFR is not appl icable for dialysis patien ts Professor Criminal Justice ID - BETH MSEDIMENTATION RATE MODIFIED [id number] 11:13:20 Test Item Value Reference Range Interpretation Comments ERYTHROCYTE SEDIMENTATION See_Comment U nless Otherwise RATE (test code = 4537-7) In dicated, All Testing Performed At: [facility] [place] [address] [facility] Director: Valdo Celaya M.D. [place] Number [id number] Cap Accreditation N o. [id number] [Autom ated message] The sy stem which generated this result transmit martin reference range : 0 - 15 MM/HOUR. The re ference range was not u sed to interpret this result as normal/abnor mal. [facility] [id number] 08:39:01 Test Item Value Reference Range Interpretation Comments C-REACTIVE PROTEIN <0.3 See_Comment Unless O therwise (test code = 1987-10) Indicat ed, All Testing Performed At: [place] [address] Laborator y Director: Valdo arnold M.D. CLIA Number [id number] [employer] N o. [id number] [Automated mess age] The system which ge nerated this result tra nsmitted reference range : <0.5 MG/DL. The refe rence range was not used to interpret this result as normal/abnormal . [facility] Center[facility]PRE[facility] METABOLIC [id number] 08:33:32 Test Item Value Reference Range Interpretation Comments GLUCOSE (test code = See_Comment H [Autom ated message] 2345-7) The system [employer] generated this result transmitted ref erence range: 70 - 99 MG/DL. The reference r josiah was not used to interpret this result as normal/abnor mal. BLOOD UREA NITROGEN See_Comment [Automa martin message] (test code = 3091-6) The [facility] tem which generated this result transmitted ref erence range: 6 - 20 M G/DL. The reference r josiah was not used to interpret this result as normal/abnor mal. CREATININE (test code = See_Comment L [Au tomated message] 2160-0) The system [employer] generated this result transmitted ref erence range: 0.80 - 1 .40 MG/DL. The refe rence range was not u sed to interpret this result as normal/abnor mal. EGFR (test code = See_Comment [Automate d message] 28647-3) The system [employer] generated this result transmitted ref erence range: >60 ML/MIN/1.73. Th e reference range was not used to int erpret this result as normal/abnormal . BUN/CREAT RATIO (test See_Comment [Auto mated message] code = 3097-3) The system [facility] generated this result transmitted ref erence range: 6 - 28 R ATIO. The reference r josiah was not used to interpret this result as normal/abnor mal. SODIUM (test code = See_Comment [Automa martin message] 7061-2) The system [employer] generated this result transmitted ref erence range: 133 - 14 6 MEQ/L. The refe rence range was not u sed to interpret this result as normal/abnor mal. POTASSIUM (test code = See_Comment [Aut omated message] 2653-3) The system [facility] generated this result transmitted ref erence range: 3.5 - 5. 4 MEQ/L. The refe rence range was not u sed to interpret this result as normal/abnor mal. CHLORIDE (test code = See_Comment [Auto mated message] 2074-0) The system [facility] generated this result transmitted ref erence range: 95 - 107 MEQ/L. The reference r josiah was not used to interpret this result as normal/abnor mal. CO2 (test code = See_Comment [Automated message] 1962-8) The system [facility] generated this result transmitted ref erence range: 19 - 31 MEQ/L. The reference r josiah was not used to interpret this result as normal/abnor mal. CALCIUM (test code = See_Comment [Autom ated message] 05121-1) The system [facility] generated this result transmitted ref erence range: 8.5 - 10 .5 MG/DL. The refe rence range was not u sed to interpret this result as normal/abnor mal. PROTEIN TOTAL (test See_Comment [Automa martin message] code = 2885-2) The system [facility] generated this result transmitted ref erence range: 6.1 - 8. 3 G/DL. The reference r josiah was not used to interpret this result as normal/abnor mal. ALBUMIN (test code = See_Comment [Autom ated message] 08381-1) The system [facility] generated this result transmitted ref erence range: 3.5 - 5. 2 G/DL. The reference r josiah was not used to interpret this result as normal/abnor mal. GLOBULINS, SERUM, TOTAL See_Comment [Au tomated message] (test code = 86694-5) The sy stem which generated this result transmitted ref erence range: 1.9 - 3. 7 G/DL. The reference r josiah was not used to interpret this result as normal/abnor mal. A/G RATIO (test code = See_Comment [Aut omated message] 0469-0) The system [facility] generated this result transmitted ref erence range: 1.0 - 2. 6 RATIO. The refe rence range was not u sed to interpret this result as normal/abnor mal. BILIRUBIN TOTAL (test See_Comment [Auto mated message] code = 1975-2) The system wh ich generated this result transmitted ref erence range: <=1.2 MG /DL. The reference r josiah was not used to interpret this result as normal/abnor mal. ALKALINE PHOSPHATASE 51 U/L 40-117 (test code = 6768-6) AST (SGOT) (test code = 21 U/L 9-50 1920-8) ALT (SGPT) (test code = 34 U/L 5-50 Unl ess Otherwise 1744-2) Indicated, All Testing Performed At: [facility], [address] [place] [address] Laborator y Director: Valdo Celaya M.D. [place] Number [id number] Cap Accreditation N o. [id number] Lab Interpretation Abnormal (test code = 73305-1) [facility] W/O DIFF W [id number] 07:00:04 Test Item Value Reference Range Interpretation Comments WHITE BLOOD CELL COUNT See_Comment H [Aut omated message] (test code = 44979-3) The sy stem which generated this result transmitted ref erence range: 3.5 - 11 .0 K/UL. The refer ence range was not u sed to interpret this result as normal/abnor mal. RED BLOOD CELL COUNT See_Comment L [Autom ated message] (test code = 76726-1) The sy stem which generated this result transmitted ref erence range: 4.50 - 6 .10 M/UL. The refer ence range was not u sed to interpret this result as normal/abnor mal. HEMOGLOBIN (test code = See_Comment L [Au tomated message] 718-7) The system [facility] generated this result transmitted ref erence range: 13.5 - 1 7.0 G/DL. The refer ence range was not u sed to interpret this result as normal/abnor mal. HEMATOCRIT (test code = 31.5 % 40-51 L 45562-4) MEAN CORPUSCULAR VOLUME 72.6 fL 80-99 L (test code = 01617-6) MEAN CORPUSCULAR 21.2 PG 25-33 L HEMOGLOBIN (test code = 41841-8) MEAN CORPUSCULAR See_Comment L [Automated message] HEMOGLOBIN CONC (test The sy stem which code = 72340-6) generated th is result transmitted ref erence range: 31.0 - 3 6.0 G/DL. The refer ence range was not u sed to interpret this result as normal/abnor mal. PLATELET COUNT (test See_Comment H Unless Otherwise code = 26589-8) Indicated, A ll Testing Perform ed At[facility], [address] [place] [address] Laborator y Director: Valdo Celaya M.D. IA Number [id number] Cap Accreditation [place] o. [id number] [Autom ated message] The sy stem which generated this result transmit martin reference range : 130 - 400 K/UL. The reference range was not used to int erpret this result as normal/abnormal . Lab Interpretation (test Abnormal code = 76300-6) [id number]23 Test Item Value Reference Range Interpretation Comments CULTURE (BEAKER) (test No growth in 5 days code = 1095) BLOOD [id number] 10:01:23 Test Item Value Reference Range Interpretation Comments CULTURE (BEAKER) (test No growth in 5 days code = 1095) POCT-GLUCOSE [id number] 07:58:27 Test Item Value Reference Range Interpretation Comments POC-GLUCOSE METER 124 mg/dL 70-110 H : TESTED A T [address] [address] (BEAKER) (test code [address], = 1538) [facility] 77 [address]: Professor Criminal Justice/Techni nicky ID = [id number] for Jamal salazar Gasper BASIC METABOLIC [id number] 06:42:40 Test Item Value Reference Range Interpretation Comments SODIUM (BEAKER) 136 meq/L 135-148 (test code = 381) POTASSIUM (BEAKER) 4.3 meq/L 3.6-5.5 (test code = 379) CHLORIDE (BEAKER) 104 meq/L 98-106 (test code = 382) CO2 (BEAKER) (test 28 meq/L 20-29 code = 355) BLOOD UREA NITROGEN 13 mg/dL 10-26 (BEAKER) (test code = 354) CREATININE (BEAKER) 0.59 mg/dL 0.50-1.20 (test code = 358) GLUCOSE RANDOM 132 mg/dL 70-110 H (BEAKER) (test code = 652) CALCIUM (BEAKER) 8.0 mg/dL 8.5-10.5 L (test code = 697) EGFR (BEAKER) (test 156 mL/min/1.73 ESTIM ATED GFR IS code = 1092) sq m NOT ACCURATE CREATININE CLEARANCE IN PREDICTING GLOMERULAR FILTRATION RATE . ESTIMATED GFR I S NOT APPLICABLE FOR DIALYSIS PATIEN TS. Professor Criminal Justice ID - LITOOperator ID - LITOOperator ID - LITOOperator ID - LITOOperator ID - LITOOperator ID - LITOOperator ID - LITOOperator ID - LITOOperator ID - LITOOperator ID - LITOOperator ID - LITOOperator ID - LITOCBC W/PLT COUNT & AUTO [id number] 06:18:54 Test Item Value Reference Range Interpretation Comments WHITE BLOOD CELL COUNT (BEAKER) 26.0 K/ L 4.0-10.0 H (test code = 775) RED BLOOD CELL COUNT (BEAKER) 3.19 M/ L 4.20-5.80 L (test code = 761) HEMOGLOBIN (BEAKER) (test code = 8.1 GM/DL 13.0-16.8 L 410) HEMATOCRIT (BEAKER) (test code = 24.6 % 36.0-50.0 L 411) MEAN CORPUSCULAR VOLUME (BEAKER) 77.1 fL 82.0-99.0 L (test code = 753) MEAN CORPUSCULAR HEMOGLOBIN 25.4 pg 27.0-33.0 L (BEAKER) (test code = 751) MEAN CORPUSCULAR HEMOGLOBIN CONC 32.9 GM/DL 32.0-36.0 (BEAKER) (test code = 752) RED CELL DISTRIBUTION WIDTH 14.9 % 12.0-15.0 (BEAKER) (test code = 412) PLATELET COUNT (BEAKER) (test 379 K/CU MM 150-430 code = 756) MEAN PLATELET VOLUME (BEAKER) 9.6 fL 6.0-11.5 (test code = 754) NUCLEATED RED BLOOD CELLS 0 /100 WBC 0-0 (BEAKER) (test code = 413) NEUTROPHILS RELATIVE PERCENT 91 % (BEAKER) (test code = 429) LYMPHOCYTES RELATIVE PERCENT 1 % (BEAKER) (test code = 430) MONOCYTES RELATIVE PERCENT 7 % (BEAKER) (test code = 431) EOSINOPHILS RELATIVE PERCENT 0 % (BEAKER) (test code = 432) BASOPHILS RELATIVE PERCENT 0 % (BEAKER) (test code = 437) NEUTROPHILS ABSOLUTE COUNT 23.60 K/ L 1.80-8.00 H (BEAKER) (test code = 670) LYMPHOCYTES ABSOLUTE COUNT 0.34 K/ L 1.48-4.50 L (BEAKER) (test code = 414) MONOCYTES ABSOLUTE COUNT (BEAKER) 1.73 K/ L 0.00-1.30 H (test code = 415) EOSINOPHILS ABSOLUTE COUNT 0.00 K/ L 0.00-0.50 (BEAKER) (test code = 416) BASOPHILS ABSOLUTE COUNT (BEAKER) 0.03 K/ L 0.00-0.20 (test code = 417) IMMATURE GRANULOCYTES-RELATIVE 1 % 0-0 H PERCENT (BEAKER) (test code = 2801) POCT-GLUCOSE [id number] 14:53:41 Test Item Value Reference Range Interpretation Comments POC-GLUCOSE METER 129 mg/dL 70-110 H : TESTED A T [facility] [address] (BEAKER) (test code [facility], = 1538) [place] [id number]: Professor Criminal Justice/Techni nicky ID = [id number] for Eusebia is, Josette POCT-GLUCOSE [id number] 11:59:22 Test Item Value Reference Range Interpretation Comments POC-GLUCOSE METER 159 mg/dL 70-110 H : TESTED A T [address] (BEAKER) (test code [facility], = 1538) [place] [address] 478: Professor Criminal Justice/Techni nicky ID = [id number] for Eusebia is, Josette POCT-GLUCOSE [id number] 07:35:08 Test Item Value Reference Range Interpretation Comments POC-GLUCOSE METER 109 mg/dL 70-110 : TESTED A T [address] (BEAKER) (test code [facility] [place], = 1538) [place] [address] 478: Professor Criminal Justice/Techni nicky ID = [id number] for Eusebia is, Josette [id number] 06:06:08 Test Item Value Reference Range Interpretation Comments PHOSPHORUS (BEAKER) (test code = 4.2 mg/dL 2.5-4.5 604) Professor Criminal Justice ID - [id number] METABOLIC [id number] 05:54:28 Test Item Value Reference Range Interpretation Comments SODIUM (BEAKER) 138 meq/L 135-148 (test code = 381) POTASSIUM (BEAKER) 4.0 meq/L 3.6-5.5 (test code = 379) CHLORIDE (BEAKER) 104 meq/L 98-106 (test code = 382) CO2 (BEAKER) (test 28 meq/L 20-29 code = 355) BLOOD UREA NITROGEN 14 mg/dL 10-26 (BEAKER) (test code = 354) CREATININE (BEAKER) 0.49 mg/dL 0.50-1.20 L (test code = 358) GLUCOSE RANDOM 119 mg/dL 70-110 H (BEAKER) (test code = 652) CALCIUM (BEAKER) 8.0 mg/dL 8.5-10.5 L (test code = 697) EGFR (BEAKER) (test 194 mL/min/1.73 ESTIM ATED GFR IS code = 1092) sq m NOT ACCURATE CREATININE CLEARANCE IN PREDICTING GLOMERULAR FILTRATION RATE . ESTIMATED GFR I S NOT APPLICABLE FOR DIALYSIS PATIEN TS. Professor Criminal Justice ID - [id number] ID - [id number] ID - [id number] ID - [id number] ID - [id number] ID - [id number] ID - [id number] ID - [id number] ID - [id number] ID - [id number] 05:44:59 Test Item Value Reference Range Interpretation Comments MAGNESIUM (BEAKER) (test code = 2.1 mg/dL 1.5-3.0 627) Professor Criminal Justice ID - [id number] ID - [id number] ID - [id number] ID - [id number] CBC W/PLT COUNT & AUTO [id number] 05:33:26 Test Item Value Reference Range Interpretation Comments WHITE BLOOD CELL COUNT (BEAKER) 18.5 K/ L 4.0-10.0 H (test code = 775) RED BLOOD CELL COUNT (BEAKER) 3.11 M/ L 4.20-5.80 L (test code = 761) HEMOGLOBIN (BEAKER) (test code = 7.8 GM/DL 13.0-16.8 L 410) HEMATOCRIT (BEAKER) (test code = 23.7 % 36.0-50.0 L 411) MEAN CORPUSCULAR VOLUME (BEAKER) 76.2 fL 82.0-99.0 L (test code = 753) MEAN CORPUSCULAR HEMOGLOBIN 25.1 pg 27.0-33.0 L (BEAKER) (test code = 751) MEAN CORPUSCULAR HEMOGLOBIN CONC 32.9 GM/DL 32.0-36.0 (BEAKER) (test code = 752) RED CELL DISTRIBUTION WIDTH 14.8 % 12.0-15.0 (BEAKER) (test code = 412) PLATELET COUNT (BEAKER) (test 336 K/CU MM 150-430 code = 756) MEAN PLATELET VOLUME (BEAKER) 9.9 fL 6.0-11.5 (test code = 754) NUCLEATED RED BLOOD CELLS 0 /100 WBC 0-0 (BEAKER) (test code = 413) NEUTROPHILS RELATIVE PERCENT 91 % (BEAKER) (test code = 429) LYMPHOCYTES RELATIVE PERCENT 2 % (BEAKER) (test code = 430) MONOCYTES RELATIVE PERCENT 6 % (BEAKER) (test code = 431) EOSINOPHILS RELATIVE PERCENT 0 % (BEAKER) (test code = 432) BASOPHILS RELATIVE PERCENT 0 % (BEAKER) (test code = 437) NEUTROPHILS ABSOLUTE COUNT 16.77 K/ L 1.80-8.00 H (BEAKER) (test code = 670) LYMPHOCYTES ABSOLUTE COUNT 0.31 K/ L 1.48-4.50 L (BEAKER) (test code = 414) MONOCYTES ABSOLUTE COUNT (BEAKER) 1.12 K/ L 0.00-1.30 (test code = 415) EOSINOPHILS ABSOLUTE COUNT 0.00 K/ L 0.00-0.50 (BEAKER) (test code = 416) BASOPHILS ABSOLUTE COUNT (BEAKER) 0.02 K/ L 0.00-0.20 (test code = 417) IMMATURE GRANULOCYTES-RELATIVE 1 % 0-0 H PERCENT (BEAKER) (test code = 2801) POCT-GLUCOSE [id number] 22:59:35 Test Item Value Reference Range Interpretation Comments POC-GLUCOSE METER 146 mg/dL 70-110 H : TESTED A T [address] (BEAKER) (test code [address], = 1538) [facility] 77 478: Professor Criminal Justice/Techni nicky ID = [id number] for tristian Qureshi TISSUE [id number] 17:11:28Surgical Pathology Report Case: [id number] Authorizing Provider: Thanh Oakes MD Collected: 11/12/2021 12:52 PM Ordering Location: [address] Med/Surg Received: 11/12/2021 01:19 PM Pathologist: America Smith MD Specimen: Large Intestine, Colon - Sigmoid, Sigmoid bx's COLON, SIGMOID, ENDOSCOPIC BIOPSY: - COLONIC MUCOSA WITH NO PATHOLOGIC ALTERATION - NO SIGNIFICANT ARCHITECTURAL DISTORTION SEEN - NO INCREASED CHRONIC INFLAMMATION PRESENT - NO CRYPTITIS, CRYPT ABSCESS OR GRANULOMAS SEEN- NO VIRAL INCLUSIONS,DYSPLASIA OR MALIGNANCY PRESENT Signing Pathologist Direct Phone Line: [phone] signed by America Smith MD on 11/13/2021 at 5:11 PMBleed.A. Large Intestine, Colon - Sigmoid.Received in formalin labeled with the patient's information and labeled "large intestine, colon-sigmoid" are two [place]-brown mucosal pieces 0.3 cm in maximum dimension submitted entirely in cassette labeled A1. BH/ew [id number] 05:45:45 Test Item Value Reference Range Interpretation Comments MAGNESIUM (BEAKER) (test code = 2.1 mg/dL 1.5-3.0 627) Professor Criminal Justice ID - LITOOperator ID - LITOOperator ID - LITOOperator ID - LITOBASIC METABOLIC [id number] 05:44:31 Test Item Value Reference Range Interpretation Comments SODIUM (BEAKER) 138 meq/L 135-148 (test code = 381) POTASSIUM (BEAKER) 4.1 meq/L 3.6-5.5 (test code = 379) CHLORIDE (BEAKER) 105 meq/L 98-106 (test code = 382) CO2 (BEAKER) (test 26 meq/L 20-29 code = 355) BLOOD UREA NITROGEN 12 mg/dL 10-26 (BEAKER) (test code = 354) CREATININE (BEAKER) 0.65 mg/dL 0.50-1.20 (test code = 358) GLUCOSE RANDOM 117 mg/dL 70-110 H (BEAKER) (test code = 652) CALCIUM (BEAKER) 8.4 mg/dL 8.5-10.5 L (test code = 697) EGFR (BEAKER) (test 140 mL/min/1.73 ESTIM ATED GFR IS code = 1092) sq m NOT ACCURATE CREATININE CLEARANCE IN PREDICTING GLOMERULAR FILTRATION RATE . ESTIMATED GFR I S NOT APPLICABLE FOR DIALYSIS PATIEN TS. Professor Criminal Justice ID - LITOOperator ID - LITOOperator ID - LITOOperator ID - LITOOperator ID - LITOOperator ID - LITOOperator ID - LITOOperator ID - LITOOperator ID - [id number] 05:43:12 Test Item Value Reference Range Interpretation Comments PHOSPHORUS (BEAKER) (test code = 4.6 mg/dL 2.5-4.5 H 604) Professor Criminal Justice ID - LITOCBC W/PLT COUNT & AUTO [id number] 05:40:13 Test Item Value Reference Range Interpretation Comments WHITE BLOOD CELL COUNT (BEAKER) 21.1 K/ L 4.0-10.0 H (test code = 775) RED BLOOD CELL COUNT (BEAKER) 3.37 M/ L 4.20-5.80 L (test code = 761) HEMOGLOBIN (BEAKER) (test code = 8.6 GM/DL 13.0-16.8 L 410) HEMATOCRIT (BEAKER) (test code = 25.8 % 36.0-50.0 L 411) MEAN CORPUSCULAR VOLUME (BEAKER) 76.6 fL 82.0-99.0 L (test code = 753) MEAN CORPUSCULAR HEMOGLOBIN 25.5 pg 27.0-33.0 L (BEAKER) (test code = 751) MEAN CORPUSCULAR HEMOGLOBIN CONC 33.3 GM/DL 32.0-36.0 (BEAKER) (test code = 752) RED CELL DISTRIBUTION WIDTH 14.6 % 12.0-15.0 (BEAKER) (test code = 412) PLATELET COUNT (BEAKER) (test 338 K/CU MM 150-430 code = 756) MEAN PLATELET VOLUME (BEAKER) 10.0 fL 6.0-11.5 (test code = 754) NUCLEATED RED BLOOD CELLS 0 /100 WBC 0-0 (BEAKER) (test code = 413) NEUTROPHILS RELATIVE PERCENT 92 % (BEAKER) (test code = 429) LYMPHOCYTES RELATIVE PERCENT 2 % (BEAKER) (test code = 430) MONOCYTES RELATIVE PERCENT 6 % (BEAKER) (test code = 431) EOSINOPHILS RELATIVE PERCENT 0 % (BEAKER) (test code = 432) BASOPHILS RELATIVE PERCENT 0 % (BEAKER) (test code = 437) NEUTROPHILS ABSOLUTE COUNT 19.35 K/ L 1.80-8.00 H (BEAKER) (test code = 670) LYMPHOCYTES ABSOLUTE COUNT 0.36 K/ L 1.48-4.50 L (BEAKER) (test code = 414) MONOCYTES ABSOLUTE COUNT (BEAKER) 1.19 K/ L 0.00-1.30 (test code = 415) EOSINOPHILS ABSOLUTE COUNT 0.00 K/ L 0.00-0.50 (BEAKER) (test code = 416) BASOPHILS ABSOLUTE COUNT (BEAKER) 0.02 K/ L 0.00-0.20 (test code = 417) IMMATURE GRANULOCYTES-RELATIVE 1 % 0-0 H PERCENT (BEAKER) (test code = 2801) IRON, TIBC, % SAT. (WITHOUT FERRITIN)2021-11-12 11:07:07 Test Item Value Reference Range Interpretation Comments IRON (BEAKER) (test code = 547) 36.0 ug/dL 45.0-170.0 L TOTAL IRON BINDING CAPACITY 241 ug/dL 250-550 L (BEAKER) (test code = 769) IRON % SATURATION (2) (BEAKER) 15 % 20-55 L (test code = 2590) Professor Criminal Justice ID - [id number] ID - [id number] 05:24:52 Test Item Value Reference Range Interpretation Comments MAGNESIUM (BEAKER) (test code = 2.1 mg/dL 1.5-3.0 627) Professor Criminal Justice ID - [id number] ID - [id number] ID - [id number] ID - [id number] METABOLIC [id number] 05:23:29 Test Item Value Reference Range Interpretation Comments SODIUM (BEAKER) 137 meq/L 135-148 (test code = 381) POTASSIUM (BEAKER) 4.4 meq/L 3.6-5.5 (test code = 379) CHLORIDE (BEAKER) 102 meq/L 98-106 (test code = 382) CO2 (BEAKER) (test 27 meq/L 20-29 code = 355) BLOOD UREA NITROGEN 15 mg/dL 10-26 (BEAKER) (test code = 354) CREATININE (BEAKER) 0.62 mg/dL 0.50-1.20 (test code = 358) GLUCOSE RANDOM 127 mg/dL 70-110 H (BEAKER) (test code = 652) CALCIUM (BEAKER) 8.0 mg/dL 8.5-10.5 L (test code = 697) EGFR (BEAKER) (test 148 mL/min/1.73 ESTIM ATED GFR IS code = 1092) sq m NOT ACCURATE CREATININE CLEARANCE IN PREDICTING GLOMERULAR FILTRATION RATE . ESTIMATED GFR I S NOT APPLICABLE FOR DIALYSIS PATIEN TS. Professor Criminal Justice ID - [id number] ID - [id number] ID - [id number] ID - [id number] ID - [id number] ID - [id number] ID - [id number] ID - [id number] ID - [id number] 05:22:10 Test Item Value Reference Range Interpretation Comments PHOSPHORUS (BEAKER) (test code = 4.3 mg/dL 2.5-4.5 604) Professor Criminal Justice ID - [id number] W/PLT COUNT & AUTO [id number] 05:11:07 Test Item Value Reference Range Interpretation Comments WHITE BLOOD CELL COUNT (BEAKER) 18.4 K/ L 4.0-10.0 H (test code = 775) RED BLOOD CELL COUNT (BEAKER) 3.69 M/ L 4.20-5.80 L (test code = 761) HEMOGLOBIN (BEAKER) (test code = 9.1 GM/DL 13.0-16.8 L 410) HEMATOCRIT (BEAKER) (test code = 27.7 % 36.0-50.0 L 411) MEAN CORPUSCULAR VOLUME (BEAKER) 75.1 fL 82.0-99.0 L (test code = 753) MEAN CORPUSCULAR HEMOGLOBIN 24.7 pg 27.0-33.0 L (BEAKER) (test code = 751) MEAN CORPUSCULAR HEMOGLOBIN CONC 32.9 GM/DL 32.0-36.0 (BEAKER) (test code = 752) RED CELL DISTRIBUTION WIDTH 14.4 % 12.0-15.0 (BEAKER) (test code = 412) PLATELET COUNT (BEAKER) (test 356 K/CU MM 150-430 code = 756) MEAN PLATELET VOLUME (BEAKER) 9.6 fL 6.0-11.5 (test code = 754) NUCLEATED RED BLOOD CELLS 0 /100 WBC 0-0 (BEAKER) (test code = 413) NEUTROPHILS RELATIVE PERCENT 92 % (BEAKER) (test code = 429) LYMPHOCYTES RELATIVE PERCENT 2 % (BEAKER) (test code = 430) MONOCYTES RELATIVE PERCENT 5 % (BEAKER) (test code = 431) EOSINOPHILS RELATIVE PERCENT 0 % (BEAKER) (test code = 432) BASOPHILS RELATIVE PERCENT 0 % (BEAKER) (test code = 437) NEUTROPHILS ABSOLUTE COUNT 16.94 K/ L 1.80-8.00 H (BEAKER) (test code = 670) LYMPHOCYTES ABSOLUTE COUNT 0.43 K/ L 1.48-4.50 L (BEAKER) (test code = 414) MONOCYTES ABSOLUTE COUNT (BEAKER) 0.88 K/ L 0.00-1.30 (test code = 415) EOSINOPHILS ABSOLUTE COUNT 0.00 K/ L 0.00-0.50 (BEAKER) (test code = 416) BASOPHILS ABSOLUTE COUNT (BEAKER) 0.01 K/ L 0.00-0.20 (test code = 417) IMMATURE GRANULOCYTES-RELATIVE 1 % 0-0 H PERCENT (BEAKER) (test code = 2801) POCT-GLUCOSE [id number] 21:59:04 Test Item Value Reference Range Interpretation Comments POC-GLUCOSE METER 129 mg/dL 70-110 H : TESTED A T [address] [address] (BEAKER) (test code [facility] [address], = 1538) [facility] [address]: Professor Criminal Justice/Techni nicky ID = [id number] for Ever Dolores steele GI PATHOGEN PROFILE BY [id number] 18:28:55 Test Item Value Reference Range Interpretation Comments CAMPYLOBACTER (PCR) (test code = Not detected Not detected 20151211) PLESIOMONAS SHIGELLOIDES (PCR) Not detected Not detected (test code = 20151215) SALMONELLA (PCR) (test code = Not detected Not detected ) YERSINIA ENTEROCOLITICA (PCR) Not detected Not detected (test code = 20160107) VIBRIO CHOLERAE (PCR) (test code Not detected Not detected = 20160108) ENTEROAGGREGATIVE E. COLI (EAEC) Not detected Not detected BY PCR (test code = 6562433) ENTEROPATHOGENIC E. COLI (EPEC) Not detected Not detected BY PCR (test code = 3087521) ENTEROTOXIGENIC E. COLI (ETEC) Not detected Not detected LT/ST BY PCR (test code = 6678543) SHIGA-LIKE TOXIN-PRODUCING E. Not detected Not detected COLI (STEC) STX1/STX2 (test code = 9026210) E. COLI O157 (PCR) (test code = 2511574) SHIGELLA/ENTEROINVASIVE E. COLI Not detected Not detected (EIEC) BY PCR (test code = 6725940) CRYPTOSPORIDIUM (PCR) (test code Not detected Not detected = 20160115) CYCLOSPORA CAYETANENSIS (PCR) Not detected Not detected (test code = ) ENTAMOEBA HISTOLYTICA (PCR) Not detected Not detected (test code = 20160207) GIARDIA LAMBLIA (PCR) (test code Not detected Not detected = 20160208) ADENOVIRUS F 40/41 (PCR) (test Not detected Not detected code = 20160209) ASTROVIRUS (PCR) (test code = Not detected Not detected 20160210) NOROVIRUS GI/GII (PCR) (test Not detected Not detected code = 20160211) ROTAVIRUS A (PCR) (test code = Not detected Not detected 20160212) SAPOVIRUS (I, II, IV, V) BY PCR Not detected Not detected (test code = 1463651) VIBRIO (PARAHAEMOLYTICUS, Not detected Not detected VULNIFICUS) (test code = 9027811) Other viruses, parasites and bacteria not targeted by this PCR panel cannot be excluded; therefore clinical correlation and follow up of serology, culture results, and other molecular studies is required. The results are not intended to be used as the sole means for clinical diagnosis or patient management decisions. This sample was tested at the [facility] using the [employer] Gastrointestinal Panel. It is FDA cleared and has been verified and approved by the [facility] for clinical use. This laboratory is CLIA-certified and College ofAmerican Pathologists (CAP)-accredited to perform high complexity testing.IRON, TIBC, % SAT. (WITHOUT FERRITIN)2021-11-11 12:35:25 Test Item Value Reference Range Interpretation Comments IRON (BEAKER) (test code = 547) 38.0 ug/dL 45.0-170.0 L TOTAL IRON BINDING CAPACITY 294 ug/dL 250-550 (BEAKER) (test code = 769) IRON % SATURATION (2) (BEAKER) 13 % 20-55 L (test code = 2590) Professor Criminal Justice ID - DSENSONOperator ID - DSENSONC. DIFFICILE GDH [id number] 12:23:57 Test Item Value Reference Range Interpretation Comments CDT TOXIN (test code Negative Negative = [id number]) CDT GDH ANTIGEN (test Negative Negative No ind ication of code = [id number]) Clostridi um difficile infection and n o colonization. Discontinue ent pat isolation and t herapy. Testing performed by [employer] Rapid Cassette Assay. For GDH, published sensitivity of the assay is 98.7% compared to cytotoxicity testing. For Toxin AB, published sensitivity is 87.8% and specificity 99.4% compared to cytotoxicity testing.Verification of kit performance was done by the [facility] prior to clinical use.LACTIC ACID, [id number] 09:26:14 Test Item Value Reference Range Interpretation Comments LACTATE BLOOD 2.52 mmol/L See_Comment HH [Automated me ssage] VENOUS (2) (BEAKER) The syst em which (test code = 2872) generated this result transmitted ref erence range: 0.50-<2. 00. The reference range was not used to interpr et this result as normal/abnormal . Professor Criminal Justice ID - DSENSONOperator ID - DSENSONOperator ID - DSENSONOperator ID - DSENSONCOMPREHENSIVE METABOLIC [id number] 08:34:06 Test Item Value Reference Range Interpretation Comments TOTAL PROTEIN 5.7 gm/dL 6.0-8.5 L (BEAKER) (test code = 770) ALBUMIN (BEAKER) 3.2 g/dL 3.5-5.0 L (test code = 1145) ALKALINE PHOSPHATASE 58 U/L 30-115 (BEAKER) (test code = 346) BILIRUBIN TOTAL 1.3 mg/dL 0.1-1.2 H (BEAKER) (test code = 377) SODIUM (BEAKER) (test 138 meq/L 135-148 code = 381) POTASSIUM (BEAKER) 4.2 meq/L 3.6-5.5 (test code = 379) CHLORIDE (BEAKER) 103 meq/L 98-106 (test code = 382) CO2 (BEAKER) (test 25 meq/L 20-29 code = 355) BLOOD UREA NITROGEN 17 mg/dL 10-26 (BEAKER) (test code = 354) CREATININE (BEAKER) 0.74 mg/dL 0.50-1.20 (test code = 358) GLUCOSE RANDOM 119 mg/dL 70-110 H (BEAKER) (test code = 652) CALCIUM (BEAKER) 8.6 mg/dL 8.5-10.5 (test code = 697) AST (SGOT) (BEAKER) 22 U/L 5-40 (test code = 353) ALT (SGPT) (BEAKER) 62 U/L 5-50 H (test code = 347) EGFR (BEAKER) (test 120 ESTIMATE D GFR IS code = 1092) mL/min/1.73 sq NOT ACCURA TE m CREATININE CLEARANCE IN PREDICTING GLOMERULAR FILTRATION RATE . ESTIMATED GFR I S NOT APPLICABLE FOR DIALYSIS PATIEN TS. Professor Criminal Justice ID - DSENSONOperator ID - DSENSONOperator ID - DSENSONOperator ID - DSENSONOperator ID - DSENSONOperator ID - DSENSONOperator ID - DSENSONOperator ID - DSENSONOperator ID - DSENSONOperator ID - DSENSONOperator ID - DSENSONOperator ID - DSENSONOperator ID - DSENSONOperator ID - DSENSONOperatorID - [id number] 08:18:17 Test Item Value Reference Range Interpretation Comments MAGNESIUM (BEAKER) (test code = 1.9 mg/dL 1.5-3.0 627) Professor Criminal Justice ID - DSENSONOperator ID - DSENSONOperator ID - DSENSONOperator ID - [id number] 08:14:58 Test Item Value Reference Range Interpretation Comments PHOSPHORUS (BEAKER) (test code = 3.7 mg/dL 2.5-4.5 604) Professor Criminal Justice ID - DSENSON(MANUAL DIFFERENTIAL)2021-11-11 08:05:57 Test Item Value Reference Range Interpretation Comments NEUTROPHILS - REL (DIFF) (BEAKER) 93 % (test code = 1359) LYMPHOCYTES - REL (DIFF) (BEAKER) 1 % (test code = 1360) MONOCYTES - REL (DIFF) (BEAKER) 5 % (test code = 1361) ATYPICAL LYMPHOCYTE - REL (DIFF) 1 % 0-0 H (BEAKER) (test code = 260) NEUTROPHILS - ABS (DIFF) (BEAKER) 35.15 K/ L 1.80-8.00 H (test code = 1365) LYMPHOCYTES - ABS (DIFF) (BEAKER) 0.38 K/ L 1.48-4.50 L (test code = 1366) MONOCYTES - ABS (DIFF) (BEAKER) 1.89 K/ L 0.00-1.30 H (test code = 1367) ATYPICAL LYMPHOCYTES - ABS (DIFF) 0.38 K/ L 0.00-0.00 H (BEAKER) (test code = 263) TOTAL COUNTED (BEAKER) (test code 100 = 1351) WBC MORPHOLOGY (BEAKER) (test code Normal = 487) PLT MORPHOLOGY (BEAKER) (test code Normal = 486) RBC MORPHOLOGY (BEAKER) (test code Normal = 762) CBC W/PLT COUNT & AUTO [id number] 08:05:56 Test Item Value Reference Range Interpretation Comments WHITE BLOOD CELL COUNT (BEAKER) 37.8 K/ L 4.0-10.0 H (test code = 775) RED BLOOD CELL COUNT (BEAKER) 4.66 M/ L 4.20-5.80 (test code = 761) HEMOGLOBIN (BEAKER) (test code = 11.7 GM/DL 13.0-16.8 L 410) HEMATOCRIT (BEAKER) (test code = 35.7 % 36.0-50.0 L 411) MEAN CORPUSCULAR VOLUME (BEAKER) 76.6 fL 82.0-99.0 L (test code = 753) MEAN CORPUSCULAR HEMOGLOBIN 25.1 pg 27.0-33.0 L (BEAKER) (test code = 751) MEAN CORPUSCULAR HEMOGLOBIN CONC 32.8 GM/DL 32.0-36.0 (BEAKER) (test code = 752) RED CELL DISTRIBUTION WIDTH 14.4 % 12.0-15.0 (BEAKER) (test code = 412) PLATELET COUNT (BEAKER) (test 497 K/CU MM 150-430 H code = 756) MEAN PLATELET VOLUME (BEAKER) 9.5 fL 6.0-11.5 (test code = 754) NUCLEATED RED BLOOD CELLS 0 /100 WBC 0-0 (BEAKER) (test code = 413) [id number] 07:34:53 Test Item Value Reference Range Interpretation Comments PARTIAL THROMBOPLASTIN 23.7 seconds 23.0-35.0 Final Information TIME (BEAKER) (test (Auto Ou tput) code = 760) PROTHROMBIN [id number] 07:34:52 Test Item Value Reference Range Interpretation Comments PROTIME (BEAKER) 11.4 seconds 9.3-12.0 Final Infor mation (test code = 759) (Auto Outp ut) INR (BEAKER) (test 1.04 See_Comment Final Inf ormation code = 370) (Auto Output) [Automated mess age] The system whic h generated this result transmitted ref erence range: <=5.90. The reference range was not used to int erpret this result as normal/abnormal . RECOMMENDED COUMADIN/WARFARIN INR THERAPY RANGESSTANDARD DOSE: 2.0 - 3.0 Includes: PROPHYLAXIS for venous thrombosis, systemic embolization; TREATMENT for venous thrombosis and/or pulmonary embolus.HIGH RISK: Target INR is 2.5-3.5 for patients with mechanical heart valves.LACTIC ACID, [id number] 07:19:24 Test Item Value Reference Range Interpretation Comments LACTATE BLOOD 2.70 mmol/L See_Comment HH [Automated me ssage] VENOUS (2) (BEAKER) The syst em which (test code = 2872) generated this result transmitted ref erence range: 0.50-<2. 00. The reference range was not used to interpr et this result as normal/abnormal . POCT-GLUCOSE [id number] 08:56:25 Test Item Value Reference Range Interpretation Comments POC-GLUCOSE METER 141 mg/dL 70-110 H : TESTED A T [facility] (BEAKER) (test code [address], = 1538) [facility] [place] [address]: Professor Criminal Justice/Techni nicky ID = [id number] for Gasper Milton [id number] 08:00:19 Test Item Value Reference Range Interpretation Comments MAGNESIUM (BEAKER) (test code = 2.2 mg/dL 1.5-3.0 627) Professor Criminal Justice ID - DSENSONOperator ID - DSENSONOperator ID - DSENSONOperator ID - DSENSONBASIC METABOLIC [id number] 05:58:58 Test Item Value Reference Range Interpretation [...] S NOT APPLICABLE FOR DIALYSIS PATIEN TS. Professor Criminal Justice ID - [id number] ID - [id number] ID - [id number] ID - [id number] ID - [id number] ID - [id number] ID - VMXD34Nhagqprv ID - [id number] ID - [id number] ID - [id number] ID - [id number] ID - [id number] W/PLT COUNT & AUTO [id number] 05:38:44 Test Item Value Reference Range Interpretation [...] PERCENT (BEAKER) (test code = 2801) POCT-GLUCOSE [id number] 10:52:02 Test Item Value Reference Range Interpretation Comments POC-GLUCOSE METER 139 mg/dL 70-110 H : TESTED A T [facility] (BEAKER) (test code [address], = 1538) [facility] 77 478: Professor Criminal Justice/Techni nicky ID = [id number] for Josette Quiñones POCT-GLUCOSE [id number] 08:46:47 Test Item Value Reference Range Interpretation Comments POC-GLUCOSE METER 155 mg/dL 70-110 H : TESTED A T [facility] (BEAKER) (test code [address], = 1538) [facility] 77 478: Professor Criminal Justice/Techni nicky ID = [id number] for Josette Quiñones BASIC METABOLIC [id number] 06:45:15 Test Item Value Reference Range Interpretation [...] S NOT APPLICABLE FOR DIALYSIS PATIEN TS. Professor Criminal Justice ID - LITOOperator ID - LITOOperator ID - LITOOperator ID - LITOOperator ID - LITOOperator ID - LITOOperator ID - LITOOperator ID - LITOOperator ID - LITOOperator ID - LITOOperator ID - LITOOperator ID - LITOCBC W/PLT COUNT & AUTO [id number] 06:26:41 Test Item Value Reference Range Interpretation [...] PERCENT (BEAKER) (test code = 2801) POCT-GLUCOSE [id number] 21:58:10 Test Item Value Reference Range Interpretation Comments POC-GLUCOSE METER 145 mg/dL 70-110 H : TESTED A T [facility] 1317 (BEAKER) (test code [address], = 1538) [facility] 77 478: Professor Criminal Justice/Techni nicky ID = [id number] for Jany Colon, ABDOMEN/KUB 1 VIEW [id number] 10:48:00Reason for exam:->f/u [facility] 1985 Sex: MFINALREPORT KUB History provided: Follow-up bowel obstruction COMPARISON STUDY: CT of 11/01/2021 No small or large bowel dilatation. No obstructive signs or localizing abnormalities. Signed: Trace Boyleuche Verified Date/Time: 11/05/2021 10:48:13 Reading Location: [facility] Radiology Reading Room HEPATIC FUNCTION [id number] 09:32:06 Test Item Value Reference Range Interpretation [...] Specimen slightly (test code = 347) hemolyzed Professor Criminal Justice ID - DSENSONOperator ID - DSENSONOperator ID [...] S NOT APPLICABLE FOR DIALYSIS PATIEN TS. Professor Criminal Justice ID - DSENSONOperator ID - DSENSONOperator ID [...] PERCENT (BEAKER) (test code = 2801) PROTHROMBIN [id number] 06:24:51 Test Item Value Reference Range Interpretation Comments PROTIME (BEAKER) 11.4 seconds 9.3-12.0 Final Infor mation (test code = 759) (Auto Outp ut) INR (BEAKER) (test 1.04 See_Comment Final Inf ormation code = 370) (Auto Output) [Automated mess age] The system [employer] generated this result transmitted ref erence range: <=5.90. The reference range was not used to int erpret this result as normal/abnormal . RECOMMENDED COUMADIN/WARFARIN INR THERAPY RANGESSTANDARD DOSE: 2.0 - 3.0 Includes: PROPHYLAXIS for venous thrombosis, systemic embolization; TREATMENT for venous thrombosis and/or pulmonary embolus.HIGH RISK: Target INR is 2.5-3.5 for patients with mechanical heart valves.[id number] 06:21:30 Test Item Value Reference Range Interpretation Comments MAGNESIUM (BEAKER) (test code = 1.9 mg/dL 1.5-3.0 627) Professor Criminal Justice ID - LITOOperator ID - LITOOperator ID - LITOOperator ID - LITOBASIC METABOLIC [id number] 06:19:48 Test Item Value Reference Range Interpretation [...] S NOT APPLICABLE FOR DIALYSIS PATIEN TS. Professor Criminal Justice ID - LITOOperator ID - LITOOperator ID - LITOOperator ID - LITOOperator ID - LITOOperator ID - LITOOperator ID - LITOOperator ID - LITOOperator ID - [id number] 06:18:26 Test Item Value Reference Range Interpretation Comments PHOSPHORUS (BEAKER) (test code = 2.7 mg/dL 2.5-4.5 604) Professor Criminal Justice ID - LITOCBC W/PLT COUNT & AUTO [id number] 06:07:54 Test Item Value Reference Range Interpretation [...] 0-0 PERCENT (BEAKER) (test code = 2801) CT, [id number] 15:17:00Unlisted Reason for Exam - Click Yes and Enter Reason Below->YesUnlisted Reason for Exam->K50.90 (ICD-10-CM) - Crohn's disease without complication, unspecified gastrointestinal tract location (HC Code) (HCC)Is this for enterography?->YesWill this procedure require oral contrast?->YesAnesthesia:->None [facility] 1985 Sex: MFINALREPORT CLINICAL HISTORY: Unlisted Reason for ExamK50.90 (ICD-10-CM) - Crohn's disease without complication, unspecified gastrointestinal tract location (HCC code) (HCC) FINDINGS: Multiple axial images of the abdomen and pelvis were performed after the uncomplicated administration of IV contrast. Oral contrast was not given. This exam was performed according to our departmental dose-optimization program, which includes automated exposure control, adjustment of the mA and/or kV according to patient size and/or use of the iterative reconstruction technique. Comparison:11/30/2020 Lower chest: Clear lungs. No pleural effusion or pneumothorax. Visualized cardiac contours normal. Liver: Stable appearance of parenchymal calcifications consistent with multiple granulomas. Gallbladder and biliary tree: No significant findings. Spleen: Calcified granulomas in the splenic parenchyma. Adrenal Glands: No significant findings. Kidneys and ureters: 2 subcentimeter cysts in the right kidney.Stomach and Duodenum: No significant findings. Pancreas: No significant findings. Bowel: Extensive circumferential mural thickening of the mid to distal ileum with prominent mucosal enhancement and prominence of the adjacent mesenteric vasculature. There are segments of luminal narrowing which may relate to peristalsis or stenosis. No evidence of bowel obstruction. No evidence of perforation, abscessformation or fistulization. Previous ileocolic anastomosis. Appendix: Absent Bladder: No significantfindings. Major vascular structures: No significant findings. Reproductive organs: No significant findings. Other: No free air, fluid or adenopathy Skeleton: No acute bony abnormality. IMPRESSION: Ileitis, in keeping with the diagnosis of Crohn's disease. No bowel obstruction, perforation or abscess formation. Segments distal small bowel luminal narrowing may relate to peristalsis or stenosis. Postsurgical changes, as described. Signed: Ewa Soto MDReport Verified Date/Time: 11/03/2021 15:17:14 E lectronically signed by: EWA SOTO M.D. on 11/03/2021 03:17 PM SARS-COV2/RT-PCR ([facility])2021-03-01 04:27:03 Test Item Value Reference Range Interpretation Comments SARS-COV2/RT-PCR (test code = Negative Negative [id number]) Negative result for this test determines that [...] the FDA, the issued EUA will be effective until the declaration that circumstances exist justifying the authorization of the emergency use of in vitro diagnostic tests for detection and/or diagnosis of COVID-19 is terminated under Section 564(b)(2) of the Act or the EUA is revoked under Section 564(g) of the Act.Testing was performed using [employer] SARS-CoV-2 assay.Fact Sheet for Healthcare Providers:https://www.V[employer].ScoopStake/lopez/RT SARS-CoV-2 HCP Fact Sheet 51- 553425.pdfFact Sheet for Healthcare Patients:https://www.V[employer].melendrez/lopez/RT SARS-CoV-2 Patient Fact Sheet EN 51-509150I5.pdfRAD, CHEST, 2 [id number] 12:47:00Reason for Exam:->Clinical [facility] : 1985 Sex: MFINALREPORT EXAMINATION: PA and lateral views of the chest. COMPARISON: None CLINICAL HISTORY: Clinical trial participant DISCUSSION: Lines/tubes: None. Lungs: The lungs are well inflated and clear. No pneumonia or pulmonary edema. Pleura: No pleural effusion or pneumothorax. Heart andmediastinum: The cardiomediastinal silhouette is normal. Bones and soft tissues: No acute bony abnormalities. IMPRESSION: No acute cardiopulmonary abnormalities. Signed: Marcelo Simeon MDReport Verified Date/Time: 02/12/2021 12:47:33 Reading Location: [facility] Reading Room [address] [place] [address] CT, [id number] 12:32:00Unlisted Reason for Exam - Click Yes and Enter Reason Below->YesUnlisted Reason for Exam->k50.919Will this procedure require oral contrast?->Yes [facility] : 1985 Sex: MFINALREPORT TECHNIQUE: CT of the abdomen and pelvis WITH intravenous contrast and WITHOUT oral contrast. Dose modulation, iterative reconstruction, and/or weight-based adjustment of themA/kV was utilized to reduce the radiation dose to as low as reasonably achievable. INDICATION: Unlisted Reason for Examk50.919. COMPARISON: CT from 06/22/2015. FINDINGS: LOWER THORAX: Unremarkable. HEPA TOBILIARY: Calcifications in the liver are unchanged and [...] further characterize. No routine follow-up imaging is r ecommended.PELVIC ORGANS/BLADDER: Unremarkable. PERITONEUM/RETROPERITONEUM: No free air or fluid.LYMPH NODES: No lymphadenopathy.VESSELS: Unremarkable. GI [...] in length on axial image 67. This area is mildly narrowed with some minimal proximal dilation.*An area of ileal thickening immediately proximal to this region measures 10.4 cm in length on axial images 62 through 66. This area is narrowed with some proximaldilation.*And areas of ileal wall thickening on coronal image 34 measures 10.6 cm in length on coronal image 34.*Ileal wall thickening proximal to the previously mentioned area measures 11.1 cm in length on coronal image 31.*There is mild distal jejunal/proximal ileal wall thickening which measures atleast 35 cm in length. BONES AND SOFT [...] contraction but is concerning for inflammation from Crohn'sdisease in the transverse colon. If a recent colonoscopy has not been performed, one should be considered to exclude a mass. Signed: Ugo Christina MDReport Verified Date/Time: 12/03/2020 12:32:44 Reading Location: [facility] B1 C013X Ortho Consult Reading Room TISSUE EXAM 2019-05-10 14:29:00Surgical Pathology Report Case: [id number] Authorizing Provider: Francisco Morales MD Collected: 05/09/2019 0840 Ordering Location: [facility] ENDOSCOPY Received: 05/09/2019 1230 SERVICES Pathologist: Sherine Calderon MD Specimens: A) - Biopsy, Terminal Ileum, Terminal ileum B) - Colon Biopsy, Random A. SMALL BOWEL, TERMINAL ILEUM, BIOPSIES: - CHRONIC ACTIVE ILEITISB. COLON, RANDOM BIOPSIES: - CHRONIC INACTIVE COLITIS, FOCAL Signing Pathologist Direct Phone Line: [phone] signed by Sherine Meier MD on 05/10/2019 at 2:29 [facility]/[id number]'s disease with complication, unspecified gastrointestinal tract location, osteopenia, unspecified location.A. Received in formalin labeled with the patient's name, accession number and "terminal ileum" are three camarillo-pink tissue fragments measuring up to 0.3 cm in greatest dimension, which are filtered and submitted in toto in A1.Part B. Received in formalin labeled with the patient's name, accession number and "random colon" are multiple camarillo-pink tissue fragment measuring up to 0.2 cm in greatest dimension, which are filtered andsubmitted in toto in B1. PA/ew A-B. No CMV, dysplasia or malignancy is identified.
[2022-03-17] MEDS ORDERED: NA CHLORIDE 0.9% 1,000 ML ONE (21:57)
[2022-03-17 22:31] LABS: Absolute Lymphocytes (CBC) 0.4 K/uL (0.7-4.9); Hematocrit 26.4 % (39.6-49.0); Lymphocytes % 2.4 % (15.3-44.8); MCV 71.7 fL (80-100); MPV 8.3 fL (7.6-11.3); RBC Red Blood Cell Count 3.68 M/uL (4.33-5.43)
[2022-03-17 22:34] LABS: Bilirubin Total 0.8 mg/dL (0.2-1.0); Potassium 3.9 mmol/L (3.5-5.1); Protein, Total 5.7 g/dL (6.4-8.2)
[2022-03-17 23:20] LABS: Anisocytosis 3+; Blood Morphology Comment NOTED (NOT SEEN); Hypochromasia 1+; Platelet Estimate ADEQ
--- NOTE | 2022-03-17 23:50 | EDPHYS ---
Physician Documentation [facility] Name: David Mclaughlin Age: 36 yrs Sex: Male : 1985 Arrival Date: 03/17/2022 Time: 21:24 Bed 24 Private MD: ED Physician Niko Andres HPI: 03/17 23:18 This 36 yrs old Male presents to ER via Carried with complaints of Dizziness, Nausea, sp3 "Crohn's flare up". 23:18 6-year-old male with a history of Crohn's disease presents to the ED for chief sp3 complaint abdominal pain, bloody diarrhea, and "Crohn's flare". Patient was admitted at [facility] for similar symptoms 3 weeks ago and required 2 units of PRBCs as well as steroids and antibiotics. On discharge, his hemoglobin was 8.8. He is on IV Remicade infusions and high-dose oral steroids for his current treatment. In 2016, he had his distal terminal ileum and proximal colon resected without complication. Currently he has had 48 hours of bloody diarrhea and diffuse abdominal pain. No other symptoms including fever, URI symptoms, neck pain, chest pain, shortness of breath, back pain, rash, extremity pain, or any other aspect of ROS noted at this time.. Historical: - Allergies: 21:54 No Known Allergies; as6 - PMHx: 21:54 chiari malformation; Crohn's Disease; POTS; as6 - PSHx: 21:54 bowel resection; Posterior fossa decompression; as6 - Immunization history:: Client reports receiving the 2nd dose of the Covid vaccine, pfizer. - Social history:: Smoking status: Patient denies any tobacco usage or history of. ROS: 23:21 Constitutional: Negative for fever, chills, and weight loss, Eyes: Negative for injury, sp3 pain, redness, and discharge, ENT: Negative for injury, pain, and discharge, Neck: Negative for injury, pain, and swelling, Cardiovascular: Negative for chest pain, palpitations, and edema, Respiratory: Negative for shortness of breath, cough, wheezing, and pleuritic chest pain, Back: Negative for injury and pain, MS/Extremity: Negative for injury and deformity, Skin: Negative for injury, rash, and discoloration, Neuro: Negative for headache, weakness, numbness, tingling, and seizure. 23:21 All other systems are negative. Exam: 23:21 Constitutional: This is a well developed, well nourished patient who is awake, alert, sp3 and in no acute distress. Head/Face: Normocephalic, atraumatic. Eyes: Pupils equal round and reactive to light, extra-ocular motions intact. Lids and lashes normal. Conjunctiva and sclera are non-icteric and not injected. Cornea within normal limits. Periorbital areas with no swelling, redness, or edema. ENT: Nares patent. No nasal discharge, no septal abnormalities noted. External auditory canals are clear. Oropharynx with no redness, swelling, or masses, exudates, or evidence of obstruction, uvula midline. Mucous membranes moist. Neck: Trachea midline, no thyromegaly or masses palpated, and no cervical lymphadenopathy. Supple, full range of motion without nuchal rigidity, or vertebral point tenderness. No Meningismus. Chest/axilla: Normal chest wall appearance and motion. Nontender with no deformity. No lesions are appreciated. Cardiovascular: Regular rate and rhythm with a normal S1 and S2. No gallops, murmurs, or rubs. Normal PMI, no JVD. No pulse deficits. Respiratory: Lungs have equal breath sounds bilaterally, clear to auscultation and percussion. No rales, rhonchi or wheezes noted. No increased work of breathing, no retractions or nasal flaring. Back: No spinal tenderness. No costovertebral tenderness. Full range of motion. Skin: Warm, dry with normal turgor. Normal color with no rashes, no lesions, and no evidence of cellulitis. MS/ Extremity: Pulses equal, no cyanosis. Neurovascular intact. Full, normal range of motion. Neuro: Awake and alert, GCS 15, oriented to person, place, time, and situation. Cranial nerves II-XII grossly intact. Motor strength 5/5 in all extremities. Sensory grossly intact. Cerebellar exam normal. Normal gait. Psych: Awake, alert, with orientation to person, place and time. Behavior, mood, and affect are within normal limits. 23:21 Abdomen/GI: Patient is diffusely tender without peritoneal signs, rebound, or guarding.. Vital Signs: 21:51 BP 107 / 74; Pulse 129; Resp 18 S; Temp 99.0(TE); Pulse Ox 98% on R/A; Weight 64.41 kg as6 (R); Height 6 ft. 1 in. (185.42 cm) (R); Pain 12/15; 23:30 BP 108 / 78; Pulse 114; Resp 19; Pulse Ox 98% ; 3 03/18 01:28 BP 124 / 81; Pulse 96; Resp 18; Pulse Ox 100% ; ll3 03/17 21:51 Body Mass Index 18.73 (64.41 kg, 185.42 cm) as6 MDM: 03/17 23:04 Patient medically screened. sp3 23:23 Data reviewed: vital signs, nurses notes. ED course: Patient declined CT scan of the sp3 abdomen and pelvis since he just had the same study 3 weeks ago. Patient will receive Zosyn IV, Solu-Medrol IV, morphine and Zofran IV and 1 unit of PRBC. We will supplement with normal saline 1 L and further as needed. Will admit patient to internal medicine.. 03/17 21:56 Order name: CBC with Diff as6 03/17 21:56 Order name: CMP as6 03/17 21:56 Order name: Lipase as6 03/17 22:33 Order name: CBC with Automated Diff; Complete Time: 23:27 EDMS 03/17 22:35 Order name: Comprehensive Metabolic Panel; Complete Time: 23:02 EDMA 03/17 22:35 Order name: Lipase; Complete Time: 23:02 EDMA 03/17 23:12 Order name: Type And Screen 3 03/17 23:21 Order name: Manual Differential; Complete Time: 23:27 EDMA 03/18 00:36 Order name: ABO/RH no charge EDMS 03/18 00:47 Order name: SARS RAPID 3 03/18 00:55 Order name: Type and Screen EDMA 03/18 02:44 Order name: SARS-COV-2 Antigen Rapid EDMA 03/18 05:36 Order name: Comprehensive Metabolic Panel [facility] 03/17 21:56 Order name: IV Saline Lock; Complete Time: 22:06 as6 03/17 21:56 Order name: Labs collected and sent; Complete Time: 22:06 as6 03/17 23:04 Order name: CT Abd/Pelvis - IV Contrast Only 3 03/18 05:36 Order name: C-Reactive Protein EDMA 03/18 05:52 Order name: Procalcitonin EDMS Administered Medications: 22:06 Drug: NS 0.9% 1000 ml Route: IV; Rate: 1 bolus; Site: left forearm; as6 03/18 00:24 Drug: NS 0.9% 1000 ml Route: IV; Rate: 1 bolus; Site: right antecubital; ll3 00:25 Drug: morphine 4 mg Route: IVP; Infused Over: 4 mins; Site: left antecubital; ll3 01:01 Follow up: Response: No adverse reaction ll3 00:37 Drug: Zofran (Ondansetron) 4 mg Route: IVP; Site: left antecubital; ll3 01:02 Follow up: Response: No adverse reaction ll3 00:37 Drug: SOLU-Medrol (methylPrednisoLONE) 125 mg Route: IVP; Site: left antecubital; ll3 01:02 Follow up: Response: No adverse reaction ll3 00:38 Drug: Zosyn (piperacillin-tazobactam) 3.375 grams Route: IVPB; Infused Over: 60 mins; ll3 Site: right forearm; Disposition Summary: 03/17/22 23:50 Hospitalization Ordered Hospitalization Status: Inpatient Admission sp3 Condition: Fair sp3 Problem: an acute exacerbation sp3 Symptoms: are unchanged sp3 Bed/Room Type: Standard sp3 Provider: Isaak Valles(03/18/22 00:07) marlon Location: Telemetry/MedSurg (Inpatient)(03/18/22 05:30) mw Room Assignment: [facility](03/18/22 05:30) Diagnosis - Crohn's disease of both small and large intestine sp3 Forms: - Medication Reconciliation Form sp3 - SBAR form sp3 Signatures: Dispatcher [employer] EDMS Evangelina Loyola RN RN mw Arnie Soni FNP-C FNP-Cla1 Niko Andres MD MD sp3 Gui London RN RN as6 Belle Balbuena RN RN ll3 Elif Salcido RN RN kr3 Corrections: (The following items were deleted from the chart) 03/17 23:23 23:21 Abdomen/GI: Patient declined CT scan of the abdomen and pelvis since he just had sp3 the same study 3 weeks ago. Patient will receive Zosyn IV, Solu-Medrol IV, morphine and Zofran IV and 1 unit of PRBC. We will supplement with normal saline 1 L and further as needed. Will admit patient to internal medicine.[email or web address] 03/18 00:07 03/17 23:50 Jeremy Napoles sp3 la1 03/18 00:57 03/17 23:50 Telemetry/MedSurg (Inpatient) sp3 kr3 03/18 00:57 03/17 23:50 sp3 kr3 03/18 05:30 00:57 [facility] ER HOLD kr3 mw 05:30 00:57 ERHOLD- kr3 mw
--- NOTE | 2022-03-17 23:50 | ER ---
Nurse's Notes [facility] Name: David Mclaughlin Age: 36 yrs Sex: Male : 1985 Arrival Date: 03/17/2022 Time: 21:24 Bed 24 Private MD: Diagnosis: Crohn's disease of both small and large intestine Presentation: 03/17 21:51 Chief complaint: Patient states: "I've been having a crohn's flair up and it's just as6 been getting worse. I'm nauseous, having abdominal pain and bloody diarrhea". Coronavirus screen: At this time, the client does not indicate any symptoms associated with coronavirus-19. Ebola Screen: No symptoms or risks identified at this time. Initial Sepsis Screen: Does the patient meet any 2 criteria? HR > 90 bpm. Does the patient have a suspected source of infection? No. Patient's initial sepsis screen is negative. Risk Assessment: Do you want to hurt yourself or someone else? Patient reports no desire to harm self or others. Onset of symptoms was March 16, 2022. 21:51 Method Of Arrival: Carried as6 21:51 Acuity: REJI 3 as6 Triage Assessment: 21:55 General: Appears ill, slender, Behavior is calm, cooperative. Pain: Complains of pain as6 in right lower quadrant. GI: Reports lower abdominal pain, bloody stool, nausea. Historical: - Allergies: 21:54 No Known Allergies; as6 - PMHx: 21:54 chiari malformation; Crohn's Disease; POTS; as6 - PSHx: 21:54 bowel resection; Posterior fossa decompression; as6 - Immunization history:: Client reports receiving the 2nd dose of the Covid vaccine, pfizer. - Social history:: Smoking status: Patient denies any tobacco usage or history of. Screenin/11 01:28 Abuse screen: Denies threats or abuse. Denies injuries from another. Nutritional ll3 screening: No deficits noted. Tuberculosis screening: No symptoms or risk factors identified. Fall Risk None identified. Assessment: 03/17 23:00 General: Appears uncomfortable, Behavior is calm, cooperative. Pain: Complains of pain ll3 in right lower quadrant Pain currently is 8 out of 10 on a pain scale. Neuro: Level of Consciousness is awake, alert, obeys commands, Oriented to person, place, time, situation. GI: Abdomen is round non-distended, Stools are reported to be diarrhea. States stool is bloody. Reports lower abdominal pain, diarrhea, bloody stool, nausea. Derm: Skin is pink, warm \\T\\ dry. 03/18 00:28 Reassessment: No changes from previously documented assessment. Patient and/or family ll3 updated on plan of care and expected duration. Pain level reassessed. Patient is alert, oriented x 3, equal unlabored respirations, skin warm/dry/pink. 01:27 Reassessment: Patient and/or family updated on plan of care and expected duration. Pain ll3 level reassessed. Patient is alert, oriented x 3, equal unlabored respirations, skin warm/dry/pink. States pain has improved, 08/15. Vital Signs: 03/17 21:51 BP 107 / 74; Pulse 129; Resp 18 S; Temp 99.0(TE); Pulse Ox 98% on R/A; Weight 64.41 kg as6 (R); Height 6 ft. 1 in. (185.42 cm) (R); Pain 12/15; 23:30 BP 108 / 78; Pulse 114; Resp 19; Pulse Ox 98% ; ll3 03/18 01:28 BP 124 / 81; Pulse 96; Resp 18; Pulse Ox 100% ; ll3 03/17 21:51 Body Mass Index 18.73 (64.41 kg, 185.42 cm) as6 ED Course: 03/17 21:24 Patient arrived in ED. ag3 21:54 Triage completed. as6 21:55 Arm band placed on. as6 22:06 Inserted saline lock: 20 gauge in left forearm, using aseptic technique. Blood as6 collected. 22:25 Niko Andres MD is Attending Physician. sp3 23:50 Jeremy Napoles MD is Hospitalizing Provider. sp3 03/18 00:02 T\\T\\S collected, blood band applied to patient. Inserted saline lock: 20 gauge in right bb forearm, using aseptic technique. Blood collected. 00:07 Isaak Valles MD is Hospitalizing Provider. la1 00:20 Inserted saline lock: 20 gauge in right forearm, using aseptic technique. bb 01:28 Belle Balbuena RN is Primary Nurse. ll3 01:28 Patient has correct armband on for positive identification. Placed in gown. Bed in low ll3 position. Call light in reach. Side rails up X 1. Adult w/ patient. Administered Medications: 03/17 22:06 Drug: NS 0.9% 1000 ml Route: IV; Rate: 1 bolus; Site: left forearm; as6 03/18 00:24 Drug: NS 0.9% 1000 ml Route: IV; Rate: 1 bolus; Site: right antecubital; ll3 00:25 Drug: morphine 4 mg Route: IVP; Infused Over: 4 mins; Site: left antecubital; ll3 01:01 Follow up: Response: No adverse reaction ll3 00:37 Drug: Zofran (Ondansetron) 4 mg Route: IVP; Site: left antecubital; ll3 01:02 Follow up: Response: No adverse reaction ll3 00:37 Drug: SOLU-Medrol (methylPrednisoLONE) 125 mg Route: IVP; Site: left antecubital; ll3 01:02 Follow up: Response: No adverse reaction ll3 00:38 Drug: Zosyn (piperacillin-tazobactam) 3.375 grams Route: IVPB; Infused Over: 60 mins; ll3 Site: right forearm; Medication: 04:00 VIS not applicable for this client. ll3 Outcome: 03/17 23:50 Decision to Hospitalize by Provider. sp3 03/18 06:14 Patient left the ED. ll3 Signatures: Jessica Albright RN RN bb Arnie Soni, VEGETABLE GRADER-C VEGETABLE GRADER-Cla1 Gregoria Hou 3 Niko Andres MD MD sp3 Gui London RN RN as6 Belle Balbuena RN RN ll3
[2022-03-18] MEDS ORDERED: ONDANSETRON 4 MG/2 ML VIAL ONE (00:19)
[2022-03-18] MEDS ORDERED: MORPHINE 4 MG/ML SYR ONE (00:19)
[2022-03-18] MEDS ORDERED: METHYLPREDNISOLONE 125 MG INJ ONE (00:19)
[2022-03-18] MEDS ORDERED: NA CHLORIDE 0.9% 1,000 ML ONE (00:20)
[2022-03-18] MEDS ORDERED: PIPERACIL/TAZO 3.375 GM VIAL IV ONE (00:20)
[2022-03-18] MEDS ORDERED: NA CHLORIDE 0.9% 100 ML IV ONE (00:20)
--- NOTE | 2022-03-18 02:17 | P.HP ---
Certification for Inpatient Patient admitted to: Inpatient With expected LOS: >2 Midnights Patient will require the following post-hospital care: None Practitioner: I am a practitioner with admitting privileges, knowledge of patient current condition, hospital course, and medical plan of care. Services: Services provided to patient in accordance with Admission requirements found in Title 42 Section 412.3 of the Code of Federal Regulations <Arnie Soni - Last Filed: 03/18/22 02:12> Patient History Date of Service: 03/18/22 Reason for admission: Crohns flare, hematochezia History of Present Illness: 36-year-old male with history of Crohn's on Remicade, chronic steroids, Chiari malformation status post posterior fossa decompression, POTS presented to the emergency department for 1 day of abdominal pain and 4 episodes of bright red blood per rectum. He reports that he was hospitalized approximately 3 weeks ago at [facility] for similar and was inpatient for four days, he received 2 units PRBC and was discharged with HGB of 8.8. his labs today were significant for hemoglobin 8.2 hematocrit 26.4 with a count 17.[address] abdomen pelvis with IV contrast was performed which revealed mild mucosal thickening involving the proximal small bowel in the left upper quadrant as well as the distal small bowel no adjacent inflammatory changes noted. ED sports book writer ordered 1 unit packed red blood cells given his acute blood loss anemia/mild hematochezia. ED provider wishes to admit for further evaluation and management of Crohn's flare, hematochezia, acute blood loss anemia. - Past Medical/Surgical History Diabetic: No -: Chrons -: Chiari malformation -: POTS -: bowel resection 2016 -: Posterior fossa decompression Psychosocial/ Personal History: Patient lives at home with family, works from home. - Family History Father -: Other (see notes) (Ulcerative colitis) - Social History Smoking Status: Never smoker Alcohol use: No CD- Drugs: No Caffeine use: Yes Place of Residence: Home <Arnie Soni - Last Filed: 03/18/22 02:12> Date of Service: 03/18/22 <Isaak Valles - Last Filed: 03/18/22 22:13> Allergies No Known Allergies Allergy (Unverified 10/02/21 07:36) Home Medications: Duloxetine [Cymbalta Dalayed Release Pellets] 20 mg PO DAILY 03/18/22 Pantoprazole [Protonix Tab] 40 mg PO DAILY 03/18/22 Smz./Tmp. [Bactrim Ds 800 MG/160 MG] 1 each PO DAILY 03/18/22 Review of Systems 10-point ROS is otherwise unremarkable Gastrointestinal: Nausea, Abdominal Pain, Hematochezia <Arnie Soni - Last Filed: 03/18/22 02:12> Physical Examination - Physical Exam General: Alert, In no apparent distress, Oriented x3 HEENT: Atraumatic, PERRLA, Mucous membr. moist/pink, EOMI, Sclerae nonicteric Neck: Supple, 2+ carotid pulse no bruit, No LAD, Without JVD or thyroid abnormality Respiratory: Clear to auscultation bilaterally, Normal air movement Cardiovascular: Regular rate/rhythm, Normal S1 S2 Gastrointestinal: Normal bowel sounds, Tenderness (Mild right lower quadrant tenderness) Musculoskeletal: No tenderness Integumentary: No rashes Neurological: Normal gait, Normal speech, Normal strength at 5/5 x4 extr, Normal tone, Normal affect Lymphatics: No axilla or inguinal lymphadenopathy - Studies Laboratory Data (last 24 hrs) 03/17/22 22:05: Sodium 135 L, Potassium 3.9, BUN 31 H, Creatinine 0.80, Glucose 141 H, Total Bilirubin 0.8, AST 16, ALT 51, Alkaline Phosphatase 42 L, Lipase 162 03/17/22 22:05: WBC 17.60 H, Hgb 8.2 L, Hct 26.4 L, Plt Count 363 <Arnie Soni - Last Filed: 03/18/22 02:12> - Studies Laboratory Data (last 24 hrs) 03/17/22 22:05: Sodium 135 L, Potassium 3.9, BUN 31 H, Creatinine 0.80, Glucose 141 H, Total Bilirubin 0.8, AST 16, ALT 51, Alkaline Phosphatase 42 L, Lipase 162 03/17/22 22:05: WBC 17.60 H, Hgb 8.2 L, Hct 26.4 L, Plt Count 363 <Isaak Valles - Last Filed: 03/18/22 22:13> Assessment and Plan - Plan Assessment: Crohn's flare Hematochezia/acute blood loss anemia related to Crohn's flare Chiari malformation POTS Plan: Crohn's flare: N.p.o., IVF, IV steroids, IV antibiotics. GI consult in place. Patient on chronic steroids as well as Remicade outpatient. He reports his flares usually require hospitalization of 3 to 4 days. Monitor H&H closely given hematochezia. Hematochezia/acute blood loss anemia related to Crohn's flare: Patient reports 4 episodes of bright red blood per rectum today, has needed blood transfusion in the past. Hemoglobin is 8.2 in the emergency department 1 unit packed red blood cells have been ordered by ED provider. Obtain 2 hypertransfusion H&H transfuse to maintain hemoglobin greater than 8. GI consult in place. Chiari malformation: Continue home medications POTS: Monitor on telemetry, continue home meds. DVT PPX: SCD Code status: Full Discharge Plan: Home Plan to discharge in: 72 Hours - Advance Directives Does patient have a Living Will: No Does patient have a Durable POA for Healthcare: No - Code Status/Comfort Care Code Status Assessed: Yes (Full code) Critical Care: No Time Spent Managing Pts Care (In Minutes): 70 <Arnie Soni - Last Filed: 03/18/22 02:12> - Plan Patient seen and examined on rounds this morning. No significant change in symptoms. reports was discussing with GI and his surgeon possibility of central line / TPN to allow for bowel rest no further bleeding this morning, but no BM either s/p 1u PRBC, hgb up to 8.7 from 8.2 check H/H this afternoon GI consutled <Isaak Valles - Last Filed: 03/18/22 22:13>
[2022-03-18 02:44] LABS: SARS-CoV-2 Antigen Rapid Res Negative (Negative)
[2022-03-18] MEDS: D5 0.45 NS 1,000 ML IV SCH ×2 (02:56→14:04)
[2022-03-18] MEDS ORDERED: D5 0.45 NS 1,000 ML IV ONE (03:05)
[2022-03-18] MEDS ORDERED: NA CHLORIDE 0.9% 250 ML ONE (03:20)
[2022-03-18 05:35] LABS: ALT/SGPT 44 U/L (12-78); AST/SGOT 17 U/L (15-37); Albumin 2.7 g/dL (3.4-5.0); Alkaline Phosphatase 37 U/L (45-117); BUN Blood Urea Nitrogen 21 mg/dL (7-18); Bicarbonate 27 mmol/L (21-32); Bilirubin Total 0.8 mg/dL (0.2-1.0); Glomerular Filtration Rate 122 ml/min (=/>90); Glucose Level 141 mg/dL (74-106); Potassium 4.8 mmol/L (3.5-5.1); Sodium Level 137 mmol/L (136-145)
[2022-03-18 05:36] LABS: C-Reactive Protein < 2.90 mg/L (<3.00)
[2022-03-18 06:02] VITALS: BMI 18.6
[2022-03-18] MEDS: MORPHINE 2 MG/ML SYR IV PRN ×3 (08:12→19:48)
[2022-03-18] MEDS: METHYLPREDNISOLONE 40 MG INJ IV SCH ×2 (08:12→16:47)
[2022-03-18] MEDS: PIPER TAZO 3.375 GM in NA CHLORIDE 0.9% 100 ML IV SCH ×2 (08:13→16:47)
[2022-03-18] MEDS: ONDANSETRON 4 MG/2 ML VIAL IV PRN ×2 (08:13→14:09)
[2022-03-18 09:20] LABS: Absolute Lymphocytes (CBC) 0.3 K/uL (0.7-4.9); Hematocrit 27.3 % (39.6-49.0); Lymphocytes % 2.3 % (15.3-44.8); MCV 73.1 fL (80-100); MPV 8.4 fL (7.6-11.3); RBC Red Blood Cell Count 3.73 M/uL (4.33-5.43)
[2022-03-18] MEDS ORDERED: INFLUENZA VACCINE (for 6+ mo) 0.5 ML DOSE IMVAC ONE (10:00)
--- NOTE | 2022-03-18 14:15 | RAD REPORT ---
EXAM DESCRIPTION: CT - Abdomen Pelvis W Contrast - 03/18/2022 1:01 am CLINICAL HISTORY: The patient is 36 years old and is Male; ABD PAIN ; HX OF CROHNS TECHNIQUE: Axial computed tomography images of the abdomen and pelvis with intravenous contrast. S agittal and coronal reformatted images were created and reviewed. This CT exam was performed using one or more of the following dose reduction techniques: automated exposure control, adjustment of t he mA and/or kV according to patient size, and/or use of iterative reconstruction technique. COMPARISON: November 11, 2021. FINDINGS: Lung bases: Unremarkable. No mass. No consolidation. ABDOMEN: Liver: Scattered calcification throughout the liver. Gallbladder and bile ducts: Unremarkable. No calcified stones. No ductal dilation. Pancreas: Unremarkable. No mass. No ductal dilation. Spleen: Scattered calcification in the spleen. Adrenals: Unremarkable. No mass. Kidneys and ureters: Simple cysts in the kidneys. ACR White Paper guidelines (Hervicente, et al. JACR 2018; 15(2):264-273) suggest no follow-up is necessary. No hydronephrosis. Stomach and bowel: There may be some mild mucosal thickening involving the proximal small bowel i n the left upper quadrant, as well as the distal small bowel. No adjacent inflammatory changes. Postsurgical changes in the proximal colon. Fluid in the colon. No obstruction. PELVIS: Appendix: No findings to suggest acute appendicitis. Bladder: Unremarkable. Reproductive: Calcification of the prostate. ABDOMEN and PELVIS: Intraperitoneal space: Unremarkable. No free air. No significant fluid collection. Bones/joints: No acute fracture. No dislocation. Soft tissues: Unremarkable. Vasculature: Unremarkable. No abdominal aortic aneurysm. Lymph nodes: Unremarkable. No enlarged lymph nodes. IMPRESSION: There may be some mild mucosal thickening involving the proximal small bowel in the left upper quadrant, as well as the distal small bowel. No adjacent inflammatory changes. Electronically signed by: Shaheed Echols MD 03/18/2022 1:23 AM CDT Due to temporary technical issues with the PACS/Fluency reporting system, reports are being signed by the in house radiologists without review as a courtesy to insure prompt reporting. The interpreting radiologist is fully responsible for the content of the report.
[2022-03-18] MEDS ORDERED: ACETAMINOPHEN 325 MG TABLET PO PRN (16:25)
[2022-03-18 19:06] LABS: Hematocrit 27.8 % (39.6-49.0)
[2022-03-19] MEDS: PIPER TAZO 3.375 GM in NA CHLORIDE 0.9% 100 ML IV SCH ×3 (00:08→16:32)
[2022-03-19] MEDS: METHYLPREDNISOLONE 40 MG INJ IV SCH ×3 (00:09→16:31)
[2022-03-19] MEDS: D5 0.45 NS 1,000 ML IV SCH (00:09)
[2022-03-19 04:08] LABS: Absolute Lymphocytes (CBC) 0.3 K/uL (0.7-4.9); Hematocrit 25.3 % (39.6-49.0); Lymphocytes % 2.4 % (15.3-44.8); MCV 73.1 fL (80-100); MPV 7.4 fL (7.6-11.3); RBC Red Blood Cell Count 3.47 M/uL (4.33-5.43)
[2022-03-19 04:29] LABS: ALT/SGPT 39 U/L (12-78); AST/SGOT 13 U/L (15-37); Albumin 2.7 g/dL (3.4-5.0); Alkaline Phosphatase 35 U/L (45-117); BUN Blood Urea Nitrogen 13 mg/dL (7-18); Bicarbonate 29 mmol/L (21-32); Bilirubin Total 1.2 mg/dL (0.2-1.0); Ferritin 22.9 ng/mL (26-388); Glomerular Filtration Rate 129 ml/min (=/>90); Glucose Level 125 mg/dL (74-106); Potassium 4.2 mmol/L (3.5-5.1); Protein, Total 4.9 g/dL (6.4-8.2); Sodium Level 139 mmol/L (136-145); Transferrin 234 mg/dL (200-360)
[2022-03-19 04:33] LABS: Iron < 10.0 ug/dL (65-175)
[2022-03-19] MEDS ORDERED: D5 0.45 NS 1,000 ML IV SCH (06:45)
[2022-03-19] MEDS ORDERED: NA CHLORIDE 0.9% 100 ML ONE (08:24)
[2022-03-19] MEDS ORDERED: PIPERACIL/TAZO 3.375 GM VIAL IV ONE (08:25)
[2022-03-19] MEDS: SOD FERRIC GLUC COMPLX/SUCROSE 125 MG in NA CHLORIDE 0.9% 100 ML IV SCH (08:41)
[2022-03-19] MEDS: MORPHINE 2 MG/ML SYR IV PRN ×2 (08:41→16:31)
--- NOTE | 2022-03-19 13:18 | P.PN ---
Subjective Date of Service: 03/19/22 Chief Complaint: Crohns flare, hematochezia, RLQ/periumbilical pain Subjective: Improving (Feels ~ 30% better on therapy. Tolerating po diet. No nausea nor diarrhea / hematochezia today.) Review of Systems 10-point ROS is otherwise unremarkable General: Weakness (Improved. ) Gastrointestinal: Abdominal Pain (Improved. ) Physical Examination - Vital Signs Temperature: 97.8 F Blood Pressure: 126/77 Pulse: 106 Respirations: 18 Pulse Ox (%): 98 - Physical Exam General: Alert, In no apparent distress, Oriented x3, Cooperative HEENT: Atraumatic, Normocephalic, PERRLA, EOMI Neck: Supple Respiratory: Normal air movement Cardiovascular: Normal pulses Gastrointestinal: No rebound, No guarding, Tenderness (very mild) Neurological: Normal speech, Normal strength at 5/5 x4 extr Assessment And Plan - Current Problems (Diagnosis) (1) Crohn's disease Current Visit: Yes Status: Acute Comment: Improved. (2) RLQ abdominal pain Current Visit: Yes Status: Acute (3) Periumbilical abdominal pain Current Visit: Yes Status: Acute (4) Nausea Current Visit: Yes Status: Acute (5) Hematochezia Current Visit: Yes Status: Acute (6) Diarrhea Current Visit: Yes Status: Acute - Plan REC: 1) decrease IV steroids to 40 mg Solumedrol in 200 cc bag NS and run over 24 hours as an IV drip 2) continue prn pain medications, anti-emetics, IV antibiotics 3) slowly advance diet from CLs to FLs to low residue 4) [facility] in [place], [place] follow-up (reports being in a trial)
--- NOTE | 2022-03-19 22:34 | P.PN ---
Date of Service: 03/19/22 Subjective: slight improvement hgb downtrending no BM / no blood tolerating liquids ROS: 10 point ROS as noted above, otherwise negative Physical Exam: Gen: NAD, AOx3 HEENT: normal conjunctiva, sclera anicteric CV: regular rate & rhythm, no edema Pulm: non-labored respirations, clear bilaterally Abd: soft, mild tenderness Skin: no rashes, no lesions Neuro: normal speech, normal affect, moves all extremities vitals reviewed Problem List Acute on Chronic crohn's flare Hematochezia/acute blood loss anemia related to Crohn's flare severe iron deficiency anemia Chiari malformation POTS improving decrease steroids dc IVF advance to full liquids, +ensure start IV iron 03/19 s/p 1u PRBC hgb down to 8.0, from hemodilution, blood draws, bleed suspect bleeding has stopped clinically improved slightly check hgb in AM GI following patient requested transfer to [facility] for continuity of care, was dc'd ~3 weeks ago for similar issues, GI and surgeon are there VTE: none given bleed Code: full Dispo: home, -2 days Time Spent Managing Pts Care (In Minutes): 35
[2022-03-19] MEDS: HYDROCODONE/APAP 5/325 MG TAB PO PRN (22:56)
[2022-03-20] MEDS: PIPER TAZO 3.375 GM in NA CHLORIDE 0.9% 100 ML IV SCH ×3 (00:38→15:15)
[2022-03-20 04:06] LABS: Absolute Lymphocytes (CBC) 0.6 K/uL (0.7-4.9); Hematocrit 26.8 % (39.6-49.0); Lymphocytes % 3.5 % (15.3-44.8); MCV 72.7 fL (80-100); MPV 7.5 fL (7.6-11.3); RBC Red Blood Cell Count 3.69 M/uL (4.33-5.43)
[2022-03-20 04:19] LABS: ALT/SGPT 44 U/L (12-78); AST/SGOT 13 U/L (15-37); Alkaline Phosphatase 41 U/L (45-117); BUN Blood Urea Nitrogen 15 mg/dL (7-18); Bicarbonate 28 mmol/L (21-32); Glomerular Filtration Rate 119 ml/min (=/>90); Glucose Level 114 mg/dL (74-106); Potassium 3.9 mmol/L (3.5-5.1); Protein, Total 5.4 g/dL (6.4-8.2); Sodium Level 138 mmol/L (136-145)
[2022-03-20 04:25] LABS: C-Reactive Protein < 2.90 mg/L (<3.00)
[2022-03-20] MEDS: HYDROCODONE/APAP 5/325 MG TAB PO PRN ×3 (08:47→21:47)
[2022-03-20] MEDS: METHYLPREDNISOLONE 40 MG INJ IV SCH (08:48)
[2022-03-20] MEDS ORDERED: POTASSIUM CL SA 10 MEQ TAB PO ONE (09:00)
[2022-03-20] MEDS: SOD FERRIC GLUC COMPLX/SUCROSE 125 MG in NA CHLORIDE 0.9% 100 ML IV SCH (10:15)
[2022-03-20] MEDS ORDERED: METHYLPREDNISOLONE 40 MG INJ IV SCH (17:00)
--- NOTE | 2022-03-20 17:54 | P.PN ---
Subjective Date of Service: 03/20/22 Chief Complaint: Crohns flare, hematochezia, RLQ/periumbilical pain Physical Examination - Vital Signs Temperature: 97.6 F Blood Pressure: 122/77 Pulse: 110 Respirations: 14 Pulse Ox (%): 99 Assessment And Plan - Current Problems (Diagnosis) (1) Crohn's disease Current Visit: Yes Status: Acute Comment: Improved. (2) RLQ abdominal pain Current Visit: Yes Status: Acute (3) Periumbilical abdominal pain Current Visit: Yes Status: Acute (4) Nausea Current Visit: Yes Status: Acute (5) Hematochezia Current Visit: Yes Status: Acute (6) Diarrhea Current Visit: Yes Status: Acute - Plan REC: 1) decrease IV steroids to 40 mg Solumedrol in 200 cc bag NS and run over 24 hours as an IV drip 2) continue prn pain medications, anti-emetics, IV antibiotics 3) slowly advance diet from CLs to FLs to low residue 4) [facility] in [place], [place] follow-up (reports being in a trial)
--- NOTE | 2022-03-20 21:52 | P.PN ---
Date of Service: 03/20/22 Subjective: slight improvement again hgb stable BM overnight/this morning with red blood, and dark tarry blood mix ,small amount no worsening of pain tolerating clears ROS: 10 point ROS as noted above, otherwise negative Physical Exam: Gen: NAD, AOx3 CV: Sinus tachycardia, no edema Pulm: non-labored respirations, clear bilaterally Abd: soft, mild tenderness Skin: no rashes, no lesions Neuro: normal speech, normal affect, moves all extremities vitals reviewed Problem List Acute on Chronic crohn's flare Hematochezia/acute blood loss anemia related to Crohn's flare severe iron deficiency anemia Chiari malformation POTS improving decrease steroids full liquids, +ensure started IV iron 03/19 s/p 1u PRBC hgb down to 8.0, from hemodilution, blood draws, bleed clinically improving slowly each day hgb stable small bloody BM 03/20 GI following [facility], was dc'd ~3 weeks ago for similar issues, GI and surgeon are there denied due to unable to accept non-emergent transfers due to EMR issues VTE: none given bleed Code: full Dispo: home, ~1-2 days pending stable hgb, no further bleed, pain improved Time Spent Managing Pts Care (In Minutes): 35
[2022-03-21] MEDS: PIPER TAZO 3.375 GM in NA CHLORIDE 0.9% 100 ML IV SCH ×2 (01:12→08:00)
[2022-03-21 03:57] VITALS: O2SAT 99
[2022-03-21 04:12] LABS: Hematocrit 27.6 % (39.6-49.0); MCV 73.9 fL (80-100); MPV 7.3 fL (7.6-11.3); RBC Red Blood Cell Count 3.74 M/uL (4.33-5.43)
[2022-03-21 04:27] LABS: Potassium 4.3 mmol/L (3.5-5.1)
[2022-03-21] MEDS: HYDROCODONE/APAP 5/325 MG TAB PO PRN ×2 (04:30→13:41)
--- NOTE | 2022-03-21 06:46 | P.PN ---
Date of Service: 03/21/22 Subjective: ROS: 10 point ROS as noted above, otherwise negative Physical Exam: Gen: NAD, AOx3 CV: Sinus tachycardia, no edema Pulm: non-labored respirations, clear bilaterally Abd: soft, mild tenderness Skin: no rashes, no lesions Neuro: normal speech, normal affect, moves all extremities vitals reviewed Problem List Acute on Chronic crohn's flare Hematochezia/acute blood loss anemia related to Crohn's flare severe iron deficiency anemia Chiari malformation POTS improving decrease steroids full liquids, +ensure started IV iron 03/19 s/p 1u PRBC hgb down to 8.0, from hemodilution, blood draws, bleed clinically improving slowly each day hgb stable small bloody BM 03/20 GI following patient requested transfer to [facility] for continuity of care, was dc'd ~3 weeks ago for similar issues, GI and surgeon are there denied due to unable to accept non-emergent transfers due to EMR issues VTE: none given bleed Code: full Dispo: home, ~1-2 days pending stable hgb, no further bleed, pain improved Time Spent Managing Pts Care (In Minutes): 35
[2022-03-21] MEDS ORDERED: METHYLPREDNISOLONE 40 MG INJ IV SCH (09:00)
[2022-03-21] MEDS: SOD FERRIC GLUC COMPLX/SUCROSE 125 MG in NA CHLORIDE 0.9% 100 ML IV SCH (09:33)
[2022-03-21 13:56] VITALS: BP 126/75; TEMP 97.9
--- NOTE | 2022-03-21 22:59 | P.DS ---
Admission Date: 03/18/22 Discharge Date: 03/21/22 Disposition: ROUTINE DISCHARGE Discharge Condition: GOOD Reason for Admission: Crohns flare, hematochezia, RLQ/periumbilical pain Consultations: GI - Dr. Palencia Brief History of Present Illness: 36-year-old male with history of Crohn's on Remicade, chronic steroids, Chiari malformation status post posterior fossa decompression, POTS presented to the emergency department for 1 day of abdominal pain and 4 episodes of bright red blood per rectum. He reports that he was hospitalized approximately 3 weeks ago at [facility] for similar and was inpatient for four days, he received 2 units PRBC and was discharged with HGB of 8.8. his labs today were significant for hemoglobin 8.2 hematocrit 26.4 with a count 17.[address] abdomen pelvis with IV contrast was performed which revealed mild mucosal thickening involving the proximal small bowel in the left upper quadrant as well as the distal small bowel no adjacent inflammatory changes noted. ED ordered 1 unit packed red blood cells given his acute blood loss anemia/mild hematochezia. ED provider wishes to admit for further evaluation and management of Crohn's flare, hematochezia, acute blood loss anemia. Hospital Course: Problem List Acute on Chronic crohn's flare Hematochezia/acute blood loss anemia related to Crohn's flare severe iron deficiency anemia Chiari malformation POTS Patient presented with abdominal pain and several episodes of bright red blood per rectum. He was recently hospitalized in [place] ~3wks ago for similar issue. CT abd/pelvis noted mild mucosal thickening of proximal small bowel in the left upper quadrant and distal small bowel. GI, Dr. Palencia, was consulted. Patient was treated with suspected acute crohn's flare with steroids, IV fluids, and empiric antibiotics. He had gradual improvement, tolerating full liquid diet. He is deemed stable for discharge home, continue steroids, 5 more days of antibiotics, pain medication. Take 48mg daily of methylprednisolone for next 3 days, then back down to 32mg daily. Follow up with GI next week, as scheduled. Vital Signs/Physical Exam: Temp Pulse Resp BP Pulse Ox 97.9 F 115 H 16 126/75 98 03/21/22 12:00 03/21/22 12:00 03/21/22 12:00 03/21/22 12:00 03/21/22 12:00 Physical Exam: Gen: NAD, AOx3 CV: Sinus tachycardia, no edema Pulm: non-labored respirations, clear bilaterally Abd: soft, mild tenderness Skin: no rashes, no lesions Neuro: normal speech, normal affect, moves all extremities Laboratory Data at Discharge: WBC 16.10 K/uL (4.3-10.9) H 03/21/22 03:57 Hgb 8.5 g/dL (13.6-17.9) L 03/21/22 03:57 Hct 27.6 % (39.6-49.0) L 03/21/22 03:57 Plt Count 297 K/uL (152-406) 03/21/22 03:57 Sodium 138 mmol/L (136-145) 03/21/22 03:57 Potassium 4.3 mmol/L (3.5-5.1) 03/21/22 03:57 BUN 16 mg/dL (7-18) 03/21/22 03:57 Creatinine 0.68 mg/dL (0.55-1.3) 03/21/22 03:57 Glucose 104 mg/dL (74-106) 03/21/22 03:57 Total Bilirubin 1.0 mg/dL (0.2-1.0) 03/20/22 03:02 AST 13 U/L (15-37) L 03/20/22 03:02 ALT 44 U/L (12-78) 03/20/22 03:02 Alkaline Phosphatase 41 U/L (45-117) L 03/20/22 03:02 Lipase 162 U/L (73-393) 03/17/22 22:05 Home Medications: Duloxetine [Cymbalta *] 20 mg PO DAILY 03/18/22 Pantoprazole [Protonix Tab*] 40 mg PO DAILY 03/18/22 Ciprofloxacin HCl 500 mg PO BID 5 Days #10 tab 03/21/22 Hydrocodone 5/APAP 325 [[place] 5/325*] 1 tab PO Q8H PRN #15 tab 03/21/22 metroNIDAZOLE [Flagyl] 500 mg PO Q8H 5 Days #15 tab 03/21/22 New Medications: Ciprofloxacin HCl 500 mg PO BID 5 Days #10 tab metroNIDAZOLE [Flagyl] 500 mg PO Q8H 5 Days #15 tab Hydrocodone 5/APAP 325 [[place] 5/325*] 1 tab PO Q8H PRN #15 tab PRN Reason: Pain Scale 5-7 (Moderate) Physician Discharge Instructions: Patient presented with abdominal pain and several episodes of bright red blood per rectum. He was recently hospitalized in [place] ~3wks ago for similar issue. CT abd/pelvis noted mild mucosal thickening of proximal small bowel in the left upper quadrant and distal small bowel. GI, Dr. Palencia, was consulted. Patient was treated with suspected acute crohn's flare with steroids, IV fluids, and empiric antibiotics. He had gradual improvement, tolerating full liquid diet. He is deemed stable for discharge home, continue steroids, 5 more days of antibiotics, pain medication. Take 48mg daily of methylprednisolone for next 3 days, then back down to your 32mg daily. Follow up with GI next week, as scheduled. Diet: liquid Followup: Gerson Palencia MD [ASSOCIATE-ACTIVE - CAN ADMIT] - 1 Week (Call to make appointment) Time spent managing pt's care (in minutes): 45
--- NOTE | 2022-04-14 15:10 | CON ---
Date of Consultation: 03/18/2022 Reason For Consultation: Crohn disease flare with hematochezia, right lower quadrant pain, periumbil ical pain. History Of Present Illness: The patient is a 36-year-old white male with history of Crohn disease, o n Remicade, chronic steroids, Chiari brain malformation, status post . The patient present ed to hospital with right lower quadrant periumbilical pain, hematochezia, and now flare. CT scan re vealed inflammation of the bowels and the patient was recommended for further evaluation and care. Pérez storey is currently being followed by [facility] and he has received Remicade every 4 weeks at 10 mg/ kg and prednisone 30 mg p.o. daily. He has failed in the past. He reports his last Remic lisa infusion was last week. He denies any emesis, though he does . He has had abdominal p ain and right lower quadrant periumbilical pain for 4 days prior to admission and then 4 episodes of bright red blood per rectum prior to admission. He was recently hospitalized 3 weeks ago in [facility] for 4 days. He received 2 units of packed RBCs and his discharge hemoglobin was 8. CT performed and showed inflammation in the proximal small bowel in the left upper isac drant area. Past Medical History: Significant for Crohn disease, recurrent flares, refractory to treatment in the past, history of Chiari brain malformation, status post taken out, small bowel resection in 2016, small bowel obstruction at the terminal ileum brain malformation surge ry. Medications: Remicade, steroids, prednisone 30 mg a day. Allergies: NKDA. Social History: Single. No kids. No tobacco. No alcohol. Family History: Father alive with ulcerative colitis. Mother alive and well. Review of Systems: The patient has right lower quadrant periumbilical pain, hematochezia, nausea, diarrhea, change in etofilo wel habits. No fevers, chills, night sweats, heat or cold intolerance. No change in weight. Physical Examination: Vital Signs: He is 6 feet 1 inch, 141 pounds, BMI of 18.6 kg/m2. HEENT: Normocephalic, atraumatic. Anicteric. Pupils equal, round, and reactive to light. Anicteri c. Oropharynx clear. Neck: Supple. No masses. Respirations: Clear to auscultation bilaterally. Cardiac: Regular rate and rhythm. No gallops or rubs. Abdomen: Positive bowel sounds. Soft. Right lower quadrant periumbilical pain, maximum 8/10, now 5 /10. He had no peritoneal or Bunch sign. No rebound. He did have some guarding. Extremities: No clubbing, cyanosis, or edema. 2+ pulses. Neuro: Alert and oriented x3. Grossly nonfocal. 5/5 motor. Sensation intact to light touch. Laboratory Data: The patient has a white count of 12.2, hemoglobin 8.7, hematocrit 27.3, MCV of 72, platelet count of 300, polys 96%, lymphocytes 2%, monocytes 1%. Sodium 137, potassium 4.8, chloride 109, bicarb 27, BUN of 21, creatinine of 0.7, glucose 141, calcium 7.8, total bilirubin , A ST of 17, ALT of 44, alkaline phosphatase 37. C-reactive protein is less than 2.9, total protein 5.0 , albumin 2.7, lipase 162 and normal. COVID-[address] of the abdomen and pelvis r evealed mild mucosal thickening in the proximal small bowel in the left upper quadrant as well as dis anna small bowel, no adjacent inflammatory changes, some scattered calcifications throughout the liver . Impression: 1.Crohn disease flare, hematochezia, right lower quadrant periumbilical pain, change in bowel habits , diarrhea, nausea for the past 2-3 days with maximum pain 8/10, now down to 4/10, CT scan revealing inflammation in the proximal and distal small bowel consistent with Crohn disease flare. This is the fifth hospital stay this year. He is followed by [facility] on Remicade q.4 weeks at 10 mg/kg dosing and prednisone 30 mg per day. Last Remicade was a week ago. He has failed Humir a, Cimzia, . 2.History of Crohn disease small bowel resected in 2015 secondary to small bowel obstruct ion at the terminal ileum in 2007, Chiari brain malformation surgery past medical history as per above. Recommendations: 1.Continue IV fluids, IV antibiotics. 2.Continue IV steroids. 3.Continue p.r.n. pain medications and antiemetics. 4. in [place], [place]. 5.Diet, clear liquids to full liquids as tolerated. WS/MODL Voice ID: [id number] Report ID: [id number]
== END 2022-03-21 13:40 | disposition home or self-care (01) | DRG 386 ==
LOC: ER 21:18 → ERHOLD 03-18 02:01 → 4TH 03-18 06:16
PROVIDERS: ADMIT Hospitalist; ATTEND Hospitalist
PROC: 30233N1 Transfusion of Nonautologous Red Blood Cells into Peripheral Vein, Percutaneous Approach (ICD-10-PCS; principal; 2022-03-18)
DX: K50.011 Crohn's disease of small intestine with rectal bleeding (principal); D62 Acute posthemorrhagic anemia; G90.A Postural orthostatic tachycardia syndrome [POTS]; D50.9 Iron deficiency anemia, unspecified; Z87.798 Personal history of other (corrected) congenital malformations; Z79.52 Long term (current) use of systemic steroids; Z79.899 Other long term (current) drug therapy; Z90.49 Acquired absence of other specified parts of digestive tract; Z20.822 Contact with and (suspected) exposure to COVID-19; Z83.79 Family history of other diseases of the digestive system
CPT/HCPCS: 36415; 74177; 80048; 80053; 82728; 82947; 83540; 83690; 84145; 84466; 85014; 85018; 85025; 85027; 86140; 86850; 86900; 86901; 87811; 99283; J2270; J2405; J2543; J2916; J2920; J2930; J7030; J7050; J7799; P9016; Q9967